=== PATIENT | male | born 1960 | race Caucasian/White ===

== ENCOUNTER → 2017-10-11 11:37 | Outpatient (REF) | payer SELFPAY ==
[2017-10-11 18:36] LABS: Basophils % 0.7 % (0.1-2.0); Eosinophils # 0.1 K/mm3 (0.0-0.4); Eosinophils % 1.8 % (0.1-12.0); Hematocrit 47.3 % (42.0-52.0); Lymphocytes # 1.5 K/mm3 (0.7-4.5); Lymphocytes % 30.9 K/mm3 (10-50); Mean Corpuscular HGB Conc 33.7 g/dL (31.8-35.4); Mean Corpuscular Hemoglobin 31.7 pg (27.0-31.2); Mean Corpuscular Volume 93.8 fl (80-94); Mean Platelet Volume 9.1 fl (7.4-10.4); Monocytes # 0.3 K/mm3 (0.1-1.0); Monocytes % 6.2 % (1.7-9.3); Neutrophils # 2.9 K/mm3 (1.8-7.8); Neutrophils % 60.5 % (37.0-80.0); Platelet Count 180 K/mm3 (142-424); Red Blood Count 5.04 M/mm3 (4.60-6.20); Red Cell Distribution Width 12.1 % (11.5-17.5); White Blood Count 4.8 K/mm3 (4.8-10.8)
[2017-10-11 18:55] LABS: Alanine Aminotransferase 25 U/L (12-78); Albumin Level 4.3 gm/dL (3.4-5.0); Albumin/Globulin Ratio 1.5 (1.1-1.8); Alkaline Phosphatase 84 U/L (46-116); Anion Gap 14.3 mEq/L (5-15); Aspartate Amino Transferase 19 U/L (15-37); Bilirubin,Total 0.6 mg/dL (0.2-1.0); Blood Urea Nitrogen 15 mg/dL (7-18); Calcium 9.2 mg/dL (8.5-10.1); Carbon Dioxide 26 mmol/L (21.0-32.0); Chloride 106 mmol/L (98-107); Chol/HDL Ratio 4.7 (1-3.5); Cholesterol 178 mg/dL (140-200); Creatinine,Serum 0.84 mg/dL (0.70-1.30); Estimated Glomerular Filt Rate 95 ml/min (>60); GFR (African American) 114 ML/MIN (>60); Globulin 2.8 gm/dl (1.3-3.2); Glucose 193 mg/dL (74-106); HDL Cholesterol 38 mg/dL (27-67); LDL Cholesterol 108 mg/dL (0-130); Potassium 4.3 mmoL/L (3.5-5.1); Sodium 142 mmol/L (136-145); T4 (Thyroxine) 7.3 ug/dl (4.7-13.3); Total Protein,Serum 7.1 gm/dL (6.4-8.2); Triglycerides 161 mg/dL (30-200); VLDL Cholesterol 32 mg/dL (0-40)
[2017-10-13 18:40] LABS: Folate 19.6 ng/mL (>3.0); Vitamin B12 489 pg/mL (232-1245)
[2017-10-15 06:09] LABS: PSA, Free 0.22 ng/mL; Prostate Specific Ag 0.9 ng/mL (0.0-4.0)
[2017-10-16 14:29] LABS: Testosterone,Free 4.2 pg/mL (7.2-24.0)
[2017-10-18 21:09] LABS: Testosterone, Total, LC/MS 434.6 ng/dL (264.0-916.0)
== END ==
LOC: LAB 11:37
PROVIDERS: Visit Provider Physician Assistant
DX: F32.9 Major depressive disorder, single episode, unspecified (principal)
CPT/HCPCS: 80053; 80061; 82607; 82652; 82746; 84153; 84154; 84402; 84436; 84443; 85025

== ENCOUNTER → 2017-10-25 09:27 | Outpatient (REF) | payer SELFPAY ==
[2017-10-27 18:33] LABS: Testosterone,Free 5.8 pg/mL (7.2-24.0)
[2017-10-29 13:26] LABS: Testosterone, Total, LC/MS 675.1 ng/dL (264.0-916.0)
== END ==
LOC: LAB 09:27
PROVIDERS: Visit Provider Physician Assistant
DX: E29.1 Testicular hypofunction (principal)
CPT/HCPCS: 84402

== ENCOUNTER → 2018-02-12 09:52 | Outpatient (REF) | payer SELFPAY ==
[2018-02-12 13:25] LABS: Basophils % 0.3 % (0.1-2.0); Eosinophils # 0.1 K/mm3 (0.0-0.4); Eosinophils % 1.5 % (0.1-12.0); Hematocrit 49.2 % (42.0-52.0); Hemoglobin 16.5 g/dL (14.1-18.0); Lymphocytes # 1.9 K/mm3 (0.7-4.5); Lymphocytes % 29.3 K/mm3 (10-50); Mean Corpuscular HGB Conc 33.6 g/dL (31.8-35.4); Mean Corpuscular Hemoglobin 29.8 pg (27.0-31.2); Mean Corpuscular Volume 88.8 fl (80-94); Monocytes # 0.4 K/mm3 (0.1-1.0); Monocytes % 6.2 % (1.7-9.3); Neutrophils # 4.1 K/mm3 (1.8-7.8); Neutrophils % 62.6 % (37.0-80.0); Platelet Count 180 K/mm3 (142-424); Red Blood Count 5.54 M/mm3 (4.60-6.20); Red Cell Distribution Width 12.4 % (11.5-17.5); White Blood Count 6.5 K/mm3 (4.8-10.8)
[2018-02-12 14:35] LABS: Alanine Aminotransferase 32 U/L (12-78); Albumin Level 4.4 gm/dL (3.4-5.0); Albumin/Globulin Ratio 1.5 (1.1-1.8); Alkaline Phosphatase 88 U/L (46-116); Anion Gap 12.5 mEq/L (5-15); Aspartate Amino Transferase 16 U/L (15-37); Bilirubin,Total 0.6 mg/dL (0.2-1.0); Blood Urea Nitrogen 17 mg/dL (7-18); Calcium 8.6 mg/dL (8.5-10.1); Carbon Dioxide 27 mmol/L (21.0-32.0); Chloride 105 mmol/L (98-107); Chol/HDL Ratio 3.6 (1-3.5); Cholesterol 144 mg/dL (140-200); Estimated Glomerular Filt Rate 100 ml/min (>60); GFR (African American) 121 ML/MIN (>60); Globulin 2.9 gm/dl (1.3-3.2); Glucose 205 mg/dL (74-106); HDL Cholesterol 40 mg/dL (27-67); LDL Cholesterol 69 mg/dL (0-130); Potassium 4.5 mmoL/L (3.5-5.1); Sodium 140 mmol/L (136-145); T4 (Thyroxine) 7.1 ug/dl (4.7-13.3); Thyroid Stimulating Hormone 1.55 uIU/ml (0.358-3.740); Total Protein,Serum 7.3 gm/dL (6.4-8.2); Triglycerides 174 mg/dL (30-200); VLDL Cholesterol 35 mg/dL (0-40)
[2018-02-15 18:27] LABS: Folate >20.0 ng/mL (>3.0); PSA, Free 0.09 ng/mL; Prostate Specific Ag 0.4 ng/mL (0.0-4.0); Vitamin B12 688 pg/mL (232-1245); Vitamin D 25 Hydroxy 41.4 ng/mL (30.0-100.0)
[2018-02-16 18:40] LABS: Testosterone, Total, LC/MS 576.1 ng/dL (264.0-916.0)
== END ==
LOC: LAB 09:52
PROVIDERS: Visit Provider Physician Assistant
DX: E34.9 Endocrine disorder, unspecified (principal); E11.9 Type 2 diabetes mellitus without complications; E55.9 Vitamin D deficiency, unspecified; G62.9 Polyneuropathy, unspecified
CPT/HCPCS: 80053; 80061; 82607; 82652; 82746; 84153; 84154; 84403; 84436; 84443; 85025

== ENCOUNTER → 2018-10-25 13:24 | Outpatient (CLI) | payer SELFPAY ==
[2018-10-25 13:34] LABS: Basophils % 0.5 % (0.1-2.0); Eosinophils # 0.1 K/mm3 (0.0-0.4); Eosinophils % 1.8 % (0.1-12.0); Hematocrit 47.3 % (42.0-52.0); Hemoglobin 14.4 g/dL (14.1-18.0); Lymphocytes # 1.7 K/mm3 (0.7-4.5); Lymphocytes % 35.1 % (10-50); Mean Corpuscular HGB Conc 30.4 g/dL (31.8-35.4); Mean Corpuscular Hemoglobin 28.1 pg (27.0-31.2); Mean Corpuscular Volume 92.6 fl (80-94); Mean Platelet Volume 8.8 fl (7.4-10.4); Monocytes # 0.4 K/mm3 (0.1-1.0); Monocytes % 7.7 % (1.7-9.3); Neutrophils # 2.6 K/mm3 (1.8-7.8); Neutrophils % 54.8 % (37.0-80.0); Platelet Count 187 K/mm3 (142-424); Red Blood Count 5.11 M/mm3 (4.60-6.20); Red Cell Distribution Width 13.2 % (11.5-17.5); White Blood Count 4.8 K/mm3 (4.8-10.8)
[2018-10-25 13:52] LABS: Hemoglobin A1C 8.7 % (0.0-7.0)
[2018-10-25 14:13] LABS: Alanine Aminotransferase 36 U/L (12-78); Albumin Level 4.2 gm/dL (3.4-5.0); Albumin/Globulin Ratio 1.4 (1.1-1.8); Alkaline Phosphatase 98 U/L (46-116); Anion Gap 14.6 mEq/L (5-15); Aspartate Amino Transferase 20 U/L (15-37); Bilirubin,Total 0.6 mg/dL (0.2-1.0); Blood Urea Nitrogen 22 mg/dL (7-18); Calcium 8.9 mg/dL (8.5-10.1); Carbon Dioxide 29 mmol/L (21.0-32.0); Chloride 104 mmol/L (98-107); Chol/HDL Ratio 3.5 (1-3.5); Cholesterol 133 mg/dL (140-200); Creatinine,Serum 0.82 mg/dL (0.70-1.30); Estimated Glomerular Filt Rate 97 ml/min (>60); Free T4 (Free Thyroxine) 0.98 ng/dl (0.76-1.46); GFR (African American) 117 ML/MIN (>60); Globulin 2.9 gm/dl (1.3-3.2); Glucose 242 mg/dL (74-106); HDL Cholesterol 38 mg/dL (27-67); LDL Cholesterol 76 mg/dL (0-130); Potassium 4.6 mmoL/L (3.5-5.1); Sodium 143 mmol/L (136-145); Thyroid Stimulating Hormone 1.36 uIU/ml (0.358-3.740); Total Protein,Serum 7.1 gm/dL (6.4-8.2); Triglycerides 95 mg/dL (30-200); VLDL Cholesterol 19 mg/dL (0-40)
== END ==
PROVIDERS: Visit Provider Nurse Practitioner Family
DX: E34.9 Endocrine disorder, unspecified (principal); E55.9 Vitamin D deficiency, unspecified; E11.9 Type 2 diabetes mellitus without complications; R53.83 Other fatigue; R68.89 Other general symptoms and signs; D72.829 Elevated white blood cell count, unspecified
CPT/HCPCS: 80053; 80061; 83036; 84439; 84443; 85025

== ENCOUNTER → 2019-02-25 09:52 | Outpatient (CLI) | payer SELFPAY ==
[2019-02-25 10:23] LABS: Basophils % 0.7 % (0.1-2.0); Eosinophils # 0.1 K/mm3 (0.0-0.4); Eosinophils % 2.2 % (0.1-12.0); Hematocrit 46.9 % (42.0-52.0); Hemoglobin 15.1 g/dL (14.1-18.0); Lymphocytes # 2.3 K/mm3 (0.7-4.5); Lymphocytes % 38.9 % (10-50); Mean Corpuscular HGB Conc 32.1 g/dL (31.8-35.4); Mean Corpuscular Hemoglobin 29.4 pg (27.0-31.2); Mean Corpuscular Volume 91.5 fl (80-94); Mean Platelet Volume 8.9 fl (7.4-10.4); Monocytes # 0.4 K/mm3 (0.1-1.0); Monocytes % 6.1 % (1.7-9.3); Neutrophils # 3.1 K/mm3 (1.8-7.8); Neutrophils % 52.1 % (37.0-80.0); Platelet Count 156 K/mm3 (142-424); Red Blood Count 5.13 M/mm3 (4.60-6.20); Red Cell Distribution Width 13.5 % (11.5-17.5)
[2019-02-25 10:59] LABS: Alanine Aminotransferase 34 U/L (12-78); Albumin/Globulin Ratio 1.4 (1.1-1.8); Alkaline Phosphatase 85 U/L (46-116); Aspartate Amino Transferase 22 U/L (15-37); Bilirubin,Total 0.5 mg/dL (0.2-1.0); Blood Urea Nitrogen 18 mg/dL (7-18); Calcium 8.9 mg/dL (8.5-10.1); Carbon Dioxide 31 mmol/L (21.0-32.0); Chloride 102 mmol/L (98-107); Chol/HDL Ratio 3.3 (1-3.5); Cholesterol 145 mg/dL (140-200); Creatinine,Serum 0.79 mg/dL (0.70-1.30); Estimated Glomerular Filt Rate 101 ml/min (>60); GFR (African American) 122 ML/MIN (>60); Globulin 2.8 gm/dl (1.3-3.2); Glucose 234 mg/dL (74-106); HDL Cholesterol 44 mg/dL (27-67); LDL Cholesterol 74 mg/dL (0-130); Sodium 140 mmol/L (136-145); T4 (Thyroxine) 6.8 ug/dl (4.7-13.3); Thyroid Stimulating Hormone 1.66 uIU/ml (0.358-3.740); Total Protein,Serum 6.8 gm/dL (6.4-8.2); Triglycerides 134 mg/dL (30-200); VLDL Cholesterol 27 mg/dL (0-40)
[2019-02-25 11:29] LABS: Hemoglobin A1C 9.5 % (0.0-7.0)
[2019-02-26 16:46] LABS: Vitamin D 25 Hydroxy 24.2 ng/mL (30.0-100.0)
[2019-02-26 16:47] LABS: Microalbumin, Urine <3.0 ug/mL (Not Estab.)
== END ==
PROVIDERS: Visit Provider Nurse Practitioner Family
DX: E11.9 Type 2 diabetes mellitus without complications (principal); E55.9 Vitamin D deficiency, unspecified; R53.83 Other fatigue; Z79.84 Long term (current) use of oral hypoglycemic drugs
CPT/HCPCS: 36415; 80053; 80061; 82043; 82652; 83036; 84436; 84443; 85025

== ENCOUNTER 2022-12-30 13:15 | Inpatient (IN) | payer MEDICARE, SELFPAY ==
[2022-12-30 13:20] VITALS: BP 115/58; PULSE 85; RESP 18; TEMP 36.7; O2SAT 97; BMI 24.4
--- NOTE | 2022-12-30 13:26 | XR_ITS ---
PROCEDURE INFORMATION: Exam: XR Left Hand Exam date and time: 12/30/2022 1:28 PM Age: 62 years old Clinical indication: Swelling and other: Infection; Hand; Left; Additional info: Infection; Eval for sq gas TECHNIQUE: Imaging protocol: Radiologic exam of the left hand. Views: 3 or more views. COMPARISON: No relevant prior studies available. FINDINGS: Bones/joints: No acute fracture or dislocation. No lytic lesions or periosteal reaction to suggest osteomyelitis. Mild degenerative arthritic changes in the hand and wrist, with joint narrowing and some periarticular spurs in the joints of the thumb, at the base of 2nd metacarpal. Soft tissues: Prominent soft tissue swelling in the hand. No soft tissue emphysema.No radiopaque foreign bodies seen. IMPRESSION: 1. Soft tissue swelling in the hand consistent with the clinical history of infection/cellulitis. No soft tissue emphysema. No radiopaque foreign body seen in the soft tissues. 2. 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 No findings of osteomyelitis.
--- NOTE | 2022-12-30 13:31 | PC.NURSE ---
portable xray at bedside.
--- NOTE | 2022-12-30 13:38 | HMH.EDGENADL ---
Discharge Plan Disposition Patient Disposition: Admitted Prescriptions Prescriptions: No Action cetirizine [All Day Allergy (cetirizine)] 10 mg tablet 10 mg PO DAILY meloxicam 15 mg tablet 15 mg PO DAILY lisinopril 20 mg tablet 20 mg PO DAILY sertraline 100 mg tablet 100 mg PO DAILY simvastatin 10 mg tablet 10 mg PO HS sulfamethoxazole-trimethoprim [Bactrim DS] 800-160 mg tablet 1 tab PO BID cephalexin 500 mg capsule 500 mg PO QID fluticasone propionate [Flonase Allergy Relief] 50 mcg/actuation spray,suspension 1 spray intranasal DAILY Rx Instructions: administer into each nostril (DME) pen needle, diabetic [Comfort EZ Pen [place]] 32 gauge x 5/16 needle See Rx Instructions .ROUTE Rx Instructions: As directed Referrals Follow up/Referrals: Nathalia Melgar PA [Primary Care Provider] - See instructions Clinical Impressions Clinical Impression: Cellulitis and abscess of hand, Failure of outpatient treatment Instructions Patient Instructions: DI for Skin Abscess Discharge ED Provider: Philip Schmidt General Adult HPI General Chief complaint: Skin/Abscess/Foreign Body Stated complaint: left hand swelling, skin breakage, no accident Time Seen by Provider: 12/30/22 13:17 Mode of Arrival: Ambulatory Source of Information: Patient Limitations: No Limitations Description of Symptoms (Recalled from ER Triage Doc. by RN): pt states he thinks he got bit by some type of insect possibly a spider on Sunday, stated he went to see his PCP and was put on 2 prescriptions keflex and bactrium, L hand is red, swollen, and warm to touch and extends up his L wrist and lower part of his arm, open wound noted above ring finger and pinky, denies any fever History of Present Illness HPI narrative: Patient is a 62-year-old male here with hand pain and swelling on the dorsal aspect of the left hand has been ongoing since Sunday. States that he began to have a small wound on the dorsal aspect of his left hand that subsequently has been draining purulence with increasing redness swelling and tenderness on the dorsal aspect of the hand extending up to upper arm. No fevers or chills he is a diabetic. He has been on Bactrim and Keflex for several days without any significant improvement. Related Data Home Medications Medication Instructions Recorded Confirmed cephalexin 500 mg capsule 500 mg PO QID Infection 12/30/22 12/30/22 cetirizine 10 mg tablet (All Day 10 mg PO DAILY Allergy Symptoms 12/30/22 12/30/22 Allergy (cetirizine)) fluticasone propionate 50 1 spray intranasal DAILY Allergy 12/30/22 12/30/22 mcg/actuation nasal Symptoms spray,suspension (Flonase Allergy Relief) lisinopril 20 mg tablet 20 mg PO DAILY High Blood Pressure 12/30/22 12/30/22 meloxicam 15 mg tablet 15 mg PO DAILY Pain 12/30/22 12/30/22 pen needle, diabetic 32 gauge x 12/30/22 12/30/2210/10 (Comfort EZ Pen [place]) sertraline 100 mg tablet 100 mg PO DAILY Mood 12/30/22 12/30/22 simvastatin 10 mg tablet 10 mg PO HS Cholesterol 12/30/22 12/30/22 sulfamethoxazole 800 1 tab PO BID Infection 12/30/22 12/30/22 mg-trimethoprim 160 mg tablet (Bactrim DS) Allergies Allergy/AdvReac Type Severity Reaction Status Date / Time amoxicillin [AMOXICILLIN] Allergy Unknown Verified 12/30/22 13:58 clavulanic acid Allergy Verified 12/30/22 13:58 [From Augmentin] [facility] Disclaimer: The information contained in this section may have been updated after the patient was seen, as this information can be updated by other users. Medical History Alcohol abuse Depression Diabetes Neuropathy Vitamin D deficiency (~10/15/17) Social History Smoking Status: Never smoker alcohol intake: never counseling provided: none substance use type: denies use current oc
--- NOTE | 2022-12-30 13:56 | HMH.PHAINT1 ---
Pharmacy Intervention Comments: MEDICATION RECONCILIATION COMPLETED ON PATIENT USING EXTERNAL FILL HISTORY FROM PHARMACY. -[facility], [facility]
[2022-12-30 13:58] LABS: Chloride 101 mmol/L (98-107); Potassium 4.4 mmoL/L (3.5-5.1); Sodium 135 mmol/L (136-145)
[2022-12-30 14:00] LABS: Alanine Aminotransferase 21 U/L (12-78); Aspartate Amino Transferase 22 U/L (17-59); Blood Urea Nitrogen 23 mg/dl (9-20); Creatinine Clearance Estimated 87 mL/min (50-200); Estimated Glomerular Filt Rate 86 ml/min (>60); GFR (African American) 104 ML/MIN (>60)
[2022-12-30 14:01] LABS: Albumin Level 4.1 g/dl (3.5-5.0); Albumin/Globulin Ratio 1.4 (1.1-1.8); Alkaline Phosphatase 121 U/L (38-126); Anion Gap 11.4 mEq/L (5-15); Calcium 9.3 mg/dl (8.4-10.2); Carbon Dioxide 27 mmol/L (22.0-30.0); Globulin 2.9 g/dL (1.3-3.2); Glucose 379 mg/dl (74-100); Lactic Acid 1.3 mmol/L (0.7-2.1)
[2022-12-30 14:05] LABS: Basophils % 0.2 % (0.1-2.0); Eosinophils # 0.2 K/mm3 (0.0-0.4); Eosinophils % 2.1 % (0.1-12.0); Hematocrit 41.7 % (42.0-52.0); Hemoglobin 13.5 g/dL (14.1-18.0); Lymphocytes # 0.9 K/mm3 (0.7-4.5); Lymphocytes % 7.9 % (10-50); Mean Corpuscular HGB Conc 32.3 g/dL (31.8-35.4); Mean Corpuscular Hemoglobin 29.2 pg (27.0-31.2); Mean Corpuscular Volume 90.4 fl (80-94); Mean Platelet Volume 9.2 fl (7.4-10.4); Monocytes # 0.6 K/mm3 (0.1-1.0); Monocytes % 5.4 % (1.7-9.3); Neutrophils # 9.2 K/mm3 (1.8-7.8); Neutrophils % 84.2 % (37.0-80.0); Platelet Count 175 K/mm3 (142-424); Red Blood Count 4.61 M/mm3 (4.60-6.20); Red Cell Distribution Width 13.1 % (11.5-17.5); White Blood Count 10.9 K/mm3 (4.8-10.8)
--- NOTE | 2022-12-30 14:06 | EXP.PHA.CONS ---
Pharmacy Consult Date: 12/30/22 Time: 14:06 Referring provider: DR MASON Reason for Consult:: VANCOMYCIN DOSING CONSULT Allergies Allergy/AdvReac Type Severity Reaction Status Date / Time amoxicillin [AMOXICILLIN] Allergy Unknown Verified 12/30/22 13:58 clavulanic acid Allergy Verified 12/30/22 13:58 [From Augmentin] Home Medications Medication Instructions Recorded Confirmed Type cephalexin 500 mg capsule 500 mg PO QID Infection 12/30/22 12/30/22 History cetirizine 10 mg tablet (All Day 10 mg PO DAILY Allergy Symptoms 12/30/22 12/30/22 History Allergy (cetirizine)) fluticasone propionate 50 1 spray intranasal DAILY Allergy 12/30/22 12/30/22 History mcg/actuation nasal Symptoms spray,suspension (Flonase Allergy Relief) lisinopril 20 mg tablet 20 mg PO DAILY High Blood Pressure 12/30/22 12/30/22 History meloxicam 15 mg tablet 15 mg PO DAILY Pain 12/30/22 12/30/22 History pen needle, diabetic 32 gauge x 12/30/22 12/30/22 History 5/16 (Comfort EZ Pen [place]) sertraline 100 mg tablet 100 mg PO DAILY Mood 12/30/22 12/30/22 History simvastatin 10 mg tablet 10 mg PO HS Cholesterol 12/30/22 12/30/22 History sulfamethoxazole 800 1 tab PO BID Infection 12/30/22 12/30/22 History mg-trimethoprim 160 mg tablet (Bactrim DS) New Prescriptions to Start Prescriptions: Height: 1.8 m Weight: 79.379 kg Laboratory Results:: Laboratory Results - last 24 hr 12/30/22 13:40: Sodium 135 L, Potassium 4.4, Chloride 101, Carbon Dioxide 27, Anion Gap 11.4, BUN 23 H, Creatinine 0.90, Estimated Creat Clear 87, Estimated GFR 86, Est GFR ( Amer) 104, Glucose 379 H, Lactate 1.3, Calcium 9.3, Total Bilirubin 1.0, AST 22, ALT 21, Alkaline Phosphatase 121, Total Protein 7.0, Albumin 4.1, Globulin 2.9, Albumin/Globulin Ratio 1.4 Medical History: Medical History (Updated 03/10/19 @ 11:13 by HIRAM Blair) Alcohol abuse Depression Diabetes Neuropathy Vitamin D deficiency (~10/15/17) Assessment and Plan Assessment and plan all Dx Assessment and Plan for all problems:: Pharmacokinetic dosing service Objective: Age: 62 yo Serum creatinine: 0.9 mg/dL Height: 71.0 Inches Weight (kg): 79.379 Diagnosis: INSECT BITE/CELLULITIS/ABSCESS Assessment: IBW (kg): 75.30 Dosing wt(kg): 79.379 Estimated Creatinine clearance (ml/min): 91.8 CRCL method: Cockcroft and Gault using ibw(default). Drug selected: Vancomycin Vd (liters): 55.6 (factor used: 0.7 L/kg) Kt (hr-1): 0.081 Half life (hrs): 8.56 CLvanco=?? 4.504 L/hr Recommended dose: 1250 mg Interval: 12 hrs Infusion time (hrs): 2.0 Predicted peak (mcg/mL): 33.4 Predicted trough (mcg/mL): 14.86 Total body weight is being used for vancomycin dosing. Recommendations: Give Vancomycin 1250 mg q 12 hrs with an expected Cpeak of 33.4 mcg/ml and an expected Ctrough of 14.86 mcg/ml AUC 0-24 /KELI Data: KELI 0.5 mcg/mL:?? AUC/KELI:? 1110.1 KELI 1.0 mcg/mL:?? AUC/KELI:? 555.1 --------- KELI 1.5 mcg/mL:?? AUC/KELI:? 370.0 KELI 2.0 mcg/mL:?? AUC/KELI:? 277.5 Thank you for the consult
[2022-12-30 14:07] LABS: C-Reactive Protein 197.7 mg/L (0-4)
--- NOTE | 2022-12-30 14:15 | PC.NURSE ---
DR MASON IS SPEAKING WITH HOSPITALIST.
--- NOTE | 2022-12-30 14:27 | PC.NURSE ---
HOUSE AWARE OF ADMISSION.
--- NOTE | 2022-12-30 14:34 | EXP.HP ---
History of Present Illness *Admission Date: 12/30/22 *Reason for visit:: pain and swelling of the left hand *History of present illness: Mr. Patel is a 62 year old male with a past medical history of type 2 dm and hld who presents with gradually worsening pain and swelling of the left hand x 5 days. He states that he first noticed a boil at the dorsum of his left hand and denies any trauma to the area. He doesn't recall being bitten by a bug. He states that 4 days ago his niece who is a nurse drained purulent material from the area by puncturing it with a sterile needle. He saw his PCP 2 days ago because of worsening pain, swelling and purulent drainage and was given a tetanus vaccine and started on keflex and bactrim. Despite taking 2 days of these antibiotics swelling and pain have only worsened. He has also had subjective fevers. Prior to this episode he has no history of cellulitis. Initial workup reveals cbc with 10.9k wbcs, crp 197 and an xr of the hand reveals soft tissue swelling with no emphysema, foreign body or findings of osteomyelitis. [facility] Disclaimer: The information contained in this section may have been updated after the patient was seen, as this information can be updated by other users. Medical History Alcohol abuse Depression Diabetes Neuropathy Vitamin D deficiency (~10/15/17) Social History Smoking Status: Never smoker alcohol intake: never counseling provided: none substance use type: denies use current occupational status: unemployed Travel in the last 8 weeks: None caffeine: Yes Review of Systems Review of Systems Review of systems:: pertinent systems reviewed and negative unless documented below Constitutional Constitutional: Reports fever(s) (subjective) *Musculoskeletal Comments: pain and swelling of the left hand Meds Home Medications and Allergies Home Medications Medication Instructions Recorded Confirmed Type cephalexin 500 mg capsule 500 mg PO QID Infection 12/30/22 12/30/22 History cetirizine 10 mg tablet (All Day 10 mg PO DAILY Allergy Symptoms 12/30/22 12/30/22 History Allergy (cetirizine)) fluticasone propionate 50 1 spray intranasal DAILY Allergy 12/30/22 12/30/22 History mcg/actuation nasal Symptoms spray,suspension (Flonase Allergy Relief) liraglutide 0.6 mg/0.1 mL (18 mg/3 1.8 mg SQ DAILY diabetes 12/30/22 12/30/22 History mL) subcutaneous pen injector (Victoza 2-Jose) lisinopril 20 mg tablet 20 mg PO DAILY High Blood Pressure 12/30/22 12/30/22 History meloxicam 15 mg tablet 15 mg PO DAILY Pain 12/30/22 12/30/22 History pen needle, diabetic 32 gauge x 12/30/22 12/30/22 History 5/16 (Comfort EZ Pen [place]ia) sertraline 100 mg tablet 100 mg PO DAILY Mood 12/30/22 12/30/22 History simvastatin 10 mg tablet 10 mg PO HS Cholesterol 12/30/22 12/30/22 History sulfamethoxazole 800 1 tab PO BID Infection 12/30/22 12/30/22 History mg-trimethoprim 160 mg tablet (Bactrim DS) New Prescriptions to Start Prescriptions: Allergies Allergy/AdvReac Type Severity Reaction Status Date / Time amoxicillin [AMOXICILLIN] Allergy Unknown Verified 12/30/22 13:58 clavulanic acid Allergy Verified 12/30/22 13:58 [From Augmentin] Exam Data for Last 24 hours Vital signs and Labs for Last 24 Hours: Temp Pulse Resp BP Pulse Ox O2 Del Method 98.0 F 85 18 115/58 L 97 Room Air 12/30/22 13:20 12/30/22 13:20 12/30/22 13:20 12/30/22 13:20 12/30/22 13:20 12/30/22 13:20 Laboratory Results - last 24 hr 12/30/22 13:40: WBC 10.9 H, RBC 4.61, Hgb 13.5 L, Hct 41.7 L, MCV 90.4, MCH 29.2, MCHC 32.3, RDW 13.1, Plt Count 175, MPV 9.2, Neut % (Auto) 84.2 H, Lymph % (Auto) 7.9 L, [place] % (Auto) 5.4, Eos % (Auto) 2.1, Baso % (Auto) 0.2, Neut # (Auto) 9.2 H, Lymph # (Auto) 0.9, [place] # (Auto) 0.6, Eos # (Auto) 0.2, Baso # (Auto) 0.0, Sod
--- NOTE | 2022-12-30 14:37 | PC.NURSE ---
CALLED REPORT TO JAKE SEPULVEDA
[2022-12-30 14:40] VITALS: BP 116/67; PULSE 74; RESP 18; TEMP 36.8; O2SAT 99
--- NOTE | 2022-12-30 14:58 | PC.NURSE ---
arrived by w/c from ED
[2022-12-30 15:06] VITALS: BP 116/67; PULSE 74; RESP 18; TEMP 36.7; O2SAT 98; BMI 23.7
[2022-12-30 16:35] LABS: POC Glucose,Bedside 349 (70-110)
--- NOTE | 2022-12-30 18:59 | PC.NURSE ---
Patient admitted from emergency department. Patient receiving antibiotics no complaints at this time
[2022-12-30 20:00] VITALS: BP 104/52; PULSE 68; RESP 17; TEMP 36.7; O2SAT 98
[2022-12-30 20:01] LABS: POC Glucose,Bedside 344 (70-110)
[2022-12-31] VITALS: BP 111/68; PULSE 63; RESP 16; TEMP 36.8; O2SAT 97
--- NOTE | 2022-12-31 03:41 | PC.NURSE ---
NO ACUTE CHANGES THIS SIFT. PT HAS NOT SLEPT TONIGHT. NO C/O PAIN OR DISCOMFORT. VSS.
[2022-12-31 04:00] VITALS: BP 112/61; PULSE 63; RESP 16; TEMP 36.8; O2SAT 97; BMI 24.0
[2022-12-31 05:44] LABS: POC Glucose,Bedside 239 (70-110)
[2022-12-31 07:59] LABS: Basophils % 0.1 % (0.1-2.0); Eosinophils # 0.3 K/mm3 (0.0-0.4); Eosinophils % 4.3 % (0.1-12.0); Hematocrit 37.4 % (42.0-52.0); Lymphocytes # 0.9 K/mm3 (0.7-4.5); Lymphocytes % 13.3 % (10-50); Mean Corpuscular HGB Conc 32.1 g/dL (31.8-35.4); Mean Corpuscular Hemoglobin 29.2 pg (27.0-31.2); Mean Corpuscular Volume 90.7 fl (80-94); Mean Platelet Volume 9.3 fl (7.4-10.4); Monocytes # 0.4 K/mm3 (0.1-1.0); Monocytes % 5.8 % (1.7-9.3); Neutrophils # 5.3 K/mm3 (1.8-7.8); Neutrophils % 76.4 % (37.0-80.0); Platelet Count 172 K/mm3 (142-424); Red Blood Count 4.12 M/mm3 (4.60-6.20); Red Cell Distribution Width 13.1 % (11.5-17.5)
[2022-12-31 08:00] VITALS: BP 111/49; PULSE 68; RESP 18; TEMP 36.8; O2SAT 99
[2022-12-31 08:09] LABS: Anion Gap 13.4 mEq/L (5-15); Blood Urea Nitrogen 19 mg/dl (9-20); Calcium 8.2 mg/dl (8.4-10.2); Carbon Dioxide 21 mmol/L (22.0-30.0); Chloride 107 mmol/L (98-107); Creatinine Clearance Estimated 86 mL/min (50-200); Estimated Glomerular Filt Rate 98 ml/min (>60); GFR (African American) 119 ML/MIN (>60); Glucose 226 mg/dl (74-100); Potassium 4.4 mmoL/L (3.5-5.1); Sodium 137 mmol/L (136-145)
[2022-12-31 08:49] LABS: Hemoglobin 12.1 g/dL (14.1-18.0)
[2022-12-31 11:59] LABS: POC Glucose,Bedside 354 (70-110)
--- NOTE | 2022-12-31 12:07 | EXP.PN ---
Subjective *Date: 12/31/22 *Time: 12:07 Interval history: No acute events overnight. Swelling and pain has decreased He continues to have purulent drainage No numbness/tingling Exam Data for Last 24 hours Vital signs and Labs for Last 24 Hours: Temp Pulse Resp BP Pulse Ox O2 Del Method 98.2 F 68 18 111/49 L 99 Room Air 12/31/22 08:00 12/31/22 08:00 12/31/22 08:00 12/31/22 08:00 12/31/22 08:00 12/31/22 08:00 Laboratory Results - last 24 hr 12/30/22 13:40: WBC 10.9 H, RBC 4.61, Hgb 13.5 L, Hct 41.7 L, MCV 90.4, MCH 29.2, MCHC 32.3, RDW 13.1, Plt Count 175, MPV 9.2, Neut % (Auto) 84.2 H, Lymph % (Auto) 7.9 L, [place] % (Auto) 5.4, Eos % (Auto) 2.1, Baso % (Auto) 0.2, Neut # (Auto) 9.2 H, Lymph # (Auto) 0.9, [place] # (Auto) 0.6, Eos # (Auto) 0.2, Baso # (Auto) 0.0, Sodium 135 L, Potassium 4.4, Chloride 101, Carbon Dioxide 27, Anion Gap 11.4, BUN 23 H, Creatinine 0.90, Estimated Creat Clear 87, Estimated GFR 86, Est GFR ( Amer) 104, Glucose 379 H, Lactate 1.3, Calcium 9.3, Total Bilirubin 1.0, AST 22, ALT 21, Alkaline Phosphatase 121, C-Reactive Protein 197.7 H, Total Protein 7.0, Albumin 4.1, Globulin 2.9, Albumin/Globulin Ratio 1.4 12/30/22 16:24: POC Glucose 349 H* 12/30/22 19:50: POC Glucose 344 H* 12/31/22 05:35: POC Glucose 239 H 12/31/22 06:31: WBC 7.0 D, RBC 4.12 L, Hgb 12.1 L D, Hct 37.4 L, MCV 90.7, MCH 29.2, MCHC 32.1, RDW 13.1, Plt Count 172, MPV 9.3, Neut % (Auto) 76.4, Lymph % (Auto) 13.3, [place] % (Auto) 5.8, Eos % (Auto) 4.3, Baso % (Auto) 0.1, Neut # (Auto) 5.3, Lymph # (Auto) 0.9, [place] # (Auto) 0.4, Eos # (Auto) 0.3, Baso # (Auto) 0.0, Sodium 137, Potassium 4.4, Chloride 107, Carbon Dioxide 21 L, Anion Gap 13.4, BUN 19, Creatinine 0.80, Estimated Creat Clear 86, Estimated GFR 98, Est GFR ( Amer) 119, Glucose 226 H D, Calcium 8.2 L 12/31/22 11:20: POC Glucose 354 H* I & O for Last 24 hours: Intake & Output 12/28/22 12/29/22 12/30/22 12/31/22 23:59 23:59 23:59 23:59 Intake Total 290 / 630 610 / 610 Output Total 200 / 600 500 / 500 Balance 90 / 30 110 / 110 Weight 77.281 kg 77.927 kg Microbiology Reports for the Last 24 Hours: Microbiology 12/30/22 14:00 Hand,Left Gram Stain - Final 12/30/22 14:00 Hand,Left Wound Culture - Preliminary Gram Positive Cocci Constitutional Constitutional: no acute distress *Routine HEENT Exam Head: Present normocephalic Eye: Present EOMI and PERRL ENT: Present mucous membranes moist *Routine Neck Exam Neck: Present supple; Absent lymphadenopathy *Routine Respiratory Exam Respiratory: Present CTA bilaterally *Routine Cardiovascular Exam Cardiovascular: Present RRR *Routine Abdominal Exam Abdominal: Present soft and normoactive bowel sounds; Absent tenderness *Routine Extremities Exam Extremities: Absent cyanosis, clubbing or edema *Routine Skin Exam Skin: Present warm; Absent rash Comments: Swelling and erythema of the dorsum of the left hand sparing the fingers. There is ~3cm superficial ulcer and incisions x 2 with a vessel loop drain. There thin purulent drainage. *Routine Neurological Exam Neurological: Present alert and oriented X3 Assessment and Plan *Assessment and plan (1) Cellulitis and abscess of hand: Status: Acute Category: Medical Code(s): L03.119 - Cellulitis of unspecified part of limb; L02.519 - Cutaneous abscess of unspecified hand (2) Failure of outpatient treatment: Status: Acute Category: Medical Code(s): Z78.9 - Other specified health status (3) Diabetes: Status: Chronic Qualifiers: Diabetes mellitus type: type 2 Diabetes mellitus extermination inspector insulin use: without fci use Diabetes mellitus complication status: with hyperglycemia Qualified Code(s): E11.65 - Type 2 diabetes mellitus with hyperglycemia Category: Medical Code(s): E11.9 - Type 2 diabetes mellitus without complications (4) HLD (hyperli
[2022-12-31 13:00] VITALS: BP 101/54; PULSE 59; RESP 18; TEMP 36.6; O2SAT 97
--- NOTE | 2022-12-31 14:12 | EXP.ORTH.PN ---
Subjective *Date: 12/31/22 *Time: 14:15 Ortho Exam (Inpt) Vital signs and Labs for Last 24 Hours: Temp Pulse Resp BP Pulse Ox O2 Del Method 97.8 F 59 L 18 101/54 L 97 Room Air 12/31/22 13:00 12/31/22 13:00 12/31/22 13:00 12/31/22 13:00 12/31/22 13:00 12/31/22 13:00 Laboratory Results - last 24 hr 12/30/22 13:40: C-Reactive Protein 197.7 H 12/30/22 16:24: POC Glucose 349 H* 12/30/22 19:50: POC Glucose 344 H* 12/31/22 05:35: POC Glucose 239 H 12/31/22 06:31: WBC 7.0 D, RBC 4.12 L, Hgb 12.1 L D, Hct 37.4 L, MCV 90.7, MCH 29.2, MCHC 32.1, RDW 13.1, Plt Count 172, MPV 9.3, Neut % (Auto) 76.4, Lymph % (Auto) 13.3, [place] % (Auto) 5.8, Eos % (Auto) 4.3, Baso % (Auto) 0.1, Neut # (Auto) 5.3, Lymph # (Auto) 0.9, [place] # (Auto) 0.4, Eos # (Auto) 0.3, Baso # (Auto) 0.0, Sodium 137, Potassium 4.4, Chloride 107, Carbon Dioxide 21 L, Anion Gap 13.4, BUN 19, Creatinine 0.80, Estimated Creat Clear 86, Estimated GFR 98, Est GFR ( Amer) 119, Glucose 226 H D, Calcium 8.2 L 12/31/22 11:20: POC Glucose 354 H* I & O for Labs for Last 24 Hours: Intake & Output 12/28/22 12/29/22 12/30/22 12/31/22 23:59 23:59 23:59 23:59 Intake Total 290 / 630 1090 / 1090 Output Total 200 / 600 500 / 500 Balance 90 / 30 590 / 590 Weight 170 lb 6 oz 171 lb 12.8 oz Microbiology Reports for the Last 24 Hours: Microbiology 12/30/22 14:00 Hand,Left Gram Stain - Final 12/30/22 14:00 Hand,Left Wound Culture - Preliminary Gram Positive Cocci Head: Present normocephalic and atraumatic ENT: Present mucous membranes moist Neck: Present trachea midline Respiratory: Present normal respiratory effort; Absent accessory muscle use or respiratory distress Cardiac: Present Reg Rate and Rhythm and radial pulses present GI: Present soft; Absent distention or tenderness Neuro: Present Cranial Nerve 2-12 Intact
--- NOTE | 2022-12-31 14:13 | EXP.ORTH.CON ---
History of Present Illness *Admission Date: 12/30/22 *History of present illness: Mr. Patel is a 62 year old male with a past medical history of type 2 dm and hld who presents with gradually worsening pain and swelling of the left hand x 5 days. He states that he first noticed a boil at the dorsum of his left hand and denies any trauma to the area. He doesn't recall being bitten by a bug. He states that 4 days ago his niece who is a nurse drained purulent material from the area by puncturing it with a sterile needle. He saw his PCP 2 days ago because of worsening pain, swelling and purulent drainage and was given a tetanus vaccine and started on keflex and bactrim. Despite taking 2 days of these antibiotics swelling and pain have only worsened. He has also had subjective fevers. Prior to this episode he has no history of cellulitis. Initial workup reveals cbc with 10.9k wbcs, crp 197 and an xr of the hand reveals soft tissue swelling with no emphysema, foreign body or findings of osteomyelitis. [facility] Disclaimer: The information contained in this section may have been updated after the patient was seen, as this information can be updated by other users. Medical History Alcohol abuse Depression Diabetes Neuropathy Vitamin D deficiency (~10/15/17) Social History Smoking Status: Never smoker alcohol intake: never counseling provided: none substance use type: denies use current occupational status: unemployed Travel in the last 8 weeks: None caffeine: Yes Meds Home Medications and Allergies Home Medications Medication Instructions Recorded Confirmed Type cephalexin 500 mg capsule 500 mg PO QID Infection 12/30/22 12/30/22 History cetirizine 10 mg tablet (All Day 10 mg PO DAILY Allergy Symptoms 12/30/22 12/30/22 History Allergy (cetirizine)) fluticasone propionate 50 1 spray intranasal DAILY Allergy 12/30/22 12/30/22 History mcg/actuation nasal Symptoms spray,suspension (Flonase Allergy Relief) liraglutide 0.6 mg/0.1 mL (18 mg/3 1.8 mg SQ DAILY diabetes 12/30/22 12/30/22 History mL) subcutaneous pen injector (Victoza 2-Jose) lisinopril 20 mg tablet 20 mg PO DAILY High Blood Pressure 12/30/22 12/30/22 History meloxicam 15 mg tablet 15 mg PO DAILY Pain 12/30/22 12/30/22 History pen needle, diabetic 32 gauge x 12/30/22 12/30/22 History 5/ (Comfort EZ Pen [place]) sertraline 100 mg tablet 100 mg PO DAILY Mood 12/30/22 12/30/22 History simvastatin 10 mg tablet 10 mg PO HS Cholesterol 12/30/22 12/30/22 History sulfamethoxazole 800 1 tab PO BID Infection 12/30/22 12/30/22 History mg-trimethoprim 160 mg tablet (Bactrim DS) New Prescriptions to Start Prescriptions: Allergies Allergy/AdvReac Type Severity Reaction Status Date / Time amoxicillin [AMOXICILLIN] Allergy Unknown Verified 12/30/22 13:58 clavulanic acid Allergy Verified 12/30/22 13:58 [From Augmentin] Ortho Exam (Inpt) Vital signs and Labs for Last 24 Hours: Temp Pulse Resp BP Pulse Ox O2 Del Method 97.8 F 59 L 18 101/54 L 97 Room Air 12/31/22 13:00 12/31/22 13:00 12/31/22 13:00 12/31/22 13:00 12/31/22 13:00 12/31/22 13:00 Laboratory Results - last 24 hr 12/30/22 13:40: C-Reactive Protein 197.7 H 12/30/22 16:24: POC Glucose 349 H* 12/30/22 19:50: POC Glucose 344 H* 12/31/22 05:35: POC Glucose 239 H 12/31/22 06:31: WBC 7.0 D, RBC 4.12 L, Hgb 12.1 L D, Hct 37.4 L, MCV 90.7, MCH 29.2, MCHC 32.1, RDW 13.1, Plt Count 172, MPV 9.3, Neut % (Auto) 76.4, Lymph % (Auto) 13.3, [place] % (Auto) 5.8, Eos % (Auto) 4.3, Baso % (Auto) 0.1, Neut # (Auto) 5.3, Lymph # (Auto) 0.9, [place] # (Auto) 0.4, Eos # (Auto) 0.3, Baso # (Auto) 0.0, Sodium 137, Potassium 4.4, Chloride 107, Carbon Dioxide 21 L, Anion Gap 13.4, BUN 19, Creatinine 0.80, Estimated Creat Clear 86, Estimated GFR 98, Est GFR ( Amer) 1
[2022-12-31 15:23] LABS: Hemoglobin A1C 9.4 % (4.0-6.0)
[2022-12-31 16:00] VITALS: BP 97/59; PULSE 54; RESP 18; TEMP 36.6; O2SAT 100
[2022-12-31 17:19] LABS: POC Glucose,Bedside 372 (70-110)
--- NOTE | 2022-12-31 18:16 | PC.NURSE ---
Patient receiving antibiotic therapy. No pain reported.
[2022-12-31 20:00] VITALS: BP 101/47; PULSE 58; RESP 18; TEMP 36.7; O2SAT 96
[2022-12-31 20:17] LABS: POC Glucose,Bedside 263 (70-110)
[2023-01-01 03:05] LABS: Vancomycin,Trough 11.3 ug/mL (5.0-10.0)
[2023-01-01 04:00] VITALS: BP 119/63; PULSE 59; RESP 16; TEMP 36.6; O2SAT 96; BMI 24.0
--- NOTE | 2023-01-01 05:20 | PC.NURSE ---
NO ACUTE CHANGES THIS SHIFT. NO C/O PAIN. WOUND CARE DONE PER ORDER. PT DID NOT C/O PAIN DURING WOUND CARE. PT DID SAY THAT HIS SKIN WAS TENDER IN SPOTS. NO OTHER NEEDS VOICED AT THIS TIME.
[2023-01-01 06:40] LABS: POC Glucose,Bedside 222 (70-110)
[2023-01-01 07:19] LABS: Basophils % 0.3 % (0.1-2.0); Eosinophils # 0.4 K/mm3 (0.0-0.4); Eosinophils % 7.2 % (0.1-12.0); Hematocrit 36.4 % (42.0-52.0); Hemoglobin 11.5 g/dL (14.1-18.0); Lymphocytes # 0.9 K/mm3 (0.7-4.5); Lymphocytes % 16.6 % (10-50); Mean Corpuscular HGB Conc 31.6 g/dL (31.8-35.4); Mean Corpuscular Hemoglobin 28.7 pg (27.0-31.2); Mean Corpuscular Volume 90.8 fl (80-94); Mean Platelet Volume 9.2 fl (7.4-10.4); Monocytes # 0.4 K/mm3 (0.1-1.0); Monocytes % 8.1 % (1.7-9.3); Neutrophils # 3.5 K/mm3 (1.8-7.8); Neutrophils % 67.8 % (37.0-80.0); Platelet Count 184 K/mm3 (142-424); White Blood Count 5.2 K/mm3 (4.8-10.8)
[2023-01-01 07:30] LABS: Anion Gap 12.5 mEq/L (5-15); Blood Urea Nitrogen 24 mg/dl (9-20); Calcium 7.9 mg/dl (8.4-10.2); Carbon Dioxide 22 mmol/L (22.0-30.0); Chloride 110 mmol/L (98-107); Creatinine Clearance Estimated 86 mL/min (50-200); Estimated Glomerular Filt Rate 115 ml/min (>60); GFR (African American) 139 ML/MIN (>60); Glucose 187 mg/dl (74-100); Potassium 4.5 mmoL/L (3.5-5.1); Sodium 140 mmol/L (136-145)
[2023-01-01 08:00] VITALS: BP 121/69; PULSE 64; RESP 22; TEMP 36.3; O2SAT 98
[2023-01-01 08:00] LABS: Vancomycin,Peak 18.9 ug/ml (11-39)
--- NOTE | 2023-01-01 09:25 | PC.NURSE ---
COURTESY TECH NOTE; ROUNDED ON PT 0745, PT DENIED NEED FOR DRINK, ASSISTANCE WITH RESTROOM, AND NEED TO REPOSITION IN BED. CALL LIGHT WITHIN REACH, NO FURTHER REQUESTS AT THIS TIME UTE DUNBAR
[2023-01-01 11:28] LABS: POC Glucose,Bedside 372 (70-110)
[2023-01-01 14:14] VITALS: BMI 24.0
[2023-01-01 16:00] VITALS: BP 132/72; PULSE 60; RESP 20; TEMP 36.6; O2SAT 97
[2023-01-01 16:27] LABS: POC Glucose,Bedside 158 (70-110)
--- NOTE | 2023-01-01 17:15 | PC.NURSE ---
pt alert and oriented. up as nancy around room. ls clear t/o. abdomen soft, nontender, bs active. pt has had hibiclens soaks to left hand this shift. patient awaiting Dr. Turk to round at this time. pt up to chair currently. call light w/i reach.
--- NOTE | 2023-01-01 17:46 | PC.NURSE ---
Dr. Oro to call Dr. Turk at this time. regarding rounding on patient and plan of care.
[2023-01-01 20:00] VITALS: BP 114/48; PULSE 56; RESP 18; TEMP 36.7; O2SAT 95
--- NOTE | 2023-01-01 20:53 | PC.NURSE ---
Warm soak complete with chlorhexidine, flossed the tube
[2023-01-01 21:05] LABS: POC Glucose,Bedside 366 (70-110)
--- NOTE | 2023-01-01 23:29 | EXP.PN ---
Subjective *Date: 01/01/23 *Time: 10:00 Interval history: No acute events overnight. His left hand has less swelling and pain. Exam Data for Last 24 hours Vital signs and Labs for Last 24 Hours: Temp Pulse Resp BP Pulse Ox O2 Del Method 98.1 F 56 L 18 114/48 L 95 Room Air 01/01/23 20:00 01/01/23 20:00 01/01/23 20:00 01/01/23 20:00 01/01/23 20:00 01/01/23 23:00 Laboratory Results - last 24 hr 01/01/23 01:30: Vancomycin Trough 11.3 H 01/01/23 05:32: POC Glucose 222 H 01/01/23 06:45: WBC 5.2 D, RBC 4.00 L, Hgb 11.5 L, Hct 36.4 L, MCV 90.8, MCH 28.7, MCHC 31.6 L, RDW 13.0, Plt Count 184, MPV 9.2, Neut % (Auto) 67.8, Lymph % (Auto) 16.6, [place] % (Auto) 8.1, Eos % (Auto) 7.2, Baso % (Auto) 0.3, Neut # (Auto) 3.5, Lymph # (Auto) 0.9, [place] # (Auto) 0.4, Eos # (Auto) 0.4, Baso # (Auto) 0.0, Sodium 140, Potassium 4.5, Chloride 110 H, Carbon Dioxide 22, Anion Gap 12.5, BUN 24 H D, Creatinine 0.70, Estimated Creat Clear 86, Estimated GFR 115, Est GFR ( Amer) 139, Glucose 187 H, Calcium 7.9 L, Vancomycin Peak 18.9 01/01/23 11:11: POC Glucose 372 H* 01/01/23 16:11: POC Glucose 158 H 01/01/23 20:38: POC Glucose 366 H* I & O for Last 24 hours: Intake & Output 12/29/22 12/30/22 12/31/22 01/01/23 23:59 23:59 23:59 23:59 Intake Total 290 / 630 1330 / 1330 2090 / 2090 Output Total 200 / 600 500 / 500 250 / 250 Balance 90 / 30 830 / 830 1840 / 1840 Weight 77.281 kg 77.927 kg 77.927 kg Microbiology Reports for the Last 24 Hours: Microbiology 12/30/22 13:45 Blood Blood Culture - Preliminary NO GROWTH AFTER 48 HOURS 12/30/22 13:41 Blood Blood Culture - Preliminary NO GROWTH AFTER 48 HOURS Constitutional Constitutional: no acute distress *Routine HEENT Exam Head: Present normocephalic Eye: Present EOMI and PERRL ENT: Present mucous membranes moist *Routine Neck Exam Neck: Present supple; Absent lymphadenopathy *Routine Respiratory Exam Respiratory: Present CTA bilaterally *Routine Cardiovascular Exam Cardiovascular: Present RRR *Routine Abdominal Exam Abdominal: Present soft and normoactive bowel sounds; Absent tenderness *Routine Extremities Exam Extremities: Absent cyanosis, clubbing or edema *Routine Skin Exam Skin: Present warm; Absent rash Comments: Swelling and erythema of the dorsum of the left hand sparing the fingers. There is a ~3cm superficial ulcer and incisions x 2 with a vessel loop drain. *Routine Neurological Exam Neurological: Present alert and oriented X3 Assessment and Plan *Assessment and plan (1) Cellulitis and abscess of hand: Status: Acute Category: Medical Code(s): L03.119 - Cellulitis of unspecified part of limb; L02.519 - Cutaneous abscess of unspecified hand (2) Failure of outpatient treatment: Status: Acute Category: Medical Code(s): Z78.9 - Other specified health status (3) Diabetes: Status: Chronic Qualifiers: Diabetes mellitus type: type 2 Diabetes mellitus fci insulin use: without fci use Diabetes mellitus complication status: with hyperglycemia Qualified Code(s): E11.65 - Type 2 diabetes mellitus with hyperglycemia Category: Medical Code(s): E11.9 - Type 2 diabetes mellitus without complications (4) HLD (hyperlipidemia): Status: Acute Category: Medical Code(s): E78.5 - Hyperlipidemia, unspecified Plan #abscess and cellulitis of the left hand #hyperglycemia #t2dm, uncontrolled #hld Abscess of the left hand was incised and 10mL of purulent fluid was expressed on 12/30. Swelling and erythema of the left hand is coming down. Abscess culture is growing GPC. Wound care per Orthopedic Surgery; soak hand in warm soapy water, floss loop. Continue IV Vancomycin (pharmacy to dose), Cefepime and IV Flagyl. Continue SSI. hgb a1c is 9.5. Anticipate discharge to home tomorrow once abscess culture
[2023-01-02 04:00] VITALS: BP 107/57; PULSE 71; RESP 19; TEMP 36.7; O2SAT 97; BMI 24.5
--- NOTE | 2023-01-02 05:12 | PC.NURSE ---
patient has rested through the night. no issues noted by patient
[2023-01-02 05:15] LABS: POC Glucose,Bedside 205 (70-110)
[2023-01-02 08:00] VITALS: BP 121/73; PULSE 52; RESP 17; TEMP 36.7; O2SAT 98
[2023-01-02 08:01] LABS: Basophils % 0.7 % (0.1-2.0); Eosinophils # 0.4 K/mm3 (0.0-0.4); Eosinophils % 7.1 % (0.1-12.0); Hematocrit 36.2 % (42.0-52.0); Hemoglobin 11.9 g/dL (14.1-18.0); Lymphocytes # 1.1 K/mm3 (0.7-4.5); Lymphocytes % 20.2 % (10-50); Mean Corpuscular HGB Conc 32.8 g/dL (31.8-35.4); Mean Corpuscular Hemoglobin 29.6 pg (27.0-31.2); Mean Corpuscular Volume 90.4 fl (80-94); Mean Platelet Volume 9.7 fl (7.4-10.4); Monocytes # 0.4 K/mm3 (0.1-1.0); Neutrophils # 3.4 K/mm3 (1.8-7.8); Platelet Count 197 K/mm3 (142-424); Red Blood Count 4.01 M/mm3 (4.60-6.20); Red Cell Distribution Width 13.2 % (11.5-17.5); White Blood Count 5.2 K/mm3 (4.8-10.8)
[2023-01-02 08:26] LABS: Alanine Aminotransferase 20 U/L (12-78); Albumin/Globulin Ratio 1.2 (1.1-1.8); Alkaline Phosphatase 76 U/L (38-126); Anion Gap 9.2 mEq/L (5-15); Aspartate Amino Transferase 26 U/L (17-59); Blood Urea Nitrogen 19 mg/dl (9-20); Calcium 8.2 mg/dl (8.4-10.2); Carbon Dioxide 23 mmol/L (22.0-30.0); Chloride 111 mmol/L (98-107); Creatinine Clearance Estimated 87 mL/min (50-200); Erythrocyte Sedimentation Rate 24 mm/hr (0-20); Estimated Glomerular Filt Rate 98 ml/min (>60); GFR (African American) 119 ML/MIN (>60); Globulin 2.6 g/dL (1.3-3.2); Glucose 270 mg/dl (74-100); Potassium 4.2 mmoL/L (3.5-5.1); Sodium 139 mmol/L (136-145); Total Protein,Serum 5.6 g/dl (6.3-8.2)
[2023-01-02 08:31] LABS: Bilirubin,Total < 0.1 mg/dl (0.2-1.3)
[2023-01-02 08:34] LABS: C-Reactive Protein 29.3 mg/L (0-4)
--- NOTE | 2023-01-02 09:12 | EXP.PHA.PN ---
Subjective *Date: 01/02/23 *Time: 09:13 Medical Exam Vital signs and Labs for Last 24 Hours: Vital Signs Temp Pulse Resp BP Pulse Ox O2 Del Method 01/02/23 08:00 98.1 F 52 L 17 121/73 98 Room Air 01/02/23 05:00 Room Air 01/02/23 04:00 98.0 F 71 19 107/57 L 97 Room Air 01/02/23 01:00 Room Air 01/02/23 06:56 Room Air 01/02/23 03:00 Room Air 01/01/23 23:00 Room Air 01/01/23 21:00 Room Air 01/01/23 20:00 Room Air 01/01/23 20:00 98.1 F 56 L 18 114/48 L 95 Room Air 01/01/23 18:38 Room Air 01/01/23 17:00 Room Air 01/01/23 16:00 97.8 F 60 20 132/72 97 Room Air 01/01/23 15:00 Room Air 01/01/23 13:00 Room Air 01/01/23 10:56 Room Air Intake and Output 01/01/23 01/02/23 01/02/23 23:59 07:59 15:59 Intake Total 1020 / 2690 600 / 1080 480 / 1080 Output Total 0 / 250 0 / 0 Balance 1020 / 2440 600 / 1080 480 / 1080 Intake: Intake, Oral Amount 120 / 740 100 / 580 480 / 580 Intake, Total IV Amount 900 / 1950 500 / 500 Cefepime HCl 2 gm In 0.9 % 400 / 700 100 / 100 Sodium Chloride 100 ml @ 200 mls/hr IV Q8H [facility]ICK Rx#:[id number] Metronidaz/Sod Chl 500 mg In 200 / 400 100 / 100 100 ml @ 100 mls/hr IV Q6H [facility]ICK Rx#:[id number] Vancomycin/Water For Inj (Peg) 300 / 550 1.25 gm In 250 ml @ 125 mls/hr IV Q12H [facility]ICK Rx#:[id number] Vancomycin/Water For Inj (Peg) 300 / 300 1.5 gm In 300 ml @ 150 mls/hr IV Q12H VICK Rx#:[id number] Output: Output, Urine Amount 0 / 250 0 / 0 Other: Number of Unmeasured Voids 1 1 Weight 79.469 kg Patient Weight 01/02/23 23:59 Weight 79.469 kg Laboratory Results - last 24 hr 01/01/23 11:11: POC Glucose 372 H* 01/01/23 16:11: POC Glucose 158 H 01/01/23 20:38: POC Glucose 366 H* 01/02/23 05:04: POC Glucose 205 H 01/02/23 07:50: WBC 5.2, RBC 4.01 L, Hgb 11.9 L, Hct 36.2 L, MCV 90.4, MCH 29.6, MCHC 32.8, RDW 13.2, Plt Count 197, MPV 9.7, Neut % (Auto) 65.0, Lymph % (Auto) 20.2, [place] % (Auto) 7.0, Eos % (Auto) 7.1, Baso % (Auto) 0.7, Neut # (Auto) 3.4, Lymph # (Auto) 1.1, [place] # (Auto) 0.4, Eos # (Auto) 0.4, Baso # (Auto) 0.0, ESR 24 H, Sodium 139, Potassium 4.2, Chloride 111 H, Carbon Dioxide 23, Anion Gap 9.2, BUN 19, Creatinine 0.80, Estimated Creat Clear 87, Estimated GFR 98, Est GFR ( Amer) 119, Glucose 270 H, Calcium 8.2 L, Total Bilirubin < 0.1 L, AST 26, ALT 20, Alkaline Phosphatase 76, C-Reactive Protein 29.3 H D, Total Protein 5.6 L, Albumin 3.0 L, Globulin 2.6, Albumin/Globulin Ratio 1.2 I & O for Labs for Last 24 Hours: Intake & Output 12/30/22 12/31/22 01/01/23 01/02/23 23:59 23:59 23:59 23:59 Intake Total 290 / 630 1330 / 1330 2090 / 2690 1080 / 1080 Output Total 200 / 600 500 / 500 250 / 250 0 / 0 Balance 90 / 30 830 / 830 1840 / 2440 1080 / 1080 Weight 77.281 kg 77.927 kg 77.927 kg 79.469 kg Microbiology Reports for the Last 24 Hours: Microbiology 12/30/22 14:00 Hand,Left Gram Stain - Final 12/30/22 14:00 Hand,Left Wound Culture - Final Staphylococcus aureus 12/30/22 13:45 Blood Blood Culture - Preliminary NO GROWTH AFTER 48 HOURS 12/30/22 13:41 Blood Blood Culture - Preliminary NO GROWTH AFTER 48 HOURS The patient's infection will respond to the chosen ABx?: Yes (HAND WOUND = MRSA, SUSCEPTIBLE TO VANCO) Is the patient receiving the right drug, dose, and route?: Yes Could a more targeted ABx be ordered?: Yes (CHECKING WITH MD TO SEE IF CEFEPIME/FLAGYL CAN STOP DUE TO CULTURE RESULTS)
[2023-01-02 12:27] LABS: POC Glucose,Bedside 310 (70-110)
--- NOTE | 2023-01-02 14:31 | EXP.DC.SUM ---
General Admission date:: 12/30/22 Discharge date: 01/02/23 HPI HPI HPI: Mr. Patel is a 62 year old male with a past medical history of type 2 dm and hld who presents with gradually worsening pain and swelling of the left hand x 5 days. He states that he first noticed a boil at the dorsum of his left hand and denies any trauma to the area. He doesn't recall being bitten by a bug. He states that 4 days ago his niece who is a nurse drained purulent material from the area by puncturing it with a sterile needle. He saw his PCP 2 days ago because of worsening pain, swelling and purulent drainage and was given a tetanus vaccine and started on keflex and bactrim. Despite taking 2 days of these antibiotics swelling and pain have only worsened. He has also had subjective fevers. Prior to this episode he has no history of cellulitis. Initial workup reveals cbc with 10.9k wbcs, crp 197 and an xr of the hand reveals soft tissue swelling with no emphysema, foreign body or findings of osteomyelitis. Hospital Course Hospital Course Hospital Course: Mr. Patel is a 62-year-old male who presented with worsening abscess and cellulitis of hand after failing outpatient therapy. I&D performed with drainage of 10 cc of purulent fluid on 12/30. Swelling and erythema of left hand has continued to improve after initiation of IV antibiotics. Given his improvement, transition to oral clindamycin to complete 10-day course of antibiotics. Wound culture showing staph. Will follow-up with orthopedics in the coming week. Stable for discharge home to complete therapy. Problems addressed as follows: #abscess and cellulitis of the left hand -Initially abscess of hand concerning for failure of outpatient therapy and risk for needing hand surgery consult. Orthopedics was consulted, recommended continuing antibiotics and daily warm soapy water soaks with flossing of loop placed in the ER. Treated initially with IV vancomycin and cefepime and Flagyl. Tolerated this well. Given positive culture for staph, de-escalated to clindamycin for discharge. Will complete 10 days total of antibiotics. Loop left in place until patient sees orthopedics for follow-up. Continue twice daily warm soapy soaks. Imaging did not show gas. Given improvement, did not need referral for hand surgeon consult at this time. #hyperglycemia #t2dm, uncontrolled -Hemoglobin A1c 9.5 on admission. This complicates his risk for further infection and difficulty to improve infection. Treated with sliding scale insulin during admission. Initiated on long-acting basal insulin. Continue 15 units nightly. Needs further adjustment in the outpatient setting. Resume Victoza at discharge. Recommend repeat A1c in 12 weeks.. #hld -Continue home simvastatin daily. Counseled on antibiotic regimen, concerning symptoms suggestive of failure of therapy. Counseled on changes to diabetic regimen. Stable for discharge home. Spent 30 minutes in discharge counseling and direct care with patient. Exam Data for Last 24 hours Vital signs and Labs for Last 24 Hours: Temp Pulse Resp BP Pulse Ox O2 Del Method 98.1 F 52 L 17 121/73 98 Room Air 01/02/23 08:00 01/02/23 08:00 01/02/23 08:00 01/02/23 08:00 01/02/23 08:00 01/02/23 13:00 Laboratory Results - last 24 hr 01/01/23 16:11: POC Glucose 158 H 01/01/23 20:38: POC Glucose 366 H* 01/02/23 05:04: POC Glucose 205 H 01/02/23 07:50: WBC 5.2, RBC 4.01 L, Hgb 11.9 L, Hct 36.2 L, MCV 90.4, MCH 29.6, MCHC 32.8, RDW 13.2, Plt Count 197, MPV 9.7, Neut % (Auto) 65.0, Lymph % (Auto) 20.2, [place] % (Auto) 7.0, Eos % (Auto) 7.1, Baso % (Auto) 0.7, Neut # (Auto) 3.4, Lymph # (Auto) 1.1, [place] # (Auto) 0.4, Eos # (Auto) 0.4, Baso # (Auto) 0.0, ESR 24 H, Sodium 139, Potassium 4.2, Chloride 111 H, Carbon Dioxide 23, Anion Gap 9.2, BUN 19, Creatinine 0.80, Estimated Creat Clear 87, Estimated GFR 98, Est GFR ( Amer) 119, Glucose 270 H, Calcium 8.2 L, Total Bilirubin <
--- NOTE | 2023-01-02 15:22 | HMH.PHAINT1 ---
Pharmacy Intervention Comments: DISCHARGE MEDICATION COUNSELING PROVIDED. DISCUSSED STOPPING KEFLEX AND BACTRIM AND STARTING CLINDAMYCIN (ANTIBIOTIC, FOUR TIMES DAILY, TAKE WITH FOOD, MAY CONSIDER YOGURT WITH PROBIOTICS OR YOGURT TO PREVENT DIARRHEA/UPSET STOMACH, N/V/D POSSIBLE) AND LANTUS (LONG ACTING INSULIN, SIGNS AND SYMPTOMS OF LOW BLOOD SUGAR, INJECT IN A SIMILAR FASHION TO VICTOZA SQ HS) PATIENT VERBALIZED NO QUESTIONS AT THIS TIME.
--- NOTE | 2023-01-03 12:53 | CARE MANAGER ---
Spoke with patient for post-discharge phone interview, no issues noted.
== END 2023-01-02 15:57 | disposition home or self-care (01) | DRG 603 ==
LOC: ER 14:25 → 2ND 14:42
PROVIDERS: Internal Medicine Adolescent Medicine; Admitting Provider Internal Medicine; Emergency Provider Student in an Organized Health Care Education/Training Program; PCP Physician Assistant; Visit Provider Internal Medicine
DX: L03.114 Cellulitis of left upper limb (principal); L02.512 Cutaneous abscess of left hand; Z78.9 Other specified health status; E11.65 Type 2 diabetes mellitus with hyperglycemia; E78.5 Hyperlipidemia, unspecified; E11.40 Type 2 diabetes mellitus with diabetic neuropathy, unspecified; F32.A Depression, unspecified; Z79.4 Long term (current) use of insulin
CPT/HCPCS: 10060; 36415; 73130; 80048; 80053; 80202; 82962; 83036; 83605; 85025; 85651; 86140; 87040; 87070; 87077; 87186; 87205; 99285

== ENCOUNTER → 2023-05-02 15:21 | Outpatient (CLI) | payer SELFPAY ==
[2023-05-02 16:07] LABS: Basophils % 0.4 % (0.1-2.0); Eosinophils # 0.1 K/mm3 (0.0-0.4); Eosinophils % 1.2 % (0.1-12.0); Hematocrit 40.9 % (42.0-52.0); Lymphocytes # 1.6 K/mm3 (0.7-4.5); Lymphocytes % 24.4 % (10-50); Mean Corpuscular HGB Conc 34.3 g/dL (31.8-35.4); Mean Corpuscular Hemoglobin 30.8 pg (27.0-31.2); Mean Corpuscular Volume 89.8 fl (80-94); Mean Platelet Volume 8.5 fl (7.4-10.4); Monocytes # 0.3 K/mm3 (0.1-1.0); Monocytes % 5.1 % (1.7-9.3); Neutrophils # 4.6 K/mm3 (1.8-7.8); Neutrophils % 68.8 % (37.0-80.0); Platelet Count 170 K/mm3 (142-424); Red Blood Count 4.55 M/mm3 (4.60-6.20); Red Cell Distribution Width 13.4 % (11.5-17.5); White Blood Count 6.7 K/mm3 (4.8-10.8)
[2023-05-02 16:48] LABS: Alanine Aminotransferase 20 U/L (12-78); Albumin Level 4.5 g/dl (3.5-5.0); Alkaline Phosphatase 78 U/L (38-126); Anion Gap 13.1 mEq/L (5-15); Aspartate Amino Transferase 27 U/L (17-59); Bilirubin,Total 0.7 mg/dl (0.2-1.3); Blood Urea Nitrogen 28 mg/dl (9-20); Calcium 8.5 mg/dl (8.4-10.2); Carbon Dioxide 24 mmol/L (22.0-30.0); Chloride 100 mmol/L (98-107); Chol/HDL Ratio 4.2 (1-3.5); Cholesterol 171 mg/dl (140-200); Estimated Glomerular Filt Rate 76 ml/min (>60); GFR (African American) 92 ML/MIN (>60); Globulin 2.3 g/dL (1.3-3.2); Glucose 277 mg/dl (74-100); HDL Cholesterol 41 mg/dl (40-60); Potassium 4.1 mmoL/L (3.5-5.1); Sodium 133 mmol/L (136-145); Total Protein,Serum 6.8 g/dl (6.3-8.2); Triglycerides 191 mg/dl (30-150); VLDL Cholesterol 38 mg/dL (0-40)
[2023-05-02 17:00] LABS: Direct LDL Cholesterol 93.45 mg/dL (100-129)
[2023-05-02 17:06] LABS: 25-OH Vitamin D, Total 36.7 ng/mL (30-100)
[2023-05-02 17:18] LABS: Hemoglobin A1C 8.8 % (4.0-6.0)
[2023-05-02 17:19] LABS: Prostate Specific Ag Screen 0.3 ng/ml (0.0-4.0); Thyroid Stimulating Hormone 0.86 uIU/mL (0.465-4.68)
== END ==
PROVIDERS: PCP Physician Assistant; Visit Provider Physician Assistant
DX: E11.65 Type 2 diabetes mellitus with hyperglycemia (principal); E34.9 Endocrine disorder, unspecified; Z79.899 Other long term (current) drug therapy; Z12.5 Encounter for screening for malignant neoplasm of prostate
CPT/HCPCS: 36415; 80053; 80061; 82306; 83036; 84443; 85025; G0103

== ENCOUNTER 2023-08-07 11:07 | Outpatient (CLI) | payer SELFPAY ==
--- NOTE | 2023-08-07 11:11 | XR_ITS ---
FINAL REPORT CLINICAL HISTORY: neck pain FINDINGS: CERVICAL SPINE Five views demonstrate no acute fracture. There are mild and moderate degenerative changes with osteophytes. Calcification is seen posterior to C6. There is mild right C5-6 neural foraminal narrowing. There is no malalignment. IMPRESSION: Multilevel degenerative changes as above. Reviewed, Interpreted and Dictated by Ja Falcon III, MD Transcribed by Mee Eaton Authenticated and [facility]
[2023-08-07 12:49] LABS: Anion Gap 13.9 mEq/L (5-15); Blood Urea Nitrogen 22 mg/dl (9-20); Calcium 9.6 mg/dl (8.4-10.2); Carbon Dioxide 28 mmol/L (22.0-30.0); Chloride 104 mmol/L (98-107); Estimated Glomerular Filt Rate 86 ml/min (>60); GFR (African American) 104 ML/MIN (>60); Glucose 129 mg/dl (74-100); Potassium 4.9 mmoL/L (3.5-5.1); Sodium 141 mmol/L (136-145)
[2023-08-07 13:49] LABS: Hemoglobin A1C 7.4 % (4.0-6.0)
[2023-08-08 12:16] LABS: Testosterone,Total 460 ng/dL (264-916)
== END 2023-08-07 23:59 ==
LOC: LAB 11:08
PROVIDERS: PCP Physician Assistant; Visit Provider Physician Assistant
DX: M54.2 Cervicalgia (principal); E11.65 Type 2 diabetes mellitus with hyperglycemia; E34.9 Endocrine disorder, unspecified; Z79.84 Long term (current) use of oral hypoglycemic drugs; Z79.85 Long-term (current) use of injectable non-insulin antidiabetic drugs
CPT/HCPCS: 36415; 72050; 80048; 83036; 84403

== ENCOUNTER 2023-10-04 12:31 | Outpatient (CLI) | payer SELFPAY ==
--- NOTE | 2023-10-04 12:39 | XR_ITS ---
FINAL REPORT CLINICAL HISTORY: barth/fatigue/dizziness FINDINGS: TWO-VIEW CHEST The heart size is normal. The mediastinum is normal. The lungs are hyperinflated consistent with COPD. There are moderate degenerative changes of the thoracic spine. There is no pneumothorax. IMPRESSION: COPD. Reviewed, Interpreted and Dictated by Ja Falcon III, MD Transcribed by Mee Eaton Authenticated and [facility]
[2023-10-04 13:08] LABS: Basophils % 0.8 % (0.1-2.0); Eosinophils # 0.1 K/mm3 (0.0-0.4); Eosinophils % 1.4 % (0.1-12.0); Hematocrit 42.5 % (42.0-52.0); Hemoglobin 13.9 g/dL (14.1-18.0); Lymphocytes # 1.5 K/mm3 (0.7-4.5); Lymphocytes % 31.1 % (10-50); Mean Corpuscular HGB Conc 32.7 g/dL (31.8-35.4); Mean Corpuscular Hemoglobin 30.2 pg (27.0-31.2); Mean Corpuscular Volume 92.4 fl (80-94); Mean Platelet Volume 8.2 fl (7.4-10.4); Monocytes # 0.3 K/mm3 (0.1-1.0); Monocytes % 6.4 % (1.7-9.3); Neutrophils % 60.3 % (37.0-80.0); Platelet Count 204 K/mm3 (142-424); Red Cell Distribution Width 13.9 % (11.5-17.5); White Blood Count 4.9 K/mm3 (4.8-10.8)
[2023-10-04 14:01] LABS: Alanine Aminotransferase 24 U/L (12-78); Albumin Level 4.2 g/dl (3.5-5.0); Albumin/Globulin Ratio 1.8 (1.1-1.8); Alkaline Phosphatase 60 U/L (38-126); Anion Gap 12.9 mEq/L (5-15); Aspartate Amino Transferase 29 U/L (17-59); Blood Urea Nitrogen 21 mg/dl (9-20); Calcium 9.2 mg/dl (8.4-10.2); Carbon Dioxide 27 mmol/L (22.0-30.0); Chloride 100 mmol/L (98-107); Chol/HDL Ratio 2.5 (1-3.5); Cholesterol 167 mg/dl (140-200); Estimated Glomerular Filt Rate 86 ml/min (>60); GFR (African American) 103 ML/MIN (>60); Globulin 2.4 g/dL (1.3-3.2); Glucose 156 mg/dl (74-100); HDL Cholesterol 68 mg/dl (40-60); Potassium 3.9 mmoL/L (3.5-5.1); Sodium 136 mmol/L (136-145); Total Protein,Serum 6.6 g/dl (6.3-8.2); Triglycerides 79 mg/dl (30-150); VLDL Cholesterol 16 mg/dL (0-40)
[2023-10-04 14:12] LABS: Direct LDL Cholesterol 82.19 mg/dL (100-129)
[2023-10-04 14:32] LABS: Thyroid Stimulating Hormone 0.76 uIU/mL (0.465-4.68)
[2023-10-04 14:52] LABS: Vitamin B12 > 1000 pg/mL (239-931)
[2023-10-04 15:58] LABS: Hemoglobin A1C 6.1 % (4.0-6.0)
== END 2023-10-04 23:59 | disposition home or self-care (01) ==
LOC: LAB 12:33
PROVIDERS: PCP Physician Assistant; Visit Provider Family Medicine
DX: R42 Dizziness and giddiness (principal); I95.1 Orthostatic hypotension; R06.02 Shortness of breath; R79.89 Other specified abnormal findings of blood chemistry; Z79.899 Other long term (current) drug therapy
CPT/HCPCS: 36415; 71046; 80053; 80061; 82306; 82607; 83036; 84443; 85025

== ENCOUNTER 2024-01-09 15:56 | Outpatient (RCR) | payer MEDICARE, SELFPAY ==
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
== END 2024-01-09 15:59 | disposition home or self-care (01) ==
LOC: PT 15:56
PROVIDERS: Visit Provider Family Medicine
DX: M54.2 Cervicalgia (principal)
CPT/HCPCS: 97163

== ENCOUNTER 2024-01-15 06:53 | Outpatient (CLI) | payer MEDICARE, SELFPAY ==
--- NOTE | 2024-01-15 | CA_ITS ---
APPROVED REPORT Exam: Exercise Treadmill Technologist: Tyra Parker Ht: 5 ft 11 in Wt: 128 lbs BSA: 1.74 m2 HR: 54 bpm BP: 97/74 mmHg Indications: Neck pain Medical History Medications: Flonase,,,,, Naproxen,,,,, INvOKANA,,,,, CetIRIZINE,,,,, Trelegy Ellipta,,,,, PaROXETINE HCI,,,,, Stress Test Details Test: Manual Treadmill HR Resting HR: 56 bpm Max Heart Rate (APMHR): 158 bpm Max HR Achieved: 154 bpm Target HR (85% APMHR): 134 bpm % of APMHR: 97 Recovery HR: 79 bpm HR response to stress: Normal HR response to stress BP Resting BP: 97.0/74.0 mmHg Max BP: 159.0/77.0 mmHg Recovery BP: 136.0/73.0 mmHg BP response to stress: Normal blood pressure response to stress. ECG Resting ECG: NSR Stress EC.[address] depression Arrhythmia: PACs Recovery ECG: Return to baseline within 3 minutes of recovery Recovery Arrhythmia: None Clinical Exercise duration: 10:07 min Highest Stage Achieved: Exercise capacity: 12.8 METs Overall Exercise Capacity for Age: Average Stress ECG Conclusion Symptoms: Fatigue, Dyspnea Arrhythmias/Ectopy: PAC ST-T Changes: 0.[address] depression Conclusion: Average exercise capacity. No evidence of ischemia at peak stress. Myoview images reported separately. Test Summary REST . . . . . . . Sitting REST 03:33 0.0 0.0 56 . 97/ 74 . . Stage 1 01:00 10.0 1.7 69 . . . . Stage 1 02:00 10.0 1.7 74 . . . . Stage 1 03:00 10.0 1.7 74 . 100/ 78 . . Stage 2 01:00 12.0 2.5 80 . . . . Stage 2 02:00 12.0 2.5 83 . . . . Stage 2 03:00 12.0 2.5 85 . 115/ 76 . . Stage 3 01:00 14.0 3.4 97 . . . . Stage 3 02:00 14.0 3.4 108 . . . . Stage 3 03:00 14.0 3.4 115 . 122/ 70 . . Stage 4 . . . . . . . Myoview Injected Stage 4 . . . . . . . Protocol changed to Manual Treadmill Stage 4 01:00 16.0 3.7 154 . . . . Stage 4 01:07 16.0 0.0 105 . . . Stop exercise at 10:07 RECOVERY 01:00 0.0 0.0 121 . . . . RECOVERY 02:00 0.0 0.0 102 . . . . RECOVERY 03:00 0.0 0.0 93 . 159/ 77 . . RECOVERY 04:00 0.0 0.0 83 . 159/ 77 . . RECOVERY 05:00 0.0 0.0 78 . 136/ 73 . . RECOVERY 05:21 0.0 0.0 77 . 136/ 73 . . Electronically signed by : Sera Chaudhry MD 01/16/2024 10:13:02
--- NOTE | 2024-01-15 06:53 | CA_ITS ---
APPROVED REPORT EXAM: Comprehensive 2D, Doppler, and color-flow Echocardiogram Trial Judge: DARIEN Gonzalez, RVS Ht: 5 ft 11 in Wt: 128lbs BSA: 1.74 BP: 110/82 mmHg Indications: AVELAR, HLD, Ex-smoker, Lightheaded, CP Echo Enhancing Agent Comments: TDS:Limited windows due to body habitus. 2D Dimensions LVDs 2.64 cm M: 2.5 - 4.0 LA Volume 32.90 mL Left Atrium 2.54 cm M: 3.0 - 4.0 LA Volume Index [id number] mL/m2 (M/F) 16-34 M-Mode Dimensions RVDd 1.98 cm (0.9-2.6) LA Diam 2.19 cm (1.9-4.0) LVDd 4.86 cm (3.5-5.7) LVDs 2.68 cm (3.5-5.7) IVSd 0.90 cm (0.6-1.1) PWd 0.87 cm (0.6-1.1) EF (Teich) 76.10% EPSs 0.40 cm FS 44.90% EDV (Teich) 110.70 mL TAPSE 2.08 (<1.7) ESV (Teich) 26.50 mL LV Diastology E Decel Time 197 (160-240 msec) E/A Ratio 1.26 MED A' 11.00 cm/s LAT A' 8.10 cm/s Aortic Valve SUZAN Index 1.11 cm2/m2 AoV Peak Danny. 112.0 (50-130 cm/s) AO Peak GR. 5.00 mmHg AO Mean GR. 2.40 (<5 mmHg) AO VTI 25.7 (18-25 cm) SUZAN (VTI) 1.98 (2.5-4.5 cm2) Mitral Valve MV A Velocity 72.0 (40-130 cm/s) E/A Ratio 1.26 Pulmonary Valve PV Peak Velocity 69.0 (50-150 cm/s) Tricuspid Valve TR P. Velocity 260.00 cm/s RAP Estimate 10.00 mmHg RVSP 37.00 mmHg Left Ventricle The left ventricle is normal size. The left ventricular systolic function is normal. The left ventricular ejection fraction is within the normal range. There is normal left ventricular wall thickness. There is normal LV segmental wall motion. The left ventricular diastolic function is normal. LVEF is 55%. Right Ventricle Right ventricle is mildly dilated. Right ventricle is mildly hypokinetic. Atria Left atrium is mildly dilated. Right atrium is mildly dilated. There is no Doppler evidence of interatrial shunt. Aortic Valve The aortic valve opens well. There is no aortic valvular stenosis. No aortic regurgitation is present. Mitral Valve The mitral valve is normal in structure. No evidence of mitral valve stenosis. There is no mitral valve regurgitation noted. Tricuspid Valve The tricuspid valve leaflets are thin and pliable. Mild tricuspid regurgitation. RVSP is 25-30 mmHg. Pulmonic Valve The pulmonary valve is normal in structure. Trace pulmonic regurgitation. Great Vessels The aortic root is normal in size. The ascending aorta is normal in size. IVC is normal in size and collapses >50% with inspiration. Pericardium There is no pericardial effusion. Other Information Study Quality: Fair Conclusion Normal LV systolic function. Mild RV dilation with mild reduction in RV function. Biatrial dilation. Mild TR. RVSP 25-30 mmHg. Electronically signed by : Sera Chaudhry MD 01/20/2024 17:36:56
--- NOTE | 2024-01-15 06:56 | NM_ITS ---
APPROVED REPORT Exam: Nuclear Stress Test Indication: Chest pain, SOB, DM, High cholesterol Patient Location: Outpatient Stress Tech: Tyra Parker [place] Tech:Stacie Feliciano, ARRT, RT (R)(N) Ht: 5 ft 11 in Wt: 130 lbs HR: 56 bpm BP: 97/74 mmHg BSA: 1.76 m2 TID: 1.16 BMI: 18.1 History: Chest pain, SOB, DM, High cholesterol Procedure: Patient exercised on Kendall protocol 10:07 minutes and sec, resting heart rate 56 bpm, resting blood pressure 97/74 mmHg, with exercise maximum heart rate achived was 154 bpm which is 97 % of the maximum predicted heart rate and blood pressure was 159/77 mmHg. Test was stopped due to SOB. Patient denied any complaint of chest pain. Patient has average exercise capacity, achieved 12.8 METs of workload on treadmill, the blood pressure response to exercise was normal. Cardiac Stress and Resting SPECT Images: Cardiac Stress and Resting SPECT images were obtained using technetium 99m Myoview 32.2 mCi stress and 10.50 mCi at rest. Technically difficult study due to significant GI radiotracer uptake in close proximity to the inferior border of the LV wall. This may affect the diagnostic interpretation of the study findings. Resting and stress imaging in supine and prone positions demonstrate a medium-sized, mild, fixed perfusion defect in the septal LV wall. Gated imaging demonstrates low-normal global and regional LV systolic function. LVEF is calculated 50%. Conclusion: Medium-sized, mild, fixed perfusion defect in the septal LV wall. Gated imaging demonstrates low-normal global and regional LV systolic function. LVEF is calculated 50%. Electronically signed by : Sera Chaudhry MD 01/16/2024 10:16:00
[2024-01-15] MEDS: ISOTOPE MYOVIEW (PER STUDY) 1 DOSE IV (08:59)
[2024-01-15] MEDS: SODIUM CHLORIDE 0.9% 10ML SYR (RAD ONLY) 10 ML IV ×2 (08:59)
== END 2024-01-15 23:59 | disposition home or self-care (01) ==
LOC: RAD 06:53
PROVIDERS: PCP Family Medicine; Visit Provider Family Medicine
DX: R42 Dizziness and giddiness (principal); E11.65 Type 2 diabetes mellitus with hyperglycemia; R06.09 Other forms of dyspnea; R07.9 Chest pain, unspecified; Z87.891 Personal history of nicotine dependence; I20.89 Other forms of angina pectoris
CPT/HCPCS: 78452; 93017; 93018; 93306; A9502

== ENCOUNTER 2024-01-16 12:56 | Outpatient (CLI) | payer MEDICARE, SELFPAY ==
--- NOTE | 2024-01-16 13:31 | MR_ITS ---
FINAL REPORT CLINICAL HISTORY: neck pain COMPARISON: None FINDINGS: Multi planar MR imaging was obtained of the cervical spine with and without contrast. There is abnormal decreased signal throughout the cervical discs. The vertebrae are of normal height. There is no malalignment. The cervical cord demonstrates normal signal and configuration. C2-C3: There is no evidence of significant disc bulge or protrusion. There is no significant facet hypertrophy. C3-C4: There is no evidence of significant disc bulge or protrusion. There is no significant facet hypertrophy. C4-C5: Small midline disc protrusion. Mild spinal canal compromise best seen image 27 of series 6. C5-C6: Moderate diffuse disc bulge. Endplate hypertrophy. Moderate to high-grade bilateral neural foraminal narrowing. C6-C7: Mild diffuse disc bulge. Mild bilateral neural foraminal narrowing. C7-T1: There is no evidence of significant disc bulge or protrusion. There is no significant facet hypertrophy. There is no abnormal contrast enhancement. IMPRESSION: Diffuse disc bulge at C5-6 with moderate to high-grade bilateral neural foraminal narrowing. Small midline disc protrusion at L4-5 with mild spinal canal compromise. Reviewed, Interpreted and Dictated by Luis Enrique Zendejas MD Transcribed by Mara Gunn Authenticated and [facility]
[2024-01-16 13:42] LABS: Blood Urea Nitrogen 25 mg/dl (9-20); Estimated Glomerular Filt Rate 86 ml/min (>60); GFR (African American) 103 ML/MIN (>60)
[2024-01-16] MEDS: GADOTERIDOL INJ 20ML SYRINGE 13 ML IV (14:47)
[2024-01-16] MEDS: SODIUM CHLORIDE 0.9% 10ML SYR (RAD ONLY) 10 ML IV (14:47)
== END 2024-01-16 23:59 | disposition home or self-care (01) ==
PROVIDERS: PCP Family Medicine; Visit Provider Family Medicine
DX: M54.2 Cervicalgia (principal)
CPT/HCPCS: 36415; 72156; 82565; 84520; A9576

== ENCOUNTER 2024-01-22 15:53 | Outpatient (CLI) | payer MEDICARE, SELFPAY ==
--- NOTE | 2024-01-22 15:54 | MR_ITS ---
FINAL REPORT CLINICAL HISTORY: MID back pain COMPARISON: None FINDINGS: Multiplanar MR imaging of the thoracic spine was performed without and with contrast. On the sagittal T2-weighted images, there is abnormal decreased signal throughout the thoracic disks. The vertebrae are of normal height. There is no malalignment. The thoracic cord demonstrates normal signal and configuration. There is no evidence of significant canal stenosis. On the axial images, at the T10-11 level there is prominent facet arthropathy, more prominent on the right than the left, with moderate compromise of both the right and left sides of the canal, best seen on image #18 of series 9. There is no marrow edema. On the postcontrast images, no abnormal contrast enhancement is identified. IMPRESSION: T10-11 prominent facet arthropathy producing moderate compromise of the right and left sides of the canal as described above. No abnormal contrast enhancement identified. Reviewed, Interpreted and Dictated by Luis Enrique Zendejas MD Transcribed by Arleen Muse Authenticated and . [facility]
[2024-01-22] MEDS: SODIUM CHLORIDE 0.9% 10ML SYR (RAD ONLY) 10 ML IV (17:09)
[2024-01-22] MEDS: GADOTERIDOL INJ 20ML SYRINGE 12 ML IV (17:09)
== END 2024-01-22 23:59 | disposition home or self-care (01) ==
LOC: RAD 15:54
PROVIDERS: PCP Family Medicine; Visit Provider Family Medicine
DX: M54.2 Cervicalgia (principal); M54.9 Dorsalgia, unspecified
CPT/HCPCS: 72157; A9576

== ENCOUNTER 2024-02-25 08:23 | Day surgery (SDC) | payer MEDICARE, SELFPAY ==
[2024-02-25] VITALS (22 sets, daily range): BP systolic 81–126; BP diastolic 49–94; PULSE 54–71; RESP 18–20; O2SAT 95–99; BMI 18.3
--- NOTE | 2024-02-25 07:07 | IR_ITS ---
APPROVED REPORT Patient Location: Outpatient Billing Collections Specialist: KARLEY Guaman RT (R), Omar Durand RT(R) PROCEDURES Left heart catheterization Left ventriculogram Selective coronary angiogram INDICATION Abnormal Myoview, Angina pectoris, Informed consent was obtained prior to the procedure. COMPLICATIONS NONE Estimated Blood Loss: LESS THAN 10 ML TECHNIQUE One percent lidocaine used to anesthetize the right anterior aspect of the wrist. The right radial artery was accessed via the Seldinger technique. A 6 Ghanaian sheath was placed in the right radial artery. 2.5 mg of Verapamil, 800 mcg of nitroglycerin, 1mg Lidocaine and 5000 U Heparin were given through the arterial sheath. The papa catheter was also used to perform left heart catheterization, left ventriculogram and selective coronary angiogram. At the end of the procedure the sheath was removed good hemostasis was achieved using Traclet band, patient was transferred to the postop holding area in stable condition. ANGIOGRAPHIC RESULTS The left main artery Normal The left anterior descending artery Has a proximal eccentric 30 to 40% stenosis with remaining vessel widely patent and normal The circumflex artery Large dominant normal The right coronary artery Nondominant normal The DUENAS ventriculogram reveals Normal 65% The left ventricular end-diastolic pressure 10 mm margin IMPRESSION Mild to moderate proximal LAD disease as described above Normal ejection fraction Normal LVEDP PLAN 1. Recommend medical management at this time. Currently patient is on no antianginal medications. The lesion in the proximal LAD is smooth and should respond favorably to high intensity statin with a goal LDL of less than 55 2. Should patient continue with angina pectoris despite medical management he could be brought back to the [facility] and undergo additional provocative testing of the proximal LAD. Currently not being on any antianginal medications I do recommend medical management 3. Avoidance of tobacco products Electronically signed by : Adam Flynn MD 02/25/2024 12:48:18
[2024-02-25 09:09] LABS: Basophils % 0.6 % (0.1-2.0); Eosinophils # 0.2 K/mm3 (0.0-0.4); Hematocrit 44.8 % (42.0-52.0); Hemoglobin 14.4 g/dL (14.1-18.0); Lymphocytes # 1.4 K/mm3 (0.7-4.5); Lymphocytes % 25.5 % (10-50); Mean Corpuscular HGB Conc 32.1 g/dL (31.8-35.4); Mean Corpuscular Hemoglobin 30.9 pg (27.0-31.2); Mean Corpuscular Volume 96.2 fl (80-94); Mean Platelet Volume 7.5 fl (7.4-10.4); Monocytes # 0.3 K/mm3 (0.1-1.0); Monocytes % 5.9 % (1.7-9.3); Neutrophils # 3.4 K/mm3 (1.8-7.8); Neutrophils % 64.9 % (37.0-80.0); Platelet Count 183 K/mm3 (142-424); Red Blood Count 4.66 M/mm3 (4.60-6.20); Red Cell Distribution Width 14.2 % (11.5-17.5); White Blood Count 5.3 K/mm3 (4.8-10.8)
[2024-02-25 09:13] LABS: Chloride 102 mmol/L (98-107); Potassium 4.5 mmoL/L (3.5-5.1); Sodium 136 mmol/L (136-145)
[2024-02-25 09:16] LABS: Anion Gap 7.5 mEq/L (5-15); Blood Urea Nitrogen 24 mg/dl (9-20); Carbon Dioxide 31 mmol/L (22.0-30.0); Creatinine Clearance Estimated 65 mL/min (50-200); Estimated Glomerular Filt Rate 86 ml/min (>60); GFR (African American) 103 ML/MIN (>60); Glucose 123 mg/dl (74-100)
[2024-02-25] MEDS: VERAPAMIL 2.5MG/ML 2ML VIAL 2.5 MG IV (12:17)
[2024-02-25] MEDS: diphenhydrAMINE 50MG/ML VIAL 50 MG IV (12:17)
[2024-02-25] MEDS: NITROGLYCERIN 800MCG/8ML SYR (CATH LAB) 800 MCG IA (12:18)
[2024-02-25] MEDS: 0.9 % SODIUM CHLORIDE 500 ML 25 ML IV (12:18)
[2024-02-25] MEDS: HEPARIN 1,000 UNITS/ML 10ML VIAL (CATH LAB) 10000 UNIT IV (12:18)
[2024-02-25] MEDS: LIDOCAINE 1% 10ML MDV 20 ML IJ (12:18)
[2024-02-25] MEDS: HEPARIN 1,000 UNITS/500ML NS (CATH LAB) 3000 UNIT IV (12:19)
[2024-02-25] MEDS: MIDAZOLAM HCL 1MG/1ML 5ML VIAL 1 MG IV (12:19)
[2024-02-25] MEDS: FENTANYL 100MCG/2ML VIAL 50 MCG IV (12:20)
[2024-02-25] MEDS: IOPAMIDOL-370 (76%);100ML BOTTLE 50 ML IV (13:06)
[2024-02-25 16:08] LABS: CATHL Activated Clotting Time 243 SEC (74-125)
== END 2024-02-25 16:33 | disposition home or self-care (01) ==
PROVIDERS: PCP Family Medicine; Visit Provider Internal Medicine
DX: I20.89 Other forms of angina pectoris (principal); R94.31 Abnormal electrocardiogram [ECG] [EKG]; R94.39 Abnormal result of other cardiovascular function study; R06.09 Other forms of dyspnea; E78.49 Other hyperlipidemia; E11.65 Type 2 diabetes mellitus with hyperglycemia; Z79.899 Other long term (current) drug therapy; E55.9 Vitamin D deficiency, unspecified; F17.210 Nicotine dependence, cigarettes, uncomplicated
CPT/HCPCS: 80048; 85025; 85347; 93458; 99152; 99153; C1725; C1769; J1200; J1644; J2250; J3010; Q9967

== ENCOUNTER 2024-09-29 07:12 | Outpatient (CLI) | payer MEDICARE, SELFPAY ==
[2024-09-29 08:03] LABS: Basophils % 0.2 % (0.1-2.0); Hematocrit 42.7 % (42.0-52.0); Hemoglobin 14.1 g/dL (14.1-18.0); Lymphocytes % 7.5 % (10-50); Mean Corpuscular Volume 93.8 fl (80-94); Mean Platelet Volume 10.8 fl (7.4-10.4); Monocytes # 0.8 K/mm3 (0.1-1.0); Monocytes % 6.5 % (1.7-9.3); Neutrophils # 10.9 K/mm3 (1.8-7.8); Neutrophils % 85.2 % (37.0-80.0); Nucleated Red Blood Cells # 0 10^3/uL; Nucleated Red Blood Cells % 0 %; Platelet Count 185 K/mm3 (142-424); Red Blood Count 4.55 M/mm3 (4.60-6.20); Red Cell Distribution Width 12.2 % (11.5-17.5); Red Cell Distribution Width-SD 42.4 fL; White Blood Count 12.8 K/mm3 (4.8-10.8)
[2024-09-29 08:23] LABS: Albumin Level 4.3 g/dl (3.5-5.0); Chloride 102 mmol/L (98-107); Potassium 4.9 mmoL/L (3.5-5.1); Sodium 137 mmol/L (136-145)
[2024-09-29 08:25] LABS: Bilirubin,Unconjugated 0.4 mg/dL (0.0-1.1); Blood Urea Nitrogen 24 mg/dl (9-20); Estimated Glomerular Filt Rate 75 ml/min (>60); GFR (African American) 91 ML/MIN (>60)
[2024-09-29 08:26] LABS: Alanine Aminotransferase 36 U/L (12-78); Alkaline Phosphatase 95 U/L (38-126); Anion Gap 12.9 mEq/L (5-15); Aspartate Amino Transferase 30 U/L (17-59); Bilirubin,Direct 0.4 mg/dl (0.0-0.4); Bilirubin,Indirect 0.3 mg/dL (0.0-0.9); Bilirubin,Total 0.7 mg/dl (0.2-1.3); Calcium 9.5 mg/dl (8.4-10.2); Carbon Dioxide 27 mmol/L (22.0-30.0); Chol/HDL Ratio 1.8 (1-3.5); Cholesterol 96 mg/dl (140-200); HDL Cholesterol 54 mg/dl (40-60); Magnesium 2.2 mg/dl (1.6-2.3); Total Protein,Serum 6.6 g/dl (6.3-8.2); Triglycerides 59 mg/dl (30-150); VLDL Cholesterol 12 mg/dL (0-40)
[2024-09-29 08:36] LABS: Glucose 476 mg/dl (74-100)
[2024-09-29 08:57] LABS: Thyroid Stimulating Hormone 1.88 uIU/mL (0.465-4.68)
[2024-09-29 09:01] LABS: Direct LDL Cholesterol < 30.00 mg/dL (100-129)
== END 2024-09-29 23:59 | disposition home or self-care (01) ==
LOC: LAB 07:13
PROVIDERS: PCP Family Medicine; Visit Provider Physician Assistant
DX: E78.49 Other hyperlipidemia (principal); I25.118 Atherosclerotic heart disease of native coronary artery with other forms of angina pectoris; R06.09 Other forms of dyspnea; R42 Dizziness and giddiness; E55.9 Vitamin D deficiency, unspecified; E11.65 Type 2 diabetes mellitus with hyperglycemia
CPT/HCPCS: 36415; 80048; 80061; 80076; 83735; 84439; 84443; 85025

== ENCOUNTER 2024-12-08 13:38 | Outpatient (CLI) | payer MEDICARE, SELFPAY ==
[2024-12-08 14:40] LABS: Alanine Aminotransferase 47 U/L (12-78); Albumin Level 4.0 g/dl (3.5-5.0); Alkaline Phosphatase 72 U/L (38-126); Aspartate Amino Transferase 43 U/L (17-59); Bilirubin,Direct 0.3 mg/dl (0.0-0.4); Bilirubin,Indirect 0.2 mg/dL (0.0-0.9); Bilirubin,Total 0.5 mg/dl (0.2-1.3); Bilirubin,Unconjugated 0.2 mg/dL (0.0-1.1); Magnesium 2.1 mg/dl (1.6-2.3); Total Protein,Serum 6.0 g/dl (6.3-8.2)
[2024-12-08 14:58] LABS: 25-OH Vitamin D, Total 32.0 ng/mL (30-100)
[2024-12-08 15:15] LABS: Hemoglobin A1C 9.0 % (4.0-6.0)
== END 2024-12-08 23:59 | disposition home or self-care (01) ==
LOC: LAB 13:38
PROVIDERS: PCP Family Medicine; Visit Provider Family Medicine
DX: I25.118 Atherosclerotic heart disease of native coronary artery with other forms of angina pectoris (principal); Z00.00 Encounter for general adult medical examination without abnormal findings; E55.9 Vitamin D deficiency, unspecified
CPT/HCPCS: 36415; 80076; 82306; 83036; 83735; G0103

== ENCOUNTER 2025-02-25 22:52 | Emergency (ER) | payer MEDICARE, SELFPAY ==
[2025-02-25 23:06] VITALS: BP 81/45; PULSE 84; RESP 16; TEMP 36.7; O2SAT 99; BMI 18.3
--- NOTE | 2025-02-25 23:19 | CT_ITS ---
PROCEDURE INFORMATION: Exam: CTA Abdomen and Pelvis With Contrast Exam date and time: 02/25/2025 11:43 PM Age: 64 years old Clinical indication: Other: Gi bleed; Additional info: Gi bleed, distant HX trauma w/ colectomy, mesh etc TECHNIQUE: Imaging protocol: Computed tomographic angiography of the abdomen and pelvis with contrast. Exam focused on the arteries. 3D rendering (Not supervised by radiologist): MIP and/or 3D reconstructed images were created by the technologist. Radiation optimization: All CT scans at this facility use at least one of these dose optimization techniques: automated exposure control; mA and/or kV adjustment per patient size (includes targeted exams where dose is matched to clinical indication); or iterative reconstruction. Contrast material: ISOVUE; Contrast volume: 80 ml; Contrast route: INTRAVENOUS (IV); COMPARISON: MR THORACIC SPINE WO/W CON 01/22/2024 4:20 PM FINDINGS: Aorta: No aortic aneurysm. No aortic dissection. Celiac and mesenteric arteries: No occlusion or significant stenosis. Renal arteries: No occlusion or significant stenosis. Right iliac arteries: No occlusion or significant stenosis. Left iliac arteries: No occlusion or significant stenosis. Liver: No mass. Gallbladder and biliary ducts: Unremarkable. No calcified stones. No ductal dilation. Pancreas: Unremarkable. No mass. No ductal dilation. Spleen: Unremarkable. No splenomegaly. Adrenal glands: Unremarkable. No mass. Kidneys and ureters: 0.4 cm nonobstructive left renal calculus. No hydroureter. Stomach and bowel: High density foci gastric lumen (series 10, image 36) and segment of left colon segment along level postsurgical changes (series 1001 images 59-64). Colonic ileus. Nonobstructive pattern. Chronic postoperative changes of colon. Appendix: Not visualized. Intraperitoneal space: Unremarkable. No free air. No significant fluid collection. Lymph nodes: Unremarkable. No enlarged lymph nodes. Urinary bladder: Unremarkable. No mass. Reproductive: Unremarkable as visualized. Bones/joints: No acute findings identified. Soft tissues: Unremarkable. IMPRESSION: High density material in stomach and left colonic segment. With clinical history can not exclude source of active hemorrhage. Also in consideration or is artifact from ingested material especially in stomach.
--- NOTE | 2025-02-25 23:22 | ED_ITS ---
Discharge Plan Disposition Patient Disposition: Xfer Other Prescriptions Prescriptions: No Action cetirizine [All Day Allergy (cetirizine)] 10 mg tablet 10 mg PO DAILY Qty: 90 3RF cyclobenzaprine 5 mg tablet 5 mg PO BID PRN (Reason: muscle spasm) Qty: 60 0RF (DME) lancets [OneTouch Delica Plus Lancet] 33 gauge misc See Rx Instructions .ROUTE .MEDSUPPLY Qty: 100 Rx Instructions: As directed rosuvastatin [Crestor] 40 mg tablet 40 mg PO DAILY Qty: 90 3RF Mounjaro 2.5 mg/0.5 mL pen injector 2.5 mg SQ WEEKLY Rx Instructions: for 4 weeks (DME) Dexcom G7 Sensor Device See Rx Instructions .ROUTE .MEDSUPPLY Qty: 3 3RF Rx Instructions: Use 1 sensor every 10 days (DME) Dexcom G7 Plunger Machine Operator Misc See Rx Instructions .ROUTE .MEDSUPPLY Qty: 1 0RF Rx Instructions: As directed insulin glargine 100 unit/mL (3 mL) insulin pen 10 unit SQ DAILY 120 Days Qty: 12 3RF tirzepatide 2.5 mg/0.5 mL pen injector 2.5 mg SQ WEEKLY Qty: 2 3RF aspirin [Adult Aspirin Regimen] 81 mg tablet,delayed release (DR/EC) 81 mg PO DAILY Qty: 30 2RF nitroglycerin 0.4 mg tablet, sublingual 0.4 mg sublingual Q5M PRN (Reason: chest pain) Qty: 20 0RF Rx Instructions: do not exceed 3 doses per episode Invokana 300 mg tablet 300 mg PO Patient Comments: TAKE 1 TABLET BY MOUTH ONCE A DAY prednisone 10 mg tablet 10 mg PO BID 3 Days Qty: 6 0RF fluticasone propionate [Flonase Allergy Relief] 50 mcg/actuation spray,suspension 1 spray intranasal Q12H 90 Days Qty: 16 12RF Rx Instructions: administer into each nostril 3 bottles (DME) blood-glucose meter [Advanced Glucose Meter] Misc See Rx Instructions .Route Qty: 1 0RF Rx Instructions: Check sugar 2 times daily or As directed (DME) Advanced Gluc Meter Test Strip Strip See Rx Instructions .Route Qty: 100 2RF Rx Instructions: Check sugar 2 times daily or As directed (DME) lancets [Advanced Travel Lancets] 28 gauge misc See Rx Instructions .Route Qty: 100 1RF Rx Instructions: Check sugar 2 times daily or As directed paroxetine HCl 20 mg tablet See Rx Instructions .ROUTE .COMPLEX Qty: 90 1RF Dose Instruction: TAKE ONE TABLET BY MOUTH EVERY MORNING Rx Instructions: TAKE ONE TABLET BY MOUTH EVERY MORNING (DME) pen needle, diabetic 31 gauge x 3/16 needle See Rx Instructions .Route Qty: 100 2RF Rx Instructions: As directed Referrals Follow up/Referrals: Marissa Kim APRN [Primary Care Provider, Family Practice] - See instructions Clinical Impressions Clinical Impression: Acute lower gastrointestinal bleeding, ABLA (acute blood loss anemia) Stand Alone Forms Stand Alone Forms: Transfer Record - ED Instructions Patient Instructions: DI for Acute Abdominal Pain Print Language Print Language: Malay Discharge ED Provider: Benito Kyle General Adult HPI General Chief complaint: Abdominal Pain Stated complaint: blood in stool Time Seen by Provider: 02/25/25 23:15 Mode of Arrival: Ambulatory Source of Information: Patient Description of Symptoms (Recalled from ER Triage Doc. by RN): Pt presents with c/o lower abd pain with bright red blood coming from his rectum that began this AM. Pt reports to taking an ASA daily. Pt reports HX of abd trauma with mesh placed. History of Present Illness HPI narrative: 64-year-old male with history of prior bowel, status post partial colectomy, abdominal mesh placement, hernia, prior fistula etc. He presents for GI bleeding. He reports he has noticed a little bit this morning but has been worsening throughout the day. He takes a daily aspirin only. Has no he history of GI bleeding in the past. He reports has been having some mild abdominal pain over the last week or so. Related Data Home Medications ?Medication ?Instructions ?Recorded ?Confirmed lancets 33 gauge (OneTouch Delica #100 ea 09/16/24 Plus Lancet) canagliflozin 300 mg tablet 300 mg PO 12/18/24 5 (Invokana) tirzepatide 2.5 mg/0.5 mL 2.5 mg SQ WEEKLY 12/24/24 subcutaneous pen injector (Todd) Previous Rx's ?Medication ?Instructions ?Recorded cetirizine 10 mg tablet (All Day 10 mg PO DAILY Allerg y Symptoms 04/24/23 Allergy (cetirizine)) #90 tabs aspirin 81 mg tablet,delayed 81 mg PO DAILY #30 tabs 0 02/05/24 release (Adult Aspirin Regimen) nitroglycerin 0.4 mg sublingual 0.4 mg sublingual Q5M PRN chest 02/05/24 tablet pain #20 tabs fluticasone propionate 50 1 spray intranasal Q12H Logan rgy 03/31/24 mcg/actuation nasal Symptoms 90 days #16 grams spray,suspension (Flonase Allergy Relief) blood sugar diagnostic (Advanced #100 ea 07/31/24 Glucose Meter Test Strips) blood-glucose meter (Advanced #1 ea 07/31/24 Glucose Meter) lancets 28 gauge (Advanced Travel #100 ea 07/31/24 Lancets) rosuvastatin 40 mg tablet (Crestor) 40 mg PO DAILY #90 tabs 09/16/24 paroxetine HCl 20 mg tablet See Rx Instructions .Route 10/29/24 .COMPLEX #90 tabs cyclobenzaprine 5 mg tablet 5 mg PO BID PRN muscle spa sm #60 11/03/24 tabs prednisone 10 mg tablet 10 mg PO BID 3 days #6 tabs 12/20/24 blood-glucose sensor (Dexcom G7 #3 ea 12/24/24 Sensor device) blood-glucose,floating operator,cont #1 ea 12/24/24 (Dexcom G7 Plunger Machine Operator) insulin glargine 100 unit/mL (3 10 unit (0.1 mL) SQ DA TRINO 4 months 12/24/24 mL) subcutaneous pen #12 mL tirzepatide 2.5 mg/0.5 mL 2.5 mg (0.5 mL) SQ WEEKLY #2 mL 12/24/24 subcutaneous pen injector pen needle, diabetic 31 gauge x #100 ea 12/25/24 3/16 Allergies Allergy/AdvReac Type Severity Reaction Status Date / Time amoxicillin (AMOXICILLIN) Allergy Unknown Hives Verified 12/24/24 14:51 clavulanic acid (From Allergy Hives Verified 12/24/24 14:51 Augmentin) [facility] Disclaimer: The information contained in this section may have been updated after the patient was seen, as this information can be updated by other users. Medical History Anginal equivalent Abnormal cardiovascular stress test Abnormal electrocardiogram [ECG] [EKG] Atypical angina Coronary artery disease Sinusitis Patient left without being seen Testosterone deficiency Neuropathy Vitamin D deficiency (~10/15/17) Diabetes Alcohol abuse Depression Surgical History S/P cardiac cath Social History Smoking Status: Former smoker alcohol intake: never counseling provided: none substance use type: denies use current occupational status: unemployed Travel in the last 8 weeks?: None caffeine: Yes Other Medical History Have you received the Flu Vaccine for this season: No Have you received the Pneumonia Vaccine: No ROS Obtained: Yes All systems reviewed & no additional complaints except as documented Physical Exam General General appearance: alert and in no apparent distress Head Head exam: atraumatic and normocephalic Eye Eye exam: Present normal appearance, PERRL and EOMI ENT ENT exam: Present normal oropharynx and normal external ear exam Neck Neck exam: Present normal inspection and full ROM Chest Chest inspection: Present normal inspection and symmetric chest wall rise; Absent tenderness Respiratory Respiratory exam: Present normal lung sounds bilaterally; Absent respiratory distress Cardiovascular Cardiovascular exam: Present regular rate and normal rhythm Abdominal Exam Abdominal exam: Present soft; Absent distention, tenderness or guarding Comment: Extensive scars, hernia noted that is easily reducible, abdomen is soft. There appears to be a possible old suture protruding from the skin of the midline abdomen. Extremities Exam Extremities exam: Present normal inspection; Absent edema or joint swelling Back Exam Back exam: Present normal inspection; Absent tenderness Neurological Exam Neurological exam: Present alert and oriented X3; Absent motor sensory deficit Psychiatric Psychiatric exam: Present normal affect and normal mood Skin Skin exam: Present warm, dry and normal color Lymphatic Lymphatic Findings: no adenopathy Medical Decision Making Medical Records Medical records reviewed: Yes I reviewed the patient's medical records. Screening: Per USPSTF and CDC recommendations, given the prevalence of disease in our region, it is our hospital?s policy to screen for HIV and viral Hepatitis for all patients aged 18 and over and those with ongoing risk factors. Laureano Inquiry Pt receiving controlled substance: No Laureano was queried for this patient: No Vital Signs: 02/25/25 23:06 02/26/25 00:26 02/26/25 00:28 Temperature 98.1 F 98.4 F Temperature Source Oral Oral Pulse Rate 57 L 55 L Pulse Rate [Radial] 84 Respiratory Rate 16 20 17 Blood Pressure 99/57 L 88/56 L Blood Pressure [Right Arm] 81/45 L Blood Pressure Mean 66 Blood Pressure Mean [Right Arm] 57 Blood Pressure Source Automatic Cuff Blood Pressure Position Sitting Blood Pressure Position [Right Arm] Sitting 02 Sat by Pulse Oximetry 99 100 99 Oxygen Delivery Method Room Air Room Air 02/26/25 00:30 02/26/25 01:00 02/26/25 01:30 Temperature Temperature Source Pulse Rate 55 L 54 L 53 L Pulse Rate [Radial] Respiratory Rate 16 15 15 Blood Pressure 92/53 L 96/58 L 89/62 L Blood Pressure [Right Arm] Blood Pressure Mean 62 69 70 Blood Pressure Mean [Right Arm] Blood Pressure Source Blood Pressure Position Blood Pressure Position [Right Arm] 02 Sat by Pulse Oximetry 99 100 100 Oxygen Delivery Method Lab Data Lab results reviewed: Yes I reviewed the patient's lab results. Lab Results 02/25/25 23:20: WBC 6.0, RBC 3.56 L, Hgb 11.1 L, Hct 32.5 L, MCV 91.3, MCH 31.2, MCHC 34.2, RDW 12.7, Plt Count 158, MPV 10.7 H, Neut % (Auto) 52.4, Lymph % (Auto) 36.5, Stafford % (Auto) 8.9, Eos % (Auto) 1.8, Baso % (Auto) 0.2, Neut # (Auto) 3.1, Lymph # (Auto) 2.2, Stafford # (Auto) 0.5, Eos # (Auto) 0.1, Baso # (Auto) 0.0, PT 11.4, INR 1.03, APTT 26.1, Sodium 137, Potassium 3.7, Chloride 102, Carbon Dioxide 29, Anion Gap 9.7, BUN 34 H, Creatinine 0.90, Estimated Creat Clear 64, Estimated GFR 85, Est GFR ( Amer) 103, Glucose 143 H, Calcium 8.9, Total Bilirubin 0.7, AST 42, ALT 46, Alkaline Phosphatase 71, Total Protein 6.1 L, Albumin 4.1, Globulin 2.0, Albumin/Globulin Ratio 2.1 H, Lipase 140 02/25/25 23:34: Blood Type A Positive, Antibody Screen Negative, Crossmatch ([facility]) See Detail 02/26/25 01:30: WBC 4.5 L, RBC 2.80 L, Hgb 8.7 L D, Hct 25.6 L, MCV 91.4, MCH 31.1, MCHC 34.0, RDW 12.7, Plt Count 113 L D, MPV 10.2, Neut % (Auto) 49.6, Lymph % (Auto) 38.3, Stafford % (Auto) 10.4 H, Eos % (Auto) 1.3, Baso % (Auto) 0.2, Neut # (Auto) 2.2, Lymph # (Auto) 1.7, Stafford # (Auto) 0.5, Eos # (Auto) 0.1, Baso # (Auto) 0.0 02/26/25 01:30 02/25/25 23:20 Orders (Tests/Meds): ED MEDICATIONS Generic Name Dose Route Start Last Admin Trade Name Freq PRN Reason Stop Dose Admin Sodium Chloride 250 mls @ 25 mls/hr 02/26/25 01:45 Sod Chlor 0.9% 250ml Bag IV 02/27/25 01:44 .Q10H VICK Discontinued Medications Generic Name Dose Route Start Last Admin Trade Name Freq PRN Reason Stop Dose Admin Pantoprazole Sodium 80 mg/ 100 mls @ 100 mls/hr 02/25/25 23:19 02/26/25 00:58 Sodium Chloride IV 02/26/25 00:18 Infused ONCE ONE Infusion Iopamidol 80 ml 02/25/25 23:41 02/25/25 23:42 Iopamidol-370 (76%);100ml Bottle IV 02/25/25 23:42 80 ml ONCE ONE Administration Sodium Chloride 50 ml 02/25/25 23:41 02/25/25 23:41 0.9 % Sodium Chloride 50 Ml Vial IV 02/25/25 23:42 50 ml ONCE ONE Administration Sodium Chloride 10 ml 02/25/25 23:41 02/25/25 23:42 Sodium Chloride 0.9% 10ml Syr (Rad Only) IV 02/25/25 23:42 10 ml ONCE ONE Administration ORDERS Category Date Time Status Blood transfusion [Red Blood Cells] Stat [facility] 02/26/25 01:45 Results Type and Screen Stat [facility] 02/25/25 23:[address] angio abd/pel - GI Bleed Stat Cat Scan 02/25/25 23:19 Completed CBC w/Auto Diff [Complete Blood Count Auto Diff] Stat [facility] 02/25/25 23:20 Completed CBC w/Auto Diff [Complete Blood Count Auto Diff] Stat [facility] 02/26/25 01:30 Completed CMP [Comprehensive Metabolic Panel] Stat [facility] 02/25/25 23:20 Completed INR [Prothrombin Time INR] Stat [facility] 02/25/25 23:20 Completed Lipase [facility] 02/25/25 23:20 Completed PTT [Activated Partial Thrombo Time] Stat Lab 02/25/25 23:20 Completed Medical Decision Narrative: 64-year-old male with history of insulin-dependent diabetes, prior abdominal trauma with extensive reconstruction presents for GI bleeding starting this morning, worsening.. History was obtained via interactive discussion with patient. On arrival, patient is [afebrile, hemodynamically stable, satting appropriately, alert, oriented x4, GCS 15], moving all extremities spontaneously. Full physical exam performed and significant for soft nontender abdomen with easily reducible hernia. Patient showed us a photo of a large amount of bright and dark red blood. Differential includes but is not limited to upper GI bleed, lower GI bleed, acute blood loss anemia. Patient was given pantoprazole IV for symptomatic management and correction of underlying abnormalities. Workup initiated including CBC CMP type and screen CTA GI bleed. On re-evaluation, patient remains well-appearing. His systolics have dropped into the 90s, but his maps remain above 65. Laboratory workup independently interpreted by me and significant for initial hemoglobin 11.1, down from baseline. Mild thrombocytopenia. Coags normal. Normal renal function, no significant electrolyte derangement.. Imaging independently interpreted by me and significant for findings concerning for active bleeding within the left colon on CT GI bleed. See radiology read for full review of final results. Repeat hemoglobin was obtained 2 hours after initial collection. His hemoglobin has dropped from 11.1-8.7, consistent with significant active bleeding. Given this, a 1 unit PRBC transfusion was ordered. We made multiple phone calls to get patient transferred. He was ultimately accepted by the [facility] and was transferred emergently for acute blood loss anemia and lower GI bleed. Accepted by [facility]. Procedures Risk/Benefits of Procedure(s) Were Explained: Yes Critical Care Critical Care Time Critical Care Time: Yes Attestation: On 02/25/25, the high probability of a clinically significant, sudden or life threatening deterioration of the following system(s) required my full and direct attention, intervention and personal management. The time I documented below is in addition to time spent performing reported procedures but includes the following listed in this critical care notation. Total Time Total Critical Care Time: 65
[2025-02-25] MEDS: 0.9 % SODIUM CHLORIDE 50 ML VIAL IV (23:41)
[2025-02-25] MEDS: SODIUM CHLORIDE 0.9% 10ML SYR (RAD ONLY) 10 ML IV (23:42)
[2025-02-25] MEDS: IOPAMIDOL-370 (76%);100ML BOTTLE 80 ML IV (23:42)
[2025-02-25 23:46] LABS: Hematocrit 32.5 % (42.0-52.0); Hemoglobin 11.1 g/dL (14.1-18.0); Immature Granulocytes % 0.2 %; Mean Corpuscular HGB Conc 34.2 g/dL (31.8-35.4); Mean Corpuscular Hemoglobin 31.2 pg (27.0-31.2); Mean Corpuscular Volume 91.3 fl (80-94); Nucleated Red Blood Cells % 0 %; Platelet Count 158 K/mm3 (142-424); Red Blood Count 3.56 M/mm3 (4.60-6.20); Red Cell Distribution Width-SD 42.1 fL; White Blood Count 6.0 K/mm3 (4.8-10.8)
[2025-02-25] MEDS: PANTOPRAZOLE SODIUM 80 MG in 0.9 % SODIUM CHLORIDE 100 ML 100 MG IV (23:54)
[2025-02-25 23:57] LABS: Alanine Aminotransferase 46 U/L (12-78); Albumin Level 4.1 g/dl (3.5-5.0); Albumin/Globulin Ratio 2.1 (1.1-1.8); Alkaline Phosphatase 71 U/L (38-126); Anion Gap 9.7 mEq/L (5-15); Aspartate Amino Transferase 42 U/L (17-59); Bilirubin,Total 0.7 mg/dl (0.2-1.3); Blood Urea Nitrogen 34 mg/dl (9-20); Calcium 8.9 mg/dl (8.4-10.2); Carbon Dioxide 29 mmol/L (22.0-30.0); Chloride 102 mmol/L (98-107); Creatinine Clearance Estimated 64 mL/min (50-200); Creatinine,Serum 0.90 mg/dl (0.66-1.25); Estimated Glomerular Filt Rate 85 ml/min (>60); GFR (African American) 103 ML/MIN (>60); Globulin 2.0 g/dL (1.3-3.2); Glucose 143 mg/dl (74-100); Lipase 140 U/L (23-300); Potassium 3.7 mmoL/L (3.5-5.1); Sodium 137 mmol/L (136-145); Total Protein,Serum 6.1 g/dl (6.3-8.2)
[2025-02-25 23:59] LABS: Activated Partial Thrombo Time 26.1 seconds (22.8-30.6); INR 1.03 (0.9-1.1); Prothrombin Time 11.4 seconds (10.1-12.5)
[2025-02-26] VITALS (13 sets, daily range): BP systolic 88–103; BP diastolic 53–78; PULSE 53–58; RESP 14–20; TEMP 36.4–36.9; O2SAT 99–100
[2025-02-26 01:34] LABS: Hematocrit 25.6 % (42.0-52.0); Immature Granulocytes % 0.2 %; Mean Corpuscular HGB Conc 34.0 g/dL (31.8-35.4); Mean Corpuscular Hemoglobin 31.1 pg (27.0-31.2); Mean Corpuscular Volume 91.4 fl (80-94); Nucleated Red Blood Cells % 0 %; Platelet Count 113 K/mm3 (142-424); Red Blood Count 2.80 M/mm3 (4.60-6.20); Red Cell Distribution Width-SD 42.6 fL; White Blood Count 4.5 K/mm3 (4.8-10.8)
[2025-02-26 01:39] LABS: Hemoglobin 8.7 g/dL (14.1-18.0)
--- NOTE | 2025-02-26 01:58 | PC.NURSE ---
Spoke with [facility] in Lab, Blood product will be ready in less than 30min
--- NOTE | 2025-02-26 02:09 | PC.NURSE ---
called , they stated they were busier than normal, CB stated they were a wait list, is now on the phone with [facility]. charge is also speaking with UC at this time.
--- NOTE | 2025-02-26 02:41 | PC.NURSE ---
Spoke with [facility] r/t transfer, They are reaching out to [place] for ETA.
--- NOTE | 2025-02-26 02:48 | PC.NURSE ---
Spoke to Ofe at [facility]. [place] with a 36min ETA
--- NOTE | 2025-02-26 03:59 | PC.NURSE ---
Pt has approx 100ml left of blood to transfuse at time of departure, flight crew to finish administering . Pt VSS, no signs of transfusion reaction.
== END 2025-02-26 04:05 | disposition other institution (70) ==
PROVIDERS: Emergency Provider Emergency Medicine; PCP Family Medicine
DX: K92.2 Gastrointestinal hemorrhage, unspecified (principal); D62 Acute posthemorrhagic anemia
CPT/HCPCS: 36415; 36430; 74174; 80053; 83690; 85025; 85610; 85730; 86850; 96361; 96365; 99285; 99291; J2470; P9016; Q9967

== ENCOUNTER 2025-03-05 09:41 | Outpatient (CLI) | payer MEDICARE, SELFPAY ==
[2025-03-05 10:22] LABS: Hematocrit 32.8 % (42.0-52.0); Hemoglobin 10.7 g/dL (14.1-18.0); Immature Granulocytes % 0.6 %; Mean Corpuscular HGB Conc 32.6 g/dL (31.8-35.4); Mean Corpuscular Hemoglobin 29.9 pg (27.0-31.2); Mean Corpuscular Volume 91.6 fl (80-94); Nucleated Red Blood Cells % 0 %; Platelet Count 174 K/mm3 (142-424); Red Blood Count 3.58 M/mm3 (4.60-6.20); Red Cell Distribution Width-SD 49.4 fL; White Blood Count 5.0 K/mm3 (4.8-10.8)
[2025-03-05 10:56] LABS: Alanine Aminotransferase 120 U/L (12-78); Albumin Level 3.7 g/dl (3.5-5.0); Albumin/Globulin Ratio 1.9 (1.1-1.8); Alkaline Phosphatase 76 U/L (38-126); Anion Gap 9.2 mEq/L (5-15); Aspartate Amino Transferase 135 U/L (17-59); Bilirubin,Total 0.5 mg/dl (0.2-1.3); Blood Urea Nitrogen 19 mg/dl (9-20); Calcium 8.7 mg/dl (8.4-10.2); Carbon Dioxide 32 mmol/L (22.0-30.0); Chloride 102 mmol/L (98-107); Creatinine,Serum 0.80 mg/dl (0.66-1.25); Estimated Glomerular Filt Rate 98 ml/min (>60); GFR (African American) 118 ML/MIN (>60); Globulin 2.0 g/dL (1.3-3.2); Glucose 124 mg/dl (74-100); Potassium 4.2 mmoL/L (3.5-5.1); Sodium 139 mmol/L (136-145); Total Protein,Serum 5.7 g/dl (6.3-8.2)
== END 2025-03-05 23:59 | disposition home or self-care (01) ==
LOC: LAB 09:42
PROVIDERS: PCP Family Medicine; Visit Provider Family Medicine
DX: K92.2 Gastrointestinal hemorrhage, unspecified (principal); D62 Acute posthemorrhagic anemia
CPT/HCPCS: 36415; 80053; 85025

== ENCOUNTER 2025-03-16 08:29 | Outpatient (CLI) | payer MEDICARE, SELFPAY ==
--- NOTE | 2025-03-16 09:30 | US_ITS ---
FINAL REPORT TECHNIQUE: Multiple transverse and longitudinal images CLINICAL HISTORY: elevated liver enzymes COMPARISON: None FINDINGS: The gallbladder shows no wall thickening, distention or stone disease. No biliary ductal dilatation is appreciated. No fluid collections are seen. Limited portions of the right liver are unremarkable. Limited portions of the right kidney are unremarkable. Pancreas is obscured. IMPRESSION: 1. No evidence of cholelithiasis 2. No evidence of biliary obstruction Reviewed, Interpreted and Dictated by Claudio Elias MD Transcribed by Arleen Muse Authenticated and [facility]
[2025-03-16 12:24] LABS: Hemoglobin A1C 5.8 % (4.0-6.0)
== END 2025-03-16 23:59 | disposition home or self-care (01) ==
LOC: RAD 08:30
PROVIDERS: Student in an Organized Health Care Education/Training Program; PCP Family Medicine; Visit Provider Family Medicine
DX: R74.8 Abnormal levels of other serum enzymes (principal); E11.9 Type 2 diabetes mellitus without complications
CPT/HCPCS: 36415; 76705; 82043; 83036

== ENCOUNTER 2025-03-16 10:26 | Outpatient (CLI) | payer MEDICARE, SELFPAY | END 2025-03-16 23:59 | disposition home or self-care (01) | LOC: LAB 10:28 | PROVIDERS: PCP Family Medicine; Visit Provider Student in an Organized Health Care Education/Training Program | DX: E11.9 Type 2 diabetes mellitus without complications (principal) ==

== ENCOUNTER 2025-04-08 13:40 | Outpatient (CLI) | payer MEDICARE, SELFPAY ==
--- OUTSIDE RECORDS SUMMARY | 2025-02-26 03:45 | XMS_ITS | Encounter Summary ---
Author Organization [facility] Address [address] [place] [address] Care Team Providers Care Nurse Discharge Name Role Phone Unknown, Attending Provider Primary Care Provide r Unavailable Source Comments This information has been disclosed to you from confidential records protectfrom disclosure by state law. You shall make no further disclosure of thisinformation without the specific, written, and informed release of theindividual to whom it pertains, or as otherwise permitted by law. A generalauthorization for the release of medical or other information is not sufficientfor the purposes of the release of HIV test results or diagnoses. [id number] Reason for Referral * Surgical (Routine) - New Request Specialty Diagnoses / Procedures Referred By Raissa mitchell Referred To Contact Gastroenterology Diagnoses Lower GI bleed Procedures Case request GI: EGD Rich Cummings MD [address] [place] [address] Phone: tel: fax: Referral ID Status Reason Start Date Expiration Date V isits Requested Visits Authorized [id number] New Request 02/28/2025 08/27/2025 1 1 * Surgical (Routine) - Pending Review Specialty Diagnoses / Procedures Referred By Raissa t Referred To Contact Gastroenterology Diagnoses Lower GI bleed Procedures Case request GI: COLONOSCOPY WITH BIOPSY Fadi Landry MD [address] [place] [address] Phone: tel: fax: Referral ID Status Reason Start Date Expiration Date V isits Requested Visits Authorized [id number] Pending Review 02/26/2025 08/25/2025 1 1 Reason for Visit * Auth/Cert (Routine) Specialty Diagnoses / Procedures Referred By Contac t Referred To Contact Intensive Care Diagnoses Acute blood loss anemia Lower GI bleed Acute Blood Loss Anemia/ Lower GI Bleed [facility] [address] [place] [address] Phone: tel: Referral ID Status Reason Start Date Expiration Date Visits Re quested Visits Authorized [id number] 1 1 Encounter Details Date Type Department Care Team (Latest Contact Info) Description 02/26/2025 4:45 AM EDT - 03/02/2025 2:49 PM EDT Hospital Encounter [facility] [address] [place] [address] Laura Delacruz MD [address] [facility] [address] [place] [address] Radha Gan MD [address] [facility] [place] [id number] Carmela Jernigan MD [address] [place] [address] Taylor Blake MD [address] [place] [address] Desean Bishop MD [address] [place] [address] Lower GI bleed (Primary Dx); Acute blood loss anemia Discharge Disposition: Home or Self Care WITHOUT Home Care Services Social History Tobacco Use Types Packs/Day Years Used Date Smoking Tobacco: Former Cigarettes 1 45.9 S tarted: 1979 Passive Smoke Exposure: Past Smokeless Tobacco: Never Tobacco Cessation:Counseling Given: Not Answered Alcohol Use Standard Drinks/Week Comments Not Currently 0 (1 standard drink = 0.6 oz pur e alcohol) [facility] Utilities Answer Date Recorded In the past 12 months has th e electric, gas, oil, or water company threatened to shut off services in your home? No 02/26/2025 AUDIT-C Answer Date Recorded Q1: How often do you have a drink containing alc ohol? Never 02/26/2025 Average Number of Drinks Not on file 025 Frequency of Binge Drinking Not on file 06/2024 Hunger Vital Sign Answer Date Recorded Within the past 12 months, y ou worried that your food would run out before you got the money to buy more. Never true 02/27/20 25 Within the past 12 months, t he food you bought just didn't last and you didn't have money to get more. Never true 02/26/2025 PRAPARE - Transportation Answer Date Re corded In the past 12 months, has l ack of transportation kept you from medical appointments or from getting medications? No 06/2024 In the past 12 months, has l ack of transportation kept you from meetings, work, or from getting things needed for daily living? No 02/26/2025 Housing Stability Vital Sign Answer Tom e Recorded In the last 12 months, was t here a time when you were not able to pay the mortgage or rent on time? No 02/26/2025 In the past 12 months, how m any times have you moved where you were living? 0 02/26/2025 At any time in the past 12 m [facility], were you homeless or living in a [facility] (including now)? No 02/26/2025 Sex and Gender Information Value Date Recorded Sex Assigned at Not on file Legal Sex Male 2:12 AM EDT Gender Identity Not on file Sexual Orientation Not on file documented as of this encounter Last Filed Vital Signs Vital Sign Reading Time Taken Comments Blood Pressure 84/53 03/02/2025 12:02 PM EDT RN Notified Pulse 54 03/02/2025 12:02 PM EDT Temperature 36.4 C (97.6 F) 03/02/2025 12:02 PM EDT Respiratory Rate 16 03/02/2025 12:02 PM EDT Oxygen Saturation 100% 03/02/2025 12:02 PM EDT Inhaled Oxygen Concentration 100% 03/02/2025 1 2:02 PM EDT Weight 58.5 kg (129 lb) 02/28/2025 10:55 AM EDT Height 180.3 cm (5' 11 ) 02/28/2025 10:55 AM EDT Body Mass Index 17.99 02/28/2025 10:55 AM EDT documented in this encounter Functional Status documented as of this encounter Discharge Summaries * Desean Bishop MD - 03/02/2025 2:08 PM EDT [facility] Internal Medicine - Discharge Summary Date of Admission: 02/26/2025 Date of Discharge: 03/02/2025 Attending Physician: Desean Bishop MD Hospital Problem List Active Hospital Problems Diagnosis Date Noted 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] 03/01/2025 Depression [F32.A] 02/27/2025 Hyperlipidemia [E78.5] 02/27/2025 Diabetes (CMS-HCC) [E11.9] 02/27/2025 Resolved Hospital Problems Diagnosis Date Noted Date Resolved Lower GI bleed [K92.2] 02/26/2025 03/02/2025 Operations/Procedures Performed (include dates) Surgeries: Surgical/Procedural Cases on this Admission Case IDs Date Procedure Surgeon Location Status [id number] 02/27/25 COLONOSCOPY WITH BIOPSY Lucinda Horton MD ENDOSCOPY Comp [id number] 02/28/25 EGD Vee Cao MD ENDOSCOPY Comp Lines/Drains/Airways: Patient Lines/Drains/Airways Status Active LDAs None Notable Imaging Studies: X-ray Portable Chest Result Date: 02/26/2025 IMPRESSION: No acute cardiopulmonary abnormality. Approved by Ashli Rubin MD on 02/26/2025 6:15AM EDT I have personally reviewed the images and I agree with this report. Report Verified by: Adam Hernandez DO at 02/26/2025 7:07 AM EDT Consulting Services (include reason) IR - GI bleed ACS - GI bleed GI - GI bleed Allergies Augmentin [Amoxicillin-Pot Clavulanate] Penicillins Discharge Medications Medication List TAKE these medications, which you were ALREADY TAKING Quantity/Refills canagliflozin 300 mg Tab tablet Commonly known as: INVOKANA Take 1 tablet (300 mg total) by mouth daily. Indications: type 2 diabetes mellitus For: type 2 diabetes mellitus Refills: 0 cyclobenzaprine 5 MG tablet Commonly known as: FLEXERIL Take 1 tablet (5 mg total) by mouth 2 times a day as needed for Muscle spasms. Refills: 0 Dexcom G7 Sensor Rosa Generic drug: blood-glucose sensor 3 each. Refills: 0 fluticasone propionate 50 mcg/actuation nasal spray Commonly known as: FLONASE INSTILL 1 SPRAY INTO EACH NOSTRIL EVERY 12 HOURS FOR ALLERGY SYMPTOMS Refills: 0 Lantus Solostar U-100 Insulin 100 unit/mL (3 mL) Inpn Generic drug: insulin glargine Inject 4 Units subcutaneously at bedtime. Refills: 0 Mounjaro 2.5 mg/0.5 mL Pnij Generic drug: tirzepatide (DIABETES) Refills: 0 PARoxetine 20 MG tablet Commonly known as: PAXIL Take 1 tablet (20 mg total) by mouth every morning. Refills: 0 rosuvastatin 40 MG tablet Commonly known as: CRESTOR Take 1 tablet (40 mg total) by mouth daily. Refills: 0 Reason for Admission Harsha Avina is a 64 y.o. male who has a past medical history of Diabetes ([facility]), HLD (hyperlipidemia), and HTN (hypertension).. The patient was admitted for hematochezia and acute blood loss anemia. Hospital Course By Problem #Lower GI bleed: patient presented with hematochezia with hemoglobin drop 14 --> 8. Blood pressure soft but was at patient's baseline. CT abdomen at outside hospital notable for area of left colonic perianastomotic active extravasation. IR, ACS, and GI were consulted on admission. Per IR, embolization would have posed high risk for anastomotic breakdown so procedure deferred. GI was consulted and the patient underwent EGD/colonoscopy with fair prep, notable for some erosions in roger-terminal ileum but no obvious source of bleeding. EGD also without source of bleeding. Etiology suspicious for Dieulafoy lesion in GI tract or small bowel which was not visualized. The patient did not have anyadditional evidence of active GI bleeding with hemoglobin stable at ~9 for multiple days prior to discharge. #Hypotension: patient reports chronic, asymptomatic. TSH normal. AM cortisol borderline low but ACTH stim test with acceptable results. #Mood disorder: continued home paroxetine. #DM2: well-controlled. Resumed home regimen of Lantus 4 units, Mounjaro, Invokana. Advised patient to follow up with PCP for possible holding of Mounjaro given weight loss. #Hx multiple abdominal surgeries: remote history of accident involving impalement by fence, s/p partial colectomy complicated by multiple hernias. Condition on Discharge Functional Status: Normal Mental Status: Normal Diet / Tube Feeding / TPN: Diet/Nutrition Orders None As listed above Respiratory / Lines & Tubes / Wounds: None required Discharge Physical Exam: BP (!) 84/53 (BP Location: Right upper arm, Patient Position: Sitting) Comment: RN Notified Pulse54 Temp 97.6 ??F (36.4 ??C) (Oral) Resp 16 Ht 5' 11 (1.803 m) Wt 129 lb (58.5 kg) SpO2 100% BMI 17.99 kg/m?? Physical Exam Gen - alert, no distress Eyes - normal conjunctiva, normal pupils ENT - moist mucosa, no OP erythema or exudates Neck - supple, trachea midline CV - RRR, no MRG, no edema Lung - CTA, normal WOB Abd - soft, abdominal wall laxity present with multiple reducible hernias. Non-tender MSK - no joint swelling, no muscle tenderness Skin - normal temp, no rashes Neuro - alert, oriented and answers questions appropriately. No facial asymmetry. Moves all four extremities Psych - normal mood, normal behavior Disposition Home independent Follow-Up Appointments No future appointments. No follow-up provider specified. Patient Instructions / Follow-Up Items for Receiving Physician DESEAN BISHOP MD 03/02/2025 7:07 PM * ALE Scanlon, PARTS LISTER - 03/02/2025 2:04 PM EDT [facility] Care Management Discharge Summary Patient name: Harsha Avina Patient : 1960 Age: 64 y.o. Gender: male Patient emergency contact: Extended Emergency Contact Information Primary Emergency Contact: Joslyn Mireles Mobile Relation: Friend Secondary Emergency Contact: Sylvester brown Mobile Relation: Son Attending provider: Desean Bishop MD Primary care physician: ATTENDING PROVIDER UNKNOWN The MD has indicated that the patient is ready for discharge. Harsha Avina was dischargedhome with no care management needs . The patient will be transported by private car. Transfer Mode/Level of Care: Family DC Summary and KAY have been faxed to facility. N/A The plan has been reviewed: Patient/Family Informed of Discharge Plan: Yes Plan Reviewed With Patient, Family, or Significant Other: Yes Patient and or family are aware and in agreement with the discharge plan: Yes Plan reviewed with MD and other members of the health care team: Yes Care Plan Completed: Yes No further CM/SW needs. This plan has been reviewed with the multi-disciplinary team. Treatment Preferences distance Post-Discharge Goals Return home safely Post Acute Care Provider Information: Community Services at Discharge Community Services at Home post discharge: Not Applicable Jolene AGUILERA PARTS LISTER [phone] documented in this encounter Discharge Instructions * Discharge Instructions* Donna Hernandez MD - 03/02/2025 11:46 AM EDT Harsha Avina, You were in the hospital because of rectal bleeding (bleeding from your bottom). We did both a colonoscopy and an endoscopy to look inside your digestive system, but we couldn???t find the exact cause of the bleeding. We think it may be a Dieulafoy lesion, which is a small blood vessel that can bleed suddenly and then disappear on its own. By the time you left the hospital, your hemoglobin (blood level) was stable. While you were in the hospital, your blood pressure was low. We gave you fluids, which helped a little. We also checked your cortisol levels (a hormone your body makes to handle stress) using a test called an ACTH stimulation test. The results were borderline, which means not clearly normal or abnormal. Since you're not having serious symptoms, we don???t think you need any treatment like steroids right now. Important Instructions: Watch your stool (poop) closely. You might not always notice blood yourself. Bloody stool may look sticky, smell different, or be darker than usual. If your stool looks strange, take a photo or ask someone to check it for you. Call your doctor if you're not sure. --> Other Instructions: Please consider talking to your doctor about stopping the Mounjaro as you are now underweight and your blood sugars are more controlled. Thank you, Medicine Team No future appointments. Recent Lab Values for you and your doctors: Recent Labs 02/28/258 03/01/25 0706 03/02/25 0603 NA 139 143 142 K 4.4 4.4 3.8 CL 108 108 108 CO2 27 31 28 BUN 25 25 18 CREATININE 0.66 0.81 0.56* GLUCOSE 80 112* 149* CALCIUM 8.0* 7.8* 7.7* MG 2.0 1.9 1.9 PHOS 3.2 3.7 3.1 Recent Labs 02/27/25 2243 02/28/25 0348 02/28/25 1609 02/28/25 1845 03/01/25 0706 03/02/25 0603 WBC 3.4* 3.8 7.2 6.8 3.7* 4.1 HGB 9.4* 9.0* 11.1* 9.3* 9.3* 9.0* HCT 27.1* 25.7* 32.3* 27.3* 27.2* 25.6* PLT 112* 130* 147 130* 120* 115* documented in this encounter Medications at Time of Discharge canagliflozin (INVOKANA) 300 mg Tab tabletIndicatio ns:type 2 diabetes mellitus Take 1 tablet (300 mg total) by mouth daily. Indications: type 2 diabetes mellitus cyclobenzaprine (FLEXERIL) 5 MG tablet Take 1 tablet (5 mg total) by mouth 2 times a day as needed for Muscle spasms. 11/03/2024 DEXCOM G7 SENSOR Rosa 3 each. 02/13/2025 fluticasone propionate (FLONASE) 50 mcg/actuation nasal spray INSTILL 1 SPRAY INTO EACH NOSTRIL EVERY 12 HOURS FOR ALLERGY SYMPTOMS 12/08/2024 LANTUS SOLOSTAR U-100 INSULIN 100 unit/mL (3 mL) InPn Inject 4 Units subcutaneously at bedtime. 12/24/2024 MOUNJARO 2.5 mg/0.5 mL PnIj 02/24/2025 PARoxetine (PAXIL) 20 MG tablet Take 1 tablet (20 mg total) by mouth every morning. 01/29/2025 rosuvastatin (CRESTOR) 40 MG tablet Take 1 tablet (40 mg total) by mouth daily. 12/08/2024 documented as of this encounter Progress Notes * Mel Xie - 03/02/2025 10:14 AM EDT 03/02/25 1014 24 HR Nutrition Analysis Totals 24 HR Total Calories (kcals) 1017 kcals 24 Hr Total Protein (g) 41 g 1 meal recorded for 03/01/25 calorie count. Mel Xie NDTR Nutrition and [employer] Contact via [email or web address] * Mel Xie - 03/02/2025 10:13 AM EDT 03/02/25 1000 24 HR Nutrition Analysis Totals 24 HR Total Calories (kcals) 0 kcals 24 Hr Total Protein (g) 0 g No meal tickets saved and no PO intake recorded for 02/28/25 calorie count. Mel Xie NDTR Nutrition and [employer] Contact via [email or web address] * Maritza Vences RN - 03/01/2025 7:41 PM EDT Nursing Day Shift Progress Note Significant Events During Shift None Patient/Family Concerns Visitors: none Concerns: none Assessment Nursing time demands: low IV access: has IV access, adequate and functioning Sitter requirements: no Mental Status Mental Status for the past 14 hrs: Level of Consciousness Orientation Level Cognition 03/01/25 0826 Alert Oriented X4 Ability to abstract;Appropriate judgement;Appropriate safety awareness;Appropriate attention/concentration Medications [id number] - Medications Not Given (last 12 hrs) SITE UNKNOWN Medication Name Action Time Action Reason Comments insulin lispro (humaLOG/ADMELOG) injection 0-5 Units 03/01/25 0812 Not Given Order parameters not met * Donna Hernandez MD - 03/01/2025 12:20 PM EDT [facility] Internal Medicine - Progress Note Chief Concern / Reason for Follow-Up Lower GI bleed Interval History NAEON Patient denies instance of melena last night, but has not had a bowel movement yet, Patient hypotensive to 80s/50s. Patient denies symptoms during this time. Notes baseline BP is 80s-100s systolic. Reports he believes he is a bit dehydrated. Physical Exam Temp: [97.5 ??F (36.4 ??C)-98.5 ??F (36.9 ??C)] 97.5 ??F (36.4 ??C) Heart Rate: [51-69] 55 Resp: [12-16] 16 BP: (80-111)/(41-64) 91/50 Physical Exam Constitutional: Appearance: Normal appearance. Eyes: Extraocular Movements: Extraocular movements intact. Conjunctiva/sclera: Conjunctivae normal. Cardiovascular: Rate and Rhythm: Normal rate and regular rhythm. Pulses: Normal pulses. Heart sounds: Normal heart sounds. Pulmonary: Effort: Pulmonary effort is normal. No respiratory distress. Breath sounds: Normal breath sounds. Abdominal: General: Abdomen is scaphoid. Tenderness: There is no abdominal tenderness. Comments: Two nontender midline protrusions where mesh placed. Musculoskeletal: Right lower leg: No edema. Left lower leg: No edema. Skin: General: Skin is warm and dry. Neurological: General: No focal deficit present. Mental Status: He is alert and oriented to person, place, and time. Diagnostic Studies I have personally reviewed labs. Hemoglobin gradually drifting down at 9.0 this AM, 9.4 yesterday. No new imaging to review Assessment & Plan Harsha Avina is a 64 y.o. male with past medical history significant for HTN, HLD, TIIDM,impalement with fence, partial colectomy w mesh and multiple prior hernia reapirs who presented to the hospital on 02/26/2025 for acute lower GI Bleed. He is admitted to medicine for workup of his lower GI bleed. Assessment & Plan Lower GI bleed Presented to OSH on 02/25 for several episodes of large bloody bowel movements. Hemoglobin drop from 14 to 11 to 8, s/p 1 unit of RBC, Stable at 9. CT AP demonstrated active extravasation reportedly proximal to prior colorectal anastomosis. IR wasconsulted, deferred embolization due to concern for injury to colorectal anastomosis. GI consulted. Colonoscopy 02/27 w/ no source of significant bleeding. EGD with no sources of bleeding. Suspected dieulafoy lesion. - CBC stable from yesterday. As long as stable with no instances of melena, likely discharge home tomorrow. - Continue to monitor stools for melena, appears to be resolved - STAT CBC and CTA for large drops, as above Idiopathic hypotension Patient hypotensive at baseline. Reports normal BP with systolics 80s-100s. - TSH normal. - AM cortisol 7.7 which is at the low end of normal - ACTH stim test today for further evaluation of adrenal insufficiency Depression Chronic condition, patient was started on previous home regimen - Paroxetine 20mg daily Hyperlipidemia Chronic condition, patient was started on previous home regimen - Rosuvastatin 40mg daily Diabetes ([facility]) Chronic condition, holding patients home monjuro and Lantus. - Insulin Lispro 0-5, 3 times daily before meals DVT Prophylaxis: Holding due to GI bleed Code Status: Full Code Medical Readiness for Discharge: 2-4 Days Donna Hernandez MD Med-Peds PGY-1 Resident [facility] 03/01/2025 Cosigned by Desean Bishop MD at 03/01/2025 4:34 PM EDT Associated attestation - Desean Bishop MD - 03/01/2025 4:34 PM EDT [facility] Medicine Attending Supervision Note Harsha Avina was seen today with the resident physician. I personally interviewed and examined the patient. I reviewed the documentation by the resident and agree as documented unless otherwise stated below. Reason for today's visit: Lower GI bleed Supplemental History / ROS Patient feels good today, no further bowel movements since yesterday. No dizziness/lightheadedness.Eating breakfast. Supplemental Exam: Gen - alert, no distress Eyes - normal conjunctiva, normal pupils ENT - moist mucosa, no OP erythema or exudates Neck - supple, trachea midline CV - RRR, no MRG, no edema Lung - CTA, normal WOB Abd - soft, abdominal wall laxity present MSK - no joint swelling, no muscle tenderness Skin - normal temp, no rashes Neuro - alert, oriented and answers questions appropriately. No facial asymmetry. Moves all four extremities Psych - normal mood, normal behavior Medical Decision Making: // LEVEL 3 HIGH Acute or chronic illness that may pose threat to life or function Discussed with physician/JOHANNA from another specialty or practice, other licensed professional (PT/OT/SECOND WORKER/RT), or a non-medical community professional: GI Labs reviewed (1 pt each): CBC, renal, cortisol Assessment & Plan Harsha Avina is a 64 y.o. male on hospital day 3. The medical issues being addressed in today's encounter are as follows: Principal Problem: Lower GI bleed Active Problems: Depression Hyperlipidemia Diabetes ([facility]) Idiopathic hypotension #Lower GI bleed: patient presented with hematochezia with hemoglobin drop 14 --> 8. Blood pressure soft but patient states this is baseline. CT abdomen at outside hospital notable for area of leftcolonic perianastomotic active extravasation. -IR, GI, ACS consulted -Per IR, embolization would pose high risk for anastomotic breakdown -GI consulted, s/p colonoscopy with fair prep, showed some erosions in roger- terminal ileum but no obvious source of bleeding. EGD also without source of bleeding -Per GI suspicious of Dieulafoy lesion in GI tract or small bowel lesion which was not visualized -No further workup as bleeding has resolved for now -Discontinued PPI. Monitor stools for one additional day #Hypotension: patient reports chronic, asymptomatic. -TSH normal, cortisol borderline low -ACTH stim test today #Mood disorder: -Home paroxetine #DM2: well-controlled. -SSI while inpatient -Home meds at discharge Remainder of plan per resident note. DESEAN BISHOP MD Attending Physician Division of Hospital Medicine Department of Internal Medicine 03/01/2025 4:31 PM * Donna Hernandez MD - 02/28/2025 7:27 AM EDT [facility] Internal Medicine - Progress Note Chief Concern / Reason for Follow-Up Lower GI bleed Interval History NAEON Patient denies instance of melena last night, notes broth colored stool. Patient partially color blind so hard to interpret. Patient hypotensive to 80s/50s. Patient denies symptoms during this time. Notes baseline BP is 80s-100s systolic. Occassionally lightheaded at home. Garcia > 4 METs. Physical Exam Temp: [97.6 ??F (36.4 ??C)-98.3 ??F (36.8 ??C)] 97.6 ??F (36.4 ??C) Heart Rate: [50-82] 58 Resp: [11-22] 12 BP: (78-114)/(44-70) 98/64 Physical Exam Constitutional: Appearance: Normal appearance. Eyes: Extraocular Movements: Extraocular movements intact. Conjunctiva/sclera: Conjunctivae normal. Cardiovascular: Rate and Rhythm: Normal rate and regular rhythm. Pulses: Normal pulses. Heart sounds: Normal heart sounds. Pulmonary: Effort: Pulmonary effort is normal. No respiratory distress. Breath sounds: Normal breath sounds. Abdominal: General: Abdomen is scaphoid. Tenderness: There is no abdominal tenderness. Comments: Two nontender midline protrusions where mesh placed. Musculoskeletal: Right lower leg: No edema. Left lower leg: No edema. Skin: General: Skin is warm and dry. Neurological: General: No focal deficit present. Mental Status: He is alert and oriented to person, place, and time. Diagnostic Studies I have personally reviewed labs. Hemoglobin gradually drifting down at 9.0 this AM, 9.4 yesterday. No new imaging to review Assessment & Plan Harsha Avina is a 64 y.o. male with past medical history significant for HTN, HLD, TIIDM,impalement with fence, partial colectomy w mesh and multiple prior hernia reapirs who presented to the hospital on 02/26/2025 for acute lower GI Bleed. He is admitted to medicine for workup of his lower GI bleed. Assessment & Plan Lower GI bleed Presented to OSH on 02/25 for several episodes of large bloody bowel movements. Hemoglobin drop from 14 to 11 to 8, s/p 1 unit of RBC, Stable at 9. CT AP demonstrated active extravasation reportedly proximal to prior colorectal anastomosis. IR wasconsulted, deferred embolization due to concern for injury to colorectal anastomosis. GI consulted. Colonoscopy 02/27 w/ no source of significant bleeding. EGD with no sources of bleeding. - Monitor H&H, goal Hb > 7 g/dL. Will keep supportive management with transfusions as needed. - CBC Every 12 hours - Continue to monitor stools for melena, appears to be resolving - STAT CBC and CTA for large drops, as above Depression Chronic condition, patient was started on previous home regimen - Paroxetine 20mg daily Hyperlipidemia Chronic condition, patient was started on previous home regimen - Rosuvastatin 40mg daily Diabetes ([facility]) Chronic condition, holding patients home monjuro and Lantus. - Insulin Lispro 0-5, 3 times daily before meals DVT Prophylaxis: Holding due to GI bleed Code Status: Full Code Medical Readiness for Discharge: 2-4 Days Donna Hernandez MD Med-Peds PGY-1 Resident [facility] 02/28/2025 Cosigned by Desean Bishop MD at 02/28/2025 5:19 PM EDT Associated attestation - Desean Bishop MD - 02/28/2025 5:19 PM EDT [facility] Medicine Attending Supervision Note Harsha Avina was seen today with the resident physician. I personally interviewed and examined the patient. I reviewed the documentation by the resident and agree as documented unless otherwise stated below. Reason for today's visit: Lower GI bleed Supplemental History / ROS Patient feels well last night, thinks his bowel movements are now broth-colored. Denies dizziness, lightheadedness. Supplemental Exam: Gen - alert, no distress Eyes - normal conjunctiva, normal pupils ENT - moist mucosa, no OP erythema or exudates Neck - supple, trachea midline CV - RRR, no MRG, no edema Lung - CTA, normal WOB Abd - soft, abdominal wall laxity present MSK - no joint swelling, no muscle tenderness Skin - normal temp, no rashes Neuro - alert, oriented and answers questions appropriately. No facial asymmetry. Moves all four extremities Psych - normal mood, normal behavior Medical Decision Making: // LEVEL 3 HIGH Acute or chronic illness that may pose threat to life or function Discussed with physician/JOHANNA from another specialty or practice, other licensed professional (PT/OT/SECOND WORKER/RT), or a non-medical community professional: GI Labs reviewed (1 pt each): CBC, renal, magnesium Assessment & Plan Harsha Avina is a 64 y.o. male on hospital day 2. The medical issues being addressed in today's encounter are as follows: Principal Problem: Lower GI bleed Active Problems: Depression Hyperlipidemia Diabetes ([facility]) #Lower GI bleed: patient presented with hematochezia with hemoglobin drop 14 --> 8. Blood pressure soft but patient states this is baseline. CT abdomen at outside hospital notable for area of leftcolonic perianastomotic active extravasation. -IR, GI, ACS consulted -Per IR, embolization would pose high risk for anastomotic breakdown -GI consulted, s/p colonoscopy with fair prep, showed some erosions in roger- terminal ileum but no obvious source of bleeding -EGD today -Check PM CBC #Mood disorder: -Home paroxetine #DM2: well-controlled. -SSI while inpatient -Home meds at discharge Remainder of plan per resident note. DESEAN BISHOP MD Attending Physician Division of [facility] Medicine Department of Internal Medicine 02/28/2025 5:09 PM * Yolette Garnica, OT - 02/27/2025 11:58 AM EDT Occupational Therapy Initial Assessment and Discharge Name: Harsha Avina : 1960 Attending Physician: Laura Delacruz MD Admission Diagnosis: Acute Blood Loss Anemia/ Lower GI Bleed Date: 02/27/2025 Room: [place] [address] Reviewed Pertinent hospital course: Yes Hospital Course PT/OT: 64yo M presented from OSH w/melena and bloody stools for 1-2 days, dizziness[address]. OSH CT AP w/active bleed in L colon, CTA w/ c/f active arterial extravasation,ACS c/s-no intervention, GI c/s- rec colonoscopy. 02/27 c-scope. (chart reviewed 02/27) Relevant PMH : HTN, HLD, T2DM, partial colectomy w/ mesh/ multiple hernia repair Precautions: none Activity Level: Activity as tolerated Assist: Co-evaluation performed Recommendation Recommendation: No skilled OT Equipment Recommendations: None Assessment/Goals/Plan Pt agreeable to participate in OT evaluation on this date. Pt completed ADLs and functional mobility independently. Pt with no skilled acute occupational therapy needs, therefore no occupational therapy goals were established. Discharge patient from inpatient occupational therapy. Pt stated goal to go home. Outcome Measures AM-PAC 6 Clicks Daily Activity Inpatient Short Form: OT 6 Clicks Score: 24 Functional Status Score ICU (FSS-ICU): Functional Status Score - ICU: 35 Home Living/Prior Function Patient able to provide accurate information at this time: Yes Lives With: Other (Comment) (Mom) Assistance available: 24 hour supervision (mother is in 80s but does not need physical help) Type of Home: House Home Entry: No steps to enter Home Layout: Two level, Able to live on main level with bedroom/bathroom Stairs within: does not use Bathroom Shower/Tub: Tub/shower unit Bathroom Equipment: Grab bars in shower Home Equipment: None Prior Function Functional Mobility: Independent ( no assistive device) Receives Help From: None needed prior to admission ADL Assistance: Independent IADL Assistance: Independent Vocation: Retired Leisure Activities: gardening, build small engines, do stuff with grandkids Pain Pain Score: 0 - No Pain Supplemental Oxygen Supplemental Oxygen Supplemental Oxygen: None (Room air) Vitals Vitals Therapy Vitals : VSS throughout Cognition Overall Cognitive Status: Within Functional Limits Cognitive Assessment: Arousal/ Alertness;Orientation Level;Behavior;Safety Judgment;Following Commands;Insight Arousal/Alertness: Alert Orientation Level: Oriented X4 Behavior: Cooperative;Appropriate Following Commands: Follows all commands and directions without difficulty Safety Judgment: Good awareness of safety precautions Insight: Demonstrated intact insight into limitation and abilities to complete ADL's safely Bahena Agitation Sedation Scale: Alert and calm Vision/Hearing/Perception Hearing: Hard of hearing;Wears bilateral hearing aids Baseline Vision: Wears glasses only for reading Right Upper Extremity Right UE ROM: Grossly WFL as observed during functional activities Right UE Strength: Grossly WFL (at least 3+/5) as observed during functional activities Right UE Muscle Tone: Normal Right Hand Function: Grossly WFL as observed during functional activity Left Upper Extremity Left UE ROM: Grossly WFL as observed during functional activities Left UE Strength: Grossly WFL (at least 3+/5) as observed during functional activities Left UE Muscle Tone: Normal Left UE Hand Function: Grossly WFL as observed during functional activites Neuromuscular Overall Sensation: Impaired Impairments: Baseline Neuropathy (bilat feet) Functional Mobility Bed Mobility Supine to Sit: Independent Transfers Sit to Stand: Independent Stand to Sit: Independent Functional Mobility: Independent (community distances) Balance Sitting - Static: Independent Sitting-Dynamic: Independent Standing-Static: Independent Standing-Dynamic: Independent Gait belt used: Yes ADL Lower Body Dressing: Independent Lower Body Dressing Deficit: Don/doff R sock;Don/doff L sock;Don/doff pants Location Assessed LE Dressing: Seated edge of bed;Standing edge of bed Position after Treatment/Safety Handoff Position after therapy session: Chair Details: RN notified;Call light/ needs within reach Alarms: Chair Alarms Status: Not needed-patient on [place] fall risk precautions with other interventions in place Plan Plan OT Frequency during hospitalization: Discharge from OT The plan of care and recommendations assesses the patient's and/or caregiver's readiness, willingness, and ability to provide or support functional mobility and ADL tasks as needed upon discharge. Patient/Family Education Educated patient on the role of occupational therapy, OT goals, OT plan of care, discharge recommendation, ADL training, functional mobility training, and the importance of safety and fall preventionstrategies including need for supervision/ assistance with OOB activity and use of call light. patient verbalized understanding. OT Time Start Time: 1042 Stop Time: 1056 Time Calculation (min): 14 min OT Charges $OT Evaluation Low Complex 30 Min: 1 Procedure Problem List Problem List[1] Past Medical History Past Medical History: Diagnosis Date Diabetes (CMS-HCC) HLD (hyperlipidemia) HTN (hypertension) Past Surgical History No past surgical history on file. [1] Patient Active Problem List Diagnosis Lower GI bleed * Lucy Machado MD - 02/27/2025 11:52 AM EDT MICU Attending Admit Note I independently saw and examined this patient on 02/27/2025. The x-rays and labs were reviewed. The case was discussed in detail with the MICU house staff and a plan for medical care arranged. Mr. Avina is a 64 yom with pmhx of HTN, HLD, partial colectomy w/mesh hernia repair after traumatic injury who presented with acute GI bleed with active extravasation on CT a/p. Daily Plan: Space out H/H Monitor hemodynamics closely IR cannot intervene as close to surgical anastomosis Colonoscopy today Transfer to floor post-procedure Allergies Allergies[1] BP 95/67 Pulse 72 Temp 98 ??F (36.7 ??C) (Oral) Resp 15 Ht 5' 11 (1.803 m) Wt 125 lb 10.6 oz (57 kg) SpO2 100% BMI 17.53 kg/m?? Alert and oriented Labs/Xrays reviewed. Assessment and Plan Lower GI Bleed - GI planning for scope today - Prepped for scope tonight, adequate IV access, monitor H/H and hemodynamics ICU Checklist DVT/Anticoagulation: {SCD GI Ulcer Prophylaxis: PPI Nutrition: Clear liquid diet LDA: Patient Lines/Drains/Airways Status Active LDAs None Invasive Lines: Continue current access Rey Cath: None Bowel Integrity: PEG/Laxatives ordered Rectal Tube: None Code Status: Full Code Next of kin / POA update: Patient/NOK/POA updated at bedside Medical Readiness for Discharge: 2-4 Days Lucy Machado MD 11:52 AM, 02/27/2025 [1] No Known Drug Allergies or Adverse Reactions * Alannah Kowalski, PT - 02/27/2025 11:04 AM EDT Physical Therapy Physical Therapy Initial Assessment and Discharge Name: Harsha Avina : 1960 Attending Physician: Laura Delacruz MD Admission Diagnosis: Acute Blood Loss Anemia/ Lower GI Bleed Date: 02/27/2025 Room: [place] [address] Reviewed Pertinent hospital course: Yes Hospital Course PT/OT: 64yo M presented from OSH w/melena and bloody stools for 1-2 days, dizzinessand lightheaded[address]. OSH CT AP w/active bleed in L colon, CTA w/ c/f active arterial extravasation,ACS c/s-no intervention, GI c/s- rec colonoscopy. 02/27 c-scope. (chart reviewed 02/27) Relevant PMH : HTN, HLD, T2DM, partial colectomy w/ mesh/ multiple hernia repair Precautions: none Activity Level: Activity as tolerated Assist: Co-evaluation performed Assessment Assessment: No acute impairments Prognosis: Excellent Pt presenting with active bleed in L colon but with stable Hgb and hemodynamics, appears to be at their baseline level of IND with all mobility and denied any concerns with d/c to home. Encouraged toincrease mobility while admitted, as permitted by RN. Pt does not warrant any further PT services at this time, will sign off. Please re-consult if status changes. Recommendation Recommendation: No skilled PT Equipment Recommended: None AM-PAC 6 Clicks Basic Mobility Inpatient Short Form: PT 6 Clicks Score: 24 Mobility Recommendations for Staff Patient ability: Patient ambulates in hallway Assist needed: independently Home Living/Prior Function Patient able to provide accurate information at this time: Yes Lives With: Other (Comment) (Mom) Assistance available: 24 hour supervision (mother is in 80s but does not need physical help) Type of Home: House Home Entry: No steps to enter Home Layout: Two level;Able to live on main level with bedroom/bathroom Stairs within: does not use Bathroom Shower/Tub: Tub/shower unit Bathroom Equipment: Grab bars in shower Home Equipment: None Prior Function Functional Mobility: Independent ( no assistive device) Receives Help From: None needed prior to admission ADL Assistance: Independent IADL Assistance: Independent Vocation: Retired Leisure Activities: gardening, build small engines, do stuff with grandkids Pain Pain Score: 0 - No Pain Vision Hearing/Vision/Perception Hearing: Hard of hearing;Wears bilateral hearing aids Baseline Vision: Wears glasses only for reading Cognition Overall Cognitive Status: WFL Cognitive Assessment: Arousal/ Alertness;Orientation Level;Behavior;Safety Judgment;Following Commands;Insight Arousal/Alertness: Alert Orientation Level: Oriented X4 Behavior: Cooperative;Appropriate Following Commands: Follows all commands and directions without difficulty Safety Judgment: Good awareness of safety precautions Insight: Demonstrated intact insight into limitation and abilities to complete ADL's safely Neuromuscular Overall Sensation: Impaired Impairments: Baseline Neuropathy (bilat feet) Upper Extremity UE Assessment: Defer to OT evaluation for formal assessment Lower Extremity Lower Extremity LE Assessment: Strength WFL (at least 3+/5) as observed during functional activity Functional Mobility Bed Mobility Supine to Sit: Modified independent;head of bed elevated Sit to Supine: Modified independent;head of bed elevated Transfers Sit to Stand: Independent Stand to Sit: Independent Gait Distance (in feet): 200' Level of assistance: Independent Assistive Device: None Gait Characteristics: Steady;swing-through pattern;No LOB Balance Sitting - Static: Independent Sitting-Dynamic: Independent Standing-Static: Independent Standing-Dynamic: Independent Gait belt used: Yes Vitals Vitals Therapy Vitals : VSS throughout Position after Therapy/Safety Handoff Position after treatment and safety handoff Position after therapy session: Recliner Details: RN notified;Call light/ needs within reach Goals No PT goals established secondary to patient with no acute skilled PT needs. Patient stated goal(s)is/are to go home--addressed at time of eval. Discharge patient from inpatient PT services at this time. Patients and/or caregivers as well as practitioners mutually agreed upon the above goal(s)/plan. Patient/Family Education Educated patient on the role of physical therapy, importance of increased activity, and discharge recommendations and fall prevention strategies, including use of call light; patient verbalized understanding. Handout(s) issued: none. Plan Plan PT Frequency during hospitalization: Discharge from PT The plan of care and recommendations assesses the patient's and/or caregiver's readiness, willingness, and ability to provide or support functional mobility and ADL tasks as needed upon discharge. Time Start Time: 1042 Stop Time: 1056 Time Calculation (min): 14 min Charges $PT Evaluation Mod Complex 30 Min: 1 Procedure Problem List Problem List[1] Past Medical History Past Medical History: Diagnosis Date Diabetes (CMS-HCC) HLD (hyperlipidemia) HTN (hypertension) Past Surgical History No past surgical history on file. [1] Patient Active Problem List Diagnosis Lower GI bleed * Kenny Zhu MD - 02/27/2025 6:51 AM EDT Department of Internal Medicine MICU Progress Note Harsha Avina [id number] 6:51 AM, 02/27/2025 [id number] Chief Complaint / Subjective Harsha Avina is a 64 y.o. male with history of HTN, HLD, T2DM, partial colectomy 2/2 traumatic injury () w/ residual mesh and multiple prior hernia repairs here on hospital day #1 who was transferred from OSH with acute lower GI bleed. Significant events over the past 24 hours include: - NAEO, hemoglobin stable - Afebrile, blood pressures soft but MAP appropriate, other VSS - Labs significant for Hgb stable, free elias 4.71 PT seen at bedside: - No n/v; stool mostly clear this AM - No chest pain, headache, dizziness, SOB - Unsure if blood is still present in stool DAILY PLAN - Plan for c-scope this AM; follow up with - Diet per GI when able - Will space H&H checks to BID - Bed request to the floor after returning from procedure Mentation CAM: Overall CAM-ICU : No Delirium RASS: Bahena Agitation Sedation Scale: 0 Continuous Fluids Intake / Output Intake/Output Summary (Last 24 hours) at 02/27/2025 0651 Last data filed at 02/27/2025 0400 Gross per 24 hour Intake 2380 ml Output 2225 ml Net 155 ml Wt Readings from Last 3 Encounters: 02/27/25 125 lb 10.6 oz (57 kg) Vent Settings Lactate: Recent Labs 02/26/25 0529 02/26/252021 LACTATE 0.5 0.7 ABG: No results for input(s): PHART , PCO2 , PO2ART , EWL7HLI , O2SAT in the last 72 hours. Vitals Temp: [96 ??F (35.6 ??C)-97.8 ??F (36.6 ??C)] 96 ??F (35.6 ??C) Heart Rate: [55-76] 65 Resp: [9-22] 14 BP: (85-116)/(56-89) 96/63 BP 96/63 Pulse 65 Temp 96 ??F (35.6 ??C) (Axillary) Resp 14 Ht 5' 11 (1.803 m) Wt 125 lb10.6 oz (57 kg) SpO2 100% BMI 17.53 kg/m?? Temp (24hrs), Av.8 ??F (36 ??C), Min:96 ??F (35.6 ??C), Max:97.8 ??F (36.6 ??C) Patient Vitals for the past 4 hrs: BP Temp Temp src Pulse Resp SpO2 Weight 02/27/25 0600 96/63 -- -- 65 14 100 % -- 02/27/25 0541 -- -- -- -- -- -- 125 lb 10.6 oz (57 kg) 02/27/25 0500 98/64 -- -- 64 13 100 % -- 02/27/25 0400 (!) 86/65 96 ??F (35.6 ??C) Axillary 61 16 100 % -- 02/27/25 0300 (!) 85/60 -- -- 66 14 100 % -- BP Min: 85/60 Max: 116/89 No data recorded Temp Av.8 ??F (36 ??C) Min: 96 ??F (35.6 ??C) Max: 97.8 ??F (36.6 ??C) Pulse Av.1 Min: 55 Max: 76 Resp Av.1 Min: 9 Max: 22 SpO2 Av.8 % Min: 99 % Max: 100 % BP Min: 85/60 Max: 116/89 MAP (mmHg) Av.3 Min: 69 Max: 97 MAP (mmHg) Av.3 Min: 69 Max: 97 Physical Exam BP Min: 85/60 Max: 116/89 No data recorded Temp Av.8 ??F (36 ??C) Min: 96 ??F (35.6 ??C) Max: 97.8 ??F (36.6 ??C) Pulse Av.1 Min: 55 Max: 76 Resp Av.1 Min: 9 Max: 22 SpO2 Av.8 % Min: 99 % Max: 100 % BP Min: 85/60 Max: 116/89 MAP (mmHg) Av.3 Min: 69 Max: 97 MAP (mmHg) Av.3 Min: 69 Max: 97 General Appearance: awake, alert, cooperative, no acute distress, appears stated age HEENT: Normocephalic, atraumatic, moist mucous membranes Neck: No JVD Lungs: Clear to auscultation bilaterally, no increased work of breathing, respirations unlabored, no crackles, no wheezes/rales/rhonchi Heart: Regular rate and rhythm, S1 and S2 normal, no murmur, no rubs or gallops Abdomen: Soft, non-distended, BS+ Extremities: Warm and well-perfused, atraumatic, no cyanosis, no edema Pulses: 2+ and symmetric radial and DP bilaterally Neuro: Alert and oriented to person/place/time, CN 2-12 grossly intact, no focal deficits, moving all four extremities spontaneously Psych: appropriate Medications Scheduled Meds: insulin regular 0-5 Units Subcutaneous Q6H Scheduled mupirocin 1 g Topical BID pantoprazole (PROTONIX) IV 40 mg Intravenous BID6 polyethylene glycol 17 g Oral Daily 0900 potassium chloride 40 mEq Oral Once PRN Meds: dextrose 10% in water OR dextrose 10% in water, glucose, ICU electrolyte replacement protocol AND Initiate electrolyte replacement protocol Diet Diet/Nutrition Orders Diet NPO past midnight Except for: except sips with meds Bowel Prep (Golytely) allowed until 0500. Frequency: Effective Number of Occurrences: Until Specified Order Comments: Bowel Prep (Golytely) allowed until 0500. Order Questions: Except for except sips with meds Labs Renal Recent Labs 02/26/25 0529 02/27/25 0402 NA 140 143 K 4.2 3.9 CL 106 108 CO2 29 28 BUN 37* 33* CREATININE 0.82 0.76 CALCIUM 8.0* 8.0* 8.0* MG 1.9 -- PHOS 3.9 3.1 CBC Recent Labs 02/26/25 0529 02/26/25 1123 02/26/25 1612 02/26/25202102/27/25 0032 02/27/252 HGB 11.3* 10.4* < > 10.5* 9.7* 9.6* HCT 32.3* 29.3* < > 30.6* 27.2* 26.9* PLT 112* 103* -- -- -- -- WBC 5.8 4.3 -- -- -- -- < > = values in this interval not displayed. Liver Recent Labs 02/26/25 0502/26/25112202/27/25401 AST 25 -- -- ALT 28 -- -- ALKPHOS 41 -- -- ALBUMIN 3.7 -- 3.5 BILITOT 0.8 -- -- BILIDIRECT 0.22 -- -- INR 1.2* 1.2* -- FSBS Range: No results for input(s): GLUFAST in the last 72 hours. Recent Labs 02/26/2552802/26/25 11202/26/25203102/27/25 0409 POCGMD 99 117* 106* 92 Images/Data Reviewed: X-ray Portable Chest Result Date: 02/26/2025 EXAM: XR PORTABLE CHEST INDICATION: Dyspnea, unspecified TECHNIQUE: 1 view of the chest. COMPARISON: None. FINDINGS: Medical Devices: None. Heart and Mediastinum: Cardiomediastinal silhouette is within normal limits. Lungs and Pleura: Lungs are clear. No pleural effusions or evidence for pneumothorax. Bones and soft tissues: No acute abnormalities. IMPRESSION: No acute cardiopulmonary abnormality. Approved by Ashli Rubin MD on 02/26/2025 6:15AM EDT I have personally reviewed the images and I agree with this report. Report Verified by: Adam Hernandez DO at 02/26/2025 7:07 AM EDT Assessment & Plan Harsha Avina is a 64 y.o. male with history of HTN, HLD, T2DM, partial colectomy 2/2 traumatic injury () w/ residual mesh and multiple prior hernia repairs here with acute lower GI bleed. Principal Problem: Lower GI bleed NEUROLOGY - No acute concerns PULMONOLOGY - No acute concerns CARDIOVASCULAR #HLD - resume home statin - unsure if pt takes ranolazine GASTROINTESTINAL #Lower GI bleed Hgb trend at OSH 14 -> 11 -> 8. Received 1u pRBC. CTA notable for extrav from left colon. Transferred to MICU. Hgb stable overnight. - IV PPI BID - 2 large bore IV - BID H&H - Transfuse for Hgb <7 - NPO this AM; plan for c-scope with GI - GI consult; recs pending; diet per GI s/p c-scope - IR consult - Imaging reviewed with concern for active extrav near anastomotic site of prior colectomy - Concern for anastomotic breakdown if embolization is required - Recs for ACS consult - ACS consult - No concern for acute surgical intervention at this time #Poor PO intake Has been eating without concerns at home, concern for [place] on exam. - nutrition consult - pre-ablumin lower end of normal - resume diet when able per GI #Hx of partial Colectomy 2/2 to traumatic injury after being impaled by a fence plank in the . RENAL - No acute concerns INFECTIOUS DISEASES - No acute concerns Bcx 02/26: NGTD ENDOCRINE - No acute concerns HEMATOLOGY/ONCOLOGY #Acute blood loss anemia - manage GIB as per above - may be taking meloxicam at home, can resume s/p c-scope pending GI recommendations - labs per above - will forgo iron studies given recent administration of blood products DERMATOLOGY - No acute concerns PSYCHIATRY #Mood - Will resume home paroxetine 20 FEN/GI - Fluids: n/a - Electrolytes: replete PRN - Nutrition: Diet/Nutrition Orders Diet NPO past midnight Except for: except sips with meds Bowel Prep (Golytely) allowed until 0500. Frequency: Effective Number of Occurrences: Until Specified Order Comments: Bowel Prep (Golytely) allowed until 0500. Order Questions: Except for except sips with meds DVT Prophylaxis: held in the setting of GIB GI Prophylaxis: IV PPI BID PT/OT: ordered Family Communication: pt will call to update Disposition: floor pending c-scope Code Status: Full Code Other HOB at 30 degrees KENNY ZHU MD Internal Medicine PGY-2 6:51 AM, 02/27/2025 Cosigned by Lucy Machado MD at 02/27/2025 4:05 PM EDT Associated attestation - Lucy Machado MD - 02/27/2025 4:05 PM EDT I saw and evaluated the patient, and discussed with the resident. I concur with the residents documentation of Harsha Avina. Please see my note for additions/addendums. Patient was seen and assessed on 02/27/25. Lucy Machado MD * Lucy Machado MD - 02/26/2025 2:36 PM EDT MICU Attending Admit Note I independently saw and examined this patient on 02/26/2025. The x-rays and labs were reviewed. The case was discussed in detail with the MICU house staff and a plan for medical care arranged. Mr. Avina is a 64 yom with pmhx of HTN, HLD, partial colectomy w/mesh hernia repair after traumatic injury who presented with acute GI bleed with active extravasation on CT a/p. Daily Plan: Serial H/H q4h Monitor hemodynamics closely IR cannot intervene as close to surgical anastomosis Plan for colonoscopy tomorrow with prep tonight Allergies Allergies[1] BP 104/65 Pulse 74 Temp 97 ??F (36.1 ??C) (Axillary) Resp 11 Ht 5' 11 (1.803 m) Wt 126 lb 1.7 oz (57.2 kg) SpO2 100% BMI 17.59 kg/m?? Alert and oriented Labs/Xrays reviewed. Assessment and Plan Lower GI Bleed - GI planning for scope tomorrow - Prep for scope tonight, adequate IV access, monitor H/H and hemodynamics ICU Checklist DVT/Anticoagulation: {SCD GI Ulcer Prophylaxis: PPI Nutrition: Clear liquid diet LDA: Patient Lines/Drains/Airways Status Active LDAs None Invasive Lines: Continue current access Rey Cath: None Bowel Integrity: PEG/Laxatives ordered Rectal Tube: None Code Status: Full Code Next of kin / POA update: Patient/NOK/POA updated at bedside Medical Readiness for Discharge: 2-4 Days I spent a total of 32 minutes of critical care time caring for this patient with resident, including direct patient contact, management of life support systems review of data (i.e.: imaging and lab),discussion with team members and this time excludes time spent on procedures Lucy Machado MD 2:36 PM, 02/26/2025 [1] No Known Drug Allergies or Adverse Reactions * Alannah Kowalski PT - 02/26/2025 10:23 AM EDT Physical & Occupational Therapy Reason Patient Not Seen Name: Harsha Avina : 1960 Attending Physician: Laura Delacruz MD Admission Diagnosis: Acute Blood Loss Anemia/ Lower GI Bleed Date: 02/26/2025 Precautions: Precautions: none Reviewed Pertinent hospital course: Yes Unable to see patient due to: pt admitted with active L colon bleed, cleared by IR but still pending GI and ACS consults for possible interventions. Will hold therapy evaluations until medically appropriate to participate. Time Attempted: 1024 * Kenny Zhu MD - 02/26/2025 7:52 AM EDT Brief Update: Overnight no acute events. BP soft with MAP >65; other VSS. Labs notable for Hgb of 11.3. At bedside, pt reports he had 1 bloody BM since he has been here. BM with BRB and clots. 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 Physical exam unchanged from prior note. Updated plan: #LGIB Hgb trend at OSH 14 -> 11 -> 8. Received 1u pRBC. CTA notable for extrav from left colon. Transferred to MICU. - IV PPI BID - 2 large bore IV - q4 H&H - Transfuse for Hgb <7 - NPO this AM - Advanced to clears (no red) + bowel prep this evening - NPO at midnight for c-scope tomorrow AM - GI consult - Prep tonight, will scope in the AM - Recs for IR consult in case of quickly progressing bleed - IR consult - Imaging reviewed with concern for active extrav near anastomotic site of prior colectomy - Concern for anastomotic breakdown if embolization is required - Recs for ACS consult - ACS consult - No concern for acute surgical intervention at this time * Laura Delacruz MD - 02/26/2025 4:22 AM EDT MICU Attending Admit Note HPI: 64 y/o M HTN, HLD, T2DM, partial colectomy w/ mesh/ multiple hernia repair p/w melena/bloody stoolsfor the last 1-2 days. W/ lightheadness/dizziness. Never happened before. Hgb 14 at baseline, p/w ~11, received pRBC at OSH CT A/P w/ active bleed in L colon. Feels ok. No abd pain. Brief Exam/Vitals: BP (!) 87/75 Pulse 67 Temp 96.2 ??F (35.7 ??C) (Axillary) Resp 14 Ht 5' 11 (1.803 m) Wt 126 lb 1.7 oz (57.2 kg) SpO2 100% BMI 17.59 kg/m?? Gen - NAD, calm HEENT - NCAT Neck - trachea midline CV - RRR, no edema Pulm - CTAB, non labored Abd - soft, nt/nd Skin - no rashes/lesions Neuro - A&Ox4, no focal deficit Labs/Imaging reviewed including: Assessment and Plan GI: #Acute LGIB: OSH CTA w/ c/f active arterial extravasation ->get imaging pushed over, consultGI for now; follow-up IR pending, type/screen, q4 abg+, TEG, transfuse Heme: #Acute blood loss anemia: transfuse for Hgb <7, plts <50 given active bleed Remainder per resident/JOHANNA note ICU Checklist DVT/Anticoagulation: {SCD and Contraindicated GI Ulcer Prophylaxis: PPI Nutrition: NPO LDA: Patient Lines/Drains/Airways Status Active LDAs None Invasive Lines: None; 4xPIV Rey Cath: None Bowel Integrity: PEG/Laxatives held Rectal Tube: None Code Status: Full Code Next of kin / POA update: To be updated by house staff Medical Readiness for Discharge: 5+ Days I independently saw and examined this patient. The x-rays and labs were reviewed. The case was discussed in detail with the MICU house staff and a plan for medical care arranged. See their note for further details. I spent a total of 55 minutes of critical care time caring for this patient with acute blood anemia, acute lower GI bleed, including direct patient contact, management of life support systems review of data (i.e.: imaging and labs), discussion with team members and this time excludes time spent on procedures Critical care was necessary to treat and prevent life-threatening deterioration from these conditions and requires high complexity decision making for assessment and support LAURA DELACRUZ MD 6:47 AM, 02/26/2025 documented in this encounter H&P Notes * Rich Cummings MD - 02/28/2025 9:16 AM EDT [facility] PRE-SEDATION ASSESSMENT, HISTORY & PHYSICAL Date: 02/28/2025 Harsha Avina is a 64 y.o. year old male Pre-Procedure Diagnosis/Procedure Indication: Hematochezia Planned Procedure: EGD NPO for solids 6-8 hours, NPO for liquids 6-8 hours Past Medical History Past Medical History: Diagnosis Date Diabetes (CMS-HCC) HLD (hyperlipidemia) HTN (hypertension) Difficult intubation Unanswered Problem List[1] Past Surgical History Past Surgical History: Procedure Laterality Date COLONOSCOPY N/A 02/27/2025 Procedure: COLONOSCOPY WITH BIOPSY; Surgeon: Lucinda Horton MD; Location: ENDOSCOPY; Service: Gastroenterology; Laterality: N/A; Medications Home Medications Medication Sig Taking? Last Dose canagliflozin (INVOKANA) 300 mg Tab tablet Take 1 tablet (300 mg total) by mouth daily. Indications: type 2 diabetes mellitus Yes Past Week fluticasone propionate (FLONASE) 50 mcg/actuation nasal spray INSTILL 1 SPRAY INTO EACH NOSTRIL EVERY 12 HOURS FOR ALLERGY SYMPTOMS Yes 02/26/2025 LANTUS SOLOSTAR U-100 INSULIN 100 unit/mL (3 mL) InPn INJECT 10 UNITS SUBCUTANEOUSLY ONCE A DAY Yes02/26/2025 MOUNJARO 2.5 mg/0.5 mL PnIj Yes 02/25/2025 Morning PARoxetine (PAXIL) 20 MG tablet Take 1 tablet (20 mg total) by mouth every morning. Yes 02/25/2025 Morning rosuvastatin (CRESTOR) 40 MG tablet Take 1 tablet (40 mg total) by mouth daily. Yes 02/25/2025 Morning benzonatate (TESSALON) 100 MG capsule Take 1 capsule (100 mg total) by mouth every 8 hours as needed for Cough. Unknown cyclobenzaprine (FLEXERIL) 5 MG tablet Take 1 tablet (5 mg total) by mouth 2 times a day as needed for Muscle spasms. More than a month levoFLOXacin (LEVAQUIN) 750 MG tablet Take 1 tablet (750 mg total) by mouth daily. More than a month meloxicam (MOBIC) 15 MG tablet More than a month Allergies: No Known Allergies Abbreviated Review of Systems (ROS) Functional Capacity: GARCIA ACTIVITY SCALE: 4 - Raking leaves; weeding or pushing a power mower. Chest Pain: no Shortness of Breath/Dyspnea or Exertion: no Recent URI: no Airway, ASA Score & Sedation Specific History Concerns Mallampati: II Mouth Opening: > 4 cm Facial Hair: No Short Neck: No ASA Score: II - Mild systemic disease with no functional limitations Sedation-Specific History Concerns: None Focused Physical Exam: Height ; Weight ; BMI Body mass index is 18.11 kg/m??. Vitals: 02/28/25 0842 BP: 94/53 Pulse: 55 Resp: 16 Temp: 97.7 ??F (36.5 ??C) SpO2: 100% Neuro: alert and oriented Cardiovascular: regular rate Respiratory: non- labored breathing Sedation Plan: MAC Antibiotic prophylaxis is not indicated. [1] Patient Active Problem List Diagnosis Lower GI bleed Depression Hyperlipidemia Diabetes ([facility]) Cosigned by Vee Cao MD at 02/28/2025 11:09 AM EDT Associated attestation - Vee Cao MD - 02/28/2025 11:09 AM EDT I saw and examined the patient. I discussed with the resident or fellow and agree with resident's/fellow's findings and plan as documented in the note. Moises Cao MD Transplant Corporate Strategist * Michael Winston DDS - 02/27/2025 6:12 PM EDT [facility] Internal Medicine - History and Physical Chief Concern Lower GI bleed History of Present Illness Harsha Avina is a 64 y.o. male with past medical history significant for HTN, HLD, TIIDM,impalement with fence, partial colectomy w mesh and multiple prior hernia reapirs who presented to the hospital on 02/26/2025 for acute lower GI Bleed. Patient initially admitted at OSH. He had a hemoglobin drop from 14 to 11, on recheck patient's Hgbwas 8 and he received 1pRBC. Received abdominal CTA which showed left colonic arterial bleed. Patient then accepted for transfer to [facility] MICU for potential embolization. On admission patient reported that he had several days of dark stools with abdominal pain. He also reported worsening dyspnea with exertion stating particularly when climbing stairs. Denied any recent travel, dietary changes. Reported sick contact with [facility] with [employer] recently. He has also not had any pain with defecation. Patient was taken for a colonoscopy with GI today, which revealed small superficial ileal erosions.No findings to explain hematochezia. Biopsy results pending. Bumped from MICU to floor given patients stability. Review of Systems Review of Systems Gastrointestinal: Positive for abdominal pain and melena. Genitourinary: Negative for dysuria. Past Medical and Social History Allergies: No Known Drug Allergies or Adverse Reactions Medical History: Past Medical History: Diagnosis Date Diabetes (CMS-HCC) HLD (hyperlipidemia) HTN (hypertension) Color Vision deficiency Medications: Current Facility-Administered Medications Medication Dose Frequency Provider Last Admin dextrose 10% in water 12.5 g Q15 Min PRN Jayme Judd MD 12.5 g at 02/27/25 1240 Or dextrose 10% in water 25 g Q15 Min PRN Jayme Judd MD glucose 12 g Q15 Min PRN Jayme Judd MD ICU electrolyte replacement protocol UD PRN Jayme Judd MD insulin lispro 0-5 Units TID AC Vidya Padilla MD mupirocin 1 g BID Jayme Judd MD 1 g at 02/27/25 0816 PARoxetine 20 mg Daily 0900 Lucy Troncoso MD 20 mg at 02/27/25 1232 polyethylene glycol 17 g Daily 0900 Jayme Judd MD rosuvastatin 40 mg Nightly (2100) Lucy Troncoso MD sodium chloride 0.9 % 50 mL/hr Continuous Fadi Landry MD Surgical History: History reviewed. No pertinent surgical history. Family History: History reviewed. No pertinent family history. Social History: Social History[1] Physical Exam Temp: [96 ??F (35.6 ??C)-98 ??F (36.7 ??C)] 98 ??F (36.7 ??C) Heart Rate: [55-95] 64 Resp: [9-22] 13 BP: (85-116)/(57-89) 94/59 Physical Exam Constitutional: Appearance: He is underweight. HENT: Head: Comments: Temporal wasting present Mouth/Throat: Mouth: Mucous membranes are moist. Pharynx: Oropharynx is clear. Eyes: Comments: Conjunctiva pale Cardiovascular: Rate and Rhythm: Normal rate and regular rhythm. Pulmonary: Effort: Pulmonary effort is normal. No respiratory distress. Breath sounds: Normal breath sounds. Abdominal: General: Bowel sounds are normal. Palpations: Abdomen is soft. Tenderness: There is abdominal tenderness. Musculoskeletal: Right lower leg: No edema. Left lower leg: No edema. Skin: Capillary Refill: Capillary refill takes less than 2 seconds. Neurological: General: No focal deficit present. Mental Status: He is oriented to person, place, and time. Baseline neuropathy in feet Psychiatric: Mood and Affect: Mood normal. Behavior: Behavior normal. Diagnostic Studies I have personally reviewed labs. I have reviewed the following imaging reports: CXR Assessment & Plan Harsha Avina is a 64 y.o. male with past medical history significant for HTN, HLD, TIIDM,impalement with fence, partial colectomy w mesh and multiple prior hernia reapirs who presented to the hospital on 02/26/2025 for acute lower GI Bleed. He is admitted to medicine for workup of his lower GI bleed. Assessment & Plan Lower GI bleed presented to OSH on 02/25 for several episodes of large bloody bowel movements. He had a hemoglobin drop from 14 to 11 to 8, he received 1 unit of RBC, CT AP demonstrated active extravasation reportedly proximal to prior colorectal anastomosis. He was transferred to [facility] for further work up and has remained hemodynamically stable without pressor requirement. IR was consulted for lower GI bleed butdeferred embolization due to concern for injury to colorectal anastomosis. 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 BUN increased. GI plans for EGD tomorrow. - EGD tomorrow, NPO at midnight - Monitor H&H, goal Hb > 7 g/dL. Will keep supportive management with transfusions as needed. - CBC Every 12 hours, starting at 2000 02/27 - Continue to monitor stools for melena, appears to be resolving - Transfuse to keep Hgb >7 and keep 2 large bore IVs - STAT CBC and CTA for large drops, as above Depression Chronic condition, patient was started on previous home regimen - Paroxetine 20mg daily Hyperlipidemia Chronic condition, patient was started on previous home regimen - Rosuvastatin 40mg daily Diabetes ([facility]) Chronic condition, holding patients home monjuro and Lantus. - Insulin Lispro 0-5, 3 times daily before meals Prior to Admission Med Status: Medications confirmed and reconciled DVT Prophylaxis: Consider restarting tomorrow if no significant blood in stool Code Status: Full Code Michael Winston DDS 02/27/2025 6:52 PM [1] Social History Tobacco Use Smoking status: Former Current packs/day: 1.00 Average packs/day: 1 pack/day for 45.8 years (45.8 ttl pk-yrs) Types: Cigarettes Start date: 1979 Smokeless tobacco: Never Substance Use Topics Alcohol use: Not Currently Drug use: Never Cosigned by Taylor Blake MD at 02/27/2025 10:13 PM EDT Associated attestation - Taylor Blake MD - 02/27/2025 10:13 PM EDT Hospital Medicine Attending Supervision Note [facility] // [facility] Harsha Avina was seen 02/27/25 on rounds with the resident physician. I personally interviewed and examined the patient. I reviewed the documentation by the resident and agree as documentedunless otherwise stated below. Reason for today's visit: Hematochezia Assessment & Plan Harsha Avina is a 64 y.o. male on hospital day 1. The medical issues being addressed in today's encounter are as follows: Principal Problem: Lower GI bleed Active Problems: Depression Hyperlipidemia Diabetes (CMS-HCC) Patient has been bumped out of the MICU (physically still present at the time of signing this note), with a history of HTN, DMII, partial colectomy with previous hernial repairs presenting with hematochezia with worsening anemia in the OSH transferred for intent for intervention with embolization. Appreciative of all consultants, with colonoscopy recently performed with no significant source of bleeding with ileal erosions. Acute management to obtain frequent CBC draws to ensure stability with plan for EGD tomorrow (noted that patient was on PPI BID and then discontinued). Currently hemodynamically stable. Rest of plan as mentioned. Medical Decision Making: Severe exacerbation of chronic illness Labs reviewed (1 pt each): CBC, BMP Test results reviewed (1 pt each): Colonoscopy Review of notes from a different specialty or different practice: GI High risk of complications or morbidity related to diagnostics or treatments The HPI, ROS, physical exam, test results, and assessment & plan were reviewed and copied forward (with edits) from a note written by myself or a same-practice partner on 02/26/25. I have updated the history, physical exam, data, assessment, and plan of the note so that it reflects my evaluationand management of the patient on 02/27/2025. TAYLOR BLAKE MD Attending Physician Division of [facility] Medicine Department of Internal Medicine Pager ID: [phone] 10:03 PM, 02/27/2025 * Rich Cummings MD - 02/27/2025 2:49 PM EDT [facility] PRE-SEDATION ASSESSMENT, HISTORY & PHYSICAL Date: 02/27/2025 Harsha Avina is a 64 y.o. year old male Pre-Procedure Diagnosis/Procedure Indication: hematochezia Planned Procedure: Colonoscopy NPO for solids 6-8 hours, NPO for liquids 6-8 hours Past Medical History Past Medical History: Diagnosis Date Diabetes ([facility]) HLD (hyperlipidemia) HTN (hypertension) Difficult intubation Unanswered Problem List[1] Past Surgical History No past surgical history on file. Medications Home Medications Medication Sig Taking? Last Dose canagliflozin (INVOKANA) 300 mg Tab tablet Take 1 tablet (300 mg total) by mouth daily. Indications: type 2 diabetes mellitus Yes 02/25/2025 Allergies: No Known Allergies Abbreviated Review of Systems (ROS) Functional Capacity: GARCIA ACTIVITY SCALE: 4 - Raking leaves; weeding or pushing a power mower. Chest Pain: no Shortness of Breath/Dyspnea or Exertion: no Recent URI: no Airway, ASA Score & Sedation Specific History Concerns Mallampati: II Mouth Opening: > 4 cm Facial Hair: No Short Neck: No ASA Score: II - Mild systemic disease with no functional limitations Sedation-Specific History Concerns: None Focused Physical Exam: Height ; Weight ; BMI Body mass index is 17.53 kg/m??. Vitals: 02/27/25 1200 BP: 91/59 Pulse: 70 Resp: 15 Temp: 98 ??F (36.7 ??C) SpO2: 100% Neuro: alert and oriented Cardiovascular: regular rate Respiratory: non-labored breathing Sedation Plan: MAC Antibiotic prophylaxis is not indicated. [1] Patient Active Problem List Diagnosis Lower GI bleed Cosigned by Lucinda Horton MD at 02/27/2025 3:12 PM EDT Associated attestation - Lucinda Horton MD - 02/27/2025 3:12 PM EDT Lucinda Horton MD Professor Director of Esophageal Diseases Division of Digestive Diseases * Jayme Judd MD - 02/26/2025 4:07 AM EDT Department of Internal Medicine - MICU History and Physical Patient: Harsha Avina Room: [place] [address] Chief Complaint: Lower GI Bleed HPI Harsha Avina is a 64 y.o. male with past medical history significant for HTN, HLD, TIIDM,impalement with fence, partial colectomy w mesh and multiple prior hernia reapirs who presented to the hospital on 02/26/2025 for acute lower GI Bleed. Patient initially admitted at OSH. Patient's BL Hgb is 14 and was 11 at presentation, on recheck patient's Hgb was 8 and he received 1pRBC. Received abdominal CTA which showed left colonic arterial bleed. Patient then accepted for transfer to [facility] MICU for potential embolization. On admission patient reported that he had several days of dark stools with abdominal pain. He also reported worsening dyspnea with exertion stating particularly when climbing stairs. Denied any recent travel, dietary changes. Reported sick contact with [facility] with [employer] recently. He has also not had any pain with defecation. Review of Systems Gastrointestinal: Positive for abdominal pain and melena. Genitourinary: Negative for dysuria. Obtained from patient Past Medical and Social History No past medical history on file. No past surgical history on file. No family history on file. Social History[1] Home Medications Allergies[2] Home Medications Medication Sig Taking? Last Dose canagliflozin (INVOKANA) 300 mg Tab tablet Take 1 tablet (300 mg total) by mouth daily. Indications: type 2 diabetes mellitus Yes 02/25/2025 Physical Exam Temp: [96.2 ??F (35.7 ??C)] 96.2 ??F (35.7 ??C) Heart Rate: [59-87] 67 Resp: [14-25] 14 BP: (87-97)/(58-75) 87/75 Physical Exam Constitutional: Appearance: He is underweight. HENT: Head: Comments: Temporal wasting present Mouth/Throat: Mouth: Mucous membranes are moist. Pharynx: Oropharynx is clear. Eyes: Comments: Conjunctiva pale Cardiovascular: Rate and Rhythm: Normal rate and regular rhythm. Pulmonary: Effort: Pulmonary effort is normal. No respiratory distress. Breath sounds: Normal breath sounds. Abdominal: General: Bowel sounds are normal. Palpations: Abdomen is soft. Tenderness: There is abdominal tenderness. Musculoskeletal: Right lower leg: No edema. Left lower leg: No edema. Skin: Capillary Refill: Capillary refill takes less than 2 seconds. Neurological: General: No focal deficit present. Mental Status: He is oriented to person, place, and time. Psychiatric: Mood and Affect: Mood normal. Behavior: Behavior normal. No intake or output data in the 24 hours ending 02/26/25 0740 Diagnostic Studies I have personally reviewed labs. Imaging studies delivered to PACS. Upload pending Assessment & Plan Harsha Avina is a 64 y.o. male with Lower GI bleed. Medical problems being addressed in this encounter include the following: Neurology, Pain, Sedation: -No acute issues Pulmonology - No acute issues. Will encourage incentive spirometry use. Cardiovascular - No acute issues. Will continue to monitor on telemetry. Gastrointestinal #GI Bleed Upper vs lower Patient transferred from OSH for concernt for acute GI bleed with arterial extravasation with CT Angiogram. On presentation patient is HDS but exhibits pale scleral icterus. History consistent with melena c/f UGIB as etiology. Outside imaging upload pending at time of writing. Protonix 40mg IV BID GI consult CBC and TEGS Q4. Transfuse for Hgb < 7 - Bowel regimen: Miralax #Poor Protein Intake Patient reports low appetite on interview and has temporal wasting present on exam. Obtain pre-albumin Nutrition consult. #Hx Colectomy s/p fence impalement On exam patient has stitches poking through skin. Not acute painful but noticeable by patient. CTM, but if worsening pain or c/f damage, may require ACS for investigation. Renal (Electrolytes, Acid/Base)/Genitourinary - No acute issues - Monitor I/Os, renal panels, replete electrolytes PRN. Infectious Diseases Antibiotics: None Results: None - No acute issues Endocrine #TIIDM Patient with history of TIIDM and takes Canagliflozin 300mg Q24 at home and insulin at home. A1c currently unknown. Begin patient on LDSSI Obtain A1c with morning labs. Hematology/Oncology - No acute issues Disposition: MICU Code Status: Full Code Discussed with patient. ICU Check List DVT/Anticoagulation: {Contraindicated GI Ulcer Prophylaxis: PPI Nutrition: NPO LDA: Patient Lines/Drains/Airways Status Active LDAs None Invasive Lines: Continue current access Rey Cath: None Bowel Integrity: PEG/Laxatives ordered Rectal Tube: None Code Status: Full Code Next of kin / POA update: To be updated by house staff [1] Social History Tobacco Use Smoking status: Former Current packs/day: 1.00 Average packs/day: 1 pack/day for 45.8 years (45.8 ttl pk-yrs) Types: Cigarettes Start date: 1979 Smokeless tobacco: Never Substance Use Topics Alcohol use: Not Currently Drug use: Never [2] No Known Drug Allergies or Adverse Reactions Cosigned by Laura Delacruz MD at 02/26/2025 11:01 PM EDT Associated attestation - Laura Delacruz MD - 02/26/2025 11:01 PM EDT I independently saw and evaluated the patient, and discussed with the resident/fellow/JOHANNA. I agree with the findings and plan as documented in their note. Please see my note for additions/addendums. LAURA DELACRUZ MD, DO 11:01 PM, 02/26/2025 documented in this encounter Procedure Notes * Vee Cao MD - 02/28/2025 11:14 AM EDT EGD Brief Op Note Harsha Avina 02/26/2025 - 02/28/2025 Pre-op Diagnosis: Lower GI bleed [K92.2] Post-op Diagnosis: Prior gastric surgery. No signs of active bleeding visualized Procedure(s): EGD Surgeon(s): Vee Cao MD Anesthesia: MAC (Monitor Anesthesia Care) Staff: Fellow: Rich Cummings MD [facility] Endo Nurse: Jennifer Berman RN Endoscopy Nurse: Mirela Palacios RN Estimated Blood Loss: Minimal Specimens: Drains: There were no complications unless listed below. VEE CAO MD Date: 02/28/2025 Time: 11:24 AM * Vee Cao MD - 02/28/2025 10:54 AM EDT [id number] Procedure Date: 02/28/2025 10:54 AM Patient Name: Harsha Avina Date of : 1960 Admit Type: Inpatient Age: 64 Gender: Male Note Status: Finalized Attending MD: VEE CAO MD, [id number] Procedure: Upper GI endoscopy Indications: Hematochezia Providers: VEE CAO MD, Rich Cummings (Fellow) Referring MD: Medicines: Monitored Anesthesia Care Complications: No immediate complications. Procedure: Pre-Anesthesia Assessment: - Prior to the procedure, a History and Physical was performed, and patient medications and allergies were reviewed. The patient is competent. The risks and benefits of the procedure and the sedation options and risks were discussed with the patient. All questions were answered and informed consent was obtained. Patient identification and proposed procedure were verified by the physician, the nurse, the rn gyn and the tower technician in the procedure room. Mental Status Examination: alert and oriented. Airway Examination: normal oropharyngeal airway and neck mobility. Respiratory Examination: clear to auscultation. CV Examination: normal. ASA Grade Assessment: II - A patient with mild systemic disease. After reviewing the risks and benefits, the patient was deemed in satisfactory condition to undergo the procedure. The anesthesia plan was to use monitored anesthesia care (MAC). Immediately prior to administration of medications, the patient was re-assessed for adequacy to receive sedatives. The heart rate, respiratory rate, oxygen saturations, blood pressure, adequacy of pulmonary ventilation, and response to care were monitored throughout the procedure. The physical status of the patient was re-assessed after the procedure. After obtaining informed consent, the endoscope was passed under direct vision. Throughout the procedure, the patient's blood pressure, pulse, and oxygen saturations were monitored continuously. The Endoscope was introduced through the mouth, and advanced to the second part of duodenum. The upper GI endoscopy was accomplished without difficulty. The patient tolerated the procedure well. Findings: The examined esophagus was normal. Evidence of a patent Billroth I gastroduodenostomy was found. A gastric pouch 5.5 cm wide with a normal size was found. This was traversed. No bleeding or stigmata of bleeding seen in duodenum, stomach or esophagus The examined duodenum was normal. Estimated Blood Loss: Estimated blood loss: none. Impression: - No bleeding or stigmata of bleeding seen in duodenum, stomach or esophagus - Normal esophagus. - Patent Billroth I gastroduodenostomy was found. - Normal examined duodenum. - No specimens collected. Recommendation: - [facility]. - Resume previous diet. - Return to referring provider as previously scheduled. Procedure Code(s): --- Professional --- 41293, GC, Esophagogastroduodenoscopy, flexible, transoral; diagnostic, including collection of specimen(s) by brushing or washing, when performed (separate procedure) Diagnosis Code(s): --- Professional --- Z98.0, Intestinal bypass and anastomosis status K92.1, Melena (includes Hematochezia) CPT copyright 2022 [employer]. All rights reserved. The codes documented in this report are preliminary and upon shingle catcher review may be revised to meet current compliance requirements. Attending Participation: I was present for the entire viewing portion, including introduction and removal of the scope. Vee Cao MD VEE CAO MD 02/28/2025 11:42:08 AM This report has been signed electronically.MD Zoila CONN Geethanjali Rich Cummings, 02/28/2025 11:37:47 AM Total Procedure Duration Time 0 hours 6 minutes 50 seconds Scope In: 11:16:43 AM Scope Out: 11:23:[address] [place] [address], [facility] * Fadi Landry MD - 02/27/2025 3:15 PM EDT COLONOSCOPY WITH BIOPSY Brief Op Note Harsha Avina 02/26/2025 - 02/27/2025 Pre-op Diagnosis: Lower GI bleed [K92.2] Post-op Diagnosis: small superficial ileal erosions. No findings to explain hematochezia. Procedure(s): COLONOSCOPY WITH BIOPSY Surgeon(s): Lucinda Horton MD Anesthesia: MAC (Monitor Anesthesia Care) Staff: Fellow: Fadi Landry MD [facility] Endo Nurse: Marcy Grayson RN Endoscopy Nurse: Renuka Velasquez RN Estimated Blood Loss: Minimal Specimens: Specimens ID Description Commments Type Source Tests Collected By Collected At A ileum bxs ileitis Tissue Ileum SURGICAL PATHOLOGY EXAM Lucinda Horton MD 02/27/25 1527 There were no complications unless listed below. FADI LANDRY MD Date: 02/27/2025 Time: 3:38 PM Cosigned by Lucinda Horton MD at 02/27/2025 3:46 PM EDT Associated attestation - Lucinda Horton MD - 02/27/2025 3:46 PM EDT Lucinda Horton MD Professor Director of Esophageal Diseases Division of Digestive Diseases * Lucinda Horton MD - 02/27/2025 2:50 PM EDT [id number] Procedure Date: 02/27/2025 2:50 PM Patient Name: Harsha Avina Date of : 1960 Admit Type: Inpatient Age: 64 Gender: Male Note Status: Finalized Attending MD: Lucinda Horton MD, [id number] Procedure: Colonoscopy Indications: Hematochezia Patient Profile: 64 year old admitted with hematochezia. Providers: Lucinda Horton MD, Fadi Landry MD (Fellow) Referring MD: Provider Not in System Medicines: Monitored Anesthesia Care Complications: No immediate complications. Procedure: Pre-Anesthesia Assessment: - Prior to the procedure, a History and Physical was performed, and patient medications and allergies were reviewed. The patient is competent. The risks and benefits of the procedure and the sedation options and risks were discussed with the patient. All questions were answered and informed consent was obtained. Patient identification and proposed procedure were verified by the physician, the nurse, the rn gyn and the tower technician in the endoscopy suite. Mental Status Examination: alert and oriented. Airway Examination: normal oropharyngeal airway and neck mobility. Respiratory Examination: clear to auscultation. CV Examination: normal. Prophylactic Antibiotics: The patient does not require prophylactic antibiotics. Prior Anticoagulants: The patient has taken no anticoagulant or antiplatelet agents. ASA Grade Assessment: III - A patient with severe systemic disease. After reviewing the risks and benefits, the patient was deemed in satisfactory condition to undergo the procedure. The anesthesia plan was to use monitored anesthesia care (MAC). Immediately prior to administration of medications, the patient was re-assessed for adequacy to receive sedatives. The heart rate, respiratory rate, oxygen saturations, blood pressure, adequacy of pulmonary ventilation, and response to care were monitored throughout the procedure. The physical status of the patient was re-assessed after the procedure. After I obtained informed consent, the scope was passed under direct vision. Throughout the procedure, the patient's blood pressure, pulse, and oxygen saturations were monitored continuously. The Colonoscope was introduced through the anus and advanced to the terminal ileum. The colonoscopy was performed without difficulty. The patient tolerated the procedure well. The quality of the bowel preparation was fair. The ileocolonic anastomosis, the roger-terminal ileum and the rectum were photographed. Findings: The perianal and digital rectal examinations were normal. There was evidence of a prior end-to-side ileo-colonic anastomosis in the ascending colon. This was patent and was characterized by erosion. The roger-terminal ileum contained two scattered erosions. Biopsies were taken with a cold forceps for histology. Estimated blood loss was minimal. Normal mucosa was found in the entire colon. The retroflexed view of the distal rectum and anal verge was normal and showed no anal or rectal abnormalities. Estimated Blood Loss: Estimated blood loss was minimal. Impression: - Preparation of the colon was fair. - Patent end-to-side ileo-colonic anastomosis, characterized by erosion. - Two erosions in the roger-terminal ileum. Biopsied. - Normal mucosa in the entire examined colon. - The distal rectum and anal verge are normal on retroflexion view. Recommendation: - Return patient to ICU for ongoing care. - Clear liquid diet. NPO at ID. - Plan for EGD tomorrow. - Continue present medications. - Await pathology results. - Repeat colonoscopy for screening purposes as an outpatient. Examination today was not adequate for polyp screening / surveillance. Procedure Code(s): --- Professional --- 54381, GC, Colonoscopy, flexible; with biopsy, single or multiple Diagnosis Code(s): --- Professional --- Z98.0, Intestinal bypass and anastomosis status K63.3, Ulcer of intestine K92.1, Melena (includes Hematochezia) CPT copyright 2022 [employer]. All rights reserved. The codes documented in this report are preliminary and upon shingle catcher review may be revised to meet current compliance requirements. Attending Participation: I was present and participated during the entire procedure, including non-glover portions. Lucinda Horton MD Lucinda Horton MD 02/27/2025 4:52:03 PM This report has been signed electronically.MD Jenelle Lott MD Fadi Landry MD 02/27/2025 3:51:01 PM Scope Withdrawal Time 0 hours 10 minutes 43 seconds Total Procedure Duration Time 0 hours 18 minutes 13 seconds Scope In: 3:17:54 PM Scope Out: 3:36:[address] [place] [address], [facility] documented in this encounter Consult Notes * ALE Scanlon, PARTS LISTER - 03/02/2025 1:08 PM EDT HEALTH Care Management/Social Work Assessment Patient Information Patient Name: Harsha Avina Hospital Day: 4 Inpatient/Observation: Inpatient Admit Date: 02/26/2025 Admission Diagnosis: Acute GI bleeding [K92.2] Attending provider: Desean Bishop MD PCP: ATTENDING PROVIDER UNKNOWN Home Pharmacy: [facility] [id number] [facility] [id number] Issues related to obtaining medications: none known Payor Information Medical Insurance Coverage: Payor: [employer] MEDICARE / Plan: BLUE MEDICARE ADVANTAGE / Product Type: [place] Care / Secondary Payor: none known Functional Assessment Functional Assessment Assessment Information Obtained From:: Patient Current Mental Status: Awake, Oriented to Person, Oriented to Place, Oriented to Time, Oriented to Situation Mental Status Prior to Admission: Unable to Assess Mental Health History: Yes (Depression) Behavioral Health Agency Involvement: No Do you need Mental Health treatment resources?: No Patient Requests Social Work Consult?: No Substance Abuse: No Suicide Attempts: No Activities of Daily Living: Independent Work History: Unable to assess Marital Status: Single Number of children and their names: 1- ySlvester Brown Relative Search Completed: No Demographics Correct:: Yes Current Living Arrangements Current Living Arrangements Current Living Arrangements: Home Type of Housing: House Who do you live with?: With Family What family member?: elderly mother One Story or Two (check all that apply): One Story Enter the number of steps and rails to enter the residence: 0 Enter the number of steps and rails inside the residence: 1 History of Falls?: No Community Services Community Services Community Services at Home: Not Applicable Was any abuse reported by patient?: No Status & Connection to [facility] Services [place] Status & Connection to [facility] Services Are you a ?: No Support Systems Emergency contact: Extended Emergency Contact Information Primary Emergency Contact: Joslyn Mireles Mobile Relation: Friend Secondary Emergency Contact: Sylvester brown Mobile Relation: Son Support Systems Primary Caregiver: Self Times of available support: Limited 18/12 hands on (add comment) Marital Status: Single Number of children and their names: 1- Sylvester Brown Relative Search Completed: No Demographics Correct:: Yes Next of Kin: Sylvester Brown Next of Kin Relationship: Son Next of Kin Assessment Information Obtained From:: Patient Other Pertinent Information Advance Directives (For Healthcare) Advance Directive: Patient does not have advance directive No Advanced Directive: Patient would NOT like information about advanced directives, forgoing or with-drawing life-sustaining treatment, and withholding resuscitative services Healthcare Agent Appointed: No Pre-existing DNR/DNI Order: No Patient Requests Assistance: No Discharge Plan Met with patient to initiate discussion regarding discharge planning. Introduced self and role of case management/social work and provided contact information. Patient resides in [place], [place]. There are 0 steps to get in and 1 step in side the home; patient's elderly mother resides with him. Patient is single and has 1 adult son, Sylvester Chan is patient's LNOK. Patient's PCP is a nurse practitioner with [facility]. Patient is independent at baseline. Patient denies: home DME, HHC, home oxygen, dialysis; has been to SNF/IPR years ago near home, unable to recall name of the facility. Patient has no concern for falls. In regards to mental health, patient states he is diagnosed with depression and sees his PCP who prescribes generic Paxil; patient denies past or current S/I. Patient declined additional resources for mental health. 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 Patient is not a . Anticipated Discharge Plan: Home Anticipated Discharge Date: 03/02/2025 Anticipated Transportation: Family Patient/Family aware and taking part in the discharge plan. Patient/family educated that once post-acute care needs have been identified, a provider list applicable to the identified post-acute care needs as well as the insurance provider will be provided, and patient/family have the freedom to choose their provider(s); financial interest(s) are disclosed as appropriate. JOLENE PENALOZA, ALE, ISAURA Phone Number: [phone] * Marisela Morin, RD - 02/27/2025 9:37 AM EDTAssociated Order(s): IP CONSULT TO NUTRITION SERVICES [facility] Medical Nutrition Therapy Reason(s) for Completion: Physician/Nursing Referral Diet Order: : Diet/Nutrition Orders Diet NPO past midnight Except for: except sips with meds Bowel Prep (Golytely) allowed until 0500. Frequency: Effective Number of Occurrences: Until Specified Order Comments: Bowel Prep (Golytely) allowed until 0500. Order Questions: Except for except sips with meds Pertinent Information: Harsha Avina is an 64 y.o. male with a PMHx of HTN, HLD, TIIDM, impalement with fence, partial colectomy w mesh and multiple prior hernia reapirs who presented to [facility] for acute lower GI Bleed. Presented from OSH, Received abdominal CTA which showed left colonic arterial bleed. Patient then accepted for transfer to [facility]U for potential embolization. Several days of dark red stool and Abdominal pain, reported no dietary changes, Patient does not meet criteria for malnutrition per ASPEN/AND guidelines. A nutrition-focused physical exam was completed, and weight changes and energy intake were evaluated. Pt reports lost 30 lb in December of 2022 after taking a drug with known SE of weight loss. Has discontinued this and has been around 125-129 lb since, has a scale at home, weighs himself 2-3x per week to monitor his weight. Usual dietary intake of snacking starting at 10 am and continues throughout the day, chooses healthier foods, then large dinner, denied any changes prior to acute event. Pt does have Muscle and fat mass changes but this change is not new and from 2022. Pt is on LOS # 1, visited with pt, talked with RN. Pt is NPO, completed bowel prep overnight, plan for Colonoscopy later today, pt not hungry this morning, resting this morning. Problem List[1] Past Medical History: Diagnosis Date Diabetes ([facility]) HLD (hyperlipidemia) HTN (hypertension) Scheduled Meds: insulin regular 0-5 Units Subcutaneous Q6H Scheduled mupirocin 1 g Topical BID pantoprazole (PROTONIX) IV 40 mg Intravenous BID6 polyethylene glycol 17 g Oral Daily 0900 potassium chloride 40 mEq Oral Once Continuous Infusions: PRN Meds:dextrose 10% in water OR dextrose 10% in water, glucose, ICU electrolyte replacement protocol AND Initiate electrolyte replacement protocol Pertinent Labs: Lab Results Component Value Date CREATININE 0.76 02/27/2025 BUN 33 (H) 02/27/2025 NA 143 02/27/2025 K 3.9 02/27/2025 CL 108 02/27/2025 CO2 28 02/27/2025 Lab Results Component Value Date CALCIUM 8.0 (L) 02/27/2025 PHOS 3.1 02/27/2025 Lab Results Component Value Date MG 1.9 02/26/2025 Lab Results Component Value Date GLUCOSE 77 02/27/2025 Component Value Date/Time POCGMD 92 02/27/2025 0409 POCGMD 106 (H) 02/26/2025 203 POCGMD 117 (H) 02/26/2025 1120 POCGMD 99 02/26/2025 0529 Lab Results Component Value Date WBC 4.3 02/26/2025 Lab Results Component Value Date ALBUMIN 3.5 02/27/2025 Temp (24hrs), Av ??F (36.1 ??C), Min:96 ??F (35.6 ??C), Max:98 ??F (36.7 ??C) Skin Integrity: no wounds recorded GI: +BM d/t bowel prep for C-scope Potential Nutrition Related Factor(s): NPO for procedure, BMI 17.5 Food Insecurity/Social needs that may impact access to food: Never True recorded Food Allergies/Intolerances: NKFA Cultural Requests: None noted 64 y.o. Male Ht Readings from Last 1 Encounters: 02/26/25 5' 11 (1.803 m) Admit wt 02/26: 126 lb 1.7 oz Bed scale Wt Readings from Last 1 Encounters: 02/27/25 125 lb 10.6 oz (57 kg) Body mass index is 17.53 kg/m??. BMI Class: Underweight: 18.5 or less [place] Body Weight 172 lb (+/- 10%) Weight History: Wt Readings from Last 5 Encounters: 02/27/25 125 lb 10.6 oz (57 kg) Estimated Nutrition Needs: Needs based on: 57 kg Admit wt Kcals/day:0422-6419 (25-30 kcals/kg) Protein g/day: 68(1.2 g/kg) Carbohydrate g/day: 45-60 g/meal, HgA1c 6.5 Fluid ml/day: per MD Nutrition Related Diagnosis: Nutrition Diagnosis: Predicted inadequate oral intake Related To: NPO/low appetite As Evidenced By: po intake not yet established Recommended Interventions: Advance diet when medically able, add ONS for trial Goals: diet advanced within 1-2 days Nutrition Discharge Planning: Discharge plan of care for nutrition ongoing pending clinical course. Follow up: per policy while inpatient. Recommendation(s) to provider: Please minimize time needed for NPO to help pt receive adequate nutrition When diet advanced, add Boost 1 kcals BID If concern for inadequate po intake once diet advanced, start Calorie count Will continue to follow Che Morin MS, RDN, LD, CNSC Clinical Dietitian MICU/MSD Contact via Secure Epic Chat [1] Patient Active Problem List Diagnosis Lower GI bleed * Zachary Parker MD - 02/26/2025 10:55 AM EDTAssociated Order(s): IP CONSULT TO ACUTE CARE SURGERY General Surgery History and Physical/Consultation Note Patient: Harsha Avina CSN: [id number] Requesting Service: MICU History CC: Lower GI bleed HPI: Harsha Avina is a 64 y.o. male with PMH HTN, DM2, and remote history of partial colectomy after fence impalement c/b multiple hernia repairs with mesh who presented to OSH on 02/25 for several episodes of large bloody bowel movements. He had a hemoglobin drop from 14 to 11 to 8, he received1 unit of RBC, CT AP demonstrated active extravasation reportedly proximal to prior colorectal anastomosis. He was transferred to [facility] for further work up and has remained hemodynamically stable without pressor requirement. IR was consulted for lower GI bleed but deferred embolization due to concern for injury to colorectal anastomosis. GI was consulted and patient is scheduled for colonoscopy on02/27. 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 ACS was consulted for additional evaluation and management of lower GI bleed. PMH: Past Medical History: Diagnosis Date Diabetes (CMS-HCC) HLD (hyperlipidemia) HTN (hypertension) PSH: No past surgical history on file. Medications: Home Medications Medication Sig Taking? Last Dose canagliflozin (INVOKANA) 300 mg Tab tablet Take 1 tablet (300 mg total) by mouth daily. Indications: type 2 diabetes mellitus Yes 02/25/2025 Allergies: Patient has no known drug allergies or adverse reactions. SH: Social History Socioeconomic History Marital status: Spouse name: Not on file Number of children: Not on file Years of education: Not on file Highest education level: Not on file Occupational History Not on file Tobacco Use Smoking status: Former Current packs/day: 1.00 Average packs/day: 1 pack/day for 45.8 years (45.8 ttl pk-yrs) Types: Cigarettes Start date: 1979 Smokeless tobacco: Never Substance and Sexual Activity Alcohol use: Not Currently Drug use: Never Sexual activity: Not on file Other Topics Concern Not on file Social History Narrative Not on file Social Drivers of Health Financial Resource Strain: Not on file Food Insecurity: No Food Insecurity (02/26/2025) Hunger Vital Sign Worried About Running Out of Food in the Last Year: Never true Ran Out of Food in the Last Year: Never true Transportation Needs: No Transportation Needs (02/26/2025) PRAPARE - Transportation Lack of Transportation (Medical): No Lack of Transportation (Non-Medical): No Physical Activity: Not on file Stress: Not on file Social Connections: Not on file Intimate Partner Violence: Not At Risk (02/26/2025) Humiliation, Afraid, Rape, and Kick questionnaire Fear of Current or Ex-Partner: No Emotionally Abused: No Physically Abused: No Sexually Abused: No Housing Stability: Low Risk (02/26/2025) Housing Stability Vital Sign Unable to Pay for Housing in the Last Year: No Number of Times Moved in the Last Year: 0 Homeless in the Last Year: No FH: No family history on file. ROS: Negative unless stated above Vital Signs Temp: [96.2 ??F (35.7 ??C)-97 ??F (36.1 ??C)] 97 ??F (36.1 ??C) Heart Rate: [59-87] 74 Resp: [11-25] 11 BP: (87-104)/(58-75) 104/65 Vitals: 02/26/25 0900 BP: 104/65 Pulse: 74 Resp: 11 Temp: SpO2: 100% Date 02/25/25699 - 02/26/25658(Not Admitted) 02/26/25699 - 02/27/2559 Shift 0120-7788 2794-0338 6760-7765 24 Hour Total 0923-2935 9729-8016 6913-9389 24 Hour Total INTAKE Shift Total(mL/kg) OUTPUT Stool Stool Occurrence 1 x 1 x Shift Total(mL/kg) Weight (kg) 57.2 57.2 57.2 57.2 57.2 57.2 Physical Exam Physical Exam: Gen: NAD Resp: no respiratory distress, equal rise bilaterally CV: RRR Abd: soft, non-distended, globally tender to palpation, significant laxity of abdominal wall muscles, likely secondary to prior hernia repairs Neuro: no focal deficits Ext: warm and well perfused Laboratory Data Invalid input(s): CO2ART , HBO2PE Lab 02/26/25528 WBC 5.8 HEMOGLOBIN 11.3* HEMATOCRIT 32.3* MEAN CORPUSCULAR VOLUME 85.6 PLATELETS 112* Lab 02/26/25528 SODIUM 140 POTASSIUM 4.2 CHLORIDE 106 CO2 29 BUN 37* CREATININE 0.82 GLUCOSE 84 CALCIUM 8.0* 8.0* MAGNESIUM 1.9 PHOSPHORUS 3.9 Lab 02/26/25528 INR 1.2* PROTHROMBIN TIME 15.7* Lab 02/26/25528 ALT 28 AST 25 ALK PHOS 41 BILIRUBIN TOTAL 0.8 BILIRUBIN DIRECT 0.22 ALBUMIN 3.7 Imaging Studies X-ray Portable Chest Result Date: 02/26/2025 EXAM: XR PORTABLE CHEST INDICATION: Dyspnea, unspecified TECHNIQUE: 1 view of the chest. COMPARISON: None. FINDINGS: Medical Devices: None. Heart and Mediastinum: Cardiomediastinal silhouette is within normal limits. Lungs and Pleura: Lungs are clear. No pleural effusions or evidence for pneumothorax. Bones and soft tissues: No acute abnormalities. IMPRESSION: No acute cardiopulmonary abnormality. Approved by Ashli Rubin MD on 02/26/2025 6:15AM EDT I have personally reviewed the images and I agree with this report. Report Verified by: Adam Hernandez DO at 02/26/2025 7:07 AM EDT Assessment and Plan Harsha Avina is a 64 y.o. male with PMH HTN, DM2, and remote history of partial colectomy and multiple hernia repairs with mesh who was transferred from OSH for lower GI bleed. Recommendations: - No acute surgical intervention indicated at this time - Agree with GI consult, pt yg for colonoscopy 02/27 - Rest of management for primary - ACS will continue to follow Please page the ACS gem pager for any additional questions or concerns TREVIN RAMIREZ MD [facility] General Surgery Attending Documentation/Addendum I, Zachary Parker MD, performed the service or was physically present during the glover portions ofthe service when performed by the resident/fellow. I participated in the management of the patientscare with the resident/fellow. The note written by the resident/fellow has been reviewed and I verify it's appropriateness and accuracy. Medical decision making included the following: GI bleed HD stable Agree with GI consult Will follow Acute or chronic illness or injury that poses a threat to life or bodily function: yes GI Bleed Prescription drug management: no Parenteral controlled substances: no Drug therapy requiring intensive monitoring for toxicity: no I saw and examined the patient on 02/26/2025. This note is for services performed on that date. Zachary Parker MD * Evelyn Larsen MD - 02/26/2025 9:02 AM EDT Interventional Radiology Consult Note Date: 02/26/2025 Patient: Harsha Avina : 1960 Primary Care Provider: ATTENDING PROVIDER UNKNOWN Requesting Provider: Kenny Zhu MD Chief Complaint: GI bleed Reason for Consult: possible angiogram/ embolization IR Procedure Request Received and Reviewed. HPI: Harsha Avina is a 64 y.o. male with PMHx significant for HTN, HLD, TIIDM, partial colectomy d/t traumatic injury (pt reports in the 90's) who presented as transfer from OSH d/t GI bleed with CT findings of active colonic arterial extravasation. Per chart review, patient received 1 unit of pRBCs prior to transfer. No additional transfusion required thus far. Hgb 11.3, PLT 112, INR 1.2, Cr 0.82, BUN 37. Patient vitals HDS, HR in 60-70s and BP 105/65 in the room during evaluation. Patient reports he has had bloody and dark bowel movements over the last couple days with associated dizziness, lightheadedness, weakness. No abdominal pain. History: Past Medical History: Diagnosis Date Diabetes (CMS-HCC) HLD (hyperlipidemia) HTN (hypertension) No past surgical history on file. No family history on file. Social Hx: Tobacco Use History[1] Social History Substance and Sexual Activity Drug Use Never Social History Substance and Sexual Activity Alcohol Use Not Currently Allergies: Allergies[2] Home Medications: Home Medications Medication Sig Taking? Last Dose canagliflozin (INVOKANA) 300 mg Tab tablet Take 1 tablet (300 mg total) by mouth daily. Indications: type 2 diabetes mellitus Yes 02/25/2025 Current Medications: Scheduled Medications: insulin regular, 0-5 Units, Q6H Scheduled mupirocin, 1 g, BID pantoprazole (PROTONIX) IV, 40 mg, BID6 polyethylene glycol, 17 g, Daily 0900 IV Meds: PRN Medications: dextrose 10% in water, 12.5 g, Q15 Min PRN Or dextrose 10% in water, 25 g, Q15 Min PRN glucose, 12 g, Q15 Min PRN ICU electrolyte replacement protocol, , UD PRN ROS: Negative General: (+) Weakness. Denies fever, chills Cardiovascular: Denies chest pain, chest pressure or palpitations Respiratory: Denies shortness of breath, wheezing or cough GI: (+) Bloody/ dark BM's. Denies abdominal pain or n/v/d : Denies pain with urination or blood in urine Skin: Denies rashes or bruising Neurological: (+) Dizziness. Denies headaches, gait problems, or seizures Extremities: Denies swelling or numbness/tingling Psychiatric: Denies hallucinations and memory loss Vitals: Vitals: 02/26/25 0520 02/26/25 0502/26/25 0602/26/25629 BP: 97/58 (!) 87/75 Pulse: 59 87 67 Resp: 18 22 14 Temp: 96.2 ??F (35.7 ??C) TempSrc: Axillary SpO2: 100% 98% 100% Weight: 126 lb 1.7 oz (57.2 kg) Height: PE: Gen: Awake, alert, no apparent distress, as stated age HEENT: Normocephalic, atraumatic, mucous membranes pink and moist Neck: Supple, symmetrical, trachea midline Chest: on room air, respirations unlabored CVS: RRR on monitor ABD: Soft, non-tender : deferred EXT: Warm and well perfused, pulses 2+ NEURO: No focal deficits PSYCH: Appropriate affect Labs: Recent Labs 02/26/25528 WBC 5.8 HGB 11.3* HCT 32.3* MCV 85.6 PLT 112* Recent Labs 02/26/25528 NA 140 K 4.2 CL 106 CO2 29 PHOS 3.9 BUN 37* CREATININE 0.82 CALCIUM 8.0* 8.0* Recent Labs 02/26/25528 BILITOT 0.8 AST 25 ALT 28 ALKPHOS 41 Recent Labs 02/26/25528 ALBUMIN 3.7 BILIDIRECT 0.22 Recent Labs 02/26/25528 INR 1.2* PROTIME 15.7* Imaging: No results found for this or any previous visit from the past 72 hours. No results found for this or any previous visit from the past 72 hours. I personally reviewed the relevant findings from the above imaging results. Medical Decision Making Assessment: Harsha Avina is a 64 y.o. male with remote PMHx of partial colectomy 2/2 trauma who presents to [facility] as transfer from OSH after CT findings of a left colonic perianastomotic area of active arterial extravasation. Case reviewed with Dr. Wilkes (VIR Attending). Plan: No IR intervention planned at this time. Due to left colonic perianastomotic area of active extravasation, patient would be a higher risk for anastomotic breakdown if he were to undergo embolization.Recommend GI evaluation for possible endoscopic intervention. Also recommend ACS consult to evaluate for possible surgical intervention or to at least be aware of patient in case he were to undergo embolization due to concern for anastomotic breakdown. Plan discussed with MICU Resident Kenny Zhu MD. Consent: Consent obtained and in IR in case angiogram with possible embolization is required. Please call with any questions. EVELYN LARSEN MD Vascular & Interventional Radiology 02/26/2025,9:02 AM [facility]: [phone]) [1] Social History Tobacco Use Smoking Status Former Current packs/day: 1.00 Average packs/day: 1 pack/day for 45.8 years (45.8 ttl pk-yrs) Types: Cigarettes Start date: 1979 Smokeless Tobacco Never [2] No Known Drug Allergies or Adverse Reactions * August MD Jovana - 02/26/2025 8:39 AM EDTAssociated Order(s): IP CONSULT TO GASTROENTEROLOGY Images from the original note were not included. Department of Digestive Diseases Gastroenterology Consult Note Consulted by: Laura Delacruz MD Chief Complaint: Hematochezia Reason for Consult: Hematochezia, active extravasation on CTA Assessment: Harsha Avina is a 64 y.o. with hx of HTN, HLD, type 2 diabetes, multiple abdominal surgeries, partial colectomy with mesh presenting with hematochezia. #Hematochezia Presenting after multiple episodes of painless hematochezia w/hgb drop, active extravasation on CTAc/w arterial colonic bleed. No further evidence of bleeding since arrival to , remains hemodynamically stable. Requires colonoscopy this admission, given stability OK for bowel prep overnight with plan for colonoscopy tomorrow. IR consulted, recommend endoscopic evaluation given left colonic peranastomotic area of active extravasation, higher risk for anastomotic breakdown if embolized. PLAN / RECOMMENDATIONS: Appreciate IR consultation. Plan for colonoscopy tomorrow, 02/27. Clear liquid diet today, split dose bowel prep w/details listed below. Transfuse for Hgb < 7. Serial CBCs to ensure stability. Hold DVT ppx. Ensure 2 large bore IV. If develops hemodynamically significant bleeding recommend reaching out to IR for potential intervention given active extravasation on recent CTA. Colonoscopy Bowel Preparation Instructions - Start clear liquid diet the day prior to colonoscopy, and avoid red colored food or drink - Order GoLYTELY and dissolve in 4L of water and chill in refrigerator - Make NPO at midnight (except for bowel prep and medications) - At 5PM, the day prior to colonoscopy, ask the patient to drink one 8 oz cup every 15 min until the first 2L is complete - At 2AM, the day of the colonoscopy, ask the patient to drink one 8 oz cup every 15 min until the remaining 2L is complete - If the patient's stool is not running clear by 7AM, please page the on-call GI fellow (clear stool is translucent similar to urine and without solid stool, consider sending GI fellow images by Secure Chat of unsure of bowel prep quality) A: Clear bowel prep B: Not clear; call on-call GI fellow and may be able to prep more to get clear C: Not prepped for colonoscopy Reference: Paola AYALA et al. A modified bowel preparation protocol improves the quality of bowel cleansing for colonoscopy. Advances in Digestive Medicine. 2016. https://doi.org/10.1016/j.aidm.2015.12.001. Recommendations are not finalized until note has been staffed and co-signed by attending History of Present Illness: Harsha Avina is a 64 y.o. with past medical history of HTN, HLD, type 2 diabetes, multiple abdominal surgeries w/mesh repair & partial colectomy 1993 after impalement on fence presenting with hematochezia. Had 5-6 episodes of painless hematochezia at home yesterday evening and subsequently presented to OSH ED. Has never had episodes like this before. In his normal state of health recently however does report postprandial abdominal cramping in his epigastrium over past 7-10 days. No NSAID use. Had a prior colonoscopy ~ 10 years ago, per patient was reportedly normal but was technically difficult. Initially admitted at OSH, per review of records baseline hgb is 14, was 11 on presentation, on repeat was 8 and received 1 uPRBc. Abdominal CTA at outside hospital with left colonic arterial bleed, subsequently transferred to . Has had no further episodes of hematochezia while at . Patient reports BP are chronically below 100 SBP. Softer BP at 90/60, hgb this AM 11.3. BUN 37, Cr 0.82. Otherwise workup unremarkable. Review of Systems: 10 point ROS negative except where otherwise noted Past Medical History: Diagnosis Date Diabetes (CMS-HCC) HLD (hyperlipidemia) HTN (hypertension) No past surgical history on file. No family history on file. Social History Tobacco Use Smoking status: Former Current packs/day: 1.00 Average packs/day: 1 pack/day for 45.8 years (45.8 ttl pk-yrs) Types: Cigarettes Start date: 1979 Smokeless tobacco: Never Substance Use Topics Alcohol use: Not Currently Allergies[1] Medications: Scheduled Meds: insulin regular 0-5 Units Subcutaneous Q6H Scheduled mupirocin 1 g Topical BID pantoprazole (PROTONIX) IV 40 mg Intravenous BID6 polyethylene glycol 17 g Oral Daily 0900 Continuous Infusions: PRN Meds:dextrose 10% in water OR dextrose 10% in water, glucose, ICU electrolyte replacement protocol AND Initiate electrolyte replacement protocol Prior to Admission Meds: Home Medications Medication Sig Taking? Last Dose canagliflozin (INVOKANA) 300 mg Tab tablet Take 1 tablet (300 mg total) by mouth daily. Indications: type 2 diabetes mellitus Yes 02/25/2025 Vitals & Physical Exam: Temp: [96.2 ??F (35.7 ??C)] 96.2 ??F (35.7 ??C) Heart Rate: [59-87] 67 Resp: [14-25] 14 BP: (87-97)/(58-75) 87/75 GENERAL: Alert,cooperative. EYES: PERRL. LUNGS: Normal work of breathing. ABDOMEN: Soft, non-distended, non-tender with no palpable masses. No rebound or guarding. MSK: No joint swelling. No muscle tenderness. SKIN: No rashes, lesion or ecchymoses visible. Warm, well perfused with no peripheral edema. NEURO: Move all four extremities equally and spontaneously. Speech normal. No facial asymmetry. PSYCH: Normal mood, affect and behavior. Cooperative No intake or output data in the 24 hours ending 02/26/25 0840 Labs: Lab Results Component Value Date WBC 5.8 02/26/2025 HGB 11.3 (L) 02/26/2025 HCT 32.3 (L) 02/26/2025 MCV 85.6 02/26/2025 PLT 112 (L) 02/26/2025 Lab Results Component Value Date AST 25 02/26/2025 ALT 28 02/26/2025 BILITOT 0.8 02/26/2025 BILIDIRECT 0.22 02/26/2025 PROT 5.4 (L) 02/26/2025 ALBUMIN 3.7 02/26/2025 ALKPHOS 41 02/26/2025 Lab Results Component Value Date INR 1.2 (H) 02/26/2025 No results found for: AMYLASE No results found for: LIPASE No results found for: HAV , HEPAIGM , HEPBIGM , HEPBCAB , HBEAG , HEPCAB No results found for: IRON , TIBC , FERRITIN No results found for: [id number] No results found for: FOLATE Images: X-ray Portable Chest Result Date: 02/26/2025 EXAM: XR PORTABLE CHEST INDICATION: Dyspnea, unspecified TECHNIQUE: 1 view of the chest. COMPARISON: None. FINDINGS: Medical Devices: None. Heart and Mediastinum: Cardiomediastinal silhouette is within normal limits. Lungs and Pleura: Lungs are clear. No pleural effusions or evidence for pneumothorax. Bones and soft tissues: No acute abnormalities. IMPRESSION: No acute cardiopulmonary abnormality. Approved by Ashli Rubin MD on 02/26/2025 6:15AM EDT I have personally reviewed the images and I agree with this report. Report Verified by: Adam Hernandez DO at 02/26/2025 7:07 AM EDT Previous GI Procedures: No records Thank you for allowing us to assist with the care of Harsha Avina. We will continue to follow along. If you have any questions, please call the GI fellow on-call. Whit MD [facility] Internal Medicine PGY-2 02/26/2025 8:40 AM [1] No Known Drug Allergies or Adverse Reactions Cosigned by Lucinda Horton MD at 02/26/2025 12:49 PM EDT Associated attestation - Lucinda Horton MD - 02/26/2025 12:49 PM EDT I saw and examined the patient. I discussed with the resident or fellow and agree with Dr. Whaley's findings and plan as documented in the note. Mr. Avina is a 64 yo M admitted with LGIB. CTA done at OSH showed active extrav in the colon. He had 5-6 bloody Bms yesterday, one BM today. Hemodynamically stable at this time. Prep for colonoscopy. Lucinda Horton MD Professor Director of Esophageal Diseases Division of Digestive Diseases documented in this encounter Nursing Notes * Janie Canas RN - 03/02/2025 2:35 PM EDT Patient discharged to home. PIV x4 removed. Discharge papers discussed with patient. CMU EKG removed. No meds to be delivered to bedside. Patient belongings with patient. Patient stable upon leaving unit. * Laila Diamond RN - 03/02/2025 5:14 AM EDT Nursing Overnight Progress Note Significant Events During Shift no Patient/Family Concerns Evening/Overnight Visitors: none Concerns: none Assessment Nursing time demands: low IV access: has IV access, adequate and functioning Sitter requirements: no Mental Status Mental Status for the past 14 hrs: Level of Consciousness Orientation Level Cognition 03/01/252109 Alert Oriented X4 Follows 2-step commands;Follows simple commands;Ability to abstract Calls to Physician Team No data found. Medications [id number]-[id number] - Medications Not Given (last 12 hrs) No medications to display Diet/Meals Consumed (past 24 hours) Nutrition Assessment for the past 24 hrs: Diet Type Feeding Percent Meals Eaten (%) Appetite 03/01/25 1513 Oral diet as ordered Able to feed self 100 % -- 03/01/25 2110 Oral diet as ordered Able to feed self -- Good * Laila Diamond RN - 03/01/2025 5:33 AM EDT Nursing Overnight Progress Note Significant Events During Shift NO Patient/Family Concerns Evening/Overnight Visitors: none Concerns: none Assessment Nursing time demands: low IV access: has IV access, adequate and functioning Sitter requirements: no Mental Status Mental Status for the past 14 hrs: Level of Consciousness Orientation Level Cognition 02/28/252029 Alert Oriented X4 Follows 2-step commands;Follows simple commands;Ability to abstract Calls to Physician Team No data found. Medications [id number] - Medications Not Given (last 12 hrs) No medications to display Diet/Meals Consumed (past 24 hours) Nutrition Assessment for the past 24 hrs: Diet Type Feeding 02/28/25 0947 NPO Not applicable 02/28/252029 Oral diet as ordered Able to feed self * Karla Garcia RN - 02/28/2025 10:50 AM EDT Pt transported off unit to [facility]. * Ekaterina Walton RN - 02/28/2025 4:32 AM EDT Report given to Josie SEPULVEDA prior to transporting pt to [facility]. Pt does not require CMU. VSS. Pt tookall belongings with him including clothes, phone, machine welder and wallet. Valuables in safe. Transport unremarkable. * Josie Strong RN - 02/28/2025 4:25 AM EDT Pt admitted to room 7367, appears to be alert and oriented x4. Oriented to room and bed controls. Vitals obtained BP 84/53, heart rate 50, blood sugar 64. D10 administered and effective. Skin warm and intact. Pt denies pain or discomfort. made aware. * Jeanne Meneses RN - 02/27/2025 6:54 PM EDT Pt to be transferred to floor room 7367. Report called to nurse on 7NW. Awaiting room to be cleaned. * Rekha Blevins RN - 02/26/2025 4:48 AM EDT Patient admitted to MICU Bed 4 from OSH. Patient connected to MICU Bedside monitors. Admitting teambedside. Rekha Blevins RN documented in this encounter Miscellaneous Notes * Plan of Care - Janie Canas RN - 03/02/2025 7:27 AM EDT Problem: High Fall Risk Precautions Goal: High Fall Risk Precautions Outcome: Progressing Problem: High Fall Risk Precautions Goal: High Fall Risk Precautions Outcome: Progressing * Plan of Care - Laila Diamond RN - 03/02/2025 3:49 AM EDT Problem: High Fall Risk Precautions Goal: High Fall Risk Precautions Outcome: Progressing Problem: High Fall Risk Precautions Goal: High Fall Risk Precautions Outcome: Progressing Problem: Potential for Compromised Skin Integrity Goal: Skin integrity is maintained or improved Description: Assess and monitor skin integrity. Identify patients at risk for skin breakdown on admission and per policy. Collaborate with interdisciplinary team and initiate plans and interventions as needed. Outcome: Progressing Problem: Discharge Planning Goal: Identify discharge needs Outcome: Progressing Problem: Glucose Imbalance related to diabetes disease process Goal: Clinical indication of glucose balance is achieved Outcome: Progressing Goal: Patient's discharge needs are met Outcome: Progressing Problem: Risk for ineffective therapeutic regimen management related to insulin pump Goal: Blood glucose is within target range Outcome: Progressing Problem: Potential for imbalanced nutrition related to metabolic effect of diabetes Goal: Patient's nutritional needs will be met Outcome: Progressing Problem: Knowledge deficit related to self-management of chronic disease Goal: Patient/family/caregiver demonstrates understanding of disease process, treatment plan, medications, and discharge instructions Outcome: Progressing * Plan of Care - Maritza Vences RN - 03/01/2025 3:51 PM EDT Problem: Potential for imbalanced nutrition related to metabolic effect of diabetes Goal: Patient's nutritional needs will be met Outcome: Progressing * Plan of Care - Laila Diamond RN - 03/01/2025 12:57 AM EDT Problem: High Fall Risk Precautions Goal: High Fall Risk Precautions Outcome: Progressing Problem: High Fall Risk Precautions Goal: High Fall Risk Precautions Outcome: Progressing Problem: Potential for Compromised Skin Integrity Goal: Skin integrity is maintained or improved Description: Assess and monitor skin integrity. Identify patients at risk for skin breakdown on admission and per policy. Collaborate with interdisciplinary team and initiate plans and interventions as needed. Outcome: Progressing Problem: Discharge Planning Goal: Identify discharge needs Outcome: Progressing Problem: Glucose Imbalance related to diabetes disease process Goal: Clinical indication of glucose balance is achieved Outcome: Progressing Goal: Patient's discharge needs are met Outcome: Progressing Problem: Knowledge deficit related to self-management of chronic disease Goal: Patient/family/caregiver demonstrates understanding of disease process, treatment plan, medications, and discharge instructions Outcome: Progressing Problem: Potential for imbalanced nutrition related to metabolic effect of diabetes Goal: Patient's nutritional needs will be met Outcome: Progressing Problem: Risk for ineffective therapeutic regimen management related to insulin pump Goal: Blood glucose is within target range Outcome: Progressing * Plan of Care - Karla Garcia RN - 02/28/2025 8:46 PM EDT Problem: High Fall Risk Precautions Goal: High Fall Risk Precautions Outcome: Progressing Problem: High Fall Risk Precautions Goal: High Fall Risk Precautions Outcome: Progressing Problem: Potential for Compromised Skin Integrity Goal: Skin integrity is maintained or improved Description: Assess and monitor skin integrity. Identify patients at risk for skin breakdown on admission and per policy. Collaborate with interdisciplinary team and initiate plans and interventions as needed. Outcome: Progressing Problem: Discharge Planning Goal: Identify discharge needs Outcome: Progressing Problem: Glucose Imbalance related to diabetes disease process Goal: Clinical indication of glucose balance is achieved Outcome: Progressing Goal: Patient's discharge needs are met Outcome: Progressing Problem: Knowledge deficit related to self-management of chronic disease Goal: Patient/family/caregiver demonstrates understanding of disease process, treatment plan, medications, and discharge instructions Outcome: Progressing Problem: Potential for imbalanced nutrition related to metabolic effect of diabetes Goal: Patient's nutritional needs will be met Outcome: Progressing Problem: Risk for ineffective therapeutic regimen management related to insulin pump Goal: Blood glucose is within target range Outcome: Progressing * Plan of Care - Rich Cummings MD - 02/28/2025 7:55 PM EDT Brief GI Note EGD showed no evidence of active bleeding or stigmata of old bleeding. Of note patient has a prior Bill Matos I noted (gastroduodenal anastomosis). Anastomosis was patent and transversed. No bleeding or ulceration at anastomosis site Unclear reason for bleeding. CTA from outside hospital read colonic arterial extravasation and high density material in stomach however colonoscopy and EGD without evidence of bleeding. Potentially patient could have had a dieulafoy lesion in GI tract or small bowel lesion not visualized. Patient reports no hematochezia since 10/3 AM. Plan - Can stop PPI. Okay for regular diet Discussed plan with attending and primary team. We will sign off at this time. Thank you for this consult. Please page on-call fellow with any further questions. Rich Cummings MD Gastroenterology Fellow PGY-4 * Plan of Care - Ekaterina Walton RN - 02/27/2025 7:52 PM EDT Problem: High Fall Risk Precautions Goal: High Fall Risk Precautions Outcome: Progressing Problem: High Fall Risk Precautions Goal: High Fall Risk Precautions Outcome: Progressing Problem: Potential for Compromised Skin Integrity Goal: Skin integrity is maintained or improved Description: Assess and monitor skin integrity. Identify patients at risk for skin breakdown on admission and per policy. Collaborate with interdisciplinary team and initiate plans and interventions as needed. Outcome: Progressing * Plan of Care - Fadi Landry MD - 02/27/2025 4:15 PM EDT No source of significant bleeding on colonoscopy. BUN increased. Make NPO at ID. Plan for EGD tomorrow. * Plan of Care - Jeanne Meneses RN - 02/27/2025 7:39 AM EDT Problem: Potential for Compromised Skin Integrity Goal: Skin integrity is maintained or improved Description: Assess and monitor skin integrity. Identify patients at risk for skin breakdown on admission and per policy. Collaborate with interdisciplinary team and initiate plans and interventions as needed. Note: Pt turns self frequently. Educated on turning every 2 hours to prevent areas of pressure. Assisting pt as needed with repositioning. Pillows used to maintain pt placement. Incontinence assessed. Skin kept clean and dry. Will continue to monitor and assess. Problem: High Fall Risk Precautions Goal: High Fall Risk Precautions Note: Patient at risk for falls. Bed in low position, 3/4 siderails up. Bed alarm on. Fall risk bracelet on patient. Call light within reach. Room kept clear of clutter. Will continue to monitor. * Plan of Care - Chacho Elmore RN - 02/26/2025 8:46 PM EDT Problem: High Fall Risk Precautions Goal: High Fall Risk Precautions Outcome: Progressing Note: The patient has a Moderate (25-44) Jesus Fall Score. Nursing interventions include: [place] patient to call light and room environment. Keep call light within patient's reach. Eliminate obstacles and clutter. Hourly rounding. Answer call lights promptly. Bedside table and belongings within reach. Door open, room well lit. Non-skin footwear in place. Bed locked and in lowest position. Evaluate response to new medications. Safe handling of patient during transfers. Place yellow wristband on patient. Yellow fall risk sign placed outside patient room. Educate family on tips to prevent falls. Encourage family members to stay with patient. Remain with patient when he/she is in the bathroom or using the bedside commode. Activate bed alarm. Family and patient education on falls prevention provided and taught. Patient receiving Gol[employer], Is independent and able to manage /unhooks monitor and ambulate self tobathroom and back. Hits call light to notify is doing so. * Plan of Care - Rekha Blevins RN - 02/26/2025 4:57 AM EDT Problem: High Fall Risk Precautions Goal: High Fall Risk Precautions Outcome: Progressing Pt is a moderate fall risk. Fall sign is in place, bed is in lowest position, and bed alarm is set.Pt educated on the use of the call light when assistance is needed. Call light and bedside table are within reach. Rounding hourly will continue to monitor. Rekha Blevins RN documented in this encounter Plan of Treatment Scheduled Orders Name Type Priority Associated Diagnoses Order Schedule Surgical Pathology Exam Pathology and Cytology Routine Lower GI bleed Release Upon Ordering for 1 Occurrences starting 02/27/2025 documented as of this encounter Procedures Procedure Name Priority Date/Time Associated Diagnosis Comments EKG - SCAN 03/03/2025 3:46 PM EDT RHYTHM STRIPS - SCAN 03/03/2025 3:34 PM EDT POC GLU MONITORING DEVICE Routine 03/02/2025 12:25 PM EDT POC GLU MONITORING DEVICE Routine 03/02/2025 8:33 AM EDT RENAL FUNCTION PANEL W/EGFR Routine 03/02/2025 6:03 AM EDT DIFFERENTIAL Routine 03/02/2025 6:03 AM EDT CBC Routine 03/02/2025 6:03 AM EDT MAGNESIUM Routine 03/02/2025 6:03 AM EDT POC GLU MONITORING DEVICE Routine 03/01/2025 5:56 PM EDT CORTISOL 60 MIN Timed 03/01/2025 3:36 PM EDT CORTISOL 30 MIN Timed 03/01/2025 3:08 PM EDT CORTISOL 0 MIN Timed 03/01/2025 2:00 PM EDT POC GLU MONITORING DEVICE Routine 03/01/2025 1:16 PM EDT POC GLU MONITORING DEVICE Routine 03/01/2025 7:58 AM EDT RENAL FUNCTION PANEL W/EGFR Routine 03/01/2025 7:06 AM EDT DIFFERENTIAL Routine 03/01/2025 7:06 AM EDT CBC Routine 03/01/2025 7:06 AM EDT TSH STAT 03/01/2025 7:06 AM EDT MAGNESIUM Routine 03/01/2025 7:06 AM EDT CORTISOL Routine 03/01/2025 7:06 AM EDT POC GLU MONITORING DEVICE Routine 02/28/2025 10:31 PM EDT POC GLU MONITORING DEVICE Routine 02/28/2025 7:15 PM EDT CBC Routine 02/28/2025 6:45 PM EDT POC GLU MONITORING DEVICE Routine 02/28/2025 4:57 PM EDT CBC Routine 02/28/2025 4:09 PM EDT POC GLU MONITORING DEVICE Routine 02/28/2025 2:11 PM EDT POC GLU MONITORING DEVICE Routine 02/28/2025 11:45 AM EDT EGD EGD/Sm Bowel 02/28/2025 11:06 AM EDT Lower GI bleed UPPER GI ENDOSCOPY Routine 02/28/2025 10 :54 AM EDT POC GLU MONITORING DEVICE Routine 02/28/2025 9:44 AM EDT POC GLU MONITORING DEVICE Routine 02/28/2025 5:13 AM EDT POC GLU MONITORING DEVICE Routine 02/28/2025 4:53 AM EDT RENAL FUNCTION PANEL W/EGFR Routine 02/28/2025 3:48 AM EDT CBC STAT 02/28/2025 3:48 AM EDT MAGNESIUM Routine 02/28/2025 3:48 AM EDT CBC STAT 02/27/2025 10:43 PM EDT POC GLU MONITORING DEVICE Routine 02/27/2025 5:08 PM EDT COLONOSCOPY WITH BIOPSY Colonoscopy 02/27/2025 3:10 PM EDT Lower GI bleed ENDOSCOPY, COLON Routine 02/27/2025 2:50 PM EDT POC GLU MONITORING DEVICE Routine 02/27/2025 12:56 PM EDT POC GLU MONITORING DEVICE Routine 02/27/2025 12:31 PM EDT FREE CALCIUM, WHOLE BLOOD STAT 02/27/2025 8:18 AM EDT HEMOGLOBIN AND HEMATOCRIT, BLOOD STAT 02/27/2025 8:18 AM EDT CONSTANTINE RHYTHM STRIP - SCAN 02/27/2025 7:41 AM EDT POC GLU MONITORING DEVICE Routine 02/27/2025 4:09 AM EDT RENAL FUNCTION PANEL W/EGFR STAT 02/27/2025 4:02 AM EDT HEMOGLOBIN AND HEMATOCRIT, BLOOD Add-On 02/27/2025 4:02 AM EDT HEMOGLOBIN A1C Routine 02/27/2025 4:02 AM EDT HEMOGLOBIN AND HEMATOCRIT, BLOOD STAT 02/27/2025 12:32 AM EDT SURGICAL PATHOLOGY EXAM Routine 02/27/2025 12:00 AM EDT POC GLU MONITORING DEVICE Routine 02/26/2025 8:32 PM EDT LACTIC ACID STAT 02/26/2025 8:22 PM EDT HEMOGLOBIN AND HEMATOCRIT, BLOOD STAT 02/26/2025 8:22 PM EDT PREALBUMIN Routine 02/26/2025 8:22 PM EDT CONSTANTINE RHYTHM STRIP - SCAN 02/26/2025 4:46 PM EDT HEMOGLOBIN AND HEMATOCRIT, BLOOD STAT 02/26/2025 4:12 PM EDT TEG-STANDARD GLOBAL HEMOSTASIS (RAPID TEG WITH HEPARIN EFFECT, CONTAINS A BASELINE) STAT 02/26/2025 11:23 AM EDT PROTIME-INR STAT 02/26/2025 11:23 AM EDT CBC STAT 02/26/2025 11:23 AM EDT POC GLU MONITORING DEVICE Routine 02/26/2025 11:20 AM EDT BLOOD CULTURE-PERIPHERAL Routine 02/26/2025 6:11 AM EDT BLOOD CULTURE-PERIPHERAL Routine 02/26/2025 6:11 AM EDT XR PORTABLE CHEST STAT 02/26/2025 5:4 4 AM EDT TEG-STANDARD GLOBAL HEMOSTASIS (RAPID TEG WITH HEPARIN EFFECT, CONTAINS A BASELINE) STAT 02/26/2025 5:30 AM EDT CALCIUM FREE, SERUM Routine 02/26/2025 5 :30 AM EDT ABO/RH STAT 02/26/2025 5:30 AM EDT ANTIBODY SCREEN STAT 02/26/2025 5:30 AM EDT HIGH SENSITIVITY TROPONIN STAT 02/26/2025 5:29 AM EDT HEPATIC FUNCTION PANEL STAT 02/26/2025 5:29 AM EDT LACTIC ACID STAT 02/26/2025 5:29 AM EDT POC GLU MONITORING DEVICE Routine 02/26/2025 5:29 AM EDT PROTIME-INR STAT 02/26/2025 5:29 AM EDT FIBRINOGEN STAT 02/26/2025 5:29 AM EDT CBC STAT 02/26/2025 5:29 AM EDT PHOSPHORUS STAT 02/26/2025 5:29 AM EDT MAGNESIUM STAT 02/26/2025 5:29 AM EDT CK STAT 02/26/2025 5:29 AM EDT CALCIUM STAT 02/26/2025 5:29 AM EDT BASIC METABOLIC PANEL STAT 02/26/2025 5:29 AM EDT ECG 12-LEAD (MUSE) STAT 02/26/2025 5: 15 AM EDT documented in this encounter Results * EKG - scan (03/03/2025 3:46 PM EDT) us Scanning [employer]ch[employer] SCAN DOCS - NO RESULTS Final Res ult * Rhythm Strips - scan (03/03/2025 3:34 PM EDT) us Scanning [employer] SCAN DOCS - NO RESULTS Final Res ult * (ABNORMAL) POC Glucose Monitoring Device (03/02/2025 12:25 PM EDT) POC Glucose Monitoring Device 126(H) 70 - 100 mg/dL 03/02/2025 12:25 PM EDT [facility] Blood 03/02/2025 12:2 5 PM EDT 03/02/2025 12:25 PM EDT us Carmela Jernigan MD POINT OF CARE TEST ALEXY MOLINA Final Result [facility] [address] [place] [address], [facility] * (ABNORMAL) POC Glucose Monitoring Device (03/02/2025 8:33 AM EDT) POC Glucose Monitoring Device 265(H) 70 - 100 mg/dL 03/02/2025 8:34 AM EDT [facility] Blood 03/02/2025 8:33 AM EDT 03/02/2025 8:34 AM EDT us Carmela Jernigan MD POINT OF CARE TEST ALEXY MOLINA Final Result [facility] [address] [place] [address], [facility] * (ABNORMAL) CBC (03/02/2025 6:03 AM EDT) WBC 4.1 3.8 - 10.8 10E3/uL 03/02/2025 7:05 AM EDT [facility] RBC 2.95(L) 4.20 - 5.80 10E6/uL 03/02/2025 7:05 AM EDT [facility] Hemoglobin 9.0(L) 13.2 - 17.1 g/dL 03/02/2025 7:05 AM EDT [facility] Hematocrit 25.6(L) 38.5 - 50.0 % 03/02/2025 7:05 AM EDT [facility] MCV 86.8 80.0 - 100.0 fL 03/02/2025 7:05 AM EDT [facility] MCH 30.4 27.0 - 33.0 pg 03/02/2025 7:05 AM EDT [facility] MCHC 35.0 32.0 - 36.0 g/dL 03/02/2025 7:05 AM EDT [facility] RDW 15.4(H) 11.0 - 15.0 % 03/02/2025 7:05 AM EDT [facility] Platelets 115(L) 140 - 400 10E3/uL 03/02/2025 7:05 AM EDT [facility] MPV 8.5 7.5 - 11.5 fL 03/02/2025 7:05 AM EDT [facility] Whole Blood 03/02/2025 6:03 AM EDT 03/02/2025 6:40 AM EDT us Donna Hernandez MD LAB BLOOD ORDERABLES Fin al Result [facility] [address] * Differential (03/02/2025 6:03 AM EDT) Neutrophils Relative 62.1 40.0 - 80.0 % 03/02/2025 7:05 AM EDT [facility] Lymphocytes Relative 26.9 15.0 - 45.0 % 03/02/2025 7:05 AM EDT [facility] Monocytes Relative 9.4 0.0 - 12.0 % 03/02/2025 7:05 AM EDT [facility] Eosinophils Relative 1.3 0.0 - 8.0 % 03/02/2025 7:05 AM EDT [facility] Basophils Relative 0.3 0.0 - 1.0 % 03/02/2025 7:05 AM EDT [facility] nRBC 0 0 - 0 /100 WBC 03/02/2025 7:05 AM EDT [facility] Neutrophils Absolute 2,546 1,520 - 8,640 /uL 03/02/2025 7:05 AM EDT [facility] Lymphocytes Absolute 1,103 570 - 4,860 /uL 03/02/2025 7:05 AM EDT [facility] Monocytes Absolute 385 0 - 1,296 /uL 03/02/2025 7:05 AM EDT [facility] Eosinophils Absolute 53 0 - 864 /uL 03/02/2025 7:05 AM EDT [facility] Basophils Absolute 12 0 - 108 /uL 03/02/2025 7:05 AM EDT [facility] Whole Blood 03/02/2025 6:03 AM EDT 03/02/2025 6:40 AM EDT us Donna Hernandez MD LAB BLOOD ORDERABLES Fin al Result [facility] [address] * (ABNORMAL) Renal Function Panel w/EGFR (03/02/2025 6:03 AM EDT) Sodium 142 133 - 146 mmol/L 03/02/2025 7:28 AM EDT [facility] Potassium 3.8 3.5 - 5.3 mmol/L 03/02/2025 7:28 AM EDT [facility] Chloride 108 98 - 110 mmol/L 03/02/2025 7:28 AM EDT [facility] CO2 28 21 - 33 mmol/L 03/02/2025 7:28 AM EDT [facility] Anion Gap 6 3 - 16 mmol/L 03/02/2025 7:28 AM EDT [facility] BUN 18 7 - 25 mg/dL 03/02/2025 7:28 AM EDT [facility] Creatinine 0.56(L) 0.60 - 1.30 mg/dL 03/02/2025 7:28 AM EDT [facility] Glucose 149(H) 70 - 100 mg/dL 03/02/2025 7:28 AM EDT [facility] Calcium 7.7(L) 8.6 - 10.3 mg/dL 03/02/2025 7:28 AM EDT [facility] Phosphorus 3.1 2.1 - 4.7 mg/dL 03/02/2025 7:28 AM EDT [facility] Albumin 3.2(L) 3.5 - 5.7 g/dL 03/02/2025 7:28 AM EDT [facility] Osmolality, Calculated 299 278 - 305 mOsm/kg 03/02/2025 7:28 AM EDT [facility] EGFR >90 03/02/2025 7:28 AM EDT [facility] Comment: As of 2021, the estimated GFR is calculated using the 2020 Chronic Kidney Disease Epidemiology Collaboration (CKD-EPI) equation. In line with the NKF-ASN Task Force Recommendations, this equation does not include a coefficient for race. A single eGFR value is calculated for each patient. The reference interval is >60 mL/min/1.73m2. eGFR values greater than 90 will be reported as >90mL/min/1.73m2. Reference: Arturo C, Pili M, Mercedes DC, Di ND, Todd CA, Vince LA, et al. A Unifying Approach for GFR Estimation: Recommendations of the NKF-ASN Task Force on Reassessing the inclusion of Race in Diagnosing Kidney Disease. Am J Kidney Dis. 2020. GFR is estimated using creatinine, age, and sex. Patient's values should be interpreted as a trend. Below 90 mL/min/1.73m2, the patient may have renal disease. For additional information: www.kidney.org Plasma 03/02/2025 6:03 AM EDT 03/02/2025 6:42 AM EDT Donna Hernandez MD LAB BLOOD ORDERABLES Fin al Result Performing Organization Address City/[facility] Co de Phone Number [facility] [address] [facility] * Magnesium (03/02/2025 6:03 AM EDT) Pathologist [facility] Magnesium 1.9 1.5 - 2.5 mg/dL 03/02/2025 7:28 AM EDT [facility] Plasma 03/02/2025 6:03 AM EDT 03/02/2025 6:42 AM EDT Donna Hernandez MD LAB BLOOD ORDERABLES Fin al Result Performing Organization Address [facility] de Phone Number [facility] [address] [facility] * (ABNORMAL) POC Glucose Monitoring Device (03/01/2025 5:56 PM EDT) [facility] POC Glucose Monitoring Device 206(H) 70 - 100 mg/dL 03/01/2025 5:57 PM EDT [facility] Blood 03/01/2025 5:56 PM EDT 03/01/2025 5:57 PM EDT Carmela Jernigan MD POINT OF CARE TEST ALEXY MOLINA Final Result Performing Organization Address [facility] Co de Phone Number [facility] [address] [facility] * Cortisol 60 Min (03/01/2025 3:36 PM EDT) Pathologist [facility] Cortisol, 60 Min (Immunoassay) 16.7 ug/dL 03/01/2025 4:36 PM EDT [facility] Comment: Dirurnal Variation: a.m: 6.7-22.6 ug/dL p.m: 0-10 ug/dL ACTH Stimulation: Over twice (usually 3 to 5 times) basal values Dexamethasone Suppression: Below basal value for the screening, low-dose and high-dose tests Please note: Effective 06/02/14, reference range for this assay has changed. Serum 03/01/2025 3:36 PM EDT 03/01/2025 3:45 PM EDT [facility] - 03/01/2025 4:36 PM EDT Draw baseline prior to med administration, then 30 and 60 minutes post med administration us Donna Hernandez MD LAB BLOOD ORDERABLES Fin al Result Performing Organization Address [facility] de Phone Number [facility] [address] * Cortisol 30 Min (03/01/2025 3:08 PM EDT) Pathologist [facility] Cortisol, 30 Min (IMMUNOASSAY) 13.1 ug/dL 03/01/2025 3:59 PM EDT [facility] Comment: Dirurnal Variation: a.m: 6.7-22.6 ug/dL p.m: 0-10 ug/dL ACTH Stimulation: Over twice (usually 3 to 5 times) basal values Dexamethasone Suppression: Below basal value for the screening, low-dose and high-dose tests Please note: Effective 06/02/14, reference range for this assay has changed. Serum 03/01/2025 3:08 PM EDT 03/01/2025 3:21 PM EDT Critical [facility] LAB - 03/01/2025 3:59 PM EDT Draw baseline prior to med administration, then 30 and 60 minutes post med administration us Donna Hernandez MD LAB BLOOD ORDERABLES Fin al Result Performing Organization Address [facility] de Phone Number [facility] [address] * Cortisol 0 Min (03/01/2025 2:00 PM EDT) Cortisol, Base (Immunoassay) 6.5 ug/dL 03/01/2025 2:49 PM EDT [facility] Comment: Dirurnal Variation: a.m: 6.7-22.6 ug/dL p.m: 0-10 ug/dL ACTH Stimulation: Over twice (usually 3 to 5 times) basal values Dexamethasone Suppression: Below basal value for the screening, low-dose and high-dose tests Please note: Effective 06/02/14, reference range for this assay has changed. Serum 03/01/2025 2:00 PM EDT 03/01/2025 2:05 PM EDT Narrative [facility] - 03/01/2025 2:49 PM EDT Draw baseline prior to med administration, then 30 and 60 minutes post med administration us Donna Hernandez MD LAB BLOOD ORDERABLES Fin al Result Performing Organization Address City/[facility]/ZIP Co de Phone Number [facility] [address] * (ABNORMAL) POC Glucose Monitoring Device (03/01/2025 1:16 PM EDT) POC Glucose Monitoring Device 212(H) 70 - 100 mg/dL 03/01/2025 1:17 PM EDT [facility] Blood 03/01/2025 1:16 PM EDT 03/01/2025 1:17 PM EDT us Carmela Jernigan MD POINT OF CARE TEST ORDE JESSE Final Result [facility] [address] * (ABNORMAL) POC Glucose Monitoring Device (03/01/2025 7:58 AM EDT) POC Glucose Monitoring Device 107(H) 70 - 100 mg/dL 03/01/2025 7:59 AM EDT [facility] Blood 03/01/2025 7:58 AM EDT 03/01/2025 7:59 AM EDT us Carmela Jernigan MD POINT OF CARE TEST ALEXY MOLINA Final Result Performing Organization Address [facility] Co de Phone Number [facility] [address] * Cortisol (03/01/2025 7:06 AM EDT) Pathologist [facility] Cortisol (Immunoassay) 7.7 ug/dL 03/01/2025 8:32 AM EDT [facility] Comment: Dirurnal Variation: a.m: 6.7-22.6 ug/dL p.m: 0-10 ug/dL ACTH Stimulation: Over twice (usually 3 to 5 times) basal values Dexamethasone Suppression: Below basal value for the screening, low-dose and high-dose tests Please note: Effective 06/02/14, reference range for this assay has changed. Serum 03/01/2025 7:06 AM EDT 03/01/2025 7:38 AM EDT us Desean Bishop MD LAB BLOOD ORDERABLES Final Resul t Performing Organization Address [facility] Co de Phone Number [facility] [address] [facility] * TSH (03/01/2025 7:06 AM EDT) Pathologist [facility] TSH 1.74 0.45 - 4.12 uIU/mL 03/01/2025 8:36 AM EDT [facility] Serum 03/01/2025 7:06 AM EDT 03/01/2025 7:38 AM EDT us Desean Bishop MD LAB BLOOD ORDERABLES Final Resul t Performing Organization Address [facility] Co de Phone Number [facility] [address] * (ABNORMAL) CBC (03/01/2025 7:06 AM EDT) Pathologist [facility] WBC 3.7(L) 3.8 - 10.8 10E3/uL 03/01/2025 8:10 AM EDT [facility] RBC 3.13(L) 4.20 - 5.80 10E6/uL 03/01/2025 8:10 AM EDT [facility] Hemoglobin 9.3(L) 13.2 - 17.1 g/dL 03/01/2025 8:10 AM EDT [facility] Hematocrit 27.2(L) 38.5 - 50.0 % 03/01/2025 8:10 AM EDT [facility] MCV 86.8 80.0 - 100.0 fL 03/01/2025 8:10 AM EDT [facility] MCH 29.7 27.0 - 33.0 pg 03/01/2025 8:10 AM EDT [facility] MCHC 34.2 32.0 - 36.0 g/dL 03/01/2025 8:10 AM EDT [facility] RDW 15.6(H) 11.0 - 15.0 % 03/01/2025 8:10 AM EDT [facility] Platelets 120(L) 140 - 400 10E3/uL 03/01/2025 8:10 AM EDT [facility] MPV 8.4 7.5 - 11.5 fL 03/01/2025 8:10 AM EDT [facility] Whole Blood 03/01/2025 7:06 AM EDT 03/01/2025 7:38 AM EDT Donna Hernandez MD LAB BLOOD ORDERABLES Fin al Result [facility] [address] * Differential (03/01/2025 7:06 AM EDT) Neutrophils Relative 57.2 40.0 - 80.0 % 03/01/2025 8:10 AM EDT [facility] Lymphocytes Relative 29.9 15.0 - 45.0 % 03/01/2025 8:10 AM EDT [facility] Monocytes Relative 11.0 0.0 - 12.0 % 03/01/2025 8:10 AM EDT [facility] Eosinophils Relative 1.8 0.0 - 8.0 % 03/01/2025 8:10 AM EDT [facility] Basophils Relative 0.1 0.0 - 1.0 % 03/01/2025 8:10 AM EDT [facility] nRBC 0 0 - 0 /100 WBC 03/01/2025 8:10 AM EDT [facility] Neutrophils Absolute 2,116 1,520 - 8,640 /uL 03/01/2025 8:10 AM EDT [facility] Lymphocytes Absolute 1,106 570 - 4,860 /uL 03/01/2025 8:10 AM EDT [facility] Monocytes Absolute 407 0 - 1,296 /uL 03/01/2025 8:10 AM EDT [facility] Eosinophils Absolute 67 0 - 864 /uL 03/01/2025 8:10 AM EDT [facility] Basophils Absolute 4 0 - 108 /uL 03/01/2025 8:10 AM EDT [facility] Whole Blood 03/01/2025 7:06 AM EDT 03/01/2025 7:38 AM EDT us Donna Hernandez MD LAB BLOOD ORDERABLES Fin al Result [facility] [address] * (ABNORMAL) Renal Function Panel w/EGFR (03/01/2025 7:06 AM EDT) Sodium 143 133 - 146 mmol/L 03/01/2025 8:30 AM EDT [facility] Potassium 4.4 3.5 - 5.3 mmol/L 03/01/2025 8:30 AM EDT [facility] Chloride 108 98 - 110 mmol/L 03/01/2025 8:30 AM EDT [facility] CO2 31 21 - 33 mmol/L 03/01/2025 8:30 AM EDT [facility] Anion Gap 4 3 - 16 mmol/L 03/01/2025 8:30 AM EDT [facility] BUN 25 7 - 25 mg/dL 03/01/2025 8:30 AM EDT [facility] Creatinine 0.81 0.60 - 1.30 mg/dL 03/01/2025 8:30 AM EDT [facility] Glucose 112(H) 70 - 100 mg/dL 03/01/2025 8:30 AM EDT [facility] Calcium 7.8(L) 8.6 - 10.3 mg/dL 03/01/2025 8:30 AM EDT [facility] Phosphorus 3.7 2.1 - 4.7 mg/dL 03/01/2025 8:30 AM EDT [facility] Albumin 3.3(L) 3.5 - 5.7 g/dL 03/01/2025 8:30 AM EDT [facility] Osmolality, Calculated 301 278 - 305 mOsm/kg 03/01/2025 8:30 AM EDT [facility] EGFR >90 03/01/2025 8:30 AM EDT [facility] Comment: As of 2021, the estimated GFR is calculated using the 2020 Chronic Kidney Disease Epidemiology Collaboration (CKD-EPI) equation. In line with the NKF-ASN Task Force Recommendations, this equation does not include a coefficient for race. A single eGFR value is calculated for each patient. The reference interval is >60 mL/min/1.73m2. eGFR values greater than 90 will be reported as >90mL/min/1.73m2. Reference: Arturo C, Pili M, Mercedes DC, Di ND, Todd CA, Vince LA, et al. A Unifying Approach for GFR Estimation: Recommendations of the NKF-ASN Task Force on Reassessing the inclusion of Race in Diagnosing Kidney Disease. Am J Kidney Dis. 2020. GFR is estimated using creatinine, age, and sex. Patient's values should be interpreted as a trend. Below 90 mL/min/1.73m2, the patient may have renal disease. For additional information: www.kidney.org Plasma 03/01/2025 7:06 AM EDT 03/01/2025 7:38 AM EDT us Donna Hernandez MD LAB BLOOD ORDERABLES Fin al Result [facility] [address] * Magnesium (03/01/2025 7:06 AM EDT) Magnesium 1.9 1.5 - 2.5 mg/dL 03/01/2025 8:30 AM EDT [facility] Plasma 03/01/2025 7:06 AM EDT 03/01/2025 7:38 AM EDT us Donna Hernandez MD LAB BLOOD ORDERABLES Fin al Result [facility] [address] [facility] * (ABNORMAL) POC Glucose Monitoring Device (02/28/2025 10:31 PM EDT) POC Glucose Monitoring Device 235(H) 70 - 100 mg/dL 02/28/2025 10:32 PM EDT [facility] Blood 02/28/2025 10:3 1 PM EDT 02/28/2025 10:32 PM EDT us Carmela Jernigan MD POINT OF CARE TEST ORDE JESSE Final Result Performing Organization Address City/[facility]/ZIP Co de Phone Number [facility] [address] [facility]. [address] * (ABNORMAL) POC Glucose Monitoring Device (02/28/2025 7:15 PM EDT) POC Glucose Monitoring Device 178(H) 70 - 100 mg/dL 02/28/2025 7:16 PM EDT [facility] Blood 02/28/2025 7:15 PM EDT 02/28/2025 7:16 PM EDT us Carmela Jernigan MD POINT OF CARE TEST ORDE JESSE Final Result [facility] [facility] [address] * (ABNORMAL) CBC (02/28/2025 6:45 PM EDT) WBC 6.8 3.8 - 10.8 10E3/uL 02/28/2025 7:30 PM EDT [facility] RBC 3.11(L) 4.20 - 5.80 10E6/uL 02/28/2025 7:30 PM EDT [facility] Hemoglobin 9.3(L) 13.2 - 17.1 g/dL 02/28/2025 7:30 PM EDT [facility] Hematocrit 27.3(L) 38.5 - 50.0 % 02/28/2025 7:30 PM EDT [facility] MCV 87.9 80.0 - 100.0 fL 02/28/2025 7:30 PM EDT [facility] MCH 30.1 27.0 - 33.0 pg 02/28/2025 7:30 PM EDT [facility] MCHC 34.2 32.0 - 36.0 g/dL 02/28/2025 7:30 PM EDT [facility] RDW 15.5(H) 11.0 - 15.0 % 02/28/2025 7:30 PM EDT [facility] Platelets 130(L) 140 - 400 10E3/uL 02/28/2025 7:30 PM EDT [facility] MPV 8.2 7.5 - 11.5 fL 02/28/2025 7:30 PM EDT [facility] Whole Blood 02/28/2025 6:45 PM EDT 02/28/2025 7:17 PM EDT us Desean Bishop MD LAB BLOOD ORDERABLES Final Resul t [facility] [address] [place] [address], [facility] * (ABNORMAL) POC Glucose Monitoring Device (02/28/2025 4:57 PM EDT) POC Glucose Monitoring Device 184(H) 70 - 100 mg/dL 02/28/2025 4:57 PM EDT [facility] Blood 02/28/2025 4:57 PM EDT 02/28/2025 4:57 PM EDT us Carmela Jernigan MD POINT OF CARE TEST ALEXY MOLINA Final Result [facility] [address] [facility] * (ABNORMAL) CBC (02/28/2025 4:09 PM EDT) [facility] WBC 7.2 3.8 - 10.8 10E3/uL 02/28/2025 4:50 PM EDT [facility] RBC 3.70(L) 4.20 - 5.80 10E6/uL 02/28/2025 4:50 PM EDT [facility] Hemoglobin 11.1(L) 13.2 - 17.1 g/dL 02/28/2025 4:50 PM EDT [facility] Hematocrit 32.3(L) 38.5 - 50.0 % 02/28/2025 4:50 PM EDT [facility] MCV 87.4 80.0 - 100.0 fL 02/28/2025 4:50 PM EDT [facility] MCH 30.2 27.0 - 33.0 pg 02/28/2025 4:50 PM EDT [facility] MCHC 34.5 32.0 - 36.0 g/dL 02/28/2025 4:50 PM EDT [facility] RDW 15.7(H) 11.0 - 15.0 % 02/28/2025 4:50 PM EDT [facility] Platelets 147 140 - 400 10E3/uL 02/28/2025 4:50 PM EDT [facility] MPV 8.6 7.5 - 11.5 fL 02/28/2025 4:50 PM EDT [facility] Whole Blood 02/28/2025 4:09 PM EDT 02/28/2025 4:22 PM EDT us Desean Bishop MD LAB BLOOD ORDERABLES Final Resul t [facility] [address] [facility]. [address] * POC Glucose Monitoring Device (02/28/2025 2:11 PM EDT) POC Glucose Monitoring Device 90 70 - 100 mg/dL 02/28/2025 2:11 PM EDT [facility] Blood 02/28/2025 2:11 PM EDT 02/28/2025 2:11 PM EDT us Carmela Jernigan MD POINT OF CARE TEST ORDE JESSE Final Result [facility] [address] [facility]. [address] * POC Glucose Monitoring Device (02/28/2025 11:45 AM EDT) POC Glucose Monitoring Device 87 70 - 100 mg/dL 02/28/2025 11:46 AM EDT [facility] Blood 02/28/2025 11:4 5 AM EDT 02/28/2025 11:46 AM EDT us Carmela Jernigan MD POINT OF CARE TEST ORDE JESSE Final Result Performing Organization Address City/[facility]/ZIP Co de Phone Number [facility] [address] [facility] * UPPER GI ENDOSCOPY (02/28/2025 10:54 AM EDT) 02/28/2025 10:5 4 AM EDT Narrative [facility] - 02/28/2025 11:42 AM EDT [id number] Procedure Date: 02/28/2025 10:54 AM Patient Name: Harsha Avina Date of : 1960 Admit Type: Inpatient Age: 64 Gender: Male Note Status: Finalized Attending MD: VEE CAO MD, [id number] Procedure: Upper GI endoscopy Indications: Hematochezia Providers: VEE CAO MD, Rich Cummings (Fellow) Referring MD: Medicines: Monitored Anesthesia Care Complications: No immediate complications. Procedure: Pre-Anesthesia Assessment: - Prior to the procedure, a History and Physical was performed, and patient medications and allergies were reviewed. The patient is competent. The risks and benefits of the procedure and the sedation options and risks were discussed with the patient. All questions were answered and informed consent was obtained. Patient identification and proposed procedure were verified by the physician, the nurse, the rn gyn and the tower technician in the procedure room. Mental Status Examination: alert and oriented. Airway Examination: normal oropharyngeal airway and neck mobility. Respiratory Examination: clear to auscultation. CV Examination: normal. ASA Grade Assessment: II - A patient with mild systemic disease. After reviewing the risks and benefits, the patient was deemed in satisfactory condition to undergo the procedure. The anesthesia plan was to use monitored anesthesia care (MAC). Immediately prior to administration of medications, the patient was re-assessed for adequacy to receive sedatives. The heart rate, respiratory rate, oxygen saturations, blood pressure, adequacy of pulmonary ventilation, and response to care were monitored throughout the procedure. The physical status of the patient was re-assessed after the procedure. After obtaining informed consent, the endoscope was passed under direct vision. Throughout the procedure, the patient's blood pressure, pulse, and oxygen saturations were monitored continuously. The Endoscope was introduced through the mouth, and advanced to the second part of duodenum. The upper GI endoscopy was accomplished without difficulty. The patient tolerated the procedure well. Findings: The examined esophagus was normal. Evidence of a patent Billroth I gastroduodenostomy was found. A gastric pouch 5.5 cm wide with a normal size was found. This was traversed. No bleeding or stigmata of bleeding seen in duodenum, stomach or esophagus The examined duodenum was normal. Estimated Blood Loss: Estimated blood loss: none. Impression: - No bleeding or stigmata of bleeding seen in duodenum, stomach or esophagus - Normal esophagus. - Patent Billroth I gastroduodenostomy was found. - Normal examined duodenum. - No specimens collected. Recommendation: - [facility]. - Resume previous diet. - Return to referring provider as previously scheduled. Procedure Code(s): --- Professional --- 61254, GC, Esophagogastroduodenoscopy, flexible, transoral; diagnostic, including collection of specimen(s) by brushing or washing, when performed (separate procedure) Diagnosis Code(s): --- Professional --- Z98.0, Intestinal bypass and anastomosis status K92.1, Melena (includes Hematochezia) CPT copyright 2022 [employer]. All rights reserved. The codes documented in this report are preliminary and upon shingle catcher review may be revised to meet current compliance requirements. Attending Participation: I was present for the entire viewing portion, including introduction and removal of the scope. Vee Cao MD VEE CAO MD 02/28/2025 11:42:08 AM This report has been signed electronically.MD Zoila CONN Geethanjali Rich Cummings, 02/28/2025 11:37:47 AM Total Procedure Duration Time 0 hours 6 minutes 50 seconds Scope In: 11:16:43 AM Scope Out: 11:23:[address] [place], [place] [address] [address] us Attending Provider Unknown PROCEDURE/MINOR SURGI ELIAS ORDERABLES Final Result [facility] * (ABNORMAL) POC Glucose Monitoring Device (02/28/2025 9:44 AM EDT) POC Glucose Monitoring Device 118(H) 70 - 100 mg/dL 02/28/2025 9:45 AM EDT [facility] Blood 02/28/2025 9:44 AM EDT 02/28/2025 9:45 AM EDT us Carmela Jernigan MD POINT OF CARE TEST ORDE JESSE Final Result Performing Organization Address [facility] Co de Phone Number [facility] [address] [facility] * (ABNORMAL) POC Glucose Monitoring Device (02/28/2025 5:13 AM EDT) POC Glucose Monitoring Device 135(H) 70 - 100 mg/dL 02/28/2025 5:14 AM EDT [facility] Blood 02/28/2025 5:13 AM EDT 02/28/2025 5:13 AM EDT us Carmela Jernigan MD POINT OF CARE TEST ORDE JESSE Final Result Performing Organization Address City/[facility]/ZIP Co de Phone Number [facility] [address] [facility] * POC Glucose Monitoring Device (02/28/2025 4:53 AM EDT) POC Glucose Monitoring Device 84 70 - 100 mg/dL 02/28/2025 4:54 AM EDT [facility] Blood 02/28/2025 4:53 AM EDT 02/28/2025 4:53 AM EDT us Carmela Jernigan MD POINT OF CARE TEST ORDE JESSE Final Result [facility] [address] * (ABNORMAL) CBC, STAT (02/28/2025 3:48 AM EDT) WBC 3.8 3.8 - 10.8 10E3/uL 02/28/2025 4:03 AM EDT [facility] RBC 2.99(L) 4.20 - 5.80 10E6/uL 02/28/2025 4:03 AM EDT [facility] Hemoglobin 9.0(L) 13.2 - 17.1 g/dL 02/28/2025 4:03 AM EDT [facility] Hematocrit 25.7(L) 38.5 - 50.0 % 02/28/2025 4:03 AM EDT [facility] MCV 86.0 80.0 - 100.0 fL 02/28/2025 4:03 AM EDT [facility] MCH 30.0 27.0 - 33.0 pg 02/28/2025 4:03 AM EDT [facility] MCHC 34.9 32.0 - 36.0 g/dL 02/28/2025 4:03 AM EDT [facility] RDW 15.9(H) 11.0 - 15.0 % 02/28/2025 4:03 AM EDT [facility] Platelets 130(L) 140 - 400 10E3/uL 02/28/2025 4:03 AM EDT [facility] MPV 8.4 7.5 - 11.5 fL 02/28/2025 4:03 AM EDT [facility] Whole Blood 02/28/2025 3:48 AM EDT 02/28/2025 3:51 AM EDT us Michael Winston DDS LAB BLOOD ORDERABLES Final Res ult [facility] [address] [facility]. [address] * (ABNORMAL) Renal Function Panel w/EGFR (02/28/2025 3:48 AM EDT) Sodium 139 133 - 146 mmol/L 02/28/2025 5:04 AM EDT [facility] Potassium 4.4 3.5 - 5.3 mmol/L 02/28/2025 5:04 AM EDT [facility] Chloride 108 98 - 110 mmol/L 02/28/2025 5:04 AM EDT [facility] CO2 27 21 - 33 mmol/L 02/28/2025 5:04 AM EDT [facility] Anion Gap 4 3 - 16 mmol/L 02/28/2025 5:04 AM EDT [facility] BUN 25 7 - 25 mg/dL 02/28/2025 5:04 AM EDT [facility] Creatinine 0.66 0.60 - 1.30 mg/dL 02/28/2025 5:04 AM EDT [facility] Glucose 80 70 - 100 mg/dL 02/28/2025 5:04 AM EDT [facility] Calcium 8.0(L) 8.6 - 10.3 mg/dL 02/28/2025 5:04 AM EDT [facility] Phosphorus 3.2 2.1 - 4.7 mg/dL 02/28/2025 5:04 AM EDT [facility] Albumin 3.2(L) 3.5 - 5.7 g/dL 02/28/2025 5:04 AM EDT [facility] Osmolality, Calculated 291 278 - 305 mOsm/kg 02/28/2025 5:04 AM EDT [facility] EGFR >90 02/28/2025 5:04 AM EDT [facility] Comment: As of 2021, the estimated GFR is calculated using the 2020 Chronic Kidney Disease Epidemiology Collaboration (CKD-EPI) equation. In line with the NKF-ASN Task Force Recommendations, this equation does not include a coefficient for race. A single eGFR value is calculated for each patient. The reference interval is >60 mL/min/1.73m2. eGFR values greater than 90 will be reported as >90mL/min/1.73m2. Reference: Arturo C, Pili M, Mercedes DC, Di ND, Todd [place], iVnce [place], et al. A Unifying Approach for GFR Estimation: Recommendations of the NKF-ASN Task Force on Reassessing the inclusion of Race in Diagnosing Kidney Disease. Am J Kidney Dis. 2020. GFR is estimated using creatinine, age, and sex. Patient's values should be interpreted as a trend. Below 90 mL/min/1.73m2, the patient may have renal disease. For additional information: www.kidney.org Plasma 02/28/2025 3:48 AM EDT 02/28/2025 3:51 AM EDT Lucy Troncoso MD LAB BLOOD ORDERABLES Final Re sult Performing Organization Address City/[facility]/ZIP Co de Phone Number [facility] [address] [facility] * Magnesium (02/28/2025 3:48 AM EDT) Magnesium 2.0 1.5 - 2.5 mg/dL 02/28/2025 5:04 AM EDT [facility] Plasma 02/28/2025 3:48 AM EDT 02/28/2025 3:51 AM EDT Lucy Troncoso MD LAB BLOOD ORDERABLES Final Re sult Performing Organization Address [facility] Co de Phone Number [facility] [address] [facility] * (ABNORMAL) CBC, STAT (02/27/2025 10:43 PM EDT) WBC 3.4(L) 3.8 - 10.8 10E3/uL 02/27/2025 10:53 PM EDT [facility] RBC 3.15(L) 4.20 - 5.80 10E6/uL 02/27/2025 10:53 PM EDT [facility] Hemoglobin 9.4(L) 13.2 - 17.1 g/dL 02/27/2025 10:53 PM EDT [facility] Hematocrit 27.1(L) 38.5 - 50.0 % 02/27/2025 10:53 PM EDT [facility] MCV 86.1 80.0 - 100.0 fL 02/27/2025 10:53 PM EDT [facility] MCH 29.8 27.0 - 33.0 pg 02/27/2025 10:53 PM EDT [facility] MCHC 34.7 32.0 - 36.0 g/dL 02/27/2025 10:53 PM EDT [facility] RDW 15.6(H) 11.0 - 15.0 % 02/27/2025 10:53 PM EDT [facility] Platelets 112(L) 140 - 400 10E3/uL 02/27/2025 10:53 PM EDT [facility] MPV 8.0 7.5 - 11.5 fL 02/27/2025 10:53 PM EDT [facility] Whole Blood 02/27/2025 10:4 3 PM EDT 02/27/2025 10:48 PM EDT Michael Winston DDS LAB BLOOD ORDERABLES Final Res ult [facility] [address] [facility] * POC Glucose Monitoring Device (02/27/2025 5:08 PM EDT) [facility] Signature POC Glucose Monitoring Device 72 70 - 100 mg/dL 02/27/2025 5:10 PM EDT [facility] Blood 02/27/2025 5:08 PM EDT 02/27/2025 5:09 PM EDT Laura Delacruz MD POINT OF CARE TEST ORDERABLES Fi nal Result Performing Organization Address City/[facility]/ZIP Co de Phone Number [facility] [address] [facility] * Endoscopy, colon, diagnostic (02/27/2025 2:50 PM EDT) 02/27/2025 2:50 PM EDT Narrative [facility] - 02/27/2025 4:52 PM EDT [id number] Procedure Date: 02/27/2025 2:50 PM Patient Name: Harsha Avina Date of : 1960 Admit Type: Inpatient Age: 64 Gender: Male Note Status: Finalized Attending MD: Lucinda Hotron MD, [id number] Procedure: Colonoscopy Indications: Hematochezia Patient Profile: 64 year old admitted with hematochezia. Providers: Lucinda Horton MD, Fadi Landry MD (Fellow) Referring MD: Provider Not in System Medicines: Monitored Anesthesia Care Complications: No immediate complications. Procedure: Pre-Anesthesia Assessment: - Prior to the procedure, a History and Physical was performed, and patient medications and allergies were reviewed. The patient is competent. The risks and benefits of the procedure and the sedation options and risks were discussed with the patient. All questions were answered and informed consent was obtained. Patient identification and proposed procedure were verified by the physician, the nurse, the rn gyn and the tower technician in the endoscopy suite. Mental Status Examination: alert and oriented. Airway Examination: normal oropharyngeal airway and neck mobility. Respiratory Examination: clear to auscultation. CV Examination: normal. Prophylactic Antibiotics: The patient does not require prophylactic antibiotics. Prior Anticoagulants: The patient has taken no anticoagulant or antiplatelet agents. ASA Grade Assessment: III - A patient with severe systemic disease. After reviewing the risks and benefits, the patient was deemed in satisfactory condition to undergo the procedure. The anesthesia plan was to use monitored anesthesia care (MAC). Immediately prior to administration of medications, the patient was re-assessed for adequacy to receive sedatives. The heart rate, respiratory rate, oxygen saturations, blood pressure, adequacy of pulmonary ventilation, and response to care were monitored throughout the procedure. The physical status of the patient was re-assessed after the procedure. After I obtained informed consent, the scope was passed under direct vision. Throughout the procedure, the patient's blood pressure, pulse, and oxygen saturations were monitored continuously. The Colonoscope was introduced through the anus and advanced to the terminal ileum. The colonoscopy was performed without difficulty. The patient tolerated the procedure well. The quality of the bowel preparation was fair. The ileocolonic anastomosis, the roger-terminal ileum and the rectum were photographed. Findings: The perianal and digital rectal examinations were normal. There was evidence of a prior end-to-side ileo-colonic anastomosis in the ascending colon. This was patent and was characterized by erosion. The roger-terminal ileum contained two scattered erosions. Biopsies were taken with a cold forceps for histology. Estimated blood loss was minimal. Normal mucosa was found in the entire colon. The retroflexed view of the distal rectum and anal verge was normal and showed no anal or rectal abnormalities. Estimated Blood Loss: Estimated blood loss was minimal. Impression: - Preparation of the colon was fair. - Patent end-to-side ileo-colonic anastomosis, characterized by erosion. - Two erosions in the roger-terminal ileum. Biopsied. - Normal mucosa in the entire examined colon. - The distal rectum and anal verge are normal on retroflexion view. Recommendation: - Return patient to ICU for ongoing care. - Clear liquid diet. NPO at ID. - Plan for EGD tomorrow. - Continue present medications. - Await pathology results. - Repeat colonoscopy for screening purposes as an outpatient. Examination today was not adequate for polyp screening / surveillance. Procedure Code(s): --- Professional --- 06309, GC, Colonoscopy, flexible; with biopsy, single or multiple Diagnosis Code(s): --- Professional --- Z98.0, Intestinal bypass and anastomosis status K63.3, Ulcer of intestine K92.1, Melena (includes Hematochezia) CPT copyright 2022 [employer]. All rights reserved. The codes documented in this report are preliminary and upon shingle catcher review may be revised to meet current compliance requirements. Attending Participation: I was present and participated during the entire procedure, including non-glover portions. Lucinda Horton MD Lucinda Horton MD 02/27/2025 4:52:03 PM This report has been signed electronically.MD Jenelle Lott MD Fadi Landry MD 02/27/2025 3:51:01 PM Scope Withdrawal Time 0 hours 10 minutes 43 seconds Total Procedure Duration Time 0 hours 18 minutes 13 seconds Scope In: 3:17:54 PM Scope Out: 3:36:[address] [place] [address], [facility] Provider Not In System GI PROCEDURE ORDERABLES F inal Result Performing Organization Address [facility] de Phone Number [facility] * (ABNORMAL) POC Glucose Monitoring Device (02/27/2025 12:56 PM EDT) POC Glucose Monitoring Device 137(H) 70 - 100 mg/dL 02/27/2025 12:57 PM EDT [facility] Blood 02/27/2025 12:5 6 PM EDT 02/27/2025 12:57 PM EDT us Laura Delacruz MD POINT OF CARE TEST ORDERABLES Fi nal Result Performing Organization Address [facility] Co de Phone Number [facility] [address] [place] [address] * (ABNORMAL) POC Glucose Monitoring Device (02/27/2025 12:31 PM EDT) POC Glucose Monitoring Device 68(L) 70 - 100 mg/dL 02/27/2025 12:31 PM EDT [facility] Blood 02/27/2025 12:3 1 PM EDT 02/27/2025 12:31 PM EDT Laura Delacruz MD POINT OF CARE TEST ORDERABLES Fi nal Result [facility] [address] [facility] * Free Calcium, Whole Blood (02/27/2025 8:18 AM EDT) Free Calcium, WB 4.71 4.50 - 5.30 mg/dL 02/27/2025 8:26 AM EDT [facility] Blood, Arterial 02/27/2025 8 :18 AM EDT 02/27/2025 8:22 AM EDT Kenny Zhu MD LAB BLOOD ORDERABLES Final Result Performing Organization Address [facility] Co de Phone Number [facility] [address] [facility] * (ABNORMAL) Hemoglobin and Hematocrit, Blood (02/27/2025 8:18 AM EDT) Hemoglobin 9.6(L) 13.2 - 17.1 g/dL 02/27/2025 8:34 AM EDT [facility] Hematocrit 26.9(L) 38.5 - 50.0 % 02/27/2025 8:34 AM EDT [facility] MCV 85.3 80.0 - 100.0 fL 02/27/2025 8:34 AM EDT [facility] MCH 30.5 27.0 - 33.0 pg 02/27/2025 8:34 AM EDT [facility] MCHC 35.7 32.0 - 36.0 g/dL 02/27/2025 8:34 AM EDT [facility] RDW 15.9(H) 11.0 - 15.0 % 02/27/2025 8:34 AM EDT [facility] Whole Blood 02/27/2025 8:18 AM EDT 02/27/2025 8:28 AM EDT Kenny Zhu MD LAB BLOOD ORDERABLES Final Result [facility] [address] [facility]. [address] * CONSTANTINE Rhythm Strip - Scan (02/27/2025 7:41 AM EDT) us Scanning Uchhim SCAN DOCS - NO RESULTS Final Res ult * POC Glucose Monitoring Device (02/27/2025 4:09 AM EDT) POC Glucose Monitoring Device 92 70 - 100 mg/dL 02/27/2025 4:09 AM EDT [facility] Blood 02/27/2025 4:09 AM EDT 02/27/2025 4:09 AM EDT us Laura Delacruz MD POINT OF CARE TEST ORDERABLES Fi nal Result Performing Organization Address [facility]/ZIP Co de Phone Number [facility] [address] [facility] * (ABNORMAL) Hemoglobin and hematocrit, blood (02/27/2025 4:02 AM EDT) Hemoglobin 9.6(L) 13.2 - 17.1 g/dL 02/27/2025 4:40 AM EDT [facility] Hematocrit 26.9(L) 38.5 - 50.0 % 02/27/2025 4:40 AM EDT [facility] MCV 85.7 80.0 - 100.0 fL 02/27/2025 4:40 AM EDT [facility] MCH 30.4 27.0 - 33.0 pg 02/27/2025 4:40 AM EDT [facility] MCHC 35.5 32.0 - 36.0 g/dL 02/27/2025 4:40 AM EDT [facility] RDW 16.0(H) 11.0 - 15.0 % 02/27/2025 4:40 AM EDT [facility] Whole Blood 02/27/2025 4:02 AM EDT 02/27/2025 4:25 AM EDT us Jayme Judd MD LAB BLOOD ORDERABLES Final Re sult [facility] [address] [place] [address], [facility] * (ABNORMAL) Renal Function Panel w/EGFR, STAT (02/27/2025 4:02 AM EDT) Sodium 143 133 - 146 mmol/L 02/27/2025 4:47 AM EDT [facility] Potassium 3.9 3.5 - 5.3 mmol/L 02/27/2025 4:47 AM EDT [facility] Chloride 108 98 - 110 mmol/L 02/27/2025 4:47 AM EDT [facility] CO2 28 21 - 33 mmol/L 02/27/2025 4:47 AM EDT [facility] Anion Gap 7 3 - 16 mmol/L 02/27/2025 4:47 AM EDT [facility] BUN 33(H) 7 - 25 mg/dL 02/27/2025 4:47 AM EDT [facility] Creatinine 0.76 0.60 - 1.30 mg/dL 02/27/2025 4:47 AM EDT [facility] Glucose 77 70 - 100 mg/dL 02/27/2025 4:47 AM EDT [facility] Calcium 8.0(L) 8.6 - 10.3 mg/dL 02/27/2025 4:47 AM EDT [facility] Phosphorus 3.1 2.1 - 4.7 mg/dL 02/27/2025 4:47 AM EDT [facility] Albumin 3.5 3.5 - 5.7 g/dL 02/27/2025 4:47 AM EDT [facility] Osmolality, Calculated 302 278 - 305 mOsm/kg 02/27/2025 4:47 AM EDT [facility] EGFR >90 02/27/2025 4:47 AM EDT [facility] Comment: As of 2021, the estimated GFR is calculated using the 2020 Chronic Kidney Disease Epidemiology Collaboration (CKD-EPI) equation. In line with the NKF-ASN Task Force Recommendations, this equation does not include a coefficient for race. A single eGFR value is calculated for each patient. The reference interval is >60 mL/min/1.73m2. eGFR values greater than 90 will be reported as >90mL/min/1.73m2. Reference: Arturo C, Pili M, Mercedes DC, Di ND, Todd CA, Vince LA, et al. A Unifying Approach for GFR Estimation: Recommendations of the NKF-ASN Task Force on Reassessing the inclusion of Race in Diagnosing Kidney Disease. Am J Kidney Dis. 2020. GFR is estimated using creatinine, age, and sex. Patient's values should be interpreted as a trend. Below 90 mL/min/1.73m2, the patient may have renal disease. For additional information: www.kidney.org Plasma 02/27/2025 4:02 AM EDT 02/27/2025 4:24 AM EDT us Sandie Cardenas MD LAB BLOOD ORDERABLES Final Resu lt Performing Organization Address [facility] Co de Phone Number [facility] [address] * (ABNORMAL) Hemoglobin A1c (02/27/2025 4:02 AM EDT) Hemoglobin A1C 6.5(H) 4.0 - 5.6 % 02/27/2025 7:06 AM EDT [facility] Comment: Hemoglobin A1c Interpretation Guidelines: Normal: <5.7% Prediabetes: 5.7-6.4% Diabetes: >6.4% Diagnosis requires two independent tests unless clinical diagnosis is clear. Some clinical conditions, particularly anemias and hemoglobinopathies, may interfere with the diagnostic accuracy of hemoglobin A1c. The recommended goal for diabetic glycemic control (Hemoglobin A1c <7.0%) should be individualized based on duration of diabetes, age/life expectancy, comorbid conditions, known CVD or advanced microvascular complications, hypoglycemia unawareness, and other individual patient considerations. Whole Blood 02/27/2025 4:02 AM EDT 02/27/2025 4:24 AM EDT Jayme Judd MD LAB BLOOD ORDERABLES Final Re sult Performing Organization Address [facility] Co de Phone Number [facility] [address] [facility]. [address] * (ABNORMAL) Hemoglobin and Hematocrit, Blood (02/27/2025 12:32 AM EDT) Hemoglobin 9.7(L) 13.2 - 17.1 g/dL 02/27/2025 1:39 AM EDT [facility] Hematocrit 27.2(L) 38.5 - 50.0 % 02/27/2025 1:39 AM EDT [facility] MCV 84.9 80.0 - 100.0 fL 02/27/2025 1:39 AM EDT [facility] MCH 30.3 27.0 - 33.0 pg 02/27/2025 1:39 AM EDT [facility] MCHC 35.7 32.0 - 36.0 g/dL 02/27/2025 1:39 AM EDT [facility] RDW 16.1(H) 11.0 - 15.0 % 02/27/2025 1:39 AM EDT [facility] Whole Blood 02/27/2025 12:3 2 AM EDT 02/27/2025 12:57 AM EDT Kenny Zhu MD LAB BLOOD ORDERABLES Final Result Performing Organization Address [facility] Co de Phone Number [facility] [address] * Surgical Pathology Exam (02/27/2025 12:00 AM EDT) 02/27/2025 02/27/2025 Narrative [facility] - 02/27/2025 12:00 AM EDT CASE: [id number] PATIENT: HARSHA AVINA Clinical History: Colonoscopy w/ bx Pre-Operative Diagnosis: Lower GI bleed Post-Operative Diagnosis: Ileitis Specimen(s) Submitted: A. Ileum bxs, ileitis CPT Code(s): 92043 X 1 Additional Information: FINAL DIAGNOSIS: Ileum, biopsy: - Patchy active ileitis. - Mucosal architecture is relatively preserved. - Negative for granuloma, dysplasia, or malignancy. DS/rr Gross Description: Received in formalin, labeled with the patient's name Harsha Avina and ileum biopsies is a 0.5 x 0.2 x 0.2 cm montes-pink irregular soft tissue fragment. The specimen is filtered into a biopsy bag and entirely submitted in cassette [id number]. (HIRAM Crabtree (ASCP)/ab) Microscopic Description: Two HE stained slides are examined. KENJI/yuliet Mensah, the attending pathologist, have personally reviewed all prosector/resident work and pathology slides to determine final diagnosis. Final Diagnosis performed by MYRANDA CORCORAN MD Pathologist Electronically signed 03/03/2025 12:46:16 PM The Pathologist signing this report is located at [facility], [address] [place] [address], Formerly [facility] [phone], CLIA ID: [id number] us Lucinda Horton MD PATHOLOGY/CYTOLOGY ORDERABLES Fi nal Result Performing Organization Address [facility] Co de Phone Number [facility] * (ABNORMAL) POC Glucose Monitoring Device (02/26/2025 8:32 PM EDT) POC Glucose Monitoring Device 106(H) 70 - 100 mg/dL 02/26/2025 8:33 PM EDT [facility] Blood 02/26/2025 8:32 PM EDT 02/26/2025 8:33 PM EDT us Laura Delacruz MD POINT OF CARE TEST ORDERABLES Fi nal Result Performing Organization Address [facility]/ZIP Co de Phone Number [facility] [address] [place] [address] * Lactic Acid, STAT (02/26/2025 8:22 PM EDT) Lactate 0.7 0.5 - 2.2 mmol/L 02/26/2025 9:20 PM EDT [facility] Plasma 02/26/2025 8:22 PM EDT 02/26/2025 8:57 PM EDT Kenny Zhu MD LAB BLOOD ORDERABLES Final Result [facility] [address] * (ABNORMAL) Hemoglobin and Hematocrit, Blood (02/26/2025 8:22 PM EDT) Hemoglobin 10.5(L) 13.2 - 17.1 g/dL 02/26/2025 9:06 PM EDT [facility] Hematocrit 30.6(L) 38.5 - 50.0 % 02/26/2025 9:06 PM EDT [facility] MCV 85.9 80.0 - 100.0 fL 02/26/2025 9:06 PM EDT [facility] MCH 29.6 27.0 - 33.0 pg 02/26/2025 9:06 PM EDT [facility] MCHC 34.4 32.0 - 36.0 g/dL 02/26/2025 9:06 PM EDT [facility] RDW 16.2(H) 11.0 - 15.0 % 02/26/2025 9:06 PM EDT [facility] Whole Blood 02/26/2025 8:22 PM EDT 02/26/2025 8:57 PM EDT Kenny Zhu MD LAB BLOOD ORDERABLES Final Result [facility] [address] [place] [address] * Prealbumin (02/26/2025 8:22 PM EDT) Prealbumin 19.4 17.0 - 34.0 mg/dL 02/26/2025 9:19 PM EDT [facility] Serum 02/26/2025 8:22 PM EDT 02/26/2025 8:57 PM EDT us Jayme Judd MD LAB BLOOD ORDERABLES Final Re sult Performing Organization Address City/[facility] Co de Phone Number [facility] [address] [facility]. [address] * CONSTANTINE Rhythm Strip - Scan (02/26/2025 4:46 PM EDT) us Scanning Uchhim SCAN DOCS - NO RESULTS Final Res ult * (ABNORMAL) Hemoglobin and Hematocrit, Blood (02/26/2025 4:12 PM EDT) Hemoglobin 8.9(L) 13.2 - 17.1 g/dL 02/26/2025 4:30 PM EDT [facility] Hematocrit 25.6(L) 38.5 - 50.0 % 02/26/2025 4:30 PM EDT [facility] MCV 85.8 80.0 - 100.0 fL 02/26/2025 4:30 PM EDT [facility] MCH 29.6 27.0 - 33.0 pg 02/26/2025 4:30 PM EDT [facility] MCHC 34.6 32.0 - 36.0 g/dL 02/26/2025 4:30 PM EDT [facility] RDW 15.6(H) 11.0 - 15.0 % 02/26/2025 4:30 PM EDT [facility] Whole Blood 02/26/2025 4:12 PM EDT 02/26/2025 4:19 PM EDT us Kenny Zhu MD LAB BLOOD ORDERABLES Final Result Performing Organization Address City/[facility]/ZIP Co de Phone Number [facility] [address] * (ABNORMAL) TEG-Standard Global Hemostasis (Rapid TEG with Heparin Effect, Contains a Baseline TEG) (02/26/2025 11:23 AM EDT) Citrated Kaolin Reaction Time (TEGHEPARINASE) 4.6 4.6 - 9.1 minutes 02/26/2025 12:05 PM EDT [facility] Citrated Rapid Teg Maximum Amplitude (TEGHEPARINASE) 54.9 52.0 - 70.0 mm 02/26/2025 12:05 PM EDT [facility] Citrated Functional Fibrinogen Maximum Amplitude (TEGHEPARINASE) 17.6 15.0 - 32.0 mm 02/26/2025 12:05 PM EDT [facility] Citrated Kaolin W/Heparinase Reaction Time (TEGHEPARINASE) 3.9(L) 4.3 - 8.3 minutes 02/26/2025 12:05 PM EDT [facility] Citrated Kaolin K-Time (TEGHEPARINASE) 1.3(A) 0.8 - 2.1 minutes 02/26/2025 12:05 PM EDT [facility] Citrated Kaolin Angle (TEGHEPARINASE) 72.9(A) 63.0 - 78.0 degrees 02/26/2025 12:05 PM EDT [facility] Citrated Kaolin Maximum Amplitude (TEGHEPARINASE) 57.3 52.0 - 69.0 mm 02/26/2025 12:05 PM EDT [facility] Citrated Functional Fibrinogen- Fibrinogen Level (TEGHEPARINASE) 321.2 278.0 - 581.0 mg/dL 02/26/2025 12:05 PM EDT [facility] Whole Blood (Citrate) 02/26/2025 11:23 AM EDT 02/26/2025 11:29 AM EDT us Piedad Gu MD LAB BLOOD ORDERABLES Final Resu lt [facility] [address] [place], [place] [address] * (ABNORMAL) Protime-INR (02/26/2025 11:23 AM EDT) Protime 15.4(H) 12.1 - 15.1 seconds 02/26/2025 11:46 AM EDT [facility] INR 1.2(H) 0.9 - 1.1 02/26/2025 11:46 AM EDT [facility] Comment: RECOMMENDED THERAPEUTIC RANGES USING INR : Stable oral anticoagulant therapy: 2.0 - 3.0 Mechanical prosthetic heart valve: 2.5 - 3.5 Recurrent acute myocardial infarction: 2.5 - 3.5 Plasma 02/26/2025 11:2 3 AM EDT 02/26/2025 11:29 AM EDT us Piedad Gu MD LAB BLOOD ORDERABLES Final Resu lt [facility] [address] [place] [address], [facility] * (ABNORMAL) CBC (02/26/2025 11:23 AM EDT) WBC 4.3 3.8 - 10.8 10E3/uL 02/26/2025 11:41 AM EDT [facility] RBC 3.43(L) 4.20 - 5.80 10E6/uL 02/26/2025 11:41 AM EDT [facility] Hemoglobin 10.4(L) 13.2 - 17.1 g/dL 02/26/2025 11:41 AM EDT [facility] Hematocrit 29.3(L) 38.5 - 50.0 % 02/26/2025 11:41 AM EDT [facility] MCV 85.4 80.0 - 100.0 fL 02/26/2025 11:41 AM EDT [facility] MCH 30.3 27.0 - 33.0 pg 02/26/2025 11:41 AM EDT [facility] MCHC 35.4 32.0 - 36.0 g/dL 02/26/2025 11:41 AM EDT [facility] RDW 16.0(H) 11.0 - 15.0 % 02/26/2025 11:41 AM EDT [facility] Platelets 103(L) 140 - 400 10E3/uL 02/26/2025 11:41 AM EDT [facility] MPV 8.3 7.5 - 11.5 fL 02/26/2025 11:41 AM EDT [facility] Whole Blood 02/26/2025 11:2 3 AM EDT 02/26/2025 11:28 AM EDT Piedad Gu MD LAB BLOOD ORDERABLES Final Resu lt Performing Organization Address City/[facility]/ZIP Co de Phone Number [facility] [address] [facility]. [address] * (ABNORMAL) POC Glucose Monitoring Device (02/26/2025 11:20 AM EDT) POC Glucose Monitoring Device 117(H) 70 - 100 mg/dL 02/26/2025 11:21 AM EDT [facility] Blood 02/26/2025 11:2 0 AM EDT 02/26/2025 11:20 AM EDT Laura Delacruz MD POINT OF CARE TEST ORDERABLES Fi nal Result Performing Organization Address City/[facility]/ZIP Co de Phone Number [facility] [address] [facility] [address] * Blood culture-Peripheral (Blood) (02/26/2025 6:11 AM EDT) Culture Result No Growth After 5 Days [facility] Blood BLOOD SPECIMEN / Unknown 02/26/2025 6:11 AM EDT 02/26/2025 10:09 AM EDT Jayme Judd MD MICROBIOLOGY - GENERAL ORDERA BLES Final Result Performing Organization Address City/[facility]/ZIP Co de Phone Number [facility] [address] [facility]. [address] * Blood culture-Peripheral (Blood) (02/26/2025 6:11 AM EDT) Culture Result No Growth After 5 Days [facility] Blood BLOOD SPECIMEN / Unknown 02/26/2025 6:11 AM EDT 02/26/2025 7:25 AM EDT Jayme Jdud MD MICROBIOLOGY - GENERAL ORDERA BLES Final Result [facility] YANELI [address] [place] [address], [facility] * X-ray Portable Chest (02/26/2025 5:44 AM EDT) Anatomical Region Laterality Modality Chest Radiographic Mary Beth ging 02/26/2025 5:20 AM EDT Impressions 02/26/2025 7:07 AM EDT IMPRESSION: No acute cardiopulmonary abnormality. Approved by Ashli Rubin MD on 02/26/2025 6:15 AM EDT I have personally reviewed the images and I agree with this report. Report Verified by: Adam Hernandez DO at 02/26/2025 7:07 AM EDT Narrative 02/26/2025 7:07 AM EDT EXAM: XR PORTABLE CHEST INDICATION: Dyspnea, unspecified TECHNIQUE: 1 view of the chest. COMPARISON: None. FINDINGS: Medical Devices: None. Heart and Mediastinum: Cardiomediastinal silhouette is within normal limits. Lungs and Pleura: Lungs are clear. No pleural effusions or evidence for pneumothorax. Bones and soft tissues: No acute abnormalities. Procedure Note Jason Hernandez DO - 02/26/2025 EXAM: XR PORTABLE CHEST INDICATION: Dyspnea, unspecified TECHNIQUE: 1 view of the chest. COMPARISON: None. FINDINGS: Medical Devices: None. Heart and Mediastinum: Cardiomediastinal silhouette is within normallimits. Lungs and Pleura: Lungs are clear. No pleural effusions or evidence forpneumothorax. Bones and soft tissues: No acute abnormalities. IMPRESSION: No acute cardiopulmonary abnormality. Approved by Ashli Rubin MD on 02/26/2025 6:15 AM EDT I have personally reviewed the images and I agree with this report. Report Verified by: Adam Hernandez DO at 02/26/2025 7:07 AM EDT Jayme Judd MD IMG DIAGNOSTIC IMAGING ORDERA BLES Final Result * Calcium Free, Serum (02/26/2025 5:30 AM EDT) Free Calcium, Ser 4.56 4.40 - 5.40 mg/dL 02/26/2025 6:28 AM EDT [facility] Comment:Free calcium levels vary inversely with pH by approximately 5% for each 0.1 unit of pH change. Assay results have been normalized to pH = 7.40. Serum 02/26/2025 5:30 AM EDT 02/26/2025 5:45 AM EDT Narrative [facility] - 02/26/2025 6:28 AM EDT This test has been developed and its performance characteristics determined by [facility] which is certified under the Clinical Laboratory Improvement Amendment of 1988 (CLIA-88) to perform high complexity testing. The test has not been cleared or approved by the US Food and Drug Administration (FDA). The FDA has determined that such clearance is not necessary. The test should be used for clinical purposes and is not regarded as investigational. Piedad Gu MD LAB BLOOD ORDERABLES Final Resu lt [facility] [address] [place] [address], [facility] * (ABNORMAL) TEG-Standard Global Hemostasis (Rapid TEG with Heparin Effect, Contains a Baseline TEG) (02/26/2025 5:30 AM EDT) Citrated Kaolin Reaction Time (TEGHEPARINASE) 6.6 4.6 - 9.1 minutes 02/26/2025 6:23 AM EDT [facility] Citrated Rapid Teg Maximum Amplitude (TEGHEPARINASE) 55.4 52.0 - 70.0 mm 02/26/2025 6:23 AM EDT [facility] Citrated Functional Fibrinogen Maximum Amplitude (TEGHEPARINASE) 17.7 15.0 - 32.0 mm 02/26/2025 6:23 AM EDT [facility] Citrated Kaolin W/Heparinase Reaction Time (TEGHEPARINASE) 5.7 4.3 - 8.3 minutes 02/26/2025 6:23 AM EDT [facility] Citrated Kaolin K-Time (TEGHEPARINASE) 1.3(A) 0.8 - 2.1 minutes 02/26/2025 6:23 AM EDT [facility] Citrated Kaolin Angle (TEGHEPARINASE) 71.9(A) 63.0 - 78.0 degrees 02/26/2025 6:23 AM EDT [facility] Citrated Kaolin Maximum Amplitude (TEGHEPARINASE) 56.7 52.0 - 69.0 mm 02/26/2025 6:23 AM EDT [facility] Citrated Functional Fibrinogen- Fibrinogen Level (TEGHEPARINASE) 323.0 278.0 - 581.0 mg/dL 02/26/2025 6:23 AM EDT [facility] Whole Blood (Citrate) 02/26/2025 5:30 AM EDT 02/26/2025 5:36 AM EDT Jayme Judd MD LAB BLOOD ORDERABLES Final Re sult [facility] [address] * Antibody Screen (02/26/2025 5:30 AM EDT) Antibody Screen Negative 02/26/2025 6:25 AM EDT [facility] Blood 02/26/2025 5:30 AM EDT 02/26/2025 5:41 AM EDT Narrative [facility] - 02/26/2025 6:31 AM EDT Testing performed by [facility] Jayme Judd MD BLOOD BANK TEST ORDERABLES Fi nal Result [facility] [address] * ABO/Rh (02/26/2025 5:30 AM EDT) ABO Grouping A 02/26/2025 6:31 AM EDT [facility] Rh Type Positive 02/26/2025 6:31 AM EDT [facility] Blood 02/26/2025 5:30 AM EDT 02/26/2025 5:41 AM EDT us Jayme Judd MD BLOOD BANK TEST ORDERABLES Fi nal Result Performing Organization Address [facility] Co de Phone Number [facility] [address] [facility]. [address] * POC Glucose Monitoring Device (02/26/2025 5:29 AM EDT) POC Glucose Monitoring Device 99 70 - 100 mg/dL 02/26/2025 5:29 AM EDT [facility] Blood 02/26/2025 5:29 AM EDT 02/26/2025 5:29 AM EDT Laura Delacruz MD POINT OF CARE TEST ORDERABLES Fi nal Result Performing Organization Address [facility] de Phone Number [facility] [address] [facility]. [address] * (ABNORMAL) Protime-INR (02/26/2025 5:29 AM EDT) Protime 15.7(H) 12.1 - 15.1 seconds 02/26/2025 5:55 AM EDT [facility] INR 1.2(H) 0.9 - 1.1 02/26/2025 5:55 AM EDT [facility] Comment: RECOMMENDED THERAPEUTIC RANGES USING INR : Stable oral anticoagulant therapy: 2.0 - 3.0 Mechanical prosthetic heart valve: 2.5 - 3.5 Recurrent acute myocardial infarction: 2.5 - 3.5 Plasma 02/26/2025 5:29 AM EDT 02/26/2025 5:36 AM EDT us Jayme Judd MD LAB BLOOD ORDERABLES Final Re sult Performing Organization Address [facility] Co de Phone Number [facility] [address] [facility]. [address] * (ABNORMAL) CBC (02/26/2025 5:29 AM EDT) WBC 5.8 3.8 - 10.8 10E3/uL 02/26/2025 6:13 AM EDT [facility] RBC 3.77(L) 4.20 - 5.80 10E6/uL 02/26/2025 6:13 AM EDT [facility] Hemoglobin 11.3(L) 13.2 - 17.1 g/dL 02/26/2025 6:13 AM EDT [facility] Hematocrit 32.3(L) 38.5 - 50.0 % 02/26/2025 6:13 AM EDT [facility] MCV 85.6 80.0 - 100.0 fL 02/26/2025 6:13 AM EDT [facility] MCH 29.9 27.0 - 33.0 pg 02/26/2025 6:13 AM EDT [facility] MCHC 34.9 32.0 - 36.0 g/dL 02/26/2025 6:13 AM EDT [facility] RDW 15.7(H) 11.0 - 15.0 % 02/26/2025 6:13 AM EDT [facility] Platelets 112(L) 140 - 400 10E3/uL 02/26/2025 6:13 AM EDT [facility] MPV 8.2 7.5 - 11.5 fL 02/26/2025 6:13 AM EDT [facility] Whole Blood 02/26/2025 5:29 AM EDT 02/26/2025 5:45 AM EDT Jayme Judd MD LAB BLOOD ORDERABLES Final Re sult [facility] [address] * (ABNORMAL) Calcium (02/26/2025 5:29 AM EDT) Calcium 8.0(L) 8.6 - 10.3 mg/dL 02/26/2025 7:13 AM EDT [facility] Plasma 02/26/2025 5:29 AM EDT 02/26/2025 5:45 AM EDT Jayme Judd MD LAB BLOOD ORDERABLES Final Re sult Performing Organization Address City/[facility] Co de Phone Number [facility] [address] [facility] * Magnesium (02/26/2025 5:29 AM EDT) Magnesium 1.9 1.5 - 2.5 mg/dL 02/26/2025 7:13 AM EDT [facility] Plasma 02/26/2025 5:29 AM EDT 02/26/2025 5:45 AM EDT Jayme Judd MD LAB BLOOD ORDERABLES Final Re sult Performing Organization Address [facility] Co de Phone Number [facility] [address] [facility]. [address] * Phosphorus (02/26/2025 5:29 AM EDT) Phosphorus 3.9 2.1 - 4.7 mg/dL 02/26/2025 7:13 AM EDT [facility] Plasma 02/26/2025 5:29 AM EDT 02/26/2025 5:45 AM EDT Jayme Judd MD LAB BLOOD ORDERABLES Final Re sult Performing Organization Address City/[facility] Co de Phone Number [facility] [address] [facility] * (ABNORMAL) Basic metabolic panel (02/26/2025 5:29 AM EDT) Sodium 140 133 - 146 mmol/L 02/26/2025 7:13 AM EDT [facility] Potassium 4.2 3.5 - 5.3 mmol/L 02/26/2025 7:13 AM EDT [facility] Chloride 106 98 - 110 mmol/L 02/26/2025 7:13 AM EDT [facility] CO2 29 21 - 33 mmol/L 02/26/2025 7:13 AM EDT [facility] Anion Gap 5 3 - 16 mmol/L 02/26/2025 7:13 AM EDT [facility] BUN 37(H) 7 - 25 mg/dL 02/26/2025 7:13 AM EDT [facility] Creatinine 0.82 0.60 - 1.30 mg/dL 02/26/2025 7:13 AM EDT [facility] Glucose 84 70 - 100 mg/dL 02/26/2025 7:13 AM EDT [facility] Calcium 8.0(L) 8.6 - 10.3 mg/dL 02/26/2025 7:13 AM EDT [facility] Osmolality, Calculated 298 278 - 305 mOsm/kg 02/26/2025 7:13 AM EDT [facility] EGFR >90 02/26/2025 7:13 AM EDT [facility] Comment: As of 2021, the estimated GFR is calculated using the 2020 Chronic Kidney Disease Epidemiology Collaboration (CKD-EPI) equation. In line with the NKF-ASN Task Force Recommendations, this equation does not include a coefficient for race. A single eGFR value is calculated for each patient. The reference interval is >60 mL/min/1.73m2. eGFR values greater than 90 will be reported as >90mL/min/1.73m2. Reference: Arturo C, Pili M, Mercedes DC, Di ND, Todd CA, Vince LA, et al. A Unifying Approach for GFR Estimation: Recommendations of the NKF-ASN Task Force on Reassessing the inclusion of Race in Diagnosing Kidney Disease. Am J Kidney Dis. 2020. GFR is estimated using creatinine, age, and sex. Patient's values should be interpreted as a trend. Below 90 mL/min/1.73m2, the patient may have renal disease. For additional information: www.kidney.org Plasma 02/26/2025 5:29 AM EDT 02/26/2025 5:45 AM EDT Jayme Judd MD LAB BLOOD ORDERABLES Final Re sult [facility] [address] * CK (02/26/2025 5:29 AM EDT) Total CK 104 30 - 223 U/L 02/26/2025 7:13 AM EDT [facility] Plasma 02/26/2025 5:29 AM EDT 02/26/2025 5:45 AM EDT Jayme Judd MD LAB BLOOD ORDERABLES Final Re sult Performing Organization Address City/[facility] Co de Phone Number [facility] [address] [facility]. [address] * (ABNORMAL) Hepatic Function Panel (02/26/2025 5:29 AM EDT) Total Bilirubin 0.8 0.0 - 1.5 mg/dL 02/26/2025 7:13 AM EDT [facility] Bilirubin, Direct 0.22 0.00 - 0.40 mg/dL 02/26/2025 7:13 AM EDT [facility] AST 25 13 - 39 U/L 02/26/2025 7:13 AM EDT [facility] ALT 28 7 - 52 U/L 02/26/2025 7:13 AM EDT [facility] Alkaline Phosphatase 41 36 - 125 U/L 02/26/2025 7:13 AM EDT [facility] Total Protein 5.4(L) 6.4 - 8.9 g/dL 02/26/2025 7:13 AM EDT [facility] Albumin 3.7 3.5 - 5.7 g/dL 02/26/2025 7:13 AM EDT [facility] Bilirubin, Indirect 0.58 0.00 - 1.10 mg/dL 02/26/2025 7:13 AM EDT [facility] Plasma 02/26/2025 5:29 AM EDT 02/26/2025 5:45 AM EDT Jayme Judd MD LAB BLOOD ORDERABLES Final Re sult [facility] [address] * High Sensitivity Troponin (02/26/2025 5:29 AM EDT) High Sensitivity Troponin 4 0 - 20 ng/L 02/26/2025 7:22 AM EDT [facility] Serum 02/26/2025 5:29 AM EDT 02/26/2025 5:45 AM EDT Jayme Judd MD LAB BLOOD ORDERABLES Final Re sult Performing Organization Address [facility] Co de Phone Number [facility] [address] [facility] * Fibrinogen (02/26/2025 5:29 AM EDT) Fibrinogen 241 218 - 406 mg/dL 02/26/2025 6:03 AM EDT [facility] Plasma 02/26/2025 5:29 AM EDT 02/26/2025 5:36 AM EDT Jayme Judd MD LAB BLOOD ORDERABLES Final Re sult Performing Organization Address [facility] Co de Phone Number [facility] [address] [facility]. [address] * Lactic Acid (02/26/2025 5:29 AM EDT) Lactate 0.5 0.5 - 2.2 mmol/L 02/26/2025 6:25 AM EDT [facility] Plasma 02/26/2025 5:29 AM EDT 02/26/2025 5:45 AM EDT Jayme Judd MD LAB BLOOD ORDERABLES Final Re sult Performing Organization Address [facility]/ZIP Co de Phone Number [facility] [address] [facility]. [address] * ECG 12 lead (MUSE) (02/26/2025 5:15 AM EDT) 02/26/2025 5:15 AM EDT Narrative MUSE - 02/26/2025 5:32 PM EDT Ventricular Rate: 55 BPM Atrial Rate: 55 BPM P-R Interval: 164 ms QRS Duration: 92 ms QT: 464 ms QTc: 443 ms P [place]: 78 degrees R [place]: 61 degrees T [place]: 65 degrees Diagnosis Line: SINUS BRADYCARDIA ^ OTHERWISE NORMAL ECG ^ No previous ECGs available ^ Confirmed by MD MC JAMES ([id number]) on 02/26/2025 5:32:12 PM Jayme Judd MD ECG ORDERABLES Final Result MUSE documented in this encounter Visit Diagnoses Diagnosis Lower GI bleed- Primary Unspecified, hemorrhage of gastrointestinal tract Lower GI bleed Unspecified, hemorrhage of gastrointestinal tract Acute blood loss anemia Acute posthemorrhagic anemia Depression Depressive disorder, not elsewhere classified Hyperlipidemia Other and unspecified hyperlipidemia Diabetes (CMS-HCC) Type II or unspecified type diabetes mellitus without mention of complication, not stated as uncontrolled Idiopathic hypotension Unspecified hypotension * Assessment & Plan Note - Donna Hernandez MD - 03/01/2025 12:25 PM EDT Associated Problem(s): Lower GI bleed (Resolved 03/02/2025) Presented to OSH on 02/25 for several episodes of large bloody bowel movements. Hemoglobin drop from 14 to 11 to 8, s/p 1 unit of RBC, Stable at 9. CT AP demonstrated active extravasation reportedly proximal to prior colorectal anastomosis. IR wasconsulted, deferred embolization due to concern for injury to colorectal anastomosis. GI consulted. Colonoscopy 02/27 w/ no source of significant bleeding. EGD with no sources of bleeding. Suspected dieulafoy lesion. - CBC stable from yesterday. As long as stable with no instances of melena, likely discharge home tomorrow. - Continue to monitor stools for melena, appears to be resolved - STAT CBC and CTA for large drops, as above * Assessment & Plan Note - Donna Hernandez MD - 03/01/2025 12:25 PM EDT Associated Problem(s): Depression Chronic condition, patient was started on previous home regimen - Paroxetine 20mg daily * Assessment & Plan Note - Donna Hernandez MD - 03/01/2025 12:25 PM EDT Associated Problem(s): Hyperlipidemia Chronic condition, patient was started on previous home regimen - Rosuvastatin 40mg daily * Assessment & Plan Note - Donna Hernandez MD - 03/01/2025 12:25 PM EDT Associated Problem(s): Diabetes ([facility]) Chronic condition, holding patients home monjuro and Lantus. - Insulin Lispro 0-5, 3 times daily before meals * Assessment & Plan Note - Donna Hernandez MD - 03/01/2025 12:25 PM EDT Associated Problem(s): Idiopathic hypotension Patient hypotensive at baseline. Reports normal BP with systolics 80s-100s. - TSH normal. - AM cortisol 7.7 which is at the low end of normal - ACTH stim test today for further evaluation of adrenal insufficiency * Assessment & Plan Note - Donna Hernandez MD - 02/28/2025 12:18 PM EDT Associated Problem(s): Lower GI bleed (Resolved 03/02/2025) Presented to OSH on 02/25 for several episodes of large bloody bowel movements. Hemoglobin drop from 14 to 11 to 8, s/p 1 unit of RBC, Stable at 9. CT AP demonstrated active extravasation reportedly proximal to prior colorectal anastomosis. IR wasconsulted, deferred embolization due to concern for injury to colorectal anastomosis. GI consulted. Colonoscopy 02/27 w/ no source of significant bleeding. EGD with no sources of bleeding. - Monitor H&H, goal Hb > 7 g/dL. Will keep supportive management with transfusions as needed. - CBC Every 12 hours - Continue to monitor stools for melena, appears to be resolving - STAT CBC and CTA for large drops, as above * Assessment & Plan Note - Donna Hernandez MD - 02/28/2025 12:18 PM EDT Associated Problem(s): Depression Chronic condition, patient was started on previous home regimen - Paroxetine 20mg daily * Assessment & Plan Note - Donna Hernandez MD - 02/28/2025 12:18 PM EDT Associated Problem(s): Hyperlipidemia Chronic condition, patient was started on previous home regimen - Rosuvastatin 40mg daily * Assessment & Plan Note - Donna Hernandez MD - 02/28/2025 12:18 PM EDT Associated Problem(s): Diabetes ([facility]) Chronic condition, holding patients home monjuro and Lantus. - Insulin Lispro 0-5, 3 times daily before meals * Assessment & Plan Note - Michael Winston DDS - 02/27/2025 7:33 PM EDTAssociated Problem(s): Lower GI bleed (Resolved 03/02/2025) presented to OSH on 02/25 for several episodes of large bloody bowel movements. He had a hemoglobin drop from 14 to 11 to 8, he received 1 unit of RBC, CT AP demonstrated active extravasation reportedly proximal to prior colorectal anastomosis. He was transferred to [facility] for further work up and has remained hemodynamically stable without pressor requirement. IR was consulted for lower GI bleed butdeferred embolization due to concern for injury to colorectal anastomosis. 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 BUN increased. GI plans for EGD tomorrow. - EGD tomorrow, NPO at midnight - Monitor H&H, goal Hb > 7 g/dL. Will keep supportive management with transfusions as needed. - CBC Every 12 hours, starting at 02/27 - Continue to monitor stools for melena, appears to be resolving - Transfuse to keep Hgb >7 and keep 2 large bore IVs - STAT CBC and CTA for large drops, as above * Assessment & Plan Note - Michael Winston DDS - 02/27/2025 7:33 PM EDTAssociated Problem(s): Depression Chronic condition, patient was started on previous home regimen - Paroxetine 20mg daily * Assessment & Plan Note - Michael Winston DDS - 02/27/2025 7:33 PM EDTAssociated Problem(s): Hyperlipidemia Chronic condition, patient was started on previous home regimen - Rosuvastatin 40mg daily * Assessment & Plan Note - Michael Winston DDS - 02/27/2025 7:33 PM EDTAssociated Problem(s): Diabetes ([facility]) Chronic condition, holding patients home monjuro and Lantus. - Insulin Lispro 0-5, 3 times daily before meals documented in this encounter Administered Medications Inactive Administered Medications - up to 3 most recent administrations Medication Order MAR Action Action Date Dose Rate Site cosyntropin (CORTROSYN) injection 0.25 mg 0.25 mg, Intravenous, Once, On Sun03/01/25 at 1100, For 1 dose, Reconstitute vial with 2 to 5 mL of Normal Saline 0.9% for injection Obtain baseline cortisol, then administer medication. Then draw additional cortisol levels 30 and 60 minutes post administration. Given 03/01/2025 2:31 PM EDT 0.25 mg dextrose 10%-water (D10W) IV soln 12.5 g, Intravenous, Every 15 min PRN, Low blood sugar, for glucose < 70 and alert but can not be corrected, orally or via feeding tube, Starting on [facility] 02/26/25 at 0801, Recheck blood sugar in 15 minutes and repeat treatment if glucose still < 70. For Smart Pump: Set volume to be infused; 125 ml for 12.5 grams or 250 mL for 25 grams. New Bag 02/28/2025 4:55 AM EDT 12.5 g 9 99 mL/hr New Bag 02/27/2025 12:40 PM EDT 12.5 g 999 mL/hr dextrose 10%-water (D10W) IV soln 25 g, Intravenous, Every 15 min PRN, Low blood sugar, for glucose < 70 and not alert, Starting on [facility] 02/26/25 at 0801, Recheck glucose in 15 minutes and repeat treatment if glucose still < 70. For Smart Pump: Set volume to be infused; 125 ml for 12.5 grams or 250 mL for 25 grams. electrolyte-R (pH 7.4) (NORMOSOL-R pH 7.4) IV solution 200 mL/hr, Intravenous, Continuous, Starting on [facility] 03/01/25 at 1330, For 5 hours New Bag 03/01/2025 2:29 PM EDT 200 mL/hr 200 mL/hr glucose chewable tablet 12 g 12 g, Oral, Every 15 min PRN, Low blood sugar, see admin instructions, Starting on [facility] 02/26/25 at 0801, TAKING PO: Patient has blood glucose between 50-70 mg/dL. o Give 15 grams of fast-acting carbohydrate (4 oz. fruit juice or 4 oz. non-diet soda or 3 glucose tablets). o Recheck blood sugar in 15 minutes and repeat if blood sugar is still between 50-70 mg/dL. Repeat as needed. Patient has blood glucose less than 50 mg/dL o Give 30 grams fast-acting carbohydrate (8 oz. fruit juice or 8 oz. of non-diet soda or 6 glucose tablets) on first attempt. o Recheck blood sugar in 15 minutes and repeat if blood sugar is still less than 50mg/dL. o If further attempts necessary, revert to 15 grams of carbohydrate. Repeat as needed. FEEDING TUBE: Patient has blood glucose between 50-70 mg/dL. o Give 15 grams of fast-acting carbohydrate (4 oz. fruit juice or 4 oz.non-diet soda). o Recheck blood sugar in 15 minutes and repeat if blood sugar is still between 50-70 mg/dL. Repeat as needed. Patient has blood glucose less than 50 mg/dL o Give 30 grams fast-acting carbohydrate (8 oz. fruit juice or 8 oz. of non-diet soda). o Recheck blood sugar in 15 minutes and repeat if blood sugar is still less than 50mg/dL. o If further attempts necessary, revert to 15 grams of carbohydrate. Repeat as needed. 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 Each tablet = 4 grams of glucose. Do not give chewable tablets via feeding tube insulin lispro (humaLOG/ADMELOG) injection 0-5 Units 0-5 Units, Subcutaneous, 3 times daily before meals, First dose on Sun02/27/25 at 1800, HIGH ALERT MEDICATION Given 03/02/2025 8:39 AM EDT 3 Units Left Arm Given 03/01/2025 7:05 PM EDT 2 Units Ri ght Arm Given 03/01/2025 2:25 PM EDT 2 Units Ri ght Arm mupirocin (BACTROBAN) 2 % ointment 1 g Topical, 2 times daily, First dose on Sun02/26/25 at 0900, For 5 days, Apply 0.5 grams to each nare for a total of 1 gram. Then press nostrils together and massage gently for 60 seconds. 0.5 grams is about the size of a blueberry and should be placed onto a sterile cotton swab. Inserting the swab directly into the nostril will help ensure all sides of the nostril are coated in mupirocin. , Other Site: Apply 0.5 grams to each nare for a total of 1 gramIndications:Methicillin-Resistant S. Aureus Nasal Colonization Given 03/02/2025 8:40 AM EDT 1 g Given 03/01/2025 9:07 PM EDT 1 g Given 03/01/2025 8:22 AM EDT 1 g pantoprazole (PROTONIX) injection 40 mg 40 mg, Intravenous, Two times a day, First dose on Sun02/26/25 at 0500, Dilute each 40 mg vial with 10 mL of Normal Saline Given 02/27/2025 5:58 AM EDT 40 mg Given 02/26/2025 5:57 PM EDT 40 mg Given 02/26/2025 6:19 AM EDT 40 mg pantoprazole (PROTONIX) injection 80 mg 80 mg, Intravenous, Two times a day, First dose on Sun02/28/25 at 1000, Dilute each 40 mg vial with 10 mL of Normal Saline Given 02/28/2025 9:47 AM EDT 80 mg PARoxetine (PAXIL) tablet 20 mg 20 mg, Oral, Daily, First dose on Sun02/27/25 at 1230 Given 03/02/2025 8:39 AM EDT 20 mg Given 03/01/2025 8:21 AM EDT 20 mg Given 02/28/2025 9:47 AM EDT 20 mg polyethylene glycol (GoLYTELY) solution 2,000 mL 2,000 mL, Oral, Once, On [facility] 02/26/25 at 1700, For 1 dose, Nursing: Patient to drink 1/2 bottle (2000 mL) starting at 1800 (on day prior to procedure). Instruct patient to drink approximately 8 ounces every 10 to 15 minutes) Given 02/26/2025 5:30 PM EDT 2,000 mLs polyethylene glycol (GoLYTELY) solution 2,000 mL 2,000 mL, Oral, Once, On Sun02/27/25 at 0000, For 1 dose, Nursing: Starting at 0100 (on day of procedure); Patient to drink 1/2 bottle (2000 mL) . Instruct patient to drink approximately 8 ounces every 10 to 15 minutes) Given 02/26/2025 11:00 PM EDT 2,000 mLs potassium chloride (KLOR-CON M20) CR tablet 40 mEq 40 mEq, Oral, Once, On Sun02/27/25 at 1600, For 1 dose, For Potassium Level 3.7 - 3.9 FOR PATIENTS UNABLE TO SWALLOW LARGE TABLETS, but can take liquids orally: Place tablet(s) in room temperature or warm water (@ 2-4 ounces) and allow to disintegrate for ~ 30 seconds. Then stir well and administer immediately before particles settle. NOTE: not all particles will go into solution. DO NOT CRUSH or CHEW; TABLET(S) MAY BE SPLIT Given 02/27/2025 5:30 PM EDT 40 mEq rosuvastatin (CRESTOR) tablet 40 mg 40 mg, Oral, At Bedtime (2099), First dose on Sun02/27/25 at 2100 Given 03/01/2025 9:07 PM EDT 40 mg Given 02/28/2025 8:27 PM EDT 40 mg Given 02/27/2025 8:36 PM EDT 40 mg senna-docusate (SENNA-S) 8.6-50 mg per tablet 1 tablet 1 tablet, Oral, 2 times daily, First dose on Sun03/02/25 at 0900 Given 03/02/2025 8:39 AM EDT 1 tablet documented in this encounter Active and Recently Administered Medications Times are shown in EDT. Scheduled Medication Order 02/28/2025 03/01/2025 03/02/2025 cosyntropin (CORTROSYN) injection 0.25 mg (COMPLETED)(Linked Group 1) 0.25 mg, Intravenous, Once, On Sun03/01/25 at 1100, For 1 dose, Reconstitute vial with 2 to 5 mL of Normal Saline 0.9% for injection Obtain baseline cortisol, then administer medication. Then draw additional cortisol levels 30 and 60 minutes post administration. 1431 (Given - Provider: Maritza Vences RN) insulin lispro (humaLOG/ADMELOG) injection 0-5 Units 0-5 Units, Subcutaneous, 3 times daily before meals, First dose on Sun02/27/25 at 1800, HIGH ALERT MEDICATION 0939 (Not Given - Provider: Karla Garcia RN - Reason: Order parameters not met)1245 (Not Given - Provider: Roro Dove RN - Reason: Order parameters not met)2026 (Given - Provider: Laila Diamond RN) 0812 (Not Given - Provider: Maritza Vences RN - Reason: Order parameters not met)1425 (Given - Provider: Maritza Vences RN)1905 (Given - Provider: Maritza Vences RN) 0839 (Given - Provider: Janie Canas RN)1227 (Not Given - Provider: Janie Canas RN - Reason: Order parameters not met) mupirocin (BACTROBAN) 2 % ointment 1 g Topical, 2 times daily, First dose on Sun02/26/25 at 0900, For 5 days, Apply 0.5 grams to each nare for a total of 1 gram. Then press nostrils together and massage gently for 60 seconds. 0.5 grams is about the size of a blueberry and should be placed onto a sterile cotton swab. Inserting the swab directly into the nostril will help ensure all sides of the nostril are coated in mupirocin. , Other Site: Apply 0.5 grams to each nare for a total of 1 gram 0900 (Due)2056 (Given - Provider: Laila Diamond RN) 08 (Given - Provider: Maritza Vences RN)2106 (Given - Provider: Laila Diamond RN) 0840 (Given - Provider: Janie Canas RN) pantoprazole (PROTONIX) injection 80 mg (CANCELED) 80 mg, Intravenous, Two times a day, First dose on Sun02/28/25 at 1000, Dilute each 40 mg vial with 10 mL of Normal Saline 0947 (Given - Provider: Karla Garcia RN) PARoxetine (PAXIL) tablet 20 mg 20 mg, Oral, Daily, First dose on Sun02/27/25 at 1230 0947 (Given - Provider: Karla Garcia RN) 0821 (Given - Provider: Maritza Vences RN) 0839 (Given - Provider: Janie Canas, DERICK) rosuvastatin (CRESTOR) tablet 40 mg 40 mg, Oral, At Bedtime (2100), First dose on Sun02/27/25 at 2100 2026 (Given - Provider: Laila Diamond RN) 2106 (Given - Provider: Laila Diamond RN) senna-docusate (SENNA-S) 8.6-50 mg per tablet 1 tablet 1 tablet, Oral, 2 times daily, First dose on 03/02/25 at 0900 0839 (Given - Provider: Janie Canas RN) Continuous Medication Order 02/28/2025 03/01/2025 03/02/2025 electrolyte-R (pH 7.4) (NORMOSOL-R pH 7.4) IV solution () 200 mL/hr, Intravenous, Continuous, Starting on 03/01/25 at 1330, For 5 hours 1429 (New Bag - Provider: Maritza Vences RN) PRN Medication Order 02/28/2025 03/01/2025 03/02/2025 dextrose 10%-water (D10W) IV soln(Linked Group 2) 12.5 g, Intravenous, Every 15 min PRN, Low blood sugar, for glucose < 70 and alert but can not be corrected, orally or via feeding tube, Starting on [facility] 02/26/25 at 0801, Recheck blood sugar in 15 minutes and repeat treatment if glucose still < 70. For Smart Pump: Set volume to be infused; 125 ml for 12.5 grams or 250 mL for 25 grams. 0455 (New Bag - Provider: Josie Strong RN) dextrose 10%-water (D10W) IV soln(Linked Group 2) 25 g, Intravenous, Every 15 min PRN, Low blood sugar, for glucose < 70 and not alert, Starting on [facility] 02/26/25 at 0801, Recheck glucose in 15 minutes and repeat treatment if glucose still < 70. For Smart Pump: Set volume to be infused; 125 ml for 12.5 grams or 250 mL for 25 grams. 0455 (See Alternative - Provider: Josie Strong RN) glucose chewable tablet 12 g 12 g, Oral, Every 15 min PRN, Low blood sugar, see admin instructions, Starting on [facility] 02/26/25 at 0801, TAKING PO: Patient has blood glucose between 50-70 mg/dL. o Give 15 grams of fast-acting carbohydrate (4 oz. fruit juice or 4 oz. non-diet soda or 3 glucose tablets). o Recheck blood sugar in 15 minutes and repeat if blood sugar is still between 50-70 mg/dL. Repeat as needed. Patient has blood glucose less than 50 mg/dL o Give 30 grams fast-acting carbohydrate (8 oz. fruit juice or 8 oz. of non-diet soda or 6 glucose tablets) on first attempt. o Recheck blood sugar in 15 minutes and repeat if blood sugar is still less than 50mg/dL. o If further attempts necessary, revert to 15 grams of carbohydrate. Repeat as needed. FEEDING TUBE: Patient has blood glucose between 50-70 mg/dL. o Give 15 grams of fast-acting carbohydrate (4 oz. fruit juice or 4 oz.non-diet soda). o Recheck blood sugar in 15 minutes and repeat if blood sugar is still between 50-70 mg/dL. Repeat as needed. Patient has blood glucose less than 50 mg/dL o Give 30 grams fast-acting carbohydrate (8 oz. fruit juice or 8 oz. of non-diet soda). o Recheck blood sugar in 15 minutes and repeat if blood sugar is still less than 50mg/dL. o If further attempts necessary, revert to 15 grams of carbohydrate. Repeat as needed. 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 Each tablet = 4 grams of glucose. Do not give chewable tablets via feeding tube Linked Groups Order Group 1: FOR LAB DRAW PATIENTS: Cortisol Stimulation (0,30,60 Min) (CANCELED) Timed, Lab Timed, On [facility] 03/01/25 at 1014, For 1 occurrence, Draw baseline prior to med administration, then 30 and 60 minutes post med administration And cosyntropin (CORTROSYN) injection 0.25 mg (COMPLETED)Jump to med 0.25 mg, Intravenous, Once, On [facility] 03/01/25 at 1100, For 1 dose, Reconstitute vial with 2 to 5 mL of Normal Saline 0.9% for injection Obtain baseline cortisol, then administer medication. Then draw additional cortisol levels 30 and 60 minutes post administration. Group 2: dextrose 10%-water (D10W) IV solnJump to med 12.5 g, Intravenous, Every 15 min PRN, Low blood sugar, for glucose < 70 and alert but can not be corrected, orally or via feeding tube, Starting on [facility] 02/26/25 at 0801, Recheck blood sugar in 15 minutes and repeat treatment if glucose still < 70. For Smart Pump: Set volume to be infused; 125 ml for 12.5 grams or 250 mL for 25 grams. Or dextrose 10%-water (D10W) IV solnJump to med 25 g, Intravenous, Every 15 min PRN, Low blood sugar, for glucose < 70 and not alert, Starting on [facility] 02/26/25 at 0801, Recheck glucose in 15 minutes and repeat treatment if glucose still < 70. For Smart Pump: Set volume to be infused; 125 ml for 12.5 grams or 250 mL for 25 grams. documented in this encounter Care Teams Nurse Discharge Relationship Specialty Start Date End Date Unknown, Attending Provider PCP - General 02/25/25 documented as of this encounter
--- OUTSIDE RECORDS SUMMARY | 2025-02-27 13:30 | XMS_ITS | Encounter Summary ---
Author Organization [facility] Address [address] [place] [address] Care Team Providers Care Steel Die Printer Name Role Phone Unknown, Attending Provider Primary [...] release of HIV test results or diagnoses. [id number] Health Reason for Visit * Auth/Cert (Routine) Specialty Diagnoses / Procedures Referred By Raissa t Referred To Contact Intensive Care Diagnoses Acute blood loss anemia Lower GI bleed Acute Blood Loss Anemia/ Lower GI Bleed [facility] [address] [place] [address] Phone: tel: Referral ID Status Reason Start Date Expiration Date Visits Re quested Visits Authorized [id number] 1 1 Encounter Details Date Type Department Care Team (Late st Contact Info) Description 02/27/2025 2:30 PM EDT - 02/27/2025 3:30 PM EDT [facility] [address] [place] [address] Lucinda Horton MD [address] [place] [address] COLONOSCOPY WITH BIOPSY Surgery Details Date/Time Status Location OR Service Patient Class Case Class Case Type Trauma Case? 02/27/2025 2:30 PM Posted ENDOSCOPY E2 Gastroenterology Inpatient Colonoscopy Panel 1 Procedure LRB Anes Op Region Wound Class Comments COLONOSCOPY WITH BIOPSY N/A MAC (Monitor Anesthesia Care) Clean Contaminated Surgeon Surgeon Role Service Panel Lucinda Horton MD Primary Gastroenterology 1 documented in this encounter Social History Tobacco Use Types Packs/Day Years Used Date Smoking Tobacco: Former Cigarettes 1 45.9 S tarted: 1979 Passive Smoke Exposure: Past Smokeless Tobacco: Never Tobacco Cessation:Counseling Given: Not Answered Alcohol Use Standard Drinks/Week Comments Not Currently 0 (1 standard drink = 0.6 oz pur e alcohol) [facility] Utilities Answer Date Recorded In [...] any time in the past 12 m [facility], were you homeless or living in a correction (including now)? No 02/26/2025 Sex and Gender Information Value Date Recorded Sex Assigned at Not on file Legal Sex Male 2:12 AM EDT Gender Identity Not on file Sexual Orientation Not on file documented as of this encounter Last Filed Vital Signs Vital Sign Reading Time Taken Comments Blood Pressure 94/59 02/27/2025 2:00 PM EDT Pulse 64 02/27/2025 2:00 PM EDT Temperature 36.7 C (98 F) 02/27/2025 12:00 PM EDT Respiratory Rate 13 02/27/2025 2:00 PM EDT Oxygen Saturation 100% 02/27/2025 2:00 PM EDT Inhaled Oxygen Concentration 100% 02/27/2025 2 :00 PM EDT Weight 57 kg (125 lb 10.6 oz) 02/27/2025 5:41 AM EDT Height 180.3 cm (5' 11 ) 02/26/2025 4:50 AM EDT Body Mass Index 17.99 02/28/2025 10:55 AM EDT documented in this encounter Functional Status documented as of this encounter Discharge Summaries * Desean Bishop MD - 03/02/2025 2:08 PM EDT [facility] - Discharge Summary Date of [...] Case IDs Date Procedure Surgeon Location Status [id number] 02/27/25 COLONOSCOPY WITH BIOPSY Lucinda Horton MD ENDOSCOPY Comp [id number] 02/28/25 EGD Vee Cao MD ENDOSCOPY Comp Lines/Drains/Airways: Patient Lines/Drains/Airways Status Active LDAs None Notable Imaging Studies: X-ray Portable Chest Result Date: 02/26/2025 IMPRESSION: No acute cardiopulmonary abnormality. Approved by Ashli Rubin MD on 02/26/2025 6:15AM EDT I have personally reviewed the images and I agree with this report. Report Verified by: Adam Hernadnez DO at 02/26/2025 7:07 AM EDT Consulting [...] has a past medical history of Diabetes ([facility]), HLD (hyperlipidemia), and HTN (hypertension).. The [...] MD 03/02/2025 7:07 PM * ALE Scanlon, ISAURA - 03/02/2025 2:04 PM EDT Health Care Management Discharge Summary Patient name: Harsha [...] Home post discharge: Not Applicable Jolene AGUILERA INDUSTRIAL ECONOMICS TEACHER [phone] documented in this encounter Discharge Instructions * [...] for you and your doctors: Recent Labs 02/28/25 0348 03/01/25 0706 03/02/25 0603 NA 139 143 [...] calorie count. Mel Xie NDTR Nutrition and Boiler Plant Worker Contact via Superbac * Mel Xie - 03/02/2025 10:13 AM EDT 03/02/25 1000 24 HR Nutrition Analysis Totals 24 HR Total Calories (kcals) 0 kcals 24 Hr Total Protein (g) 0 g No meal tickets saved and no PO intake recorded for 02/28/25 calorie count. Mel Xie NDTR Nutrition and Boiler Plant Worker Contact via Superbac * Maritza Vences RN - 03/01/2025 7:41 [...] Hernandez MD - 03/01/2025 12:20 PM EDT [facility] - Progress Note Chief Concern [...] home regimen - Rosuvastatin 40mg daily Diabetes ([facility]) Chronic condition, holding patients home monjuro and Lantus. - Insulin Lispro 0-5, 3 times daily before meals DVT Prophylaxis: Holding due to GI bleed Code Status: Full Code Medical Readiness for Discharge: 2-4 Days Donna Hernandez MD Med-Peds PGY-1 Resident [facility] 03/01/2025 Cosigned by Desean Bishop MD at 03/01/2025 4:34 PM EDT Associated attestation - Desean Bishop MD - 03/01/2025 4:34 PM EDT Hospital Medicine Attending Supervision Note Harsha Avina was [...] another specialty or practice, other licensed professional (PT/OT/WELL PULLER/RT), or a non-medical community professional: GI Labs reviewed (1 pt each): CBC, renal, cortisol Assessment & Plan Harsha Avina is a 64 y.o. male on hospital day 3. The medical issues being addressed in today's encounter are as follows: Principal Problem: Lower GI bleed Active Problems: Depression Hyperlipidemia Diabetes ([facility]) Idiopathic hypotension #Lower GI bleed: patient [...] Hernandez MD - 02/28/2025 7:27 AM EDT [facility] - Progress Note Chief Concern [...] home regimen - Rosuvastatin 40mg daily Diabetes ([facility]) Chronic condition, holding patients home monjuro and Lantus. - Insulin Lispro 0-5, 3 times daily before meals DVT Prophylaxis: Holding due to GI bleed Code Status: Full Code Medical Readiness for Discharge: 2-4 Days Donna Hernandez MD Med-Peds PGY-1 Resident [facility] 02/28/2025 Cosigned by Desean Bishop MD at 02/28/2025 5:19 PM EDT Associated attestation - Desean Bishop MD - 02/28/2025 5:19 PM EDT [facility] Medicine Attending Supervision Note Harsha Avina was [...] another specialty or practice, other licensed professional (PT/OT/WELL PULLER/RT), or a non-medical community professional: GI Labs reviewed (1 pt each): CBC, renal, magnesium Assessment & Plan Harsha Avina is a 64 y.o. male on hospital day 2. The medical issues being addressed in today's encounter are as follows: Principal Problem: Lower GI bleed Active Problems: Depression Hyperlipidemia Diabetes ([facility]) #Lower GI bleed: patient presented with hematochezia [...] of Hospital Medicine Department of Internal Medicine 02/28/2025 5:09 PM * Yolette Garnica, OT - 02/27/2025 11:58 AM EDT Occupational Therapy Initial Assessment and Discharge Name: Harsha Avina : 1960 Attending Physician: Laura Delacruz MD Admission Diagnosis: Acute Blood Loss Anemia/ Lower GI Bleed Date: 02/27/2025 Room: [place] [address] Reviewed Pertinent hospital course: Yes Hospital Course [...] Alarms: Chair Alarms Status: Not needed-patient on [place] fall risk precautions with other interventions in [...] Drug Allergies or Adverse Reactions * Alannah Gomezstephen, PT - 02/27/2025 11:04 AM EDT Physical Therapy Physical Therapy Initial Assessment and Discharge Name: Harsha Avina : 1960 Attending Physician: Laura Delacruz MD Admission Diagnosis: Acute Blood Loss Anemia/ Lower GI Bleed Date: 02/27/2025 Room: [place] [address] Reviewed Pertinent hospital course: Yes Hospital Course [...] Internal Medicine MICU Progress Note Harsha Avina [id number] 6:51 AM, 02/27/2025 MI04/UMICU-04 Chief Complaint / Subjective Harsha Avina is a 64 y.o. 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 Vitals Temp: [96 ??F (35.6 ??C)-97.8 ??F (36.6 ??C)] 96 ??F (35.6 ??C) Heart Rate: [55-76] 65 Resp: [9-] 14 BP: (85-116)/(56-89) 96/63 BP 96/63 Pulse [...] sips with meds Labs Renal Recent Labs 02/26/2552802/27/25401 NA 140 143 K 4.2 3.9 CL 106 108 CO2 29 28 BUN 37* 33* CREATININE 0.82 0.76 CALCIUM 8.0* 8.0* 8.0* MG 1.9 -- PHOS 3.9 3.1 CBC Recent Labs 02/26/2552802/26/25 11202/26/25 1612 02/26/25202102/27/252 02/27/25401 HGB 11.3* 10.4* < > 10.5* 9.7* 9.6* HCT 32.3* 29.3* < > 30.6* 27.2* 26.9* PLT 112* 103* -- -- -- -- WBC 5.8 4.3 -- -- -- -- < > = values in this interval not displayed. Liver Recent Labs 02/26/2552802/26/25112202/27/25401 AST 25 -- -- ALT 28 -- -- ALKPHOS 41 -- -- ALBUMIN 3.7 -- 3.5 BILITOT 0.8 -- -- BILIDIRECT 0.22 -- -- INR 1.2* 1.2* -- FSBS Range: No results for input(s): GLUFAST in the last 72 hours. Recent Labs 02/26/2552802/26/25 11202/26/25203102/27/25408 POCGMD 99 117* 106* 92 Images/Data Reviewed: [...] able per GI #Hx of partial Colectomy 2 to traumatic injury after being impaled by [...] Cummings MD - 02/28/2025 9:16 AM EDT [facility] PRE-SEDATION ASSESSMENT, HISTORY & PHYSICAL Date: 02/28/2025 [...] Diagnosis Lower GI bleed Depression Hyperlipidemia Diabetes ([facility]) Cosigned by Vee Cao MD at 02/28/2025 11:09 AM EDT Associated attestation - Vee Cao MD - 02/28/2025 11:09 AM EDT I saw and examined the patient. I discussed with the resident or fellow and agree with resident's/fellow's findings and plan as documented in the note. Moises Cao MD Transplant Cream Ripener * Michael Winston DDS - 02/27/2025 6:12 PM EDT [facility] - History and Physical Chief [...] bleed. Patient then accepted for transfer to [facility] for potential embolization. On admission patient reported that he had several days of dark stools with abdominal pain. He also reported worsening dyspnea with exertion stating particularly when climbing stairs. Denied any recent travel, dietary changes. Reported sick contact with [facility] with covid recently. He has also not had any [...] History: Past Medical History: Diagnosis Date Diabetes ([facility]) HLD (hyperlipidemia) HTN (hypertension) Color Vision deficiency [...] prior colorectal anastomosis. He was transferred to [facility] for further work up and has remained [...] home regimen - Rosuvastatin 40mg daily Diabetes ([facility]) Chronic condition, holding patients home monjuro and [...] PM EDT Hospital Medicine Attending Supervision Note [facility] // [facility] Harsha Avina was seen 02/27/25 on [...] GI bleed Active Problems: Depression Hyperlipidemia Diabetes ([facility]) Patient has been bumped out of the [...] TAYLOR BLAKE MD Attending Physician Division of [facility] Medicine Department of Internal Medicine Pager ID: [phone] 10:03 PM, 02/27/2025 * Rich Cummings MD - 02/27/2025 2:49 PM EDT [facility] PRE-SEDATION ASSESSMENT, HISTORY & PHYSICAL Date: 02/27/2025 Harsha Avina is a 64 y.o. year old male Pre-Procedure Diagnosis/Procedure Indication: hematochezia Planned Procedure: Colonoscopy NPO for solids 6-8 hours, NPO for liquids 6-8 hours Past Medical History Past Medical History: Diagnosis Date Diabetes ([facility]) HLD (hyperlipidemia) HTN (hypertension) Difficult intubation Unanswered [...] History and Physical Patient: Harsha Avina Room: [place] [address] Chief Complaint: Lower GI Bleed HPI Harsha [...] bleed. Patient then accepted for transfer to [facility] for potential embolization. On admission patient reported that he had several days of dark stools with abdominal pain. He also reported worsening dyspnea with exertion stating particularly when climbing stairs. Denied any recent travel, dietary changes. Reported sick contact with [facility] with [facility] recently. He has also not had any [...] Anesthesia Care) Staff: Fellow: Rich Cummings MD [facility] Endo Nurse: Jennifer Berman RN Endoscopy Nurse: Mirela Palacios RN Estimated Blood Loss: Minimal Specimens: Drains: There were no complications unless listed below. VEE CAO MD Date: 02/28/2025 Time: 11:24 AM * Vee Cao MD - 02/28/2025 10:54 AM EDT [id number] Procedure Date: 02/28/2025 10:54 AM Patient Name: Harsha Avina Date of : 1960 Admit Type: Inpatient Age: 64 Gender: Male Note Status: Finalized Attending MD: VEE CAO MD, [id number] Procedure: Upper GI endoscopy Indications: Hematochezia Providers: [...] verified by the physician, the nurse, the student life dean and the experimental technician in the procedure room. Mental Status [...] previously scheduled. Procedure Code(s): --- Professional --- 15101, GC, Esophagogastroduodenoscopy, flexible, transoral; diagnostic, including collection of specimen(s) by brushing or washing, when performed (separate procedure) Diagnosis Code(s): --- Professional --- Z98.0, Intestinal bypass and anastomosis status K92.1, Melena (includes Hematochezia) CPT copyright 2022 [employer]. All rights reserved. The codes documented in this report are preliminary and upon infectious disease technician review may be revised to meet current [...] In: 11:16:43 AM Scope Out: 11:23:[address] [place] [address], [facility] * Fadi Landry MD - 02/27/2025 3:15 PM EDT COLONOSCOPY WITH BIOPSY Brief Op Note Harsha Avina 02/26/2025 - 02/27/2025 Pre-op Diagnosis: Lower GI bleed [K92.2] Post-op Diagnosis: small superficial ileal erosions. No findings to explain hematochezia. Procedure(s): COLONOSCOPY WITH BIOPSY Surgeon(s): Lucinda Horton MD Anesthesia: MAC (Monitor Anesthesia Care) Staff: Fellow: Fadi Landry MD 2nd Endo Nurse: Marcy Grayson RN Endoscopy Nurse: [...] Horton MD - 02/27/2025 2:50 PM EDT [id number] Procedure Date: 02/27/2025 2:50 PM Patient Name: Harsha Avina Date of : 1960 Admit Type: Inpatient Age: 64 Gender: Male Note Status: Finalized Attending MD: Lucinda Horton MD, [id number] Procedure: Colonoscopy Indications: Hematochezia Patient Profile: 64 [...] verified by the physician, the nurse, the student life dean and the experimental technician in the endoscopy suite. Mental Status [...] care. - Clear liquid diet. NPO at [place]. - Plan for EGD tomorrow. - Continue present medications. - Await pathology results. - Repeat colonoscopy for screening purposes as an outpatient. Examination today was not adequate for polyp screening / surveillance. Procedure Code(s): --- Professional --- 50504, GC, Colonoscopy, flexible; with biopsy, single or multiple Diagnosis Code(s): --- Professional --- Z98.0, Intestinal bypass and anastomosis status K63.3, Ulcer of intestine K92.1, Melena (includes Hematochezia) CPT copyright 2022 [employer]. All rights reserved. The codes documented in this report are preliminary and upon infectious disease technician review may be revised to meet current [...] In: 3:17:54 PM Scope Out: 3:36:07 PM [address] [place], [address] documented in this encounter Consult Notes * ALE Scanlon, INDUSTRIAL ECONOMICS TEACHER - 03/02/2025 1:08 PM EDT HEALTH Care Management/Social Work Assessment Patient Information Patient Name: Harsha Avina Hospital Day: 4 Inpatient/Observation: Inpatient Admit Date: 02/26/2025 Admission Diagnosis: Acute GI bleeding [K92.2] Attending provider: Desean Bishop MD PCP: ATTENDING PROVIDER UNKNOWN Home Pharmacy: [facility] [address] [place] [id number] Issues related to obtaining medications: none known Payor Information Medical Insurance Coverage: Payor: [employer] MANAGED MEDICARE / Plan: BLUE MEDICARE ADVANTAGE / Product Type: Medicare [facility] Care / Secondary Payor: none known Functional [...] Single Number of children and their names: [address] [place] [address] Relative Search Completed: No Demographics Correct:: Yes [...] Was any abuse reported by patient?: No Burns Status & Connection to PA Services Burns Status & Connection to PA Services Are you a ?: No Support [...] and provided contact information. Patient resides in [place], [place]. There are 0 steps to get in and 1 step in side the home; patient's elderly mother resides with him. Patient is single and has 1 adult son, Sylvester Chan is patient's LNOK. Patient's PCP is a nurse practitioner with [facility]. Patient is independent at baseline. [...] financial interest(s) are disclosed as appropriate. JOLENE PENALOZA MSW, LSW Phone Number: [phone] * Marisela Morin, RD - 02/27/2025 9:37 AM EDTAssociated Order(s): IP CONSULT TO NUTRITION SERVICES [facility] Nutrition Therapy Reason(s) for Completion: Physician/Nursing [...] bleed. Patient then accepted for transfer to [facility] for potential embolization. Several days of [...] List[1] Past Medical History: Diagnosis Date Diabetes ([facility]) HLD (hyperlipidemia) HTN (hypertension) Scheduled Meds: insulin [...] kg/m??. BMI Class: Underweight: 18.5 or less [place] Body Weight 172 lb (+/- 10%) Weight History: Wt Readings from Last 5 Encounters: 02/27/25 125 lb 10.6 oz (57 kg) Estimated Nutrition Needs: Needs based on: 57 kg Admit wt Kcals/day:9279-3057 (25-30 kcals/kg) Protein g/day: 68(1.2 g/kg) Carbohydrate [...] to follow Che Morin MS, RDN, LD, [facility] Clinical Dietitian MICU/MSD Contact via Secure Epic Chat [1] Patient Active Problem List Diagnosis Lower GI bleed * Zachary Parker MD - 02/26/2025 10:55 AM EDTAssociated Order(s): IP CONSULT TO ACUTE CARE SURGERY General Surgery History and Physical/Consultation Note Patient: Harsha Avina CSN: [id number] Requesting Service: MICU History CC: Lower GI [...] prior colorectal anastomosis. He was transferred to [facility] for further work up and has remained [...] PMH: Past Medical History: Diagnosis Date Diabetes ([facility]) HLD (hyperlipidemia) HTN (hypertension) PSH: No past [...] - 02/26/25658(Not Admitted) 02/26/25699 - 02/27/2559 Shift 4241-1783 5025-5750 5523-9183 24 Hour Total 0400-5481 5541-9755 0677-5677 24 Hour Total INTAKE Shift Total(mL/kg) OUTPUT [...] repairs with mesh who was transferred from H for lower GI bleed. Recommendations: - No acute surgical intervention indicated at this time - Agree with GI consult, pt yg for colonoscopy 02/27 - Rest of management for primary - ACS will continue to follow Please page the ACS gem pager for any additional questions or concerns TREVIN RAMIREZ MD [facility] General Surgery Attending Documentation/Addendum I, Zachary Parker [...] the 90's) who presented as transfer from H d/t GI bleed with CT findings of [...] hallucinations and memory loss Vitals: Vitals: 02/26/25 0502/26/2552902/26/2559902/26/25629 BP: 97/58 (!) 87/75 Pulse: 59 87 [...] partial colectomy 2/2 trauma who presents to [facility] as transfer from [facility] after CT findings [...] MD Vascular & Interventional Radiology 02/26/2025,9:02 AM [facility]: [phone]) [1] Social History Tobacco Use Smoking Status [...] TIBC , FERRITIN No results found for: MQHYAION01 No results found for: FOLATE Images: X-ray [...] please call the GI fellow on-call. Whit Whaley MD Internal Medicine PGY-2 02/26/2025 8:40 AM [1] [...] hrs: Level of Consciousness Orientation Level Cognition 10/05/25 2110 Alert Oriented X4 Follows 2-step commands;Follows simple commands;Ability to abstract Calls to Physician Team No data found. Medications [id number] - Medications Not Given (last 12 hrs) [...] to Physician Team No data found. Medications 73-U73 - Medications Not Given (last 12 hrs) No medications to display Diet/Meals Consumed (past 24 hours) Nutrition Assessment for the past 24 hrs: Diet Type Feeding 02/28/25 0947 NPO Not applicable 02/28/252029 Oral diet as ordered Able to feed self * Karla Garcia RN - 02/28/2025 10:50 AM EDT Pt transported off unit to [facility]. * Ekaterina Walton RN - 02/28/2025 4:32 AM EDT Report given to Josie SEPULVEDA prior to transporting pt to [facility]. Pt does not require CMU. VSS. Pt tookall belongings with him including clothes, phone, color repairer and wallet. Valuables in safe. Transport unremarkable. [...] on colonoscopy. BUN increased. Make NPO at [place]. Plan for EGD tomorrow. * Plan of [...] (25-44) Jesus Fall Score. Nursing interventions include: Stanley patient to call light and room environment. [...] MONITORING DEVICE Routine 02/28/2025 11:45 AM EDT [facility]PP[facility] ENDOSCOPY Routine 02/28/2025 10 :54 [...] - 100 mg/dL 03/02/2025 12:25 PM EDT HEALTH LAB Blood 03/02/2025 12:2 5 PM EDT 03/02/2025 12:25 PM EDT us Carmela Jernigan MD POINT OF CARE TEST LAEXY MOLINA Final Result [facility] [address] [place] [address], [facility] * (ABNORMAL) POC Glucose Monitoring Device (03/02/2025 8:33 AM EDT) POC Glucose Monitoring Device 265(H) 70 - 100 mg/dL 03/02/2025 8:34 AM EDT [facility] Blood 03/02/2025 8:33 AM EDT 03/02/2025 8:34 AM EDT Carmela Jernigan MD POINT OF CARE TEST ALEXY MOLINA Final Result [facility] [address] [place] [id number] * (ABNORMAL) CBC (03/02/2025 6:03 AM EDT) WBC 4.1 3.8 - 10.8 10E3/uL 03/02/2025 7:05 AM EDT [facility] RBC 2.95(L) 4.20 - 5.80 10E6/uL 03/02/2025 7:05 AM EDT [facility] Hemoglobin 9.0(L) 13.2 - 17.1 g/dL 03/02/2025 7:05 AM EDT [facility] Hematocrit 25.6(L) 38.5 - 50.0 % 03/02/2025 7:05 AM EDT [facility] MCV 86.8 80.0 - 100.0 fL 03/02/2025 7:05 AM EDT [facility] MCH 30.4 27.0 - 33.0 pg 03/02/2025 7:05 AM EDT [facility] MCHC 35.0 32.0 - 36.0 g/dL 03/02/2025 7:05 AM EDT [facility] RDW 15.4(H) 11.0 - 15.0 % 03/02/2025 7:05 AM EDT [facility] Platelets 115(L) 140 - 400 10E3/uL 03/02/2025 7:05 AM EDT [facility] MPV 8.5 7.5 - 11.5 fL 03/02/2025 7:05 AM EDT [facility] Whole Blood 03/02/2025 6:03 AM EDT 03/02/2025 6:40 AM EDT us Donna Hernandez MD LAB BLOOD ORDERABLES Fin al Result [facility] [address] [place] [address] * Differential (03/02/2025 6:03 AM EDT) Neutrophils Relative 62.1 40.0 - 80.0 % 03/02/2025 7:05 AM EDT [facility] Lymphocytes Relative 26.9 15.0 - 45.0 % 03/02/2025 7:05 AM EDT [facility] Monocytes Relative 9.4 0.0 - 12.0 % 03/02/2025 7:05 AM EDT [facility] Eosinophils Relative 1.3 0.0 - 8.0 % 03/02/2025 7:05 AM EDT [facility] Basophils Relative 0.3 0.0 - 1.0 % 03/02/2025 7:05 AM EDT [facility] nRBC 0 0 - 0 /100 WBC 03/02/2025 7:05 AM EDT [facility] Neutrophils Absolute 2,546 1,520 - 8,640 /uL 03/02/2025 7:05 AM EDT [facility] Lymphocytes Absolute 1,103 570 - 4,860 /uL 03/02/2025 7:05 AM EDT [facility] Monocytes Absolute 385 0 - 1,296 /uL 03/02/2025 7:05 AM EDT [facility] Eosinophils Absolute 53 0 - 864 /uL 03/02/2025 7:05 AM EDT [facility] Basophils Absolute 12 0 - 108 /uL 03/02/2025 7:05 AM EDT [facility] Whole Blood 03/02/2025 6:03 AM EDT 03/02/2025 6:40 AM EDT us Donna Hernandez MD LAB BLOOD ORDERABLES Fin al Result [facility] [address] * (ABNORMAL) Renal Function Panel w/EGFR (03/02/2025 6:03 AM EDT) Pathologist [facility] Sodium 142 133 - 146 mmol/L 03/02/2025 7:28 AM EDT [facility] Potassium 3.8 3.5 - 5.3 mmol/L 03/02/2025 7:28 AM EDT [facility] Chloride 108 98 - 110 mmol/L 03/02/2025 7:28 AM EDT [facility] CO2 28 21 - 33 mmol/L 03/02/2025 7:28 AM EDT [facility] Anion Gap 6 3 - 16 mmol/L 03/02/2025 7:28 AM EDT [facility] BUN 18 7 - 25 mg/dL 03/02/2025 7:28 AM EDT [facility] Creatinine 0.56(L) 0.60 - 1.30 mg/dL 03/02/2025 7:28 AM EDT [facility] Glucose 149(H) 70 - 100 mg/dL 03/02/2025 7:28 AM EDT [facility] Calcium 7.7(L) 8.6 - 10.3 mg/dL 03/02/2025 7:28 AM EDT [facility] Phosphorus 3.1 2.1 - 4.7 mg/dL 03/02/2025 7:28 AM EDT [facility] Albumin 3.2(L) 3.5 - 5.7 g/dL 03/02/2025 7:28 AM EDT [facility] Osmolality, Calculated 299 278 - 305 mOsm/kg 03/02/2025 7:28 AM EDT [facility] EGFR >90 03/02/2025 7:28 AM EDT [facility] Comment: As of 2021, the estimated [...] will be reported as >90mL/min/1.73m2. Reference: Arturo Granados, Pili M, Mercedes DC, Di ND, Todd [...] ORDERABLES Fin al Result Performing Organization Address [facility] Co de Phone Number [facility] [address] [facility]. [address] * Magnesium (03/02/2025 6:03 AM EDT) Magnesium 1.9 1.5 - 2.5 mg/dL 03/02/2025 7:28 AM EDT [facility] Plasma 03/02/2025 6:03 AM EDT 03/02/2025 6:42 AM EDT Donna Hernandez MD LAB BLOOD ORDERABLES Fin al Result Performing Organization Address [facility] Co de Phone Number [facility] [address] [facility]. [address] * (ABNORMAL) POC Glucose Monitoring Device (03/01/2025 5:56 PM EDT) POC Glucose Monitoring Device 206(H) 70 - 100 mg/dL 03/01/2025 5:57 PM EDT [facility] Blood 03/01/2025 5:56 PM EDT 03/01/2025 5:57 PM EDT Carmela Jernigan MD POINT OF CARE TEST ORDE JESSE Final Result Performing Organization Address [facility] Co de Phone Number [facility] [address] [facility]. [address] * Cortisol 60 Min (03/01/2025 3:36 PM EDT) Cortisol, 60 Min (Immunoassay) 16.7 ug/dL 03/01/2025 4:36 PM EDT [facility] Comment: Dirurnal Variation: a.m: 6.7-22.6 ug/dL p.m: 0-10 ug/dL ACTH Stimulation: Over twice (usually 3 to 5 times) basal values Dexamethasone Suppression: Below basal value for the screening, low-dose and high-dose tests Please note: Effective 06/02/14, reference range for this assay has changed. Serum 03/01/2025 3:36 PM EDT 03/01/2025 3:45 PM EDT [facility] - 03/01/2025 4:36 PM EDT Draw baseline prior to med administration, then 30 and 60 minutes post med administration us Donna Hernandez MD LAB BLOOD ORDERABLES Fin al Result Performing Organization Address [facility] Co de Phone Number [facility] [address] * Cortisol 30 Min (03/01/2025 3:08 PM EDT) Cortisol, 30 Min (IMMUNOASSAY) 13.1 ug/dL 03/01/2025 3:59 PM EDT [facility] Comment: Dirurnal Variation: a.m: 6.7-22.6 ug/dL p.m: 0-10 ug/dL ACTH Stimulation: Over twice (usually 3 to 5 times) basal values Dexamethasone Suppression: Below basal value for the screening, low-dose and high-dose tests Please note: Effective 06/02/14, reference range for this assay has changed. Serum 03/01/2025 3:08 PM EDT 03/01/2025 3:21 PM EDT [facility] - 03/01/2025 3:59 PM EDT Draw baseline prior to med administration, then 30 and 60 minutes post med administration us Donna Hernandez MD LAB BLOOD ORDERABLES Fin al Result Performing Organization Address [facility] Co de Phone Number [facility] [address] * Cortisol 0 Min (03/01/2025 2:00 PM EDT) Cortisol, Base (Immunoassay) 6.5 ug/dL 03/01/2025 2:49 PM EDT [facility] Comment: Dirurnal Variation: a.m: 6.7-22.6 ug/dL p.m: 0-10 ug/dL ACTH Stimulation: Over twice (usually 3 to 5 times) basal values Dexamethasone Suppression: Below basal value for the screening, low-dose and high-dose tests Please note: Effective 06/02/14, reference range for this assay has changed. Serum 03/01/2025 2:00 PM EDT 03/01/2025 2:05 PM EDT Narrative [facility] - 03/01/2025 2:49 PM EDT Draw baseline prior to med administration, then 30 and 60 minutes post med administration us Donna Hernandez MD LAB BLOOD ORDERABLES Fin al Result [facility] [address] [facility] * (ABNORMAL) POC Glucose Monitoring Device (03/01/2025 1:16 PM EDT) POC Glucose Monitoring Device 212(H) 70 - 100 mg/dL 03/01/2025 1:17 PM EDT [facility] Blood 03/01/2025 1:16 PM EDT 03/01/2025 1:17 PM EDT Carmela Jernigan MD POINT OF CARE TEST ALEXY MOLINA Final Result [facility] [address] [facility] * (ABNORMAL) POC Glucose Monitoring Device (03/01/2025 7:58 AM EDT) POC Glucose Monitoring Device 107(H) 70 - 100 mg/dL 03/01/2025 7:59 AM EDT [facility] Blood 03/01/2025 7:58 AM EDT 03/01/2025 7:59 AM EDT Carmela Jernigan MD POINT OF CARE TEST ALEXY MOLINA Final Result Performing Organization Address [facility] Co de Phone Number [facility] [address] [facility] * Cortisol (03/01/2025 7:06 AM EDT) Cortisol (Immunoassay) 7.7 ug/dL 03/01/2025 8:32 AM EDT [facility] Comment: Dirurnal Variation: a.m: 6.7-22.6 ug/dL [...] ORDERABLES Final Resul t Performing Organization Address [facility] Co de Phone Number [facility] [address] [facility] * TSH (03/01/2025 7:06 AM EDT) TSH 1.74 0.45 - 4.12 uIU/mL 03/01/2025 8:36 AM EDT [facility] Serum 03/01/2025 7:06 AM EDT 03/01/2025 7:38 AM EDT Desean Bishop MD LAB BLOOD ORDERABLES Final Resul t Performing Organization Address [facility] Co de Phone Number [facility] [address] [facility] * (ABNORMAL) CBC (03/01/2025 7:06 AM EDT) WBC 3.7(L) 3.8 - 10.8 10E3/uL 03/01/2025 8:10 AM EDT [facility] RBC 3.13(L) 4.20 - 5.80 10E6/uL 03/01/2025 8:10 AM EDT [facility] Hemoglobin 9.3(L) 13.2 - 17.1 g/dL 03/01/2025 8:10 AM EDT [facility] Hematocrit 27.2(L) 38.5 - 50.0 % 03/01/2025 8:10 AM EDT [facility] MCV 86.8 80.0 - 100.0 fL 03/01/2025 8:10 AM EDT [facility] MCH 29.7 27.0 - 33.0 pg 03/01/2025 8:10 AM EDT [facility] MCHC 34.2 32.0 - 36.0 g/dL 03/01/2025 8:10 AM EDT [facility] RDW 15.6(H) 11.0 - 15.0 % 03/01/2025 8:10 AM EDT [facility] Platelets 120(L) 140 - 400 10E3/uL 03/01/2025 8:10 AM EDT [facility] MPV 8.4 7.5 - 11.5 fL 03/01/2025 8:10 AM EDT [facility] Whole Blood 03/01/2025 7:06 AM EDT 03/01/2025 7:38 AM EDT us Donna Hernandez MD LAB BLOOD ORDERABLES Fin al Result [facility] [address] [place] [address], [facility] * Differential (03/01/2025 7:06 AM EDT) Neutrophils Relative 57.2 40.0 - 80.0 % 03/01/2025 8:10 AM EDT [facility] Lymphocytes Relative 29.9 15.0 - 45.0 % 03/01/2025 8:10 AM EDT [facility] Monocytes Relative 11.0 0.0 - 12.0 % 03/01/2025 8:10 AM EDT [facility] Eosinophils Relative 1.8 0.0 - 8.0 % 03/01/2025 8:10 AM EDT [facility] Basophils Relative 0.1 0.0 - 1.0 % 03/01/2025 8:10 AM EDT [facility] nRBC 0 0 - 0 /100 WBC 03/01/2025 8:10 AM EDT [facility] Neutrophils Absolute 2,116 1,520 - 8,640 /uL 03/01/2025 8:10 AM EDT [facility] Lymphocytes Absolute 1,106 570 - 4,860 /uL 03/01/2025 8:10 AM EDT [facility] Monocytes Absolute 407 0 - 1,296 /uL 03/01/2025 8:10 AM EDT [facility] Eosinophils Absolute 67 0 - 864 /uL 03/01/2025 8:10 AM EDT [facility] Basophils Absolute 4 0 - 108 /uL 03/01/2025 8:10 AM EDT [facility] Whole Blood 03/01/2025 7:06 AM EDT 03/01/2025 7:38 AM EDT us Donna Hernandez MD LAB BLOOD ORDERABLES Fin al Result [facility] [address] * (ABNORMAL) Renal Function Panel w/EGFR (03/01/2025 7:06 AM EDT) Sodium 143 133 - 146 mmol/L 03/01/2025 8:30 AM EDT [facility] Potassium 4.4 3.5 - 5.3 mmol/L 03/01/2025 8:30 AM EDT [facility] Chloride 108 98 - 110 mmol/L 03/01/2025 8:30 AM EDT [facility] CO2 31 21 - 33 mmol/L 03/01/2025 8:30 AM EDT [facility] Anion Gap 4 3 - 16 mmol/L 03/01/2025 8:30 AM EDT [facility] BUN 25 7 - 25 mg/dL 03/01/2025 8:30 AM EDT [facility] Creatinine 0.81 0.60 - 1.30 mg/dL 03/01/2025 8:30 AM EDT [facility] Glucose 112(H) 70 - 100 mg/dL 03/01/2025 8:30 AM EDT [facility] Calcium 7.8(L) 8.6 - 10.3 mg/dL 03/01/2025 8:30 AM EDT [facility] Phosphorus 3.7 2.1 - 4.7 mg/dL 03/01/2025 8:30 AM EDT [facility] Albumin 3.3(L) 3.5 - 5.7 g/dL 03/01/2025 8:30 AM EDT [facility] Osmolality, Calculated 301 278 - 305 mOsm/kg 03/01/2025 8:30 AM EDT [facility] EGFR >90 03/01/2025 8:30 AM EDT [facility] Comment: As of 2021, the estimated [...] ORDERABLES Fin al Result Performing Organization Address City/[facility]/ZIP Co de Phone Number [facility] [address] [facility]. [address] * Magnesium (03/01/2025 7:06 AM EDT) Magnesium 1.9 1.5 - 2.5 mg/dL 03/01/2025 8:30 AM EDT [facility] Plasma 03/01/2025 7:06 AM EDT 03/01/2025 7:38 AM EDT Donna Hernandez MD LAB BLOOD ORDERABLES Fin al Result Performing Organization Address [facility] Co de Phone Number [facility] [address] [facility]. [address] * (ABNORMAL) POC Glucose Monitoring Device (02/28/2025 10:31 PM EDT) POC Glucose Monitoring Device 235(H) 70 - 100 mg/dL 02/28/2025 10:32 PM EDT [facility] Blood 02/28/2025 10:3 1 PM EDT 02/28/2025 10:32 PM EDT us Carmela Jernigan MD POINT OF CARE TEST ORDE JESSE Final Result Performing Organization Address [facility] Co de Phone Number [facility] [address] [facility]. [address] * (ABNORMAL) POC Glucose Monitoring Device (02/28/2025 7:15 PM EDT) POC Glucose Monitoring Device 178(H) 70 - 100 mg/dL 02/28/2025 7:16 PM EDT [facility] Blood 02/28/2025 7:15 PM EDT 02/28/2025 7:16 PM EDT us Carmela Jernigan MD POINT OF CARE TEST ORDE RABSUNDAY Final Result [facility] [address] [facility]. [address] * (ABNORMAL) CBC (02/28/2025 6:45 PM EDT) Pathologist [facility] WBC 6.8 3.8 - 10.8 10E3/uL 02/28/2025 7:30 PM EDT [facility] RBC 3.11(L) 4.20 - 5.80 10E6/uL 02/28/2025 7:30 PM EDT [facility] Hemoglobin 9.3(L) 13.2 - 17.1 g/dL 02/28/2025 7:30 PM EDT [facility] Hematocrit 27.3(L) 38.5 - 50.0 % 02/28/2025 7:30 PM EDT [facility] MCV 87.9 80.0 - 100.0 fL 02/28/2025 7:30 PM EDT [facility] MCH 30.1 27.0 - 33.0 pg 02/28/2025 7:30 PM EDT [facility] MCHC 34.2 32.0 - 36.0 g/dL 02/28/2025 7:30 PM EDT [facility] RDW 15.5(H) 11.0 - 15.0 % 02/28/2025 7:30 PM EDT [facility] Platelets 130(L) 140 - 400 10E3/uL 02/28/2025 7:30 PM EDT [facility] MPV 8.2 7.5 - 11.5 fL 02/28/2025 7:30 PM EDT [facility] Whole Blood 02/28/2025 6:45 PM EDT 02/28/2025 7:17 PM EDT us Desean Bishop MD LAB BLOOD ORDERABLES Final Resul t [facility] [address] * (ABNORMAL) POC Glucose Monitoring Device (02/28/2025 4:57 PM EDT) [facility] POC Glucose Monitoring Device 184(H) 70 - 100 mg/dL 02/28/2025 4:57 PM EDT [facility] Blood 02/28/2025 4:57 PM EDT 02/28/2025 4:57 PM EDT us Carmela Jernigan MD POINT OF CARE TEST ALEXY MOLINA Final Result [facility] [address] [place] [address], [facility] * (ABNORMAL) CBC (02/28/2025 4:09 PM EDT) WBC 7.2 3.8 - 10.8 10E3/uL 02/28/2025 4:50 PM EDT [facility] RBC 3.70(L) 4.20 - 5.80 10E6/uL 02/28/2025 4:50 PM EDT [facility] Hemoglobin 11.1(L) 13.2 - 17.1 g/dL 02/28/2025 4:50 PM EDT [facility] Hematocrit 32.3(L) 38.5 - 50.0 % 02/28/2025 4:50 PM EDT [facility] MCV 87.4 80.0 - 100.0 fL 02/28/2025 4:50 PM EDT [facility] MCH 30.2 27.0 - 33.0 pg 02/28/2025 4:50 PM EDT [facility] MCHC 34.5 32.0 - 36.0 g/dL 02/28/2025 4:50 PM EDT [facility] RDW 15.7(H) 11.0 - 15.0 % 02/28/2025 4:50 PM EDT [facility] Platelets 147 140 - 400 10E3/uL 02/28/2025 4:50 PM EDT [facility] MPV 8.6 7.5 - 11.5 fL 02/28/2025 4:50 PM EDT [facility] Whole Blood 02/28/2025 4:09 PM EDT 02/28/2025 4:22 PM EDT us Desean Bishop MD LAB BLOOD ORDERABLES Final Resul t Performing Organization Address City/[facility]/ZIP Co de Phone Number [facility] [address] * POC Glucose Monitoring Device (02/28/2025 2:11 PM EDT) POC Glucose Monitoring Device 90 70 - 100 mg/dL 02/28/2025 2:11 PM EDT [facility] Blood 02/28/2025 2:11 PM EDT 02/28/2025 2:11 PM EDT us Carmela Jernigan MD POINT OF CARE TEST ORDE RABSUNDAY Final Result Performing Organization Address [facility] Co de Phone Number [facility] [address] [facility]. [address] * POC Glucose Monitoring Device (02/28/2025 11:45 AM EDT) POC Glucose Monitoring Device 87 70 - 100 mg/dL 02/28/2025 11:46 AM EDT [facility] Blood 02/28/2025 11:4 5 AM EDT 02/28/2025 11:46 AM EDT us Carmela Jernigan MD POINT OF CARE TEST ORDE JESSE Final Result Performing Organization Address [facility] Co de Phone Number [facility] [address] * UPPER GI ENDOSCOPY (02/28/2025 10:54 AM EDT) 02/28/2025 10:5 4 AM EDT Narrative [facility] - 02/28/2025 11:42 AM EDT [id number] Procedure Date: 02/28/2025 10:54 AM Patient Name: Harsha Avina Date of : 1960 Admit Type: Inpatient Age: 64 Gender: Male Note Status: Finalized Attending MD: VEE CAO MD, [id number] Procedure: Upper GI endoscopy Indications: Hematochezia Providers: [...] verified by the physician, the nurse, the student life dean and the experimental technician in the procedure room. Mental Status [...] previously scheduled. Procedure Code(s): --- Professional --- 59542, GC, Esophagogastroduodenoscopy, flexible, transoral; diagnostic, including collection of specimen(s) by brushing or washing, when performed (separate procedure) Diagnosis Code(s): --- Professional --- Z98.0, Intestinal bypass and anastomosis status K92.1, Melena (includes Hematochezia) CPT copyright 2022 [employer]. All rights reserved. The codes documented in this report are preliminary and upon infectious disease technician review may be revised to meet current [...] In: 11:16:43 AM Scope Out: 11:23:[address] [place] [address], [facility] Attending Provider Unknown PROCEDURE/MINOR SURGI ELIAS ORDERABLES Final Result Performing Organization Address [facility] Co de Phone Number [facility] * (ABNORMAL) POC Glucose Monitoring Device (02/28/2025 9:44 AM EDT) POC Glucose Monitoring Device 118(H) 70 - 100 mg/dL 02/28/2025 9:45 AM EDT [facility] Blood 02/28/2025 9:44 AM EDT 02/28/2025 9:45 AM EDT Carmela Jernigan MD POINT OF CARE TEST ORDE JESSE Final Result Performing Organization Address [facility] de Phone Number [facility] [address] [place] [address]. [address] * (ABNORMAL) POC Glucose Monitoring Device (02/28/2025 5:13 AM EDT) POC Glucose Monitoring Device 135(H) 70 - 100 mg/dL 02/28/2025 5:14 AM EDT [facility] Blood 02/28/2025 5:13 AM EDT 02/28/2025 5:13 AM EDT Carmela Jernigan MD POINT OF CARE TEST ORDE RABSUNDAY Final Result Performing Organization Address [facility] Co de Phone Number [facility] [address] [facility]. [address] * POC Glucose Monitoring Device (02/28/2025 4:53 AM EDT) POC Glucose Monitoring Device 84 70 - 100 mg/dL 02/28/2025 4:54 AM EDT [facility] Blood 02/28/2025 4:53 AM EDT 02/28/2025 4:53 AM EDT us Carmela Jernigan MD POINT OF CARE TEST ALEXY MOLINA Final Result [facility] [address] * (ABNORMAL) CBC, STAT (02/28/2025 3:48 AM EDT) WBC 3.8 3.8 - 10.8 10E3/uL 02/28/2025 4:03 AM EDT [facility] RBC 2.99(L) 4.20 - 5.80 10E6/uL 02/28/2025 4:03 AM EDT [facility] Hemoglobin 9.0(L) 13.2 - 17.1 g/dL 02/28/2025 4:03 AM EDT [facility] Hematocrit 25.7(L) 38.5 - 50.0 % 02/28/2025 4:03 AM EDT [facility] MCV 86.0 80.0 - 100.0 fL 02/28/2025 4:03 AM EDT [facility] MCH 30.0 27.0 - 33.0 pg 02/28/2025 4:03 AM EDT [facility] MCHC 34.9 32.0 - 36.0 g/dL 02/28/2025 4:03 AM EDT [facility] RDW 15.9(H) 11.0 - 15.0 % 02/28/2025 4:03 AM EDT [facility] Platelets 130(L) 140 - 400 10E3/uL 02/28/2025 4:03 AM EDT [facility] MPV 8.4 7.5 - 11.5 fL 02/28/2025 4:03 AM EDT [facility] Whole Blood 02/28/2025 3:48 AM EDT 02/28/2025 3:51 AM EDT Michael Winston DDS LAB BLOOD ORDERABLES Final Res ult [facility] [address] * (ABNORMAL) Renal Function Panel w/EGFR (02/28/2025 3:48 AM EDT) Sodium 139 133 - 146 mmol/L 02/28/2025 5:04 AM EDT [facility] Potassium 4.4 3.5 - 5.3 mmol/L 02/28/2025 5:04 AM EDT [facility] Chloride 108 98 - 110 mmol/L 02/28/2025 5:04 AM EDT [facility] CO2 27 21 - 33 mmol/L 02/28/2025 5:04 AM EDT [facility] Anion Gap 4 3 - 16 mmol/L 02/28/2025 5:04 AM EDT [facility] BUN 25 7 - 25 mg/dL 02/28/2025 5:04 AM EDT [facility] Creatinine 0.66 0.60 - 1.30 mg/dL 02/28/2025 5:04 AM EDT [facility] Glucose 80 70 - 100 mg/dL 02/28/2025 5:04 AM EDT [facility] Calcium 8.0(L) 8.6 - 10.3 mg/dL 02/28/2025 5:04 AM EDT [facility] Phosphorus 3.2 2.1 - 4.7 mg/dL 02/28/2025 5:04 AM EDT [facility] Albumin 3.2(L) 3.5 - 5.7 g/dL 02/28/2025 5:04 AM EDT [facility] Osmolality, Calculated 291 278 - 305 mOsm/kg 02/28/2025 5:04 AM EDT [facility] EGFR >90 02/28/2025 5:04 AM EDT [facility] Comment: As of 2021, the estimated [...] AM EDT 02/28/2025 3:51 AM EDT us Lucy Troncoso MD LAB BLOOD ORDERABLES Final Re sult Performing Organization Address [facility]/ZIP Co de Phone Number [facility] [address] [facility] * Magnesium (02/28/2025 3:48 AM EDT) Magnesium 2.0 1.5 - 2.5 mg/dL 02/28/2025 5:04 AM EDT [facility] Plasma 02/28/2025 3:48 AM EDT 02/28/2025 3:51 AM EDT us Lucy Troncoso MD LAB BLOOD ORDERABLES Final Re sult Performing Organization Address [facility] Co de Phone Number [facility] [address] [facility] * (ABNORMAL) CBC, STAT (02/27/2025 10:43 PM EDT) WBC 3.4(L) 3.8 - 10.8 10E3/uL 02/27/2025 10:53 PM EDT [facility] RBC 3.15(L) 4.20 - 5.80 10E6/uL 02/27/2025 10:53 PM EDT [facility] Hemoglobin 9.4(L) 13.2 - 17.1 g/dL 02/27/2025 10:53 PM EDT [facility] Hematocrit 27.1(L) 38.5 - 50.0 % 02/27/2025 10:53 PM EDT [facility] MCV 86.1 80.0 - 100.0 fL 02/27/2025 10:53 PM EDT [facility] MCH 29.8 27.0 - 33.0 pg 02/27/2025 10:53 PM EDT [facility] MCHC 34.7 32.0 - 36.0 g/dL 02/27/2025 10:53 PM EDT [facility] RDW 15.6(H) 11.0 - 15.0 % 02/27/2025 10:53 PM EDT [facility] Platelets 112(L) 140 - 400 10E3/uL 02/27/2025 10:53 PM EDT [facility] MPV 8.0 7.5 - 11.5 fL 02/27/2025 10:53 PM EDT [facility] [facility] Whole Blood 02/27/2025 10:4 3 PM EDT 02/27/2025 10:48 PM EDT Michael Winston DDS LAB BLOOD ORDERABLES Final Res ult [facility] [address] * POC Glucose Monitoring Device (02/27/2025 5:08 PM EDT) [facility] POC Glucose Monitoring Device 72 70 - 100 mg/dL 02/27/2025 5:10 PM EDT [facility] Blood 02/27/2025 5:08 PM EDT 02/27/2025 5:09 PM EDT Laura Delacruz MD POINT OF CARE TEST ORDERABLES Fi nal Result Performing Organization Address City/[facility]/ZIP Co de Phone Number [facility] [address] * Endoscopy, colon, diagnostic (02/27/2025 2:50 PM EDT) 02/27/2025 2:50 PM EDT Narrative [facility] - 02/27/2025 4:52 PM EDT [id number] Procedure Date: 02/27/2025 2:50 PM Patient Name: Harsha Avina Date of : 1960 Admit Type: Inpatient Age: 64 Gender: Male Note Status: Finalized Attending MD: Lucinda Horton MD, [id number] Procedure: Colonoscopy Indications: Hematochezia Patient Profile: 64 [...] verified by the physician, the nurse, the student life dean and the experimental technician in the endoscopy suite. Mental Status [...] care. - Clear liquid diet. NPO at [place]. - Plan for EGD tomorrow. - Continue present medications. - Await pathology results. - Repeat colonoscopy for screening purposes as an outpatient. Examination today was not adequate for polyp screening / surveillance. Procedure Code(s): --- Professional --- 41413, GC, Colonoscopy, flexible; with biopsy, single or multiple Diagnosis Code(s): --- Professional --- Z98.0, Intestinal bypass and anastomosis status K63.3, Ulcer of intestine K92.1, Melena (includes Hematochezia) CPT copyright 2022 [employer]. All rights reserved. The codes documented in this report are preliminary and upon infectious disease technician review may be revised to meet current [...] In: 3:17:54 PM Scope Out: 3:36:[address] [place] [address], [facility] Provider Not In System GI PROCEDURE ORDERABLES F inal Result Performing Organization Address City/[facility]/ZIP Co de Phone Number [facility] * (ABNORMAL) POC Glucose Monitoring Device (02/27/2025 12:56 PM EDT) POC Glucose Monitoring Device 137(H) 70 - 100 mg/dL 02/27/2025 12:57 PM EDT [facility] Blood 02/27/2025 12:5 6 PM EDT 02/27/2025 12:57 PM EDT Laura Delacruz MD POINT OF CARE TEST ORDERABLES Fi nal Result [address] * (ABNORMAL) POC Glucose Monitoring Device (02/27/2025 12:31 PM EDT) POC Glucose Monitoring Device 68(L) 70 - 100 mg/dL 02/27/2025 12:31 PM EDT [facility] Blood 02/27/2025 12:3 1 PM EDT 02/27/2025 12:31 PM EDT Laura Delacruz MD POINT OF CARE TEST ORDERABLES Fi nal Result [facility] [address] * Free Calcium, Whole Blood (02/27/2025 8:18 AM EDT) Free Calcium, WB 4.71 4.50 - 5.30 mg/dL 02/27/2025 8:26 AM EDT [facility] Blood, Arterial 02/27/2025 8 :18 AM EDT 02/27/2025 8:22 AM EDT Kenny Zhu MD LAB BLOOD ORDERABLES Final Result Performing Organization Address City/[facility] Co de Phone Number [facility] [address] * (ABNORMAL) Hemoglobin and Hematocrit, Blood (02/27/2025 8:18 AM EDT) Hemoglobin 9.6(L) 13.2 - 17.1 g/dL 02/27/2025 8:34 AM EDT [facility] Hematocrit 26.9(L) 38.5 - 50.0 % 02/27/2025 8:34 AM EDT [facility] MCV 85.3 80.0 - 100.0 fL 02/27/2025 8:34 AM EDT [facility] MCH 30.5 27.0 - 33.0 pg 02/27/2025 8:34 AM EDT [facility] MCHC 35.7 32.0 - 36.0 g/dL 02/27/2025 8:34 AM EDT [facility] RDW 15.9(H) 11.0 - 15.0 % 02/27/2025 8:34 AM EDT [facility] Whole Blood 02/27/2025 8:18 AM EDT 02/27/2025 8:28 AM EDT Kenny Zhu MD LAB BLOOD ORDERABLES Final Result Performing Organization Address City/[facility]/ZIP Co de Phone Number [facility] [address] [facility]. [address] * CONSTANTINE Rhythm Strip - Scan (02/27/2025 7:41 AM EDT) us Scanning Uchhim SCAN DOCS - NO RESULTS Final Res ult * POC Glucose Monitoring Device (02/27/2025 4:09 AM EDT) Pathologist [facility] POC Glucose Monitoring Device 92 70 - 100 mg/dL 02/27/2025 4:09 AM EDT [facility] Blood 02/27/2025 4:09 AM EDT 02/27/2025 4:09 AM EDT Laura Delacruz MD POINT OF CARE TEST ORDERABLES Fi nal Result Performing Organization Address [facility]/ZIP Co de Phone Number [facility] [address] [facility]. [address] * (ABNORMAL) Hemoglobin and hematocrit, blood (02/27/2025 4:02 AM EDT) Hemoglobin 9.6(L) 13.2 - 17.1 g/dL 02/27/2025 4:40 AM EDT [facility] Hematocrit 26.9(L) 38.5 - 50.0 % 02/27/2025 4:40 AM EDT [facility] MCV 85.7 80.0 - 100.0 fL 02/27/2025 4:40 AM EDT [facility] MCH 30.4 27.0 - 33.0 pg 02/27/2025 4:40 AM EDT [facility] MCHC 35.5 32.0 - 36.0 g/dL 02/27/2025 4:40 AM EDT [facility] RDW 16.0(H) 11.0 - 15.0 % 02/27/2025 4:40 AM EDT [facility] Whole Blood 02/27/2025 4:02 AM EDT 02/27/2025 4:25 AM EDT Jayme Judd MD LAB BLOOD ORDERABLES Final Re sult [facility] [address] [place] [id number], [facility] * (ABNORMAL) Renal Function Panel w/EGFR, STAT (02/27/2025 4:02 AM EDT) Sodium 143 133 - 146 mmol/L 02/27/2025 4:47 AM EDT [facility] Potassium 3.9 3.5 - 5.3 mmol/L 02/27/2025 4:47 AM EDT [facility] Chloride 108 98 - 110 mmol/L 02/27/2025 4:47 AM EDT [facility] CO2 28 21 - 33 mmol/L 02/27/2025 4:47 AM EDT [facility] Anion Gap 7 3 - 16 mmol/L 02/27/2025 4:47 AM EDT [facility] BUN 33(H) 7 - 25 mg/dL 02/27/2025 4:47 AM EDT [facility] Creatinine 0.76 0.60 - 1.30 mg/dL 02/27/2025 4:47 AM EDT [facility] Glucose 77 70 - 100 mg/dL 02/27/2025 4:47 AM EDT [facility] Calcium 8.0(L) 8.6 - 10.3 mg/dL 02/27/2025 4:47 AM EDT [facility] Phosphorus 3.1 2.1 - 4.7 mg/dL 02/27/2025 4:47 AM EDT [facility] Albumin 3.5 3.5 - 5.7 g/dL 02/27/2025 4:47 AM EDT [facility] Osmolality, Calculated 302 278 - 305 mOsm/kg 02/27/2025 4:47 AM EDT [facility] EGFR >90 02/27/2025 4:47 AM EDT [facility] Comment: As of 2021, the estimated [...] 4:02 AM EDT 02/27/2025 4:24 AM EDT Sandie Cardenas MD LAB BLOOD ORDERABLES Final Resu lt [facility] [address] * (ABNORMAL) Hemoglobin A1c (02/27/2025 4:02 [...] MD LAB BLOOD ORDERABLES Final Re sult [facility] [address] * (ABNORMAL) Hemoglobin and Hematocrit, Blood (02/27/2025 12:32 AM EDT) Hemoglobin 9.7(L) 13.2 - 17.1 g/dL 02/27/2025 1:39 AM EDT [facility] Hematocrit 27.2(L) 38.5 - 50.0 % 02/27/2025 1:39 AM EDT [facility] MCV 84.9 80.0 - 100.0 fL 02/27/2025 1:39 AM EDT [facility] MCH 30.3 27.0 - 33.0 pg 02/27/2025 1:39 AM EDT [facility] MCHC 35.7 32.0 - 36.0 g/dL 02/27/2025 1:39 AM EDT [facility] RDW 16.1(H) 11.0 - 15.0 % 02/27/2025 1:39 AM EDT [facility] Whole Blood 02/27/2025 12:3 2 AM EDT 02/27/2025 12:57 AM EDT Kenny Zhu MD LAB BLOOD ORDERABLES Final Result [facility] [address] * Surgical Pathology Exam (02/27/2025 12:00 AM EDT) 02/27/2025 02/27/2025 Narrative [facility] - 02/27/2025 12:00 AM EDT CASE: [id number] PATIENT: HARSHA AVINA Clinical History: Colonoscopy w/ bx Pre-Operative Diagnosis: Lower GI bleed Post-Operative Diagnosis: Ileitis Specimen(s) Submitted: A. Ileum bxs, ileitis CPT Code(s): 45406 X 1 Additional Information: FINAL DIAGNOSIS: Ileum, biopsy: - Patchy active ileitis. - Mucosal architecture is relatively preserved. - Negative for granuloma, dysplasia, or malignancy. KENJI/yuliet Gross Description: Received in formalin, labeled with the patient's name Harsha Avina and ileum biopsies is a 0.5 x 0.2 x 0.2 cm montes-pink irregular soft tissue fragment. The specimen is filtered into a biopsy bag and entirely submitted in cassette [id number]. (HIRAM Crabtree (ASCP)/ab) Microscopic Description: Two HE stained slides are examined. KENJI/yuliet I, the attending pathologist, have personally reviewed all prosector/resident work and pathology slides to determine final diagnosis. Final Diagnosis performed by MYRANDA CORCORAN MD Pathologist Electronically signed 03/03/2025 12:46:16 PM [place] Pathologist signing this report [place] [facility] [place] [address] [place] [address], [facility] [phone], CLIA ID: [id number] us Lucinda Horton MD PATHOLOGY/CYTOLOGY ORDERABLES Fi nal Result Performing Organization Address [facility] Co de Phone Number [facility] * (ABNORMAL) POC Glucose Monitoring Device (02/26/2025 8:32 PM EDT) POC Glucose Monitoring Device 106(H) 70 - 100 mg/dL 02/26/2025 8:33 PM EDT [facility] Blood 02/26/2025 8:32 PM EDT 02/26/2025 8:33 PM EDT us Laura Delacruz MD POINT OF CARE TEST ORDERABLES Fi nal Result Performing Organization Address [facility]/ZIP Co de Phone Number [facility] [address] [place] [address]. [address] * Lactic Acid, STAT (02/26/2025 8:22 PM EDT) Lactate 0.7 0.5 - 2.2 mmol/L 02/26/2025 9:20 PM EDT [facility] Plasma 02/26/2025 8:22 PM EDT 02/26/2025 8:57 PM EDT Kenny Zhu MD LAB BLOOD ORDERABLES Final Result [facility] [address] [facility]. [address] * (ABNORMAL) Hemoglobin and Hematocrit, Blood (02/26/2025 8:22 PM EDT) Hemoglobin 10.5(L) 13.2 - 17.1 g/dL 02/26/2025 9:06 PM EDT [facility] Hematocrit 30.6(L) 38.5 - 50.0 % 02/26/2025 9:06 PM EDT [facility] MCV 85.9 80.0 - 100.0 fL 02/26/2025 9:06 PM EDT [facility] MCH 29.6 27.0 - 33.0 pg 02/26/2025 9:06 PM EDT [facility] MCHC 34.4 32.0 - 36.0 g/dL 02/26/2025 9:06 PM EDT [facility] RDW 16.2(H) 11.0 - 15.0 % 02/26/2025 9:06 PM EDT [facility] Whole Blood 02/26/2025 8:22 PM EDT 02/26/2025 8:57 PM EDT Kenny Zhu MD LAB BLOOD ORDERABLES Final Result [facility] [address] [facility]. [address] * Prealbumin (02/26/2025 8:22 PM EDT) Prealbumin 19.4 17.0 - 34.0 mg/dL 02/26/2025 9:19 PM EDT [facility] Serum 02/26/2025 8:22 PM EDT 02/26/2025 8:57 PM EDT us Jayme Judd MD LAB BLOOD ORDERABLES Final Re sult [facility] [address] [facility] * CONSTANTINE Rhythm Strip - Scan (02/26/2025 4:46 PM EDT) us Scanning Uchhim SCAN DOCS - NO RESULTS Final Res ult * (ABNORMAL) Hemoglobin and Hematocrit, Blood (02/26/2025 4:12 PM EDT) Hemoglobin 8.9(L) 13.2 - 17.1 g/dL 02/26/2025 4:30 PM EDT [facility] Hematocrit 25.6(L) 38.5 - 50.0 % 02/26/2025 4:30 PM EDT [facility] MCV 85.8 80.0 - 100.0 fL 02/26/2025 4:30 PM EDT [facility] MCH 29.6 27.0 - 33.0 pg 02/26/2025 4:30 PM EDT [facility] MCHC 34.6 32.0 - 36.0 g/dL 02/26/2025 4:30 PM EDT [facility] RDW 15.6(H) 11.0 - 15.0 % 02/26/2025 4:30 PM EDT [facility] Whole Blood 02/26/2025 4:12 PM EDT 02/26/2025 4:19 PM EDT us Kenny Zhu MD LAB BLOOD ORDERABLES Final Result [facility] [address] [facility] * (ABNORMAL) TEG-Standard Global Hemostasis (Rapid TEG with Heparin Effect, Contains a Baseline TEG) (02/26/2025 11:23 AM EDT) [facility] Citrated Kaolin Reaction Time (TEGHEPARINASE) 4.6 4.6 - 9.1 minutes 02/26/2025 12:05 PM EDT [facility] Citrated Rapid Teg Maximum Amplitude (TEGHEPARINASE) 54.9 52.0 - 70.0 mm 02/26/2025 12:05 PM EDT [facility] Citrated Functional Fibrinogen Maximum Amplitude (TEGHEPARINASE) 17.6 15.0 - 32.0 mm 02/26/2025 12:05 PM EDT [facility] Citrated Kaolin W/Heparinase Reaction Time (TEGHEPARINASE) 3.9(L) 4.3 - 8.3 minutes 02/26/2025 12:05 PM EDT [facility] Citrated Kaolin K-Time (TEGHEPARINASE) 1.3(A) 0.8 - 2.1 minutes 02/26/2025 12:05 PM EDT [facility] Citrated Kaolin Angle (TEGHEPARINASE) 72.9(A) 63.0 - 78.0 degrees 02/26/2025 12:05 PM EDT [facility] Citrated Kaolin Maximum Amplitude (TEGHEPARINASE) 57.3 52.0 - 69.0 mm 02/26/2025 12:05 PM EDT [facility] Citrated Functional Fibrinogen- Fibrinogen Level (TEGHEPARINASE) 321.2 278.0 - 581.0 mg/dL 02/26/2025 12:05 PM EDT [facility] Whole Blood (Citrate) 02/26/2025 11:23 AM EDT 02/26/2025 11:29 AM EDT us Piedad Gu MD LAB BLOOD ORDERABLES Final Resu lt [facility] [address] [place]. [address] * (ABNORMAL) Protime-INR (02/26/2025 11:23 AM EDT) Protime 15.4(H) 12.1 - 15.1 seconds 02/26/2025 11:46 AM EDT [facility]ALTH [facility] INR 1.2(H) 0.9 - 1.1 02/26/2025 11:46 AM EDT [facility] Comment: RECOMMENDED THERAPEUTIC RANGES USING INR : Stable oral anticoagulant therapy: 2.0 - 3.0 Mechanical prosthetic heart valve: 2.5 - 3.5 Recurrent acute myocardial infarction: 2.5 - 3.5 Plasma 02/26/2025 11:2 3 AM EDT 02/26/2025 11:29 AM EDT Piedad Gu MD LAB BLOOD ORDERABLES Final Resu lt [facility] [address] * (ABNORMAL) CBC (02/26/2025 11:23 AM EDT) Pathologist [facility] WBC 4.3 3.8 - 10.8 10E3/uL 02/26/2025 11:41 AM EDT [facility] RBC 3.43(L) 4.20 - 5.80 10E6/uL 02/26/2025 11:41 AM EDT [facility] Hemoglobin 10.4(L) 13.2 - 17.1 g/dL 02/26/2025 11:41 AM EDT [facility] Hematocrit 29.3(L) 38.5 - 50.0 % 02/26/2025 11:41 AM EDT [facility] MCV 85.4 80.0 - 100.0 fL 02/26/2025 11:41 AM EDT [facility] MCH 30.3 27.0 - 33.0 pg 02/26/2025 11:41 AM EDT [facility] MCHC 35.4 32.0 - 36.0 g/dL 02/26/2025 11:41 AM EDT [facility] RDW 16.0(H) 11.0 - 15.0 % 02/26/2025 11:41 AM EDT [facility] Platelets 103(L) 140 - 400 10E3/uL 02/26/2025 11:41 AM EDT [facility] MPV 8.3 7.5 - 11.5 fL 02/26/2025 11:41 AM EDT [facility] Whole Blood 02/26/2025 11:2 3 AM EDT 02/26/2025 11:28 AM EDT us Piedad Gu MD LAB BLOOD ORDERABLES Final Resu lt [facility] [address] [place] [address]. [address] * (ABNORMAL) POC Glucose Monitoring Device (02/26/2025 11:20 AM EDT) POC Glucose Monitoring Device 117(H) 70 - 100 mg/dL 02/26/2025 11:21 AM EDT [facility] Blood 02/26/2025 11:2 0 AM EDT 02/26/2025 11:20 AM EDT us Laura Delacruz MD POINT OF CARE TEST ORDERABLES Fi nal Result Performing Organization Address [facility]/ZIP Co de Phone Number [facility] [address] [place] [address]. [address] * Blood culture-Peripheral (Blood) (02/26/2025 6:11 AM EDT) Culture Result No Growth After 5 Days [facility] Blood BLOOD SPECIMEN / Unknown 02/26/2025 6:11 AM EDT 02/26/2025 10:09 AM EDT Jayme Judd MD MICROBIOLOGY - GENERAL ORDERA BLES Final Result Performing Organization Address City/[facility]/ZIP Co de Phone Number [facility] [address] [place] [address]. [address] * Blood culture-Peripheral (Blood) (02/26/2025 6:11 AM EDT) Culture Result No Growth After 5 Days [facility] Blood BLOOD SPECIMEN / Unknown 02/26/2025 6:11 AM EDT 02/26/2025 7:25 AM EDT Jayme Judd MD MICROBIOLOGY - GENERAL ORDERA BLES Final Result [facility] [address] [place] [address], [facility] * X-ray Portable Chest (02/26/2025 5:44 AM [...] - 5.40 mg/dL 02/26/2025 6:28 AM EDT [facility] Comment:Free calcium levels vary inversely with pH by approximately 5% for each 0.1 unit of pH change. Assay results have been normalized to pH = 7.40. Serum 02/26/2025 5:30 AM EDT 02/26/2025 5:45 AM EDT Narrative [facility] - 02/26/2025 6:28 AM EDT This test has been developed and its performance characteristics determined by [facility] which is certified under the Clinical [...] MD LAB BLOOD ORDERABLES Final Resu lt [facility] [address] [place] [address], [facility] * (ABNORMAL) TEG-Standard Global Hemostasis (Rapid TEG with Heparin Effect, Contains a Baseline TEG) (02/26/2025 5:30 AM EDT) Citrated Kaolin Reaction Time (TEGHEPARINASE) 6.6 4.6 - 9.1 minutes 02/26/2025 6:23 AM EDT [facility] Citrated Rapid Teg Maximum Amplitude (TEGHEPARINASE) 55.4 52.0 - 70.0 mm 02/26/2025 6:23 AM EDT [facility] Citrated Functional Fibrinogen Maximum Amplitude (TEGHEPARINASE) 17.7 15.0 - 32.0 mm 02/26/2025 6:23 AM EDT [facility] Citrated Kaolin W/Heparinase Reaction Time (TEGHEPARINASE) 5.7 4.3 - 8.3 minutes 02/26/2025 6:23 AM EDT [facility] Citrated Kaolin K-Time (TEGHEPARINASE) 1.3(A) 0.8 - 2.1 minutes 02/26/2025 6:23 AM EDT [facility] Citrated Kaolin Angle (TEGHEPARINASE) 71.9(A) 63.0 - 78.0 degrees 02/26/2025 6:23 AM EDT [facility] Citrated Kaolin Maximum Amplitude (TEGHEPARINASE) 56.7 52.0 - 69.0 mm 02/26/2025 6:23 AM EDT [facility] Citrated Functional Fibrinogen- Fibrinogen Level (TEGHEPARINASE) 323.0 278.0 - 581.0 mg/dL 02/26/2025 6:23 AM EDT [facility] Whole Blood (Citrate) 02/26/2025 5:30 AM EDT 02/26/2025 5:36 AM EDT Jayme Judd MD LAB BLOOD ORDERABLES Final Re sult [facility] [address] * Antibody Screen (02/26/2025 5:30 AM EDT) Antibody Screen Negative 02/26/2025 6:25 AM EDT [facility] Blood 02/26/2025 5:30 AM EDT 02/26/2025 5:41 AM EDT Narrative [facility] - 02/26/2025 6:31 AM EDT Testing performed by [facility] Transfusion Service Jayme Judd MD BLOOD BANK TEST ORDERABLES Fi nal Result [facility] [address] * ABO/Rh (02/26/2025 5:30 AM EDT) ABO Grouping A 02/26/2025 6:31 AM EDT [facility] Rh Type Positive 02/26/2025 6:31 AM EDT [facility] Blood 02/26/2025 5:30 AM EDT 02/26/2025 5:41 AM EDT us Jayme Judd MD BLOOD BANK TEST ORDERABLES Fi nal Result Performing Organization Address City/[facility]/ZIP Co de Phone Number [facility] [address] [facility]. [address] * POC Glucose Monitoring Device (02/26/2025 5:29 AM EDT) POC Glucose Monitoring Device 99 70 - 100 mg/dL 02/26/2025 5:29 AM EDT [facility] Blood 02/26/2025 5:29 AM EDT 02/26/2025 5:29 AM EDT Laura Delacruz MD POINT OF CARE TEST ORDERABLES Fi nal Result Performing Organization Address [facility] Co de Phone Number [facility] [address] [facility] * (ABNORMAL) Protime-INR (02/26/2025 5:29 AM EDT) Protime 15.7(H) 12.1 - 15.1 seconds 02/26/2025 5:55 AM EDT [facility] INR 1.2(H) 0.9 - 1.1 02/26/2025 5:55 AM EDT [facility] Comment: RECOMMENDED THERAPEUTIC RANGES USING INR : Stable oral anticoagulant therapy: 2.0 - 3.0 Mechanical prosthetic heart valve: 2.5 - 3.5 Recurrent acute myocardial infarction: 2.5 - 3.5 Plasma 02/26/2025 5:29 AM EDT 02/26/2025 5:36 AM EDT us Jayme Judd MD LAB BLOOD ORDERABLES Final Re sult [facility] [address] * (ABNORMAL) CBC (02/26/2025 5:29 AM EDT) WBC 5.8 3.8 - 10.8 10E3/uL 02/26/2025 6:13 AM EDT [facility] RBC 3.77(L) 4.20 - 5.80 10E6/uL 02/26/2025 6:13 AM EDT [facility] Hemoglobin 11.3(L) 13.2 - 17.1 g/dL 02/26/2025 6:13 AM EDT [facility] Hematocrit 32.3(L) 38.5 - 50.0 % 02/26/2025 6:13 AM EDT [facility] MCV 85.6 80.0 - 100.0 fL 02/26/2025 6:13 AM EDT [facility] MCH 29.9 27.0 - 33.0 pg 02/26/2025 6:13 AM EDT [facility] MCHC 34.9 32.0 - 36.0 g/dL 02/26/2025 6:13 AM EDT [facility] RDW 15.7(H) 11.0 - 15.0 % 02/26/2025 6:13 AM EDT [facility] Platelets 112(L) 140 - 400 10E3/uL 02/26/2025 6:13 AM EDT [facility] MPV 8.2 7.5 - 11.5 fL 02/26/2025 6:13 AM EDT [facility] Whole Blood 02/26/2025 5:29 AM EDT 02/26/2025 5:45 AM EDT us Jayme Judd MD LAB BLOOD ORDERABLES Final Re sult [facility] [address] * (ABNORMAL) Calcium (02/26/2025 5:29 AM EDT) Calcium 8.0(L) 8.6 - 10.3 mg/dL 02/26/2025 7:13 AM EDT [facility] Plasma 02/26/2025 5:29 AM EDT 02/26/2025 5:45 AM EDT Jayme Judd MD LAB BLOOD ORDERABLES Final Re sult Performing Organization Address City/[facility]/ZIP Co de Phone Number [facility] [address] [facility] * Magnesium (02/26/2025 5:29 AM EDT) Magnesium 1.9 1.5 - 2.5 mg/dL 02/26/2025 7:13 AM EDT [facility] Plasma 02/26/2025 5:29 AM EDT 02/26/2025 5:45 AM EDT Jayme Judd MD LAB BLOOD ORDERABLES Final Re sult Performing Organization Address [facility] Co de Phone Number [facility] [address] [facility] * Phosphorus (02/26/2025 5:29 AM EDT) Phosphorus 3.9 2.1 - 4.7 mg/dL 02/26/2025 7:13 AM EDT [facility] Plasma 02/26/2025 5:29 AM EDT 02/26/2025 5:45 AM EDT Jayme Judd MD LAB BLOOD ORDERABLES Final Re sult Performing Organization Address City/[facility]/ZIP Co de Phone Number [facility] [address] [facility] * (ABNORMAL) Basic metabolic panel (02/26/2025 5:29 AM EDT) Sodium 140 133 - 146 mmol/L 02/26/2025 7:13 AM EDT [facility] Potassium 4.2 3.5 - 5.3 mmol/L 02/26/2025 7:13 AM EDT [facility] Chloride 106 98 - 110 mmol/L 02/26/2025 7:13 AM EDT [facility] CO2 29 21 - 33 mmol/L 02/26/2025 7:13 AM EDT [facility] Anion Gap 5 3 - 16 mmol/L 02/26/2025 7:13 AM EDT [facility] BUN 37(H) 7 - 25 mg/dL 02/26/2025 7:13 AM EDT [facility] Creatinine 0.82 0.60 - 1.30 mg/dL 02/26/2025 7:13 AM EDT [facility] Glucose 84 70 - 100 mg/dL 02/26/2025 7:13 AM EDT [facility] Calcium 8.0(L) 8.6 - 10.3 mg/dL 02/26/2025 7:13 AM EDT [facility] Osmolality, Calculated 298 278 - 305 mOsm/kg 02/26/2025 7:13 AM EDT [facility] EGFR >90 02/26/2025 7:13 AM EDT [facility] Comment: As of 2021, the estimated [...] MD LAB BLOOD ORDERABLES Final Re sult [facility] [address] * CK (02/26/2025 5:29 AM EDT) Total CK 104 30 - 223 U/L 02/26/2025 7:13 AM EDT [facility] Plasma 02/26/2025 5:29 AM EDT 02/26/2025 5:45 AM EDT Jayme Judd MD LAB BLOOD ORDERABLES Final Re sult Performing Organization Address [facility] Co de Phone Number [facility] [address] [facility] * (ABNORMAL) Hepatic Function Panel (02/26/2025 5:29 AM EDT) Total Bilirubin 0.8 0.0 - 1.5 mg/dL 02/26/2025 7:13 AM EDT [facility] Bilirubin, Direct 0.22 0.00 - 0.40 mg/dL 02/26/2025 7:13 AM EDT [facility] AST 25 13 - 39 U/L 02/26/2025 7:13 AM EDT [facility] ALT 28 7 - 52 U/L 02/26/2025 7:13 AM EDT [facility] Alkaline Phosphatase 41 36 - 125 U/L 02/26/2025 7:13 AM EDT [facility] Total Protein 5.4(L) 6.4 - 8.9 g/dL 02/26/2025 7:13 AM EDT [facility] Albumin 3.7 3.5 - 5.7 g/dL 02/26/2025 7:13 AM EDT [facility] Bilirubin, Indirect 0.58 0.00 - 1.10 mg/dL 02/26/2025 7:13 AM EDT [facility] Plasma 02/26/2025 5:29 AM EDT 02/26/2025 5:45 AM EDT Jayme Judd MD LAB BLOOD ORDERABLES Final Re sult Performing Organization Address City/[facility] Co de Phone Number [facility] [address] [place] [address]. [address] * High Sensitivity Troponin (02/26/2025 5:29 AM EDT) High Sensitivity Troponin 4 0 - 20 ng/L 02/26/2025 7:22 AM EDT [facility] Serum 02/26/2025 5:29 AM EDT 02/26/2025 5:45 AM EDT Jayme Judd MD LAB BLOOD ORDERABLES Final Re sult Performing Organization Address [facility] Co de Phone Number [facility] [address] [place] [address]. [address] * Fibrinogen (02/26/2025 5:29 AM EDT) Fibrinogen 241 218 - 406 mg/dL 02/26/2025 6:03 AM EDT [facility] Plasma 02/26/2025 5:29 AM EDT 02/26/2025 5:36 AM EDT Jayme Judd MD LAB BLOOD ORDERABLES Final Re sult Performing Organization Address [facility] Co de Phone Number [facility] [address] [place] [address]. [address] * Lactic Acid (02/26/2025 5:29 AM EDT) Lactate 0.5 0.5 - 2.2 mmol/L 02/26/2025 6:25 AM EDT [facility] Plasma 02/26/2025 5:29 AM EDT 02/26/2025 5:45 AM EDT Jayme Judd MD LAB BLOOD ORDERABLES Final Re sult Performing Organization Address City/State/[facility] Co de Phone Number [facility] [address] [place] [address], [facility] * ECG 12 lead (MUSE) (02/26/2025 5:15 AM EDT) 02/26/2025 5:15 AM EDT Narrative MUSE - 02/26/2025 5:32 PM EDT Ventricular Rate: 55 BPM Atrial Rate: 55 BPM P-R Interval: 164 ms QRS Duration: 92 ms QT: 464 ms QTc: 443 ms P [place]: 78 degrees R [place]: 61 degrees T [place]: 65 degrees Diagnosis Line: SINUS BRADYCARDIA ^ OTHERWISE NORMAL ECG ^ No previous ECGs available ^ Confirmed by MD ALEXANDRO, SIMI ([id number]) on 02/26/2025 5:32:12 PM us Jayme Judd MD ECG ORDERABLES Final Result Performing Organization Address City/[facility] Co de Phone Number MUSE documented in this encounter Visit Diagnoses Diagnosis Lower GI bleed- Primary Unspecified, hemorrhage of gastrointestinal tract Lower GI bleed Unspecified, hemorrhage of gastrointestinal tract Acute blood loss anemia Acute posthemorrhagic anemia Lower GI bleed Unspecified, hemorrhage of gastrointestinal tract * Assessment & Plan Note - Donna [...] 03/01/2025 12:25 PM EDT Associated Problem(s): Diabetes ([facility]) Chronic condition, holding patients home monjuro and [...] 02/28/2025 12:18 PM EDT Associated Problem(s): Diabetes ([facility]) Chronic condition, holding patients home monjuro and [...] prior colorectal anastomosis. He was transferred to [facility] for further work up and has remained [...] - 02/27/2025 7:33 PM EDTAssociated Problem(s): Diabetes ([facility]) Chronic condition, holding patients home monjuro and Lantus. - Insulin Lispro 0-5, 3 times daily before meals documented in this encounter Administered Medications Inactive Administered Medications - up to 3 most recent administrations Medication Order MAR Action Action Date Dose Rate Site dextrose 10%-water (D10W) IV soln 12.5 g, [...] grams or 250 mL for 25 grams. glucose chewable tablet 12 g 12 g, [...] needed. Labeled tablet strength may vary by box toe cementer (may be expressed as grams of carbohydrates) [...] Given 03/01/2025 8:22 AM EDT 1 g PARoxetine (PAXIL) tablet 20 mg 20 mg, Oral, Daily, First dose on Sun02/27/25 at 1230 Given 03/02/2025 8:39 AM EDT 20 mg Given 03/01/2025 8:21 AM EDT 20 mg Given 02/28/2025 9:47 AM EDT 20 mg rosuvastatin (CRESTOR) tablet 40 mg 40 mg, [...] on Sun02/27/25 at 1800, HIGH ALERT MEDICATION 0945 (Not Given - Provider: Karla Garcia RN [...] RN) 0839 (Given - Provider: Janie Canas, RN)1227 (Not Given - Provider: Janie Canas [...] Maritza Vences RN)2106 (Given - Provider: Laila Diamond, DERICK) 0840 (Given - Provider: Janie Canas, DERICK) pantoprazole (PROTONIX) injection 80 mg (CANCELED) 80 mg, Intravenous, Two times a day, First dose on 02/28/25 at 1000, Dilute each 40 mg vial with 10 mL of Normal Saline 0947 (Given - Provider: Karla Garcia RN) PARoxetine (PAXIL) tablet 20 mg 20 mg, Oral, Daily, First dose on Sun02/27/25 at 1230 0947 (Given - Provider: Karla Garcia RN) 0821 (Given - Provider: Maritza Vences, DERICK) 0839 (Given - Provider: Janie Canas, DERICK) rosuvastatin (CRESTOR) tablet 40 mg 40 mg, Oral, At Bedtime (2099), First dose on Sun02/27/25 at 2100 2026 (Given - Provider: Laila Diamond, DERICK) 2106 (Given - Provider: Laila Diamond, DERICK) senna-docusate (SENNA-S) 8.6-50 mg per tablet 1 tablet 1 tablet, Oral, 2 times daily, First dose on 03/02/25 at 0900 0839 (Given - Provider: Janie Canas, DERICK) Continuous Medication Order 02/28/2025 03/01/2025 03/02/2025 electrolyte-R [...] needed. Labeled tablet strength may vary by box toe cementer (may be expressed as grams of carbohydrates) per tablet. Each tablet = 4 grams of glucose. Do not give chewable tablets via feeding tube Linked Groups Order Group 1: FOR LAB DRAW PATIENTS: Cortisol Stimulation (0,30,60 Min) (CANCELED) Timed, Lab Timed, On [place] 03/01/25 at 1014, For 1 occurrence, Draw baseline prior to med administration, then 30 and 60 minutes post med administration And cosyntropin (CORTROSYN) injection 0.25 mg (COMPLETED)Jump to med 0.25 mg, Intravenous, Once, On [place] 03/01/25 at 1100, For 1 dose, Reconstitute [...] orally or via feeding tube, Starting on [facility] 02/26/25 at 0801, Recheck blood sugar [...] < 70 and not alert, Starting on [facility] 02/26/25 at 0801, Recheck glucose in 15 minutes and repeat treatment if glucose still < 70. For Smart Pump: Set volume to be infused; 125 ml for 12.5 grams or 250 mL for 25 grams. documented in this encounter Care Teams Steel Die Printer Relationship Specialty Start Date End Date Unknown, Attending Provider PCP - General 02/25/25 documented as of this encounter
--- OUTSIDE RECORDS SUMMARY | 2025-02-27 14:09 | XMS_ITS | Encounter Summary ---
Author Organization [facility] Address [address] [place] [address] Care Team Providers Care Braid Cutter Name Role Phone Unknown, Attending Provider Primary [...] release of HIV test results or diagnoses. [id number] Reason for Visit * Auth/Cert (Routine) Specialty Diagnoses / Procedures Referred By Contrain t Referred To Contact Intensive Care Diagnoses Acute blood loss anemia Lower GI bleed Acute Blood Loss Anemia/ Lower [facility] [address] [place] [address] Phone: tel: Referral ID Status Reason Start Date Expiration Date Visits Re quested Visits Authorized [id number] 1 1 Encounter Details Date Type Department Care Team (Late st Contact Info) Description 02/27/2025 3:09 PM EDT Anesthesia Event [facility] ENDOSCOPY [address] [place] [address] Primo Bennett MD [address] [place] [address] Yisel Pino [facility] [address] [place] [id number] Anesthesia Record Procedure Summary Procedure Name Responsible Anesthesiologist Anesthesia Start Time Anesthesia Stop Time COLONOSCOPY WITH BIOPSY Primo Bennett MD 02/27/25 1509 02/27/25 1557 Events Date Time Event Comment 02/27/2025 1500 1509 An Start 1509 An Start Data 1512 An Induction 1515 Time Out 1536 An Emergence 1543 Remove Airway Device 1543 an stop data 1557 An Stop Meds Name Total lidocaine (XYLOCAINE) 20 mg/mL (2%) inje ction 50 mg propofol (DIPRIVAN) 10 mg/ml IV injectio n (BOLUS) 70 mg propofol (DIPRIVAN) 10 mg/ml infusion - 20ML VIAL SIZE 137.94 mg phenylephrine (ALEXANDRO-SYNEPHRINE) injection 10 mg/ml 200 mcg glycopyrrolate (ROBINUL) 0.2 mg/mL injec tion 0.2 mg 0.9% NaCl infusion 300 mL * Agents Name N2O Auxiliary O2 O2 N2O Air * Blood No blood administrations on file. Lines, Drains, and Airways Type Details Placement Removal Peripheral IV 02/25/25; 20 G; Anterior, Left, Proximal; Forearm 02/25/25 0000 by Chacho Elmore RN 03/02/25 1434 by Janie Canas RN Peripheral IV 02/25/25; 18 G; Anterior, Left; Forearm 02/25/25 0000 by Chacho Elmore RN 03/02/25 1434 by Janie Canas RN Peripheral IV 02/25/25; 18 G; Righ t; Antecubital 02/25/25 0000 by Chacho Elmore RN 03/02/25 1434 by Janie Canas RN Peripheral IV 02/26/25; 0636; 20 G ; Anterior, Right; Forearm; Chlorhexidine; Ultrasound Guided; Tolerated well 02/26/25 0636 by Chacho Elmore RN 03/02/25 1434 by Janie Canas RN Anesthesia Airway Device 02/27/25; 1500; Nasal Cannula [place]; 02/27/25; 1543 02/27/25 1500 by DENISSE Butler 02/27/25 1543 by DENISSE Butler documented in this encounter Social History Tobacco Use Types Packs/Day Years Used Date Smoking Tobacco: Former Cigarettes 1 45.9 S tarted: 1979 Smokeless Tobacco: Never Alcohol Use Standard Drinks/Week Comments Not Currently 0 (1 standard drink = 0.6 oz pur e alcohol) [facility] Utilities Answer Date Recorded In the past [...] any time in the past 12 m [facility], were you homeless or living in a group home (including now)? No 02/26/2025 Sex and Gender Information Value Date Recorded Sex Assigned at Not on file Legal Sex Male 2:12 AM EDT Gender Identity Not on file Sexual Orientation Not on file documented as of this encounter Progress Notes * Primo Bennett MD - 02/27/2025 4:15 PM EDT Anesthesia Post Note Patient: Harsha Urbanpool Procedure(s) Performed: Procedure(s): COLONOSCOPY WITH BIOPSY Anesthesia type: MAC Patient location: ICU Airway: Patent Post pain: Adequate analgesia Nausea / Vomiting: Absent Post-operative Hydration Status: Adequate Post assessment: no apparent anesthetic complications Last Vitals: Vitals: 02/27/25 1100 02/27/25 1200 02/27/25 1300 02/27/25 1400 BP: 91/59 94/57 94/59 BP Location: Right upper arm Patient Position: Lying BP Cuff Size: Regular Pulse: 95 70 64 64 Resp: 18 15 14 13 Temp: 98 ??F (36.7 ??C) TempSrc: Oral SpO2: 99% 100% 100% 100% Weight: Height: Last Temperature: 98 ??F (36.7 ??C) (02/27/2025 12:00 PM) Post vital signs: stable Level of consciousness: awake Complications: There were no known notable events for this encounter. documented in this encounter H&P Notes * Lula Bello MD - 02/27/2025 8:40 AM EDT Images from the original note were not included. [facility] DEPARTMENT OF ANESTHESIOLOGY PRE-PROCEDURAL EVALUATION Harsha Patel is a 64 y.o. year old male presenting for: Procedure(s): COLONOSCOPY WITH BIOPSY Surgeon: Lucinda Horton MD Chief Complaint Acute Blood Loss Anemia/ Lower GI Bleed Review of Systems Anesthesia Evaluation Patient summary reviewed and nursing notes reviewed. All other systems reviewed and are negative. No history of anesthetic complications I have reviewed the History and Physical Exam, any relevant changes are noted in the anesthesia pre-operative evaluation. Cardiovascular: Hypertension is. (-) CABG/stent, angina, orthopnea. ECG reviewed. ROS comment: No chest pain. > 4 mets. No anticoagulation. Neuro/Muscoloskeletal/Psych: (-) TIA, CVA. Pulmonary: (-) COPD, asthma, recent URI, sleep apnea. GI/Hepatic/Renal: Bowel prep (Still working on finishing this during this encounter.). (-) GERD, renal disease. Comments: Hx of partial colectomy with mesh hernia repair after traumatic injury Acute GIB with active extravasation noted on OSH CT- IR unable to intervene due to proximity to anastomosis Endo/Other: (+) anemia (Hgb holding steady this morning around 9.6). Diabetes. (-) hyperthyroidism. Past Medical History Past Medical History: Diagnosis Date Diabetes ([facility]) HLD (hyperlipidemia) HTN (hypertension) Past Surgical History No past surgical history on file. Family History No family history on file. Social History Social History Socioeconomic History Marital status: Spouse [...] Other Topics Concern Not on file Social Drivers of Health [...] No Physically Abused: No Sexually Abused: No Medications Allergies: Allergies[1] Home Meds: Home Medications Medication Sig Taking? Last Dose canagliflozin (INVOKANA) 300 mg Tab tablet Take 1 tablet (300 mg total) by mouth daily. Indications: type 2 diabetes mellitus Yes 02/25/2025 Inpatient Meds: Scheduled: insulin regular 0-5 Units Subcutaneous Q6H Scheduled mupirocin 1 g Topical BID pantoprazole (PROTONIX) IV 40 mg Intravenous BID6 polyethylene glycol 17 g Oral Daily 0900 potassium chloride 40 mEq Oral Once Continuous: PRN: dextrose 10% in water OR dextrose 10% in water, glucose, ICU electrolyte replacement protocol AND Initiate electrolyte replacement protocol Vital Signs Wt Readings from Last 3 Encounters: 02/27/25 125 lb 10.6 oz (57 kg) Ht Readings from Last 3 Encounters: 02/26/25 5' 11 (1.803 m) Temp Readings from Last 3 Encounters: 02/27/25 98 ??F (36.7 ??C) (Oral) BP Readings from Last 3 Encounters: 02/27/25 102/69 Pulse Readings from Last 3 Encounters: 02/27/25 83 SpO2 Readings from Last 3 Encounters: 02/27/25 99% Physical Exam Airway: Mallampati: II Mouth Opening: >2 FB TM distance: > = 3 FB Neck ROM: full Dental: Pulmonary: - normal exam Breathing: unlabored Cardiovascular: - normal exam Rhythm: regular Rate: normal Neuro/Musculoskeletal/Psych: - normal neurological exam. Mental status: alert and oriented to person, place and time. Abdominal: - normal exam Current OB Status: Other Findings: Does have CGM in place. . Laboratory Data Lab Results Component Value Date WBC 4.3 02/26/2025 HGB 9.6 (L) 02/27/2025 HCT 26.9 (L) 02/27/2025 MCV 85.3 02/27/2025 PLT 103 (L) 02/26/2025 No results found for: ABORH Lab Results Component Value Date GLUCOSE 77 02/27/2025 BUN 33 (H) 02/27/2025 CO2 28 02/27/2025 CREATININE 0.76 02/27/2025 K 3.9 02/27/2025 NA 143 02/27/2025 CL 108 02/27/2025 CALCIUM 8.0 (L) 02/27/2025 ALBUMIN 3.5 02/27/2025 PROT 5.4 (L) 02/26/2025 ALKPHOS 41 02/26/2025 ALT 28 02/26/2025 AST 25 02/26/2025 BILITOT 0.8 02/26/2025 Lab Results Component Value Date INR 1.2 (H) 02/26/2025 No results found for: PREGTESTUR , PREGSERUM , HCG , HCGQUANT Anesthesia Plan ASA 3 Current non-smoker Anesthesia Type: MAC. PONV Risk Factors: current non-smoker Additional comments: D/w patient benefits/risks of MAC anesthesia and GA as backup. Patient and surgeon agreeable to anesthetic plan. Lower GI bleed. Hgb 9.6 Active type and screen Anesthetic plan and risks discussed with patient. Plan, alternatives, and risks of anesthesia, including , have been explained to and discussed with the patient/legal guardian. By my assessment, the patient/legal guardian understands and agrees. Scenario presented in detail. Questions answered. Use of blood products discussed with patient who consented to blood products. Plan discussed with TRADE UNION SECRETARY and attending. [1] No Known Drug Allergies or Adverse Reactions documented in this encounter Plan of Treatment Not on file documented as of this encounter Visit Diagnoses * Transfer of Care - DENISSE Butler - 02/27/2025 3:56 PM EDT Anesthesia Transfer of Care Note Patient: Harsha Patel Procedure(s) Performed: Procedure(s): COLONOSCOPY WITH BIOPSY Patient location: ICU Anesthesia type: MAC Airway Device on Arrival to PACU/ICU: Nasal Cannula IV Access: Peripheral Monitors Recommended to be Used During PACU/ICU: Standard Monitors Outstanding Issues to Address: None Level of Consciousness: awake, alert , and oriented Post vital signs: Vitals: 02/27/25 1551 BP: 92/56 Pulse: 66 Resp: 12 Temp: SpO2: 100% Complications: No notable events documented. Date 02/26/25 1500 - 02/27/25 0659 02/27/25 0700 - 02/28/25 0659 Shift [id number] 2025-7802 24 Hour Total 7290-7994 9472-2137 4962-8661 24 Hour Total INTAKE P.O. 500 1700 2380 P.O. 500 1700 2380 I.V.(mL/kg) 300(5.3) 300(5.3) Volume (mL) (sodium chloride 0.9 % IV infusion) 300 300 Shift Total(mL/kg) 500(8.7) 1700(29.8) 2380(41.8) 300(5.3) 300(5.3) OUTPUT Urine(mL/kg/hr) 775(1.7) 1100(2.4) 2225(1.6) Urine 775 1100 2225 Stool Stool Occurrence 5 x 5 x 11 x 2 x 2 x Shift Total(mL/kg) 775(13.5) 1100(19.3) 2225(39) Weight (kg) 57.2 57 57 57 57 57 57 documented in this encounter Administered Medications Inactive Administered Medications - up to 3 most recent administrations Medication Order MAR Action Action Date Dose Rate Site glycopyrrolate (ROBINUL) injection Intravenous, PRN - One Step Medication Only, Starting on Sun02/27/25 at 1525, Anesthesia Intra-op Given 02/27/2025 3:25 PM EDT 0.2 mg lidocaine (PF) 20 mg/mL (2 %) Soln Intravenous, PRN - One Step Medication Only, Starting on Sun02/27/25 at 1512, Anesthesia Intra-op Given 02/27/2025 3:12 PM EDT 50 mg phenylephrine (ALEXANDRO-SYNEPHRINE) injection Intravenous, PRN - One Step Medication Only, Starting on Sun02/27/25 at 1519, Anesthesia Intra-op Given 02/27/2025 3:35 PM EDT 50 mcg Given 02/27/2025 3:30 PM EDT 50 mcg Given 02/27/2025 3:25 PM EDT 50 mcg propofol 10 mg/ml (DIPRIVAN) injection Intravenous, PRN - One Step Medication Only, Starting on Sun02/27/25 at 1515, Anesthesia Intra-op Given 02/27/2025 3:31 PM EDT 10 mg Given 02/27/2025 3:15 PM EDT 60 mg propofol 10 mg/ml, 20mL vial (DIPRIVAN) INFUSION Intravenous, Continuous - One Step Medications Only, Starting on Sun02/27/25 at 1512, Anesthesia Intra-op Rate/Dose Change 02/27/2025 3:31 PM EDT 100 mcg/kg/min 34.2 mL/hr Rate/Dose Change 02/27/2025 3:24 PM EDT 80 mcg/kg/min 27.3 6 mL/hr Rate/Dose Change 02/27/2025 3:20 PM EDT 100 mcg/kg/min 34. 2 mL/hr sodium chloride 0.9 % IV infusion Intravenous, Continuous - One Step Medications Only, Starting on Sun02/27/25 at 1509, Anesthesia Intra-op New Bag 02/27/2025 3:09 PM EDT documented in this encounter Care Teams Braid Cutter Relationship Specialty Start Date End Date Unknown, Attending Provider PCP - General 02/25/25 documented as of this encounter
--- OUTSIDE RECORDS SUMMARY | 2025-02-28 10:06 | XMS_ITS | Encounter Summary ---
Author Organization [facility] Address [address] [place] [address] Care Team Providers Care Design Cell Engineer Name Role Phone Unknown, Attending Provider Primary [...] release of HIV test results or diagnoses. [id number] Reason for Visit * Auth/Cert (Routine) Specialty Diagnoses / Procedures Referred By Contrain t Referred To Contact Intensive Care Diagnoses Acute blood loss anemia Lower GI bleed Acute Blood Loss Anemia/ Lower [facility] [address] [place] [address] Phone: tel: Referral ID Status Reason Start Date Expiration Date Visits Re quested Visits Authorized [id number] 1 1 Encounter Details Date Type Department Care Team (Late st Contact Info) Description 02/28/2025 11:06 AM EDT Anesthesia Event [facility] ENDOSCOPY [address] [place] [address] Ponce Gamez MD [address] [place] [address] Chris Vernon MD [address] [place] [id number] Anesthesia Record Procedure Summary Procedure Name Responsible Anesthesiologist Anesthesia Start Time Anesthesia Stop Time EGD Ponce Gamez MD 02/28/25 1106 02/28/25 1 146 Events Date Time Event Comment 02/28/2025 1106 ANPTVER 1106 An Start 1106 An Start Data 1114 An Induction 1115 Time Out 1117 Quick Note Patient ETCO2 n ot reading accurate due to mouth breathing. SPO2 accurate at 100, chest rise noted, air movement felt from mouth 1124 An Emergence 1128 Remove Airway Device 1131 Quick Note Awaiting PACU b ed 1138 an stop data 1138 Quick Note Transport to [facility] 1146 An Stop Meds Name Total lidocaine (XYLOCAINE) 20 mg/mL (2%) inje ction 100 mg propofol (DIPRIVAN) 10 mg/ml IV injectio n (BOLUS) 30 mg propofol (DIPRIVAN) 10 mg/ml infusion - 20ML VIAL SIZE 58.5 mg glycopyrrolate (ROBINUL) 0.2 mg/mL injec tion 0.2 mg 0.9% NaCl infusion 200 mL * Agents Name N2O Auxiliary O2 [...] by Janie Canas RN Anesthesia Airway Device 02/28/25; 1111; Nasal Cannula Salter; 02/28/25; 1128 02/28/25 1111 by Christie Restrepo CRNA 02/28/25 1128 by Christie Restrepo CRNA Anesthesia Airway Device Nasal Cannula Salter; 02/28/25; 1128 02/28/25 1112 by 02/28/25 1128 by Christie Restrepo CRNA documented in this encounter Social History Tobacco Use Types Packs/Day Years Used Date Smoking Tobacco: Former Cigarettes 1 45.9 S tarted: 1979 Passive Smoke Exposure: Past Smokeless Tobacco: Never Alcohol Use Standard Drinks/Week Comments Not Currently 0 (1 standard drink = 0.6 oz pur e alcohol) [facility] Utilities Answer Date Recorded In the past 12 months has th e electric, gas, oil, or water company threatened to shut off services in your home? No 02/26/2025 AUDIT-C Answer Date Recorded Q1: How often do you have a drink containing alc ohol? Never 02/26/2025 Average Number of Drinks Not on file Frequency of Binge Drinking Not on file [...] any time in the past 12 m [facility], were you homeless or living in a fdc (including now)? No 02/26/2025 Sex and Gender Information Value Date Recorded Sex Assigned at Not on file Legal Sex Male 2:12 AM EDT Gender Identity Not on file Sexual Orientation Not on file documented as of this encounter Progress Notes * Ponce Gamez MD - 03/03/2025 8:53 PM EDT Anesthesia Post Note Patient: Harsha Patel Procedure(s) Performed: Procedure(s): EGD Anesthesia type: MAC Patient location: Endoscopy PACU Airway: Patent Post pain: Adequate analgesia Nausea / Vomiting: Absent Post-operative Hydration Status: Adequate Post assessment: no apparent anesthetic complications Last Vitals: Vitals: 03/02/25 0529 03/02/25 0737 03/02/25 0831 03/02/25 1202 BP: 99/55 90/51 (!) 84/53 BP Location: Right upper arm Left upper arm Right upper arm Patient Position: Lying Lying Sitting BP Cuff Size: Pulse: 58 58 79 54 Resp: 15 16 16 Temp: 97.7 ??F (36.5 ??C) 97.8 ??F (36.6 ??C) 97.6 ??F (36.4 ??C) TempSrc: Oral Oral Oral SpO2: 100% 100% 100% Weight: Height: Last Temperature: 97.6 ??F (36.4 ??C) (03/02/2025 12:02 PM) Post vital signs: stable Level of consciousness: awake Complications: There were no known notable events for this encounter. documented in this encounter H&P Notes * Ponce Gamez MD - 02/28/2025 10:48 AM EDT Images from the original note were not included. [facility] DEPARTMENT OF ANESTHESIOLOGY PRE-PROCEDURAL EVALUATION Harsha Patel is a 64 y.o. year old male presenting for: Procedure(s): EGD Surgeon: Omar Cao MD Chief Complaint Acute Blood Loss Anemia/ Lower GI Bleed; Acute GI bleeding Review of Systems Anesthesia Evaluation Patient summary [...] COPD, asthma, recent URI, sleep apnea. GI/Hepatic/Renal: No bowel prep. (-) GERD, renal disease. Comments: Hx of partial colectomy with mesh hernia repair after traumatic injury Acute GIB with active extravasation noted on OSH CT- IR unable to intervene due to proximity to anastomosis Endo/Other: (+) anemia. Diabetes. (-) hyperthyroidism. Past Medical History Past Medical History: Diagnosis Date Diabetes (CMS-HCC) HLD (hyperlipidemia) HTN (hypertension) Past Surgical History Past Surgical History: Procedure Laterality Date COLONOSCOPY N/A 02/27/2025 Procedure: COLONOSCOPY WITH BIOPSY; Surgeon: Lucinda Horton MD; Location: ENDOSCOPY; Service: Gastroenterology; Laterality: N/A; Family History History reviewed. No pertinent family history. Social History Social History Socioeconomic History Marital [...] 15 MG tablet More than a month Inpatient Meds: Scheduled: insulin lispro 0-5 Units Subcutaneous TID AC mupirocin 1 g Topical BID pantoprazole (PROTONIX) IV 80 mg Intravenous BID6 PARoxetine 20 mg Oral Daily 09 polyethylene glycol 17 g Oral Daily 09 rosuvastatin 40 mg Oral Nightly (2100) Continuous: sodium chloride 0.9 % PRN: dextrose 10% in water OR dextrose 10% in water, glucose Vital Signs Wt Readings from Last 3 Encounters: 02/28/25 129 lb 13.6 oz (58.9 kg) Ht Readings from Last 3 Encounters: 02/28/25 5' 11 (1.803 m) Temp Readings from Last 3 Encounters: 02/28/25 97.7 ??F (36.5 ??C) (Oral) BP Readings from Last 3 Encounters: 02/28/25 94/53 Pulse Readings from Last 3 Encounters: 02/28/25 55 SpO2 Readings from Last 3 Encounters: 02/28/25 100% Physical Exam Airway: Mallampati: II Mouth Opening: [...] Data Lab Results Component Value Date WBC 3.8 02/28/2025 HGB 9.0 (L) 02/28/2025 HCT 25.7 (L) 02/28/2025 MCV 86.0 02/28/2025 PLT 130 (L) 02/28/2025 No results found for: ABORH Lab Results Component Value Date GLUCOSE 80 02/28/2025 BUN 25 02/28/2025 CO2 27 02/28/2025 CREATININE 0.66 02/28/2025 K 4.4 02/28/2025 NA 139 02/28/2025 CL 108 02/28/2025 CALCIUM 8.0 (L) 02/28/2025 ALBUMIN 3.2 (L) 02/28/2025 PROT 5.4 (L) 02/26/2025 ALKPHOS 41 02/26/2025 ALT 28 02/26/2025 AST 25 02/26/2025 BILITOT 0.8 02/26/2025 Lab Results Component Value Date INR 1.2 (H) 02/26/2025 No results found for: PREGTESTUR , PREGSERUM , HCG , HCGQUANT Anesthesia Plan ASA 3 Current non-smoker Anesthesia Type: MAC. PONV Risk Factors: current non-smoker Induction: Intravenous induction. Anesthetic plan and risks discussed with patient. Plan, alternatives, and risks of anesthesia, including , have been explained to and discussed with the patient/legal guardian. By my assessment, the patient/legal guardian understands and agrees. Scenario presented in detail. Questions answered. Use of blood products discussed with patient who consented to blood products. Plan discussed with ENGINEERING EXECUTIVE. [1] No Known Drug Allergies or Adverse Reactions documented in this encounter Plan of Treatment Not on file documented as of this encounter Visit Diagnoses * Transfer of Care - Robi Melendez RN - 02/28/2025 11:47 AM EDT Anesthesia Transfer of Care Note Patient: Harsha Patel Procedure(s) Performed: Procedure(s): EGD Patient location: PACU Anesthesia type: MAC Airway Device on Arrival to PACU/ICU: Nasal Cannula IV Access: Peripheral Monitors Recommended to be Used During PACU/ICU: Standard Monitors Outstanding Issues to Address: None Level of Consciousness: awake, alert , and oriented Post vital signs: Vitals: 02/28/25 1147 BP: 93/57 Pulse: 58 Resp: 16 Temp: 98 ??F (36.7 ??C) SpO2: 100% Complications: There were no known notable events for this encounter. Date 02/27/25699 - 02/28/25 0659 02/28/25 07 - 03/01/25 0659 Shift [id number] 4811-5474 4123-3913 24 Hour Total [id number] 0509-5119 4924-7827 24 Hour Total INTAKE I.V.(mL/kg) 300(5.3) 300(5.1) 200(3.4) 200(3.4) Volume (mL) (sodium chloride 0.9 % IV infusion) 200 200 Volume (mL) (sodium chloride 0.9 % IV infusion) 300 300 Shift Total(mL/kg) 300(5.3) 300(5.1) 200(3.4) 200(3.4) OUTPUT Urine(mL/kg/hr) 300(0.7) 200(0.4) 500(0.4) Urine 300 200 500 Stool Stool Occurrence 2 x 2 x Shift Total(mL/kg) 300(5.3) 200(3.4) 500(8.5) Weight (kg) 57 57 58.9 58.9 58.5 58.5 58.5 58.5 documented in this encounter Administered Medications Inactive Administered Medications - up to 3 most recent administrations Medication Order MAR Action Action Date Dose Rate Site glycopyrrolate (ROBINUL) injection Intravenous, PRN - One Step Medication Only, Starting on 02/28/25 at 1114, Anesthesia Intra-op Given 02/28/2025 11:14 AM EDT 0.2 mg lidocaine (PF) 20 mg/mL (2 %) Soln Intravenous, PRN - One Step Medication Only, Starting on 02/28/25 at 1106, Anesthesia Intra-op Given 02/28/2025 11:06 AM EDT 100 mg propofol 10 mg/ml (DIPRIVAN) injection Intravenous, PRN - One Step Medication Only, Starting on 02/28/25 at 1114, Anesthesia Intra-op Given 02/28/2025 11:16 AM EDT 10 mg Given 02/28/2025 11:14 AM EDT 20 mg propofol 10 mg/ml, 20mL vial (DIPRIVAN) INFUSION Intravenous, Continuous - One Step Medications Only, Starting on 02/28/25 at 1114, Anesthesia Intra-op New Bag 02/28/2025 11:14 AM EDT 100 mcg/kg/min 35.1 mL/hr sodium chloride 0.9 % IV infusion Intravenous, Continuous - One Step Medications Only, Starting on 02/28/25 at 1106, Anesthesia Intra-op New Bag 02/28/2025 11:06 AM EDT documented in this encounter Care Teams Design Cell Engineer Relationship Specialty Start Date End Date Unknown, Attending Provider PCP - General 02/25/25 documented as of this encounter
--- OUTSIDE RECORDS SUMMARY | 2025-02-28 11:15 | XMS_ITS | Encounter Summary ---
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 PM EDT [facility] Comment: Dirurnal Variation: a.m: 6.7-22.6 ug/dL p.m: 0-10 ug/dL ACTH Stimulation: Over twice (usually 3 to 5 times) basal values Dexamethasone Suppression: Below basal value for the screening, low-dose and high-dose tests Please note: Effective 06/02/14, reference range for this assay has changed. Serum 03/01/2025 2:00 PM EDT 03/01/2025 2:05 PM EDT Narrative [facility] - 03/01/2025 2:49 PM EDT Draw baseline prior to med administration, then 30 and 60 minutes post med administration us Donna Hernandez MD LAB BLOOD ORDERABLES Fin al Result Performing Organization Address [facility] Co de Phone Number [facility] [address] [facility] * (ABNORMAL) POC Glucose Monitoring Device (03/01/2025 1:16 PM EDT) [employer] Signature POC Glucose Monitoring Device 212(H) 70 - 100 mg/dL 03/01/2025 1:17 PM EDT [facility] Blood 03/01/2025 1:16 PM EDT 03/01/2025 1:17 PM EDT us Carmela Jernigan MD POINT OF CARE TEST ALEXY MOLINA Final Result Performing Organization Address [facility] Co de Phone Number [facility] [address] [facility] * (ABNORMAL) POC Glucose Monitoring Device (03/01/2025 7:58 AM EDT) POC Glucose Monitoring Device 107(H) 70 - 100 mg/dL 03/01/2025 7:59 AM EDT [facility] Blood 03/01/2025 7:58 AM EDT 03/01/2025 7:59 AM EDT Carmela Jernigan MD POINT OF CARE TEST ORDMike MOLINA Final Result Performing Organization Address [facility] de Phone Number [facility] [address] [facility] * Cortisol (03/01/2025 7:06 AM EDT) Cortisol (Immunoassay) 7.7 ug/dL 03/01/2025 8:32 AM EDT [facility] Comment: Dirurnal Variation: a.m: [...] ORDERABLES Final Resul t Performing Organization Address [facility] de Phone Number [facility] [address] [facility] * TSH (03/01/2025 7:06 AM EDT) TSH 1.74 0.45 - 4.12 uIU/mL 03/01/2025 8:36 AM EDT [facility] Serum 03/01/2025 7:06 AM EDT 03/01/2025 7:38 AM EDT Desean Bishop MD LAB BLOOD ORDERABLES Final Resul t Performing Organization Address [facility] Co de Phone Number [facility] [address] [facility] * (ABNORMAL) CBC (03/01/2025 7:06 AM EDT) WBC 3.7(L) 3.8 - 10.8 10E3/uL 03/01/2025 8:10 AM EDT [facility] RBC 3.13(L) 4.20 - 5.80 10E6/uL 03/01/2025 8:10 AM EDT [facility] Hemoglobin 9.3(L) 13.2 - 17.1 g/dL 03/01/2025 8:10 AM EDT [facility] Hematocrit 27.2(L) 38.5 - 50.0 % 03/01/2025 8:10 AM EDT [facility] MCV 86.8 80.0 - 100.0 fL 03/01/2025 8:10 AM EDT [facility] MCH 29.7 27.0 - 33.0 pg 03/01/2025 8:10 AM EDT [facility] MCHC 34.2 32.0 - 36.0 g/dL 03/01/2025 8:10 AM EDT [facility] RDW 15.6(H) 11.0 - 15.0 % 03/01/2025 8:10 AM EDT [facility] Platelets 120(L) 140 - 400 10E3/uL 03/01/2025 8:10 AM EDT [facility] MPV 8.4 7.5 - 11.5 fL 03/01/2025 8:10 AM EDT [facility] Whole Blood 03/01/2025 7:06 AM EDT 03/01/2025 7:38 AM EDT us Donna Hernandez MD LAB BLOOD ORDERABLES Fin al Result [facility] [address] * Differential (03/01/2025 7:06 AM EDT) Neutrophils Relative 57.2 40.0 - 80.0 % 03/01/2025 8:10 AM EDT [facility] Lymphocytes Relative 29.9 15.0 - 45.0 % 03/01/2025 8:10 AM EDT [facility] Monocytes Relative 11.0 0.0 - 12.0 % 03/01/2025 8:10 AM EDT [facility] Eosinophils Relative 1.8 0.0 - 8.0 % 03/01/2025 8:10 AM EDT [facility] Basophils Relative 0.1 0.0 - 1.0 % 03/01/2025 8:10 AM EDT [facility] nRBC 0 0 - 0 /100 WBC 03/01/2025 8:10 AM EDT [facility] Neutrophils Absolute 2,116 1,520 - 8,640 /uL 03/01/2025 8:10 AM EDT [facility] Lymphocytes Absolute 1,106 570 - 4,860 /uL 03/01/2025 8:10 AM EDT [facility] Monocytes Absolute 407 0 - 1,296 /uL 03/01/2025 8:10 AM EDT [facility] Eosinophils Absolute 67 0 - 864 /uL 03/01/2025 8:10 AM EDT [facility] Basophils Absolute 4 0 - 108 /uL 03/01/2025 8:10 AM EDT [facility] Whole Blood 03/01/2025 7:06 AM EDT 03/01/2025 7:38 AM EDT us Donna Hernandez MD LAB BLOOD ORDERABLES Fin al Result [facility] [address] [id number] * (ABNORMAL) Renal Function Panel w/EGFR (03/01/2025 7:06 AM EDT) Sodium 143 133 - 146 mmol/L 03/01/2025 8:30 AM EDT [facility] Potassium 4.4 3.5 - 5.3 mmol/L 03/01/2025 8:30 AM EDT [facility] Chloride 108 98 - 110 mmol/L 03/01/2025 8:30 AM EDT [facility] CO2 31 21 - 33 mmol/L 03/01/2025 8:30 AM EDT [facility] Anion Gap 4 3 - 16 mmol/L 03/01/2025 8:30 AM EDT [facility] BUN 25 7 - 25 mg/dL 03/01/2025 8:30 AM EDT [facility] Creatinine 0.81 0.60 - 1.30 mg/dL 03/01/2025 8:30 AM EDT [facility] Glucose 112(H) 70 - 100 mg/dL 03/01/2025 8:30 AM EDT [facility] Calcium 7.8(L) 8.6 - 10.3 mg/dL 03/01/2025 8:30 AM EDT [facility] Phosphorus 3.7 2.1 - 4.7 mg/dL 03/01/2025 8:30 AM EDT [facility] Albumin 3.3(L) 3.5 - 5.7 g/dL 03/01/2025 8:30 AM EDT [facility] Osmolality, Calculated 301 278 - 305 mOsm/kg 03/01/2025 8:30 AM EDT [facility] EGFR >90 03/01/2025 8:30 AM T [facility] Comment: As of 2021, [...] Pili M, Mercedes DC, Di ND, Todd ODONNELL, Vince LA, et al. A Unifying Approach [...] MD LAB BLOOD ORDERABLES Fin al Result [facility] [address] [facility] * Magnesium (03/01/2025 7:06 AM EDT) Magnesium 1.9 1.5 - 2.5 mg/dL 03/01/2025 8:30 AM EDT [facility] Plasma 03/01/2025 7:06 AM EDT 03/01/2025 7:38 AM EDT Donna Hernandez MD LAB BLOOD ORDERABLES Fin al Result Performing Organization Address [facility] Co de Phone Number [facility] [address] [place] [address]. [address] * (ABNORMAL) POC Glucose Monitoring Device (02/28/2025 10:31 PM EDT) POC Glucose Monitoring Device 235(H) 70 - 100 mg/dL 02/28/2025 10:32 PM EDT [facility] Blood 02/28/2025 10:3 1 PM EDT 02/28/2025 10:32 PM EDT us Carmela Jernigan MD POINT OF CARE TEST ORDE JESSE Final Result Performing Organization Address City/[facility] Co de Phone Number [facility] [address] [place] [address]. [address] * (ABNORMAL) POC Glucose Monitoring Device (02/28/2025 7:15 PM EDT) POC Glucose Monitoring Device 178(H) 70 - 100 mg/dL 02/28/2025 7:16 PM EDT [facility] Blood 02/28/2025 7:15 PM EDT 02/28/2025 7:16 PM EDT Carmela Jernigan MD POINT OF CARE TEST ORDE JESSE Final Result [facility] [address] [facility]. [address] * (ABNORMAL) CBC (02/28/2025 6:45 PM EDT) Pathologist [facility] [place] WBC 6.8 3.8 - 10.8 10E3/uL 02/28/2025 7:30 PM EDT [facility] RBC 3.11(L) 4.20 - 5.80 10E6/uL 02/28/2025 7:30 PM EDT [facility] Hemoglobin 9.3(L) 13.2 - 17.1 g/dL 02/28/2025 7:30 PM EDT [facility] Hematocrit 27.3(L) 38.5 - 50.0 % 02/28/2025 7:30 PM EDT [facility] MCV 87.9 80.0 - 100.0 fL 02/28/2025 7:30 PM EDT [facility] MCH 30.1 27.0 - 33.0 pg 02/28/2025 7:30 PM EDT [facility] MCHC 34.2 32.0 - 36.0 g/dL 02/28/2025 7:30 PM EDT [facility] RDW 15.5(H) 11.0 - 15.0 % 02/28/2025 7:30 PM EDT [facility] Platelets 130(L) 140 - 400 10E3/uL 02/28/2025 7:30 PM EDT [facility] MPV 8.2 7.5 - 11.5 fL 02/28/2025 7:30 PM EDT [facility] Whole Blood 02/28/2025 6:45 PM EDT 02/28/2025 7:17 PM EDT us Desean Bishop MD LAB BLOOD ORDERABLES Final Resul t [facility] [address] [facility]. [address] * (ABNORMAL) POC Glucose Monitoring Device (02/28/2025 4:57 PM EDT) Pathologist [facility] [place] POC Glucose Monitoring Device 184(H) 70 - 100 mg/dL 02/28/2025 4:57 PM EDT [facility] Blood 02/28/2025 4:57 PM EDT 02/28/2025 4:57 PM EDT Carmela Jernigan MD POINT OF CARE TEST ALEXY MOLINA Final Result [facility] [address] * (ABNORMAL) CBC (02/28/2025 4:09 PM EDT) WBC 7.2 3.8 - 10.8 10E3/uL 02/28/2025 4:50 PM EDT [facility] RBC 3.70(L) 4.20 - 5.80 10E6/uL 02/28/2025 4:50 PM EDT [facility] Hemoglobin 11.1(L) 13.2 - 17.1 g/dL 02/28/2025 4:50 PM EDT [facility] Hematocrit 32.3(L) 38.5 - 50.0 % 02/28/2025 4:50 PM EDT [facility] MCV 87.4 80.0 - 100.0 fL 02/28/2025 4:50 PM EDT [facility] MCH 30.2 27.0 - 33.0 pg 02/28/2025 4:50 PM EDT [facility] MCHC 34.5 32.0 - 36.0 g/dL 02/28/2025 4:50 PM EDT [facility] RDW 15.7(H) 11.0 - 15.0 % 02/28/2025 4:50 PM EDT [facility] Platelets 147 140 - 400 10E3/uL 02/28/2025 4:50 PM EDT [facility] MPV 8.6 7.5 - 11.5 fL 02/28/2025 4:50 PM EDT [facility] Whole Blood 02/28/2025 4:09 PM EDT 02/28/2025 4:22 PM EDT us Desean Wehry MD LAB BLOOD ORDERABLES Final Resul t Performing Organization Address City/[facility]/ZIP Co de Phone Number [facility] [address] * POC Glucose Monitoring Device (02/28/2025 2:11 PM EDT) POC Glucose Monitoring Device 90 70 - 100 mg/dL 02/28/2025 2:11 PM EDT [facility] Blood 02/28/2025 2:11 PM EDT 02/28/2025 2:11 PM EDT us Carmela Jernigan MD POINT OF CARE TEST ORDE RABSUNDAY Final Result Performing Organization Address [facility] Co de Phone Number [facility] [address] [facility] * POC Glucose Monitoring Device (02/28/2025 11:45 AM EDT) POC Glucose Monitoring Device 87 70 - 100 mg/dL 02/28/2025 11:46 AM EDT [facility] Blood 02/28/2025 11:4 5 AM EDT 02/28/2025 11:46 AM EDT us Carmela Jernigan MD POINT OF CARE TEST ORDE RABSUNDAY Final Result Performing Organization Address City/[facility] Co de Phone Number [facility] [address] [facility] * UPPER GI ENDOSCOPY (02/28/2025 10:54 AM EDT) 02/28/2025 10:5 4 AM EDT Narrative [facility] - 02/28/2025 11:42 AM EDT [id number] Procedure Date: 02/28/2025 10:54 AM Patient Name: Harsha Avina Date of : 1960 Admit Type: Inpatient Age: 64 Gender: Male Note Status: Finalized Attending MD: VEE CAO MD, [id number] Procedure: Upper GI endoscopy Indications: Hematochezia Providers: [...] verified by the physician, the nurse, the jewel gauger and the splicing technician in the procedure room. Mental Status [...] previously scheduled. Procedure Code(s): --- Professional --- 06446, GC, Esophagogastroduodenoscopy, flexible, transoral; diagnostic, including collection of specimen(s) by brushing or washing, when performed (separate procedure) Diagnosis Code(s): --- Professional --- Z98.0, Intestinal bypass and anastomosis status K92.1, Melena (includes Hematochezia) CPT copyright 2022 [employer]. All rights reserved. The codes documented in this report are preliminary and upon travel registered nurse nicu review may be revised to meet current [...] In: 11:16:43 AM Scope Out: 11:23:33 AM [facility] [place], [place], Critical access hospital Attending Provider Unknown PROCEDURE/MINOR SURGI ELIAS ORDERABLES Final Result Performing Organization Address [facility]/ZIP Co de Phone Number [facility] * (ABNORMAL) POC Glucose Monitoring Device (02/28/2025 9:44 AM EDT) POC Glucose Monitoring Device 118(H) 70 - 100 mg/dL 02/28/2025 9:45 AM EDT [facility] Blood 02/28/2025 9:44 AM EDT 02/28/2025 9:45 AM EDT Carmela Jernigan MD POINT OF CARE TEST ORDE JESES Final Result Performing Organization Address [facility] de Phone Number [address] * (ABNORMAL) POC Glucose Monitoring Device (02/28/2025 5:13 AM EDT) POC Glucose Monitoring Device 135(H) 70 - 100 mg/dL 02/28/2025 5:14 AM EDT [facility] Blood 02/28/2025 5:13 AM EDT 02/28/2025 5:13 AM EDT Carmela Jernigan MD POINT OF CARE TEST ORDE JESSE Final Result Performing Organization Address [facility] Co de Phone Number [facility] [address] [place] [address]. [address] * POC Glucose Monitoring Device (02/28/2025 4:53 AM EDT) POC Glucose Monitoring Device 84 70 - 100 mg/dL 02/28/2025 4:54 AM EDT [facility] Blood 02/28/2025 4:53 AM EDT 02/28/2025 4:53 AM EDT us Carmela Jernigan MD POINT OF CARE TEST ORDE JESSE Final Result [facility] [address] * (ABNORMAL) CBC, STAT (02/28/2025 3:48 AM EDT) WBC 3.8 3.8 - 10.8 10E3/uL 02/28/2025 4:03 AM EDT [facility] RBC 2.99(L) 4.20 - 5.80 10E6/uL 02/28/2025 4:03 AM EDT [facility] Hemoglobin 9.0(L) 13.2 - 17.1 g/dL 02/28/2025 4:03 AM EDT [facility] Hematocrit 25.7(L) 38.5 - 50.0 % 02/28/2025 4:03 AM EDT [facility] MCV 86.0 80.0 - 100.0 fL 02/28/2025 4:03 AM EDT [facility] MCH 30.0 27.0 - 33.0 pg 02/28/2025 4:03 AM EDT [facility] MCHC 34.9 32.0 - 36.0 g/dL 02/28/2025 4:03 AM EDT [facility] RDW 15.9(H) 11.0 - 15.0 % 02/28/2025 4:03 AM EDT [facility] Platelets 130(L) 140 - 400 10E3/uL 02/28/2025 4:03 AM EDT [facility] MPV 8.4 7.5 - 11.5 fL 02/28/2025 4:03 AM EDT [facility] Whole Blood 02/28/2025 3:48 AM EDT 02/28/2025 3:51 AM EDT us Michael Winston DDS LAB BLOOD ORDERABLES Final Res ult [facility] [address] * (ABNORMAL) Renal Function Panel w/EGFR (02/28/2025 3:48 AM EDT) Sodium 139 133 - 146 mmol/L 02/28/2025 5:04 AM EDT [facility] Potassium 4.4 3.5 - 5.3 mmol/L 02/28/2025 5:04 AM EDT [facility] Chloride 108 98 - 110 mmol/L 02/28/2025 5:04 AM EDT [facility] CO2 27 21 - 33 mmol/L 02/28/2025 5:04 AM EDT [facility] Anion Gap 4 3 - 16 mmol/L 02/28/2025 5:04 AM EDT [facility] BUN 25 7 - 25 mg/dL 02/28/2025 5:04 AM EDT [facility] Creatinine 0.66 0.60 - 1.30 mg/dL 02/28/2025 5:04 AM EDT [facility] Glucose 80 70 - 100 mg/dL 02/28/2025 5:04 AM EDT [facility] Calcium 8.0(L) 8.6 - 10.3 mg/dL 02/28/2025 5:04 AM EDT [facility] Phosphorus 3.2 2.1 - 4.7 mg/dL 02/28/2025 5:04 AM EDT [facility] Albumin 3.2(L) 3.5 - 5.7 g/dL 02/28/2025 5:04 AM EDT [facility] Osmolality, Calculated 291 278 - 305 mOsm/kg 02/28/2025 5:04 AM EDT [facility] EGFR >90 02/28/2025 5:[facility] Comment: As of 2021, the estimated [...] Mercedes DC, Di ND, Todd CA, Vince ROMERO, et al. A Unifying Approach for GFR [...] ORDERABLES Final Re sult Performing Organization Address City/[facility]/ZIP Co de Phone Number [facility] [address] [facility] * Magnesium (02/28/2025 3:48 AM EDT) Magnesium 2.0 1.5 - 2.5 mg/dL 02/28/2025 5:04 AM EDT [facility] Plasma 02/28/2025 3:48 AM EDT 02/28/2025 3:51 AM EDT Lucy Troncoso MD LAB BLOOD ORDERABLES Final Re sult Performing Organization Address [facility]/ZIP Co de Phone Number [facility] [address] [facility] * (ABNORMAL) CBC, STAT (02/27/2025 10:43 PM EDT) WBC 3.4(L) 3.8 - 10.8 10E3/uL 02/27/2025 10:53 PM EDT [facility] RBC 3.15(L) 4.20 - 5.80 10E6/uL 02/27/2025 10:53 PM EDT [facility] Hemoglobin 9.4(L) 13.2 - 17.1 g/dL 02/27/2025 10:53 PM EDT [facility] Hematocrit 27.1(L) 38.5 - 50.0 % 02/27/2025 10:53 PM EDT [facility] MCV 86.1 80.0 - 100.0 fL 02/27/2025 10:53 PM EDT [facility] MCH 29.8 27.0 - 33.0 pg 02/27/2025 10:53 PM EDT [facility] MCHC 34.7 32.0 - 36.0 g/dL 02/27/2025 10:53 PM EDT [facility] RDW 15.6(H) 11.0 - 15.0 % 02/27/2025 10:53 PM EDT [facility] Platelets 112(L) 140 - 400 10E3/uL 02/27/2025 10:53 PM EDT [facility] MPV 8.0 7.5 - 11.5 fL 02/27/2025 10:53 PM EDT [facility] Whole Blood 02/27/2025 10:4 3 PM EDT 02/27/2025 10:48 PM EDT us Michael Winston DDS LAB BLOOD ORDERABLES Final Res ult [facility] [address] [facility]. [address] * POC Glucose Monitoring Device (02/27/2025 5:08 PM EDT) [facility] POC Glucose Monitoring Device 72 70 - 100 mg/dL 02/27/2025 5:10 PM EDT [facility] Blood 02/27/2025 5:08 PM EDT 02/27/2025 5:09 PM EDT us Laura Delacruz MD POINT OF CARE TEST ORDERABLES Fi nal Result [facility] [address] [facility]. [address] * Endoscopy, colon, diagnostic (02/27/2025 2:50 PM EDT) 02/27/2025 2:50 PM EDT Narrative [facility] - 02/27/2025 4:52 PM EDT [id number] Procedure Date: 02/27/2025 2:50 PM Patient Name: Harsha Avina Date of : 1960 Admit Type: Inpatient Age: 64 Gender: Male Note Status: Finalized Attending MD: Lucinda Horton MD, [id number] Procedure: Colonoscopy Indications: Hematochezia Patient Profile: 64 [...] verified by the physician, the nurse, the jewel gauger and the splicing technician in the endoscopy suite. Mental Status [...] care. - Clear liquid diet. NPO at [place]. - Plan for EGD tomorrow. - Continue present medications. - Await pathology results. - Repeat colonoscopy for screening purposes as an outpatient. Examination today was not adequate for polyp screening / surveillance. Procedure Code(s): --- Professional --- 65494, GC, Colonoscopy, flexible; with biopsy, single or multiple Diagnosis Code(s): --- Professional --- Z98.0, Intestinal bypass and anastomosis status K63.3, Ulcer of intestine K92.1, Melena (includes Hematochezia) CPT copyright 2022 [employer]. All rights reserved. The codes documented in this report are preliminary and upon travel registered nurse nicu review may be revised to meet current [...] In: 3:17:54 PM Scope Out: 3:36:[address] [place] [address], Critical access hospital Provider Not In System GI PROCEDURE ORDERABLES F inal Result Performing Organization Address [facility] Co de Phone Number [facility] * (ABNORMAL) POC Glucose Monitoring Device (02/27/2025 12:56 PM EDT) POC Glucose Monitoring Device 137(H) 70 - 100 mg/dL 02/27/2025 12:57 PM EDT [facility] Blood 02/27/2025 12:5 6 PM EDT 02/27/2025 12:57 PM EDT us Laura Delacruz MD POINT OF CARE TEST ORDERABLES Fi nal Result Performing Organization Address [facility]/ZIP Co de Phone Number [address] * (ABNORMAL) POC Glucose Monitoring Device (02/27/2025 12:31 PM EDT) POC Glucose Monitoring Device 68(L) 70 - 100 mg/dL 02/27/2025 12:31 PM EDT [facility] Blood 02/27/2025 12:3 1 PM EDT 02/27/2025 12:31 PM EDT Laura Delacruz MD POINT OF CARE TEST ORDERABLES Fi nal Result Performing Organization Address City/[facility]/ZIP Co de Phone Number [facility] [address] * Free Calcium, Whole Blood (02/27/2025 8:18 AM EDT) Free Calcium, WB 4.71 4.50 - 5.30 mg/dL 02/27/2025 8:26 AM EDT [facility] Blood, Arterial 02/27/2025 8 :18 AM EDT 02/27/2025 8:22 AM EDT Kenny Zhu MD LAB BLOOD ORDERABLES Final Result Performing Organization Address City/[facility] Co de Phone Number [facility] [address] * (ABNORMAL) Hemoglobin and Hematocrit, Blood (02/27/2025 8:18 AM EDT) Hemoglobin 9.6(L) 13.2 - 17.1 g/dL 02/27/2025 8:34 AM EDT [facility] Hematocrit 26.9(L) 38.5 - 50.0 % 02/27/2025 8:34 AM EDT [facility] MCV 85.3 80.0 - 100.0 fL 02/27/2025 8:34 AM EDT [facility] MCH 30.5 27.0 - 33.0 pg 02/27/2025 8:34 AM EDT [facility] MCHC 35.7 32.0 - 36.0 g/dL 02/27/2025 8:34 AM EDT [facility] RDW 15.9(H) 11.0 - 15.0 % 02/27/2025 8:34 AM EDT [facility] Whole Blood 02/27/2025 8:18 AM EDT 02/27/2025 8:28 AM EDT us Kenny Zhu MD LAB BLOOD ORDERABLES Final Result Performing Organization Address [facility]/ZIP Co de Phone Number [facility] [address] [facility]. [address] * CONSTANTINE Rhythm Strip - Scan (02/27/2025 7:41 AM EDT) us Scanning Uchhim SCAN DOCS - NO RESULTS Final Res ult * POC Glucose Monitoring Device (02/27/2025 4:09 AM EDT) POC Glucose Monitoring Device 92 70 - 100 mg/dL 02/27/2025 4:09 AM EDT [facility] Blood 02/27/2025 4:09 AM EDT 02/27/2025 4:09 AM EDT Laura Delacruz MD POINT OF CARE TEST ORDERABLES Fi nal Result Performing Organization Address [facility]/ZIP Co de Phone Number [facility] [address] [facility]. [address] * (ABNORMAL) Hemoglobin and hematocrit, blood (02/27/2025 4:02 AM EDT) Hemoglobin 9.6(L) 13.2 - 17.1 g/dL 02/27/2025 4:40 AM EDT [facility] Hematocrit 26.9(L) 38.5 - 50.0 % 02/27/2025 4:40 AM EDT [facility] MCV 85.7 80.0 - 100.0 fL 02/27/2025 4:40 AM EDT [facility] MCH 30.4 27.0 - 33.0 pg 02/27/2025 4:40 AM EDT [facility] MCHC 35.5 32.0 - 36.0 g/dL 02/27/2025 4:40 AM EDT [facility] RDW 16.0(H) 11.0 - 15.0 % 02/27/2025 4:40 AM EDT [facility] Whole Blood 02/27/2025 4:02 AM EDT 02/27/2025 4:25 AM EDT Jayme Judd MD LAB BLOOD ORDERABLES Final Re sult [facility] [address] [place] [address], [facility] * (ABNORMAL) Renal Function Panel w/EGFR, STAT (02/27/2025 4:02 AM EDT) Sodium 143 133 - 146 mmol/L 02/27/2025 4:47 AM EDT [facility] Potassium 3.9 3.5 - 5.3 mmol/L 02/27/2025 4:47 AM EDT [facility] Chloride 108 98 - 110 mmol/L 02/27/2025 4:47 AM EDT [facility] CO2 28 21 - 33 mmol/L 02/27/2025 4:47 AM EDT [facility] Anion Gap 7 3 - 16 mmol/L 02/27/2025 4:47 AM EDT [facility] BUN 33(H) 7 - 25 mg/dL 02/27/2025 4:47 AM EDT [facility] Creatinine 0.76 0.60 - 1.30 mg/dL 02/27/2025 4:47 AM EDT [facility] Glucose 77 70 - 100 mg/dL 02/27/2025 4:47 AM EDT [facility] Calcium 8.0(L) 8.6 - 10.3 mg/dL 02/27/2025 4:47 AM EDT [facility] Phosphorus 3.1 2.1 - 4.7 mg/dL 02/27/2025 4:47 AM EDT [facility] Albumin 3.5 3.5 - 5.7 g/dL 02/27/2025 4:47 AM EDT [facility] Osmolality, Calculated 302 278 - 305 mOsm/kg 02/27/2025 4:47 AM EDT [facility] EGFR >90 02/27/2025 4:47 AM EDT [facility] Comment: As of 2021, [...] MD LAB BLOOD ORDERABLES Final Resu lt [facility] [address] [place] [address], [facility] * (ABNORMAL) Hemoglobin A1c (02/27/2025 4:02 AM [...] ORDERABLES Final Re sult Performing Organization Address City/State/[facility] Co de Phone Number [facility] [address] * (ABNORMAL) Hemoglobin and Hematocrit, Blood (02/27/2025 12:32 AM EDT) Hemoglobin 9.7(L) 13.2 - 17.1 g/dL 02/27/2025 1:39 AM EDT [facility] Hematocrit 27.2(L) 38.5 - 50.0 % 02/27/2025 1:39 AM EDT [facility] MCV 84.9 80.0 - 100.0 fL 02/27/2025 1:39 AM EDT [facility] MCH 30.3 27.0 - 33.0 pg 02/27/2025 1:39 AM EDT [facility] MCHC 35.7 32.0 - 36.0 g/dL 02/27/2025 1:39 AM EDT [facility] RDW 16.1(H) 11.0 - 15.0 % 02/27/2025 1:39 AM EDT [facility] Whole Blood 02/27/2025 12:3 2 AM EDT 02/27/2025 12:57 AM EDT Kenny Zhu MD LAB BLOOD ORDERABLES Final Result Performing Organization Address [facility] Co de Phone Number [facility] [address] [facility]. [address] * Surgical Pathology Exam (02/27/2025 12:00 AM EDT) 02/27/2025 02/27/2025 Narrative [facility] - 02/27/2025 12:00 AM EDT CASE: [id number] PATIENT: HARSHA AVINA Clinical History: Colonoscopy w/ bx Pre-Operative Diagnosis: Lower GI bleed Post-Operative Diagnosis: Ileitis Specimen(s) Submitted: A. Ileum bxs, ileitis CPT Code(s): 79074 X 1 Additional Information: FINAL DIAGNOSIS: Ileum, [...] biopsy bag and entirely submitted in cassette [id number]. (HIRAM Crabtree (ASCP)/ab) Microscopic Description: Two HE stained slides are examined. Jacob Mensah, the attending pathologist, have personally reviewed all prosector/resident work and pathology slides to determine final diagnosis. Final Diagnosis performed by MYRANDA CORCORAN MD Pathologist Electronically signed 03/03/2025 12:46:16 PM The Pathologist signing this report is located at [facility], [address] [place] [address], [facility] [phone], CLIA ID: [id number] us Lucinda Horton MD PATHOLOGY/CYTOLOGY ORDERABLES Fi nal Result Performing Organization Address [facility] Co de Phone Number [facility] * (ABNORMAL) POC Glucose Monitoring Device (02/26/2025 8:32 PM EDT) POC Glucose Monitoring Device 106(H) 70 - 100 mg/dL 02/26/2025 8:33 PM EDT [facility] Blood 02/26/2025 8:32 PM EDT 02/26/2025 8:33 PM EDT us Laura Delacruz MD POINT OF CARE TEST ORDERABLES Fi nal Result Performing Organization Address City/[facility]/ZIP Co de Phone Number [facility] [address] * Lactic Acid, STAT (02/26/2025 8:22 PM EDT) Lactate 0.7 0.5 - 2.2 mmol/L 02/26/2025 9:20 PM EDT [facility] Plasma 02/26/2025 8:22 PM EDT 02/26/2025 8:57 PM EDT Kenny Zhu MD LAB BLOOD ORDERABLES Final Result Performing Organization Address City/[facility]/ZIP Co de Phone Number [facility] [address] * (ABNORMAL) Hemoglobin and Hematocrit, Blood (02/26/2025 8:22 PM EDT) Hemoglobin 10.5(L) 13.2 - 17.1 g/dL 02/26/2025 9:06 PM EDT [facility] Hematocrit 30.6(L) 38.5 - 50.0 % 02/26/2025 9:06 PM EDT [facility] MCV 85.9 80.0 - 100.0 fL 02/26/2025 9:06 PM EDT [facility] MCH 29.6 27.0 - 33.0 pg 02/26/2025 9:06 PM EDT [facility] MCHC 34.4 32.0 - 36.0 g/dL 02/26/2025 9:06 PM EDT [facility] RDW 16.2(H) 11.0 - 15.0 % 02/26/2025 9:06 PM EDT [facility] Whole Blood 02/26/2025 8:22 PM EDT 02/26/2025 8:57 PM EDT us Kenny Zhu MD LAB BLOOD ORDERABLES Final Result [facility] [address] * Prealbumin (02/26/2025 8:22 PM EDT) Prealbumin 19.4 17.0 - 34.0 mg/dL 02/26/2025 9:19 PM EDT [facility] Serum 02/26/2025 8:22 PM EDT 02/26/2025 8:57 PM EDT us Jayme Judd MD LAB BLOOD ORDERABLES Final Re sult [facility] [address] [facility]. [address] * CONSTANTINE Rhythm Strip - Scan (02/26/2025 4:46 PM EDT) us Scanning Uchhim SCAN DOCS - NO RESULTS Final Res ult * (ABNORMAL) Hemoglobin and Hematocrit, Blood (02/26/2025 4:12 PM EDT) Hemoglobin 8.9(L) 13.2 - 17.1 g/dL 02/26/2025 4:30 PM EDT [facility] Hematocrit 25.6(L) 38.5 - 50.0 % 02/26/2025 4:30 PM EDT [facility] MCV 85.8 80.0 - 100.0 fL 02/26/2025 4:30 PM EDT [facility] MCH 29.6 27.0 - 33.0 pg 02/26/2025 4:30 PM EDT [facility] MCHC 34.6 32.0 - 36.0 g/dL 02/26/2025 4:30 PM EDT [facility] RDW 15.6(H) 11.0 - 15.0 % 02/26/2025 4:30 PM EDT [facility] Whole Blood 02/26/2025 4:12 PM EDT 02/26/2025 4:19 PM EDT us Kenny Zhu MD LAB BLOOD ORDERABLES Final Result [facility] [address] * (ABNORMAL) TEG-Standard Global Hemostasis (Rapid TEG with Heparin Effect, Contains a Baseline TEG) (02/26/2025 11:23 AM EDT) [facility] Citrated Kaolin Reaction Time (TEGHEPARINASE) 4.6 4.6 - 9.1 minutes 02/26/2025 12:05 PM EDT [facility] Citrated Rapid Teg Maximum Amplitude (TEGHEPARINASE) 54.9 52.0 - 70.0 mm 02/26/2025 12:05 PM EDT [facility] Citrated Functional Fibrinogen Maximum Amplitude (TEGHEPARINASE) 17.6 15.0 - 32.0 mm 02/26/2025 12:05 PM EDT [facility] Citrated Kaolin W/Heparinase Reaction Time (TEGHEPARINASE) 3.9(L) 4.3 - 8.3 minutes 02/26/2025 12:05 PM EDT [facility] Citrated Kaolin K-Time (TEGHEPARINASE) 1.3(A) 0.8 - 2.1 minutes 02/26/2025 12:05 PM EDT [facility] Citrated Kaolin Angle (TEGHEPARINASE) 72.9(A) 63.0 - 78.0 degrees 02/26/2025 12:05 PM EDT [facility] Citrated Kaolin Maximum Amplitude (TEGHEPARINASE) 57.3 52.0 - 69.0 mm 02/26/2025 12:05 PM EDT [facility] Citrated Functional Fibrinogen- Fibrinogen Level (TEGHEPARINASE) 321.2 278.0 - 581.0 mg/dL 02/26/2025 12:05 PM EDT [facility] Whole Blood (Citrate) 02/26/2025 11:23 AM EDT 02/26/2025 11:29 AM EDT Piedad Gu MD LAB BLOOD ORDERABLES Final Resu lt [facility] [address] [facility] * (ABNORMAL) Protime-INR (02/26/2025 11:23 AM [...] MD LAB BLOOD ORDERABLES Final Resu lt [facility] [address] * (ABNORMAL) CBC (02/26/2025 11:23 AM EDT) WBC 4.3 3.8 - 10.8 10E3/uL 02/26/2025 11:41 AM EDT [facility] RBC 3.43(L) 4.20 - 5.80 10E6/uL 02/26/2025 11:41 AM EDT [facility] Hemoglobin 10.4(L) 13.2 - 17.1 g/dL 02/26/2025 11:41 AM EDT [facility] Hematocrit 29.3(L) 38.5 - 50.0 % 02/26/2025 11:41 AM EDT [facility] MCV 85.4 80.0 - 100.0 fL 02/26/2025 11:41 AM EDT [facility] MCH 30.3 27.0 - 33.0 pg 02/26/2025 11:41 AM EDT [facility] MCHC 35.4 32.0 - 36.0 g/dL 02/26/2025 11:41 AM EDT [facility] RDW 16.0(H) 11.0 - 15.0 % 02/26/2025 11:41 AM EDT [facility] Platelets 103(L) 140 - 400 10E3/uL 02/26/2025 11:41 AM EDT [facility] MPV 8.3 7.5 - 11.5 fL 02/26/2025 11:41 AM EDT [facility] Whole Blood 02/26/2025 11:2 3 AM EDT 02/26/2025 11:28 AM EDT Piedad Gu MD LAB BLOOD ORDERABLES Final Resu lt [facility] [address] [facility] * (ABNORMAL) POC Glucose Monitoring Device (02/26/2025 11:20 AM EDT) POC Glucose Monitoring Device 117(H) 70 - 100 mg/dL 02/26/2025 11:21 AM EDT [facility] Blood 02/26/2025 11:2 0 AM EDT 02/26/2025 11:20 AM EDT Laura Delacruz MD POINT OF CARE TEST ORDERABLES Fi nal Result Performing Organization Address [facility] Co de Phone Number [facility] [address] [facility] * Blood culture-Peripheral (Blood) (02/26/2025 6:11 AM EDT) Culture Result No Growth After 5 Days [facility] Blood BLOOD SPECIMEN / Unknown 02/26/2025 6:11 AM EDT 02/26/2025 10:09 AM EDT Jayme Judd MD MICROBIOLOGY - GENERAL ORDERA BLES Final Result Performing Organization Address City/[facility]/ZIP Co de Phone Number [facility] [address] [facility] * Blood culture-Peripheral (Blood) (02/26/2025 6:11 AM EDT) Culture Result No Growth After 5 Days [facility] Blood BLOOD SPECIMEN / Unknown 02/26/2025 6:11 AM EDT 02/26/2025 7:25 AM EDT Jayme Judd MD MICROBIOLOGY - GENERAL ORDERA BLES Final Result [facility] [address] [place] [address], [facility] * X-ray Portable Chest (02/26/2025 5:44 [...] mg/dL 02/26/2025 6:28 AM EDT [facility] Comment:Free calcium levels vary inversely with pH by approximately 5% for each 0.1 unit of pH change. Assay results have been normalized to pH = 7.40. Serum 02/26/2025 5:30 AM EDT 02/26/2025 5:45 AM EDT Narrative [facility] - 02/26/2025 6:28 AM EDT This test has been developed and its performance characteristics determined by [facility] which is certified under the Clinical [...] BLOOD ORDERABLES Final Resu lt [facility] [address] [place] [address], [facility] * (ABNORMAL) TEG-Standard Global Hemostasis (Rapid TEG with Heparin Effect, Contains a Baseline TEG) (02/26/2025 5:30 AM EDT) Citrated Kaolin Reaction Time (TEGHEPARINASE) 6.6 4.6 - 9.1 minutes 02/26/2025 6:23 AM EDT [facility] Citrated Rapid Teg Maximum Amplitude (TEGHEPARINASE) 55.4 52.0 - 70.0 mm 02/26/2025 6:23 AM EDT [facility] Citrated Functional Fibrinogen Maximum Amplitude (TEGHEPARINASE) 17.7 15.0 - 32.0 mm 02/26/2025 6:23 AM EDT [facility] Citrated Kaolin W/Heparinase Reaction Time (TEGHEPARINASE) 5.7 4.3 - 8.3 minutes 02/26/2025 6:23 AM EDT [facility] Citrated Kaolin K-Time (TEGHEPARINASE) 1.3(A) 0.8 - 2.1 minutes 02/26/2025 6:23 AM EDT [facility] Citrated Kaolin Angle (TEGHEPARINASE) 71.9(A) 63.0 - 78.0 degrees 02/26/2025 6:23 AM EDT [facility] Citrated Kaolin Maximum Amplitude (TEGHEPARINASE) 56.7 52.0 - 69.0 mm 02/26/2025 6:23 AM EDT [facility] Citrated Functional Fibrinogen- Fibrinogen Level (TEGHEPARINASE) 323.0 278.0 - 581.0 mg/dL 02/26/2025 6:23 AM EDT [facility] Whole Blood (Citrate) 02/26/2025 5:30 AM EDT 02/26/2025 5:36 AM EDT Jayme Judd MD LAB BLOOD ORDERABLES Final Re sult [facility] [address] * Antibody Screen (02/26/2025 5:30 AM EDT) Antibody Screen Negative 02/26/2025 6:25 AM EDT [facility] Blood 02/26/2025 5:30 AM EDT 02/26/2025 5:41 AM EDT Narrative [facility] - 02/26/2025 6:31 AM EDT Testing performed by [facility] Transfusion Service Jayme Judd MD BLOOD BANK TEST ORDERABLES Fi nal Result [facility] [address] * ABO/Rh (02/26/2025 5:30 AM EDT) ABO Grouping A 02/26/2025 6:31 AM EDT [facility] Rh Type Positive 02/26/2025 6:31 AM EDT [facility] Blood 02/26/2025 5:30 AM EDT 02/26/2025 5:41 AM EDT us Jayme Judd MD BLOOD BANK TEST ORDERABLES Fi nal Result Performing Organization Address [facility] Co de Phone Number [facility] [address] * POC Glucose Monitoring Device (02/26/2025 5:29 AM EDT) POC Glucose Monitoring Device 99 70 - 100 mg/dL 02/26/2025 5:29 AM EDT [facility] Blood 02/26/2025 5:29 AM EDT 02/26/2025 5:29 AM EDT Laura Delacruz MD POINT OF CARE TEST ORDERABLES Fi nal Result Performing Organization Address [facility] de Phone Number [facility] [address] * (ABNORMAL) Protime-INR (02/26/2025 5:29 AM EDT) Protime 15.7(H) 12.1 - 15.1 seconds 02/26/2025 5:55 AM EDT [facility] INR 1.2(H) 0.9 - 1.1 02/26/2025 5:55 AM EDT [facility] Comment: RECOMMENDED THERAPEUTIC RANGES USING INR : Stable oral anticoagulant therapy: 2.0 - 3.0 Mechanical prosthetic heart valve: 2.5 - 3.5 Recurrent acute myocardial infarction: 2.5 - 3.5 Plasma 02/26/2025 5:29 AM EDT 02/26/2025 5:36 AM EDT us Jayme Judd MD LAB BLOOD ORDERABLES Final Re sult [facility] [address] [facility] * (ABNORMAL) CBC (02/26/2025 5:29 AM EDT) WBC 5.8 3.8 - 10.8 10E3/uL 02/26/2025 6:13 AM EDT [facility] RBC 3.77(L) 4.20 - 5.80 10E6/uL 02/26/2025 6:13 AM EDT [facility] Hemoglobin 11.3(L) 13.2 - 17.1 g/dL 02/26/2025 6:13 AM EDT [facility] Hematocrit 32.3(L) 38.5 - 50.0 % 02/26/2025 6:13 AM EDT [facility] MCV 85.6 80.0 - 100.0 fL 02/26/2025 6:13 AM EDT [facility] MCH 29.9 27.0 - 33.0 pg 02/26/2025 6:13 AM EDT [facility] MCHC 34.9 32.0 - 36.0 g/dL 02/26/2025 6:13 AM EDT [facility] RDW 15.7(H) 11.0 - 15.0 % 02/26/2025 6:13 AM EDT [facility] Platelets 112(L) 140 - 400 10E3/uL 02/26/2025 6:13 AM EDT [facility] MPV 8.2 7.5 - 11.5 fL 02/26/2025 6:13 AM EDT [facility] Whole Blood 02/26/2025 5:29 AM EDT 02/26/2025 5:45 AM EDT Jayme Judd MD LAB BLOOD ORDERABLES Final Re sult [facility] [address] [facility] * (ABNORMAL) Calcium (02/26/2025 5:29 AM EDT) Calcium 8.0(L) 8.6 - 10.3 mg/dL 02/26/2025 7:13 AM EDT [facility] Plasma 02/26/2025 5:29 AM EDT 02/26/2025 5:45 AM EDT Jayme Judd MD LAB BLOOD ORDERABLES Final Re sult [facility] [address] [facility]. [address] * Magnesium (02/26/2025 5:29 AM EDT) Magnesium 1.9 1.5 - 2.5 mg/dL 02/26/2025 7:13 AM EDT [facility] Plasma 02/26/2025 5:29 AM EDT 02/26/2025 5:45 AM EDT Jayme Judd MD LAB BLOOD ORDERABLES Final Re sult Performing Organization Address [facility] Co de Phone Number [facility] [address] [facility]. [address] * Phosphorus (02/26/2025 5:29 AM EDT) Phosphorus 3.9 2.1 - 4.7 mg/dL 02/26/2025 7:13 AM EDT [facility] Plasma 02/26/2025 5:29 AM EDT 02/26/2025 5:45 AM EDT Jayme Judd MD LAB BLOOD ORDERABLES Final Re sult Performing Organization Address City/[facility]/ZIP Co de Phone Number [facility] [address] [place] [address]. [address] * (ABNORMAL) Basic metabolic panel (02/26/2025 5:29 AM EDT) Sodium 140 133 - 146 mmol/L 02/26/2025 7:13 AM EDT [facility] Potassium 4.2 3.5 - 5.3 mmol/L 02/26/2025 7:13 AM EDT [facility] Chloride 106 98 - 110 mmol/L 02/26/2025 7:13 AM EDT [facility] CO2 29 21 - 33 mmol/L 02/26/2025 7:13 AM EDT [facility] Anion Gap 5 3 - 16 mmol/L 02/26/2025 7:13 AM EDT [facility] BUN 37(H) 7 - 25 mg/dL 02/26/2025 7:13 AM EDT [facility] Creatinine 0.82 0.60 - 1.30 mg/dL 02/26/2025 7:13 AM EDT [facility] Glucose 84 70 - 100 mg/dL 02/26/2025 7:13 AM EDT [facility] Calcium 8.0(L) 8.6 - 10.3 mg/dL 02/26/2025 7:13 AM EDT [facility] Osmolality, Calculated 298 278 - 305 mOsm/kg 02/26/2025 7:13 AM EDT [facility] EGFR >90 02/26/2025 7:13 AM EDT [facility] Comment: As of 2021, [...] BLOOD ORDERABLES Final Re sult [facility] [facility] [address] [facility] * CK (02/26/2025 5:29 AM EDT) Total CK 104 30 - 223 U/L 02/26/2025 7:13 AM EDT [facility] Plasma 02/26/2025 5:29 AM EDT 02/26/2025 5:45 AM EDT Jayme Judd MD LAB BLOOD ORDERABLES Final Re sult Performing Organization Address [facility] Co de Phone Number [facility] [address] [facility]. [address] * (ABNORMAL) Hepatic Function Panel (02/26/2025 5:29 AM EDT) Total Bilirubin 0.8 0.0 - 1.5 mg/dL 02/26/2025 7:13 AM EDT [facility] Bilirubin, Direct 0.22 0.00 - 0.40 mg/dL 02/26/2025 7:13 AM EDT [facility] AST 25 13 - 39 U/L 02/26/2025 7:13 AM EDT [facility] ALT 28 7 - 52 U/L 02/26/2025 7:13 AM EDT [facility] Alkaline Phosphatase 41 36 - 125 U/L 02/26/2025 7:13 AM EDT [facility] Total Protein 5.4(L) 6.4 - 8.9 g/dL 02/26/2025 7:13 AM EDT [facility] Albumin 3.7 3.5 - 5.7 g/dL 02/26/2025 7:13 AM EDT [facility] Bilirubin, Indirect 0.58 0.00 - 1.10 mg/dL 02/26/2025 7:13 AM EDT [facility] Plasma 02/26/2025 5:29 AM EDT 02/26/2025 5:45 AM EDT Jayme Jdud MD LAB BLOOD ORDERABLES Final Re sult Performing Organization Address City/[facility] Co de Phone Number [facility] [address] [place] [address]. [address] * High Sensitivity Troponin (02/26/2025 5:29 AM EDT) High Sensitivity Troponin 4 0 - 20 ng/L 02/26/2025 7:22 AM EDT [facility] Serum 02/26/2025 5:29 AM EDT 02/26/2025 5:45 AM EDT Jayme Judd MD LAB BLOOD ORDERABLES Final Re sult Performing Organization Address [facility] Co de Phone Number [facility] [address] [place] [address] * Fibrinogen (02/26/2025 5:29 AM EDT) Fibrinogen 241 218 - 406 mg/dL 02/26/2025 6:03 AM EDT [facility] Plasma 02/26/2025 5:29 AM EDT 02/26/2025 5:36 AM EDT Jayme Judd MD LAB BLOOD ORDERABLES Final Re sult Performing Organization Address [facility] Co de Phone Number [facility] [address] [place] [address]. [address] * Lactic Acid (02/26/2025 5:29 AM EDT) Lactate 0.5 0.5 - 2.2 mmol/L 02/26/2025 6:25 AM EDT [facility] Plasma 02/26/2025 5:29 AM EDT 02/26/2025 5:45 AM EDT Jayme Judd MD LAB BLOOD ORDERABLES Final Re sult [facility] [address] [place] [address], [facility] * ECG 12 lead (MUSE) (02/26/2025 5:15 AM EDT) 02/26/2025 5:15 AM EDT Narrative MUSE - 02/26/2025 5:32 PM EDT Ventricular Rate: 55 BPM Atrial Rate: 55 BPM P-R Interval: 164 ms QRS Duration: 92 ms QT: 464 ms QTc: 443 ms P [place]: 78 degrees R [place]: 61 degrees T [place]: 65 degrees Diagnosis Line: SINUS BRADYCARDIA ^ OTHERWISE NORMAL ECG ^ No previous ECGs available ^ Confirmed by MD ALEXANDRO, SIMI ([id number]) on 02/26/2025 5:32:12 PM Jayme Judd MD ECG ORDERABLES Final Result MUSE documented in this encounter Visit Diagnoses Diagnosis Lower GI bleed- Primary Unspecified, hemorrhage of gastrointestinal tract Lower GI bleed Unspecified, hemorrhage of gastrointestinal tract Acute blood loss anemia Acute posthemorrhagic anemia Depression Depressive disorder, not elsewhere classified Hyperlipidemia Other and unspecified hyperlipidemia Diabetes ([facility]) Type II or unspecified type diabetes mellitus without mention of complication, not stated as uncontrolled Lower GI bleed Unspecified, hemorrhage of gastrointestinal [...] 03/01/2025 12:25 PM EDT Associated Problem(s): Diabetes ([facility]) Chronic condition, holding patients home monjuro and [...] 02/28/2025 12:18 PM EDT Associated Problem(s): Diabetes ([facility]) Chronic condition, holding patients home monjuro and [...] prior colorectal anastomosis. He was transferred to [facility] for further work up and has [...] - 02/27/2025 7:33 PM EDTAssociated Problem(s): Diabetes ([facility]) Chronic condition, holding patients home monjuro and [...] needed. Labeled tablet strength may vary by wine steward (may be expressed as grams of carbohydrates) [...] (2100), First dose on Sun02/27/25 at 2100 Given [...] Diamond RN) 2106 (Given - Provider: Laila Diamond, DERICK) senna-docusate (SENNA-S) 8.6-50 mg per tablet 1 tablet 1 tablet, Oral, 2 times daily, First dose on Sun03/02/25 at 0900 0839 (Given - Provider: Janie Canas RN) Continuous Medication Order 02/28/2025 03/01/2025 03/02/2025 electrolyte-R (pH 7.4) (NORMOSOL-R pH 7.4) IV solution () 200 mL/hr, Intravenous, Continuous, Starting on [place] 03/01/25 at 1330, For 5 hours 1429 [...] < 70 and not alert, Starting on [facility] 02/26/25 at 0801, Recheck glucose in 15 [...] needed. Labeled tablet strength may vary by wine steward (may be expressed as grams of carbohydrates) per tablet. Each tablet = 4 grams of glucose. Do not give chewable tablets via feeding tube Linked Groups Order Group 1: FOR LAB DRAW PATIENTS: Cortisol Stimulation (0,30,60 Min) (CANCELED) Timed, Lab Timed, On [place] 03/01/25 at 1014, For 1 occurrence, Draw baseline prior to med administration, then 30 and 60 minutes post med administration And cosyntropin (CORTROSYN) injection 0.25 mg (COMPLETED)Jump to med 0.25 mg, Intravenous, Once, On [place] 03/01/25 at 1100, For 1 dose, Reconstitute [...] grams. documented in this encounter Care Teams Tubing Machine Tender Relationship Specialty Start Date End Date Unknown, Attending Provider PCP - General 02/25/25 documented as of this encounter
[2025-04-08 21:15] LABS: Hematocrit 34.1 % (42.0-52.0); Hemoglobin 10.7 g/dL (14.1-18.0); Immature Granulocytes % 0.2 %; Mean Corpuscular HGB Conc 31.4 g/dL (31.8-35.4); Mean Corpuscular Hemoglobin 27.6 pg (27.0-31.2); Mean Corpuscular Volume 88.1 fl (80-94); Nucleated Red Blood Cells % 0 %; Platelet Count 192 K/mm3 (142-424); Red Blood Count 3.87 M/mm3 (4.60-6.20); Red Cell Distribution Width-SD 42.5 fL; White Blood Count 4.9 K/mm3 (4.8-10.8)
[2025-04-08 22:13] LABS: Alanine Aminotransferase 34 U/L (12-78); Albumin Level 4.2 g/dl (3.5-5.0); Albumin/Globulin Ratio 1.9 (1.1-1.8); Alkaline Phosphatase 62 U/L (38-126); Anion Gap 7.4 mEq/L (5-15); Aspartate Amino Transferase 40 U/L (17-59); Bilirubin,Total 0.5 mg/dl (0.2-1.3); Blood Urea Nitrogen 19 mg/dl (9-20); Calcium 9.1 mg/dl (8.4-10.2); Carbon Dioxide 30 mmol/L (22.0-30.0); Chloride 100 mmol/L (98-107); Creatinine,Serum 0.80 mg/dl (0.66-1.25); Estimated Glomerular Filt Rate 98 ml/min (>60); GFR (African American) 118 ML/MIN (>60); Globulin 2.2 g/dL (1.3-3.2); Glucose 104 mg/dl (74-100); Potassium 4.4 mmoL/L (3.5-5.1); Sodium 133 mmol/L (136-145); Total Protein,Serum 6.4 g/dl (6.3-8.2)
--- OUTSIDE RECORDS SUMMARY | 2025-04-09 10:50 | XMS_ITS | Encounter Summary ---
Author Organization Healthcare Address [address] [place] [address] Care Team Providers Care Senior Principal Name Role Phone Francesco Turk MD Primary Care Provider Encounter Details Date Type Department Care Team (Late st Contact Info) Description 02/25/2025 Orders Only External Location [address] [place] [address] Benito Kyle MD [address] [place] [address] [place] [address] Social History Tobacco Use Types Packs/Day Years Used Date Smoking Tobacco: Never Assessed Sex and Gender Information Value Date Recorded Sex Assigned at Not on file Legal Sex Male 7:35 PM EDT Gender Identity Not on file Sexual Orientation Not on file documented as of this encounter Plan of Treatment Not on file documented as of this encounter Procedures Procedure Name Priority Date/Time Associated Diagnosis Comments CT OUTSIDE IMAGES 02/25/2025 11:43 PM EDT documented in this encounter Results * CT OUTSIDE IMAGES (02/25/2025 11:43 PM EDT) Anatomical Region Laterality Modality Computed Tomogra phy 02/25/2025 11:4 3 PM EDT us Benito Kyle MD IMG CT PROCEDURES Edited Resul t - Final documented in this encounter Visit Diagnoses Not on filedocumented in this encounter Care Teams Senior Principal Relationship Specialty Start Date End Date Francesco Turk MD [address] [place] [address] PCP - General 01/09/23 documented as of this encounter
--- OUTSIDE RECORDS SUMMARY | 2025-04-09 10:50 | XMS_ITS | Clinical Summary ---
Author Organization Healthcare Address [address] [place] [address] Care Team Providers Care Script Supervisor Name Role Phone Francesco Turk MD Primary Care Provider Encounters Date Type Department Care Team Description 02/25/2025 Orders Only External Location [address] [place] [address] Benito Kyle MD from Last 3 Months Social History Tobacco Use Types Packs/Day Years Used Date Smoking Tobacco: Never Assessed Sex and Gender Information Value Date Recorded Sex Assigned at Not on file Legal Sex Male 7:35 PM EDT Gender Identity Not on file Sexual Orientation Not on file Plan of Treatment Not on file Procedures Procedure Name Priority Date/Time Associated Diagnosis Comments CT OUTSIDE IMAGES 02/25/2025 11:43 PM EDT from Last 3 Months Results * CT OUTSIDE IMAGES (02/25/2025 11:43 PM EDT) Anatomical Region Laterality Modality Computed Tomogra phy 02/25/2025 11:4 3 PM EDT us Bentio Kyle MD IMG CT PROCEDURES Edited Resul t - Final from Last 3 Months Insurance MEDICARE Care Teams Script Supervisor Relationship Specialty Start Date End Date Francesco Turk MD [address] [place] [address] PCP - General 01/09/23
--- OUTSIDE RECORDS SUMMARY | 2025-04-09 10:51 | XMS_ITS | Encounter Summary ---
Author Organization [facility] Address [address] [place] [address] Care Team Providers Care Cycle Analyst Name Role Phone Unknown, Attending Provider Primary [...] release of HIV test results or diagnoses. [id number] Health Encounter Details Date Type Department Care Team (Latest Contact Info) Description 03/02/2025 Travel Social History Tobacco Use Types Packs/Day Years Used Date Smoking Tobacco: Former Cigarettes 1 45.9 S tarted: 1979 Passive Smoke Exposure: Past Smokeless Tobacco: Never Alcohol Use Standard Drinks/Week Comments Not Currently 0 (1 standard drink = 0.6 oz pur e alcohol) [facility] Utilities Answer Date Recorded In the past 12 months has [employer], gas, oil, or water [employer] threatened to shut off services in your [...] any time in the past [address] [facility], were you homeless or living in a nursing home (including now)? No 02/26/2025 Sex and Gender Information Value Date Recorded Sex Assigned at Not on file Legal Sex Male 2:12 AM EDT Gender Identity Not on file Sexual Orientation Not on file documented as of this encounter Plan of Treatment Not on file documented as of this encounter Visit Diagnoses Not on filedocumented in this encounter Care Teams Cycle Analyst Relationship Specialty Start Date End Date Unknown, Attending Provider PCP - General 02/25/25 documented as of this encounter
--- OUTSIDE RECORDS SUMMARY | 2025-04-09 10:51 | XMS_ITS | Encounter Summary ---
Author Organization [facility] Address [address] [place] [address] Care Team Providers Care Solder Leveler Printed Circuit Boards Name Role Phone Unknown, Attending Provider Primary [...] release of HIV test results or diagnoses. [id number] Health Encounter Details Date Type Department Care Team (Latest Contact Info) Description 02/28/2025 Travel Social History Tobacco Use Types Packs/Day Years Used Date Smoking Tobacco: Former Cigarettes 1 45.9 S tarted: 1979 Passive Smoke Exposure: Past Smokeless Tobacco: Never Alcohol Use Standard Drinks/Week Comments Not Currently 0 (1 standard drink = 0.6 oz pur e alcohol) [facility] Utilities Answer Date Recorded In the past 12 months has [email or web address], gas, oil, or water [employer] threatened to shut off services in your [...] any time in the past 12 m [facility], were you homeless or living in a skilled nursing (including now)? No 02/26/2025 Sex and Gender Information Value Date Recorded Sex Assigned at Not on file Legal Sex Male 2:12 AM EDT Gender Identity Not on file Sexual Orientation Not on file documented as of this encounter Plan of Treatment Not on file documented as of this encounter Visit Diagnoses Not on filedocumented in this encounter Care Teams Solder Leveler Printed Circuit Boards Relationship Specialty Start Date End Date Unknown, Attending Provider PCP - General 02/25/25 documented as of this encounter
--- OUTSIDE RECORDS SUMMARY | 2025-04-09 10:52 | XMS_ITS | Encounter Summary ---
Author Organization [facility] Address [address] [place] [address] Care Team Providers Care Profile Stitching Machine Operator Name Role Phone Unknown, Attending Provider Primary [...] release of HIV test results or diagnoses. [id number] Health Encounter Details Date Type Department Care Team (Latest Contact Info) Description 02/26/2025 Travel Social History Tobacco Use Types Packs/Day Years Used Date Smoking Tobacco: Former Cigarettes 1 45.9 S tarted: 1979 Smokeless Tobacco: Never Alcohol Use Standard Drinks/Week Comments Not Currently 0 (1 standard drink = 0.6 oz pur e alcohol) [facility] Utilities Answer Date Recorded In the past 12 months has [employer], gas, oil, or water [employer] threatened to shut off services in your [...] any time in the past 12 m [facility], were you homeless or living in a longterm (including now)? No 02/26/2025 Sex and Gender Information Value Date Recorded Sex Assigned at Not on file Legal Sex Male 2:12 AM EDT Gender Identity Not on file Sexual Orientation Not on file documented as of this encounter Functional Status documented as of this encounter Plan of Treatment Not on file documented as of this encounter Visit Diagnoses Not on filedocumented in this encounter Care Teams Profile Stitching Machine Operator Relationship Specialty Start Date End Date Unknown, Attending Provider PCP - General 02/25/25 documented as of this encounter
--- OUTSIDE RECORDS SUMMARY | 2025-04-09 10:52 | XMS_ITS | Encounter Summary ---
Author Organization [facility] Address [address] [place] [address] Care Team Providers Care Master Automotive Technician Name Role Phone Unknown, Attending Provider Primary [...] release of HIV test results or diagnoses. [id number] Reason for Visit * Reason Onset Date Comments Appointment 03/03/2025 Encounter Details Date Type Department Care Team (Late st Contact Info) Description 03/03/2025 Results Follow-Up [facility] [address] [place] [id number] Lucinda Horton MD [address] [place] [address] Surgical Pathology Exam Social History Tobacco Use Types Packs/Day Years Used Date Smoking Tobacco: Former Cigarettes 1 45.9 S tarted: 1979 Passive Smoke Exposure: Past Smokeless Tobacco: Never Alcohol Use Standard Drinks/Week Comments Not Currently 0 (1 standard drink = 0.6 oz pur e alcohol) [facility] Utilities Answer Date Recorded In the past 12 months has [employer], gas, oil, or water company threatened [...] any time in the past 12 m [facility], were you homeless or living in a residential (including now)? No 02/26/2025 Sex and Gender Information Value Date Recorded Sex Assigned at Not on file Legal Sex Male 2:12 AM EDT Gender Identity Not on file Sexual Orientation Not on file documented as of this encounter Miscellaneous Notes * Telephone Encounter - Magdalena Helton RN - 03/11/2025 12:57 PM EDT RN made HDF as directed using 2 EST slots as approved. RN will see if any sooner openings open up and then will call pt with new availability. 03/18/25 @ 2:42 pm RN called and left message for 05/18/25 appt with appt and parking details. RN directed pt to call office to confirm appt or if will not work with schedule so we can look at other options. Office phone number left on VM. RN also mailed ap pt letter asking pt to reach out to office since unable to reach by phone. documented in this encounter Plan of Treatment Not on file documented as of this encounter Visit Diagnoses Not on filedocumented in this encounter Care Teams Master Automotive Technician Relationship Specialty Start Date End Date Unknown, Attending Provider PCP - General 02/25/25 documented as of this encounter
--- OUTSIDE RECORDS SUMMARY | 2025-04-09 10:52 | XMS_ITS | Clinical Summary ---
Author Organization [facility] Address [facility] [place] [address] Care Team Providers Care Art Director Name Role Phone Unknown, Attending Provider Primary Care Provide r Unavailable Source Comments This information has been disclosed to you from confidential records protectedfrom disclosure by state law. You shall make no further disclosure of thisinformation without the specific, written, and informed release of theindividual to whom it pertains, or as otherwise permitted by law. A generalauthorization for the release of medical or other information is not sufficientfor the purposes of therelease of HIV test results or diagnoses. [id number] All[facility]ies Active Allergy Reactions Criticality Noted Date Comments Amoxicillin-Pot Clavulanate Itching,Rash Low 2024 Penicillins Itching,Rash Low 02/28/2025 Medications canagliflozin (INVOKANA) 300 mg Tab tabletIndicati ons:type 2 diabetes mellitus Take 1 tablet (300 mg total) by mouth daily. Indications: type 2 diabetes mellitus Active cyclobenzaprin e (FLEXERIL) 5 MG tablet Take 1 tablet (5 mg total) by mouth 2 times a day as needed for Muscle spasms. 5 Active fluticasone propionate (FLONASE) 50 mcg/actuation nasal spray INSTILL 1 SPRAY INTO EACH NOSTRIL EVERY 12 HOURS FOR ALLERGY SYMPTOMS 5 Active LANTUS SOLOSTAR U-100 INSULIN 100 unit/mL (3 mL) InPn Inject 4 Units subcutaneously at bedtime. 5 Active PARoxetine (PAXIL) 20 MG tablet Take 1 tablet (20 mg total) by mouth every morning. 5 Active rosuvastatin (CRESTOR) 40 MG tablet Take 1 tablet (40 mg total) by mouth daily. 5 Active MOUNJARO 2.5 mg/0.5 mL PnIj 5 Active DEXCOM G7 SENSOR Rosa 3 each. 5 Active Active Problems Problem Noted Date Diagnosed Date Idiopathic hypotension 03/01/2025 Assessment & Plan (03/01/2025 12:25 PM EDT): Patient hypotensive at baseline. Reports normal BP with systolics 80s-100s. - TSH normal. - AM cortisol 7.7 which is at the low end of normal - ACTH stim test today for further evaluation of adrenal insufficiency Depression 02/27/2025 Assessment & Plan (03/01/2025 12:25 PM EDT): Chronic condition, patient was started on previous home regimen - Paroxetine 20mg daily Assessment & Plan (02/28/2025 12:18 PM EDT): Chronic condition, patient was started on previous home regimen - Paroxetine 20mg daily Assessment & Plan (02/27/2025 7:33 PM EDT): Chronic condition, patient was started on previous home regimen - Paroxetine 20mg daily Hyperlipidemia 02/27/2025 Assessment & Plan (03/01/2025 12:25 PM EDT): Chronic condition, patient was started on previous home regimen - Rosuvastatin 40mg daily Assessment & Plan (02/28/2025 12:18 PM EDT): Chronic condition, patient was started on previous home regimen - Rosuvastatin 40mg daily Assessment & Plan (02/27/2025 7:33 PM EDT): Chronic condition, patient was started on previous home regimen - Rosuvastatin 40mg daily Diabetes 02/27/2025 Assessment & Plan (03/01/2025 12:25 PM EDT): Chronic condition, holding patients home monjuro and Lantus. - Insulin Lispro 0-5, 3 times daily before meals Assessment & Plan (02/28/2025 12:18 PM EDT): Chronic condition, holding patients home monjuro and Lantus. - Insulin Lispro 0-5, 3 times daily before meals Assessment & Plan (02/27/2025 7:33 PM EDT): Chronic condition, holding patients home monjuro and Lantus. - Insulin Lispro 0-5, 3 times daily before meals Resolved Problems Problem Noted Date Diagnosed Date Resolved Date Lower GI bleed 02/26/2025 03/02/2025 Assessment & Plan (03/01/2025 12:25 PM EDT): Presented to OSH on 02/25 for several episodes of large bloody bowel movements. Hemoglobin drop from 14 to 11 to 8, s/p 1 unit of RBC, Stable at 9. CT AP demonstrated active extravasation reportedly proximal to prior colorectal anastomosis. IR was consulted, deferred embolization due to concern for injury [...] and CTA for large drops, as above Assessment & Plan (02/28/2025 12:18 PM EDT): Presented to OSH on 02/25 for several episodes of large bloody bowel movements. Hemoglobin drop from 14 to 11 to 8, s/p 1 unit of RBC, Stable at 9. CT AP demonstrated active extravasation reportedly proximal to prior colorectal anastomosis. IR was consulted, deferred embolization due to concern for injury [...] and CTA for large drops, as above Assessment & Plan (02/27/2025 7:33 PM EDT): presented to OSH on 02/25 for several episodes of large bloody bowel movements. He had a hemoglobin drop from 14 to 11 to 8, he received 1 unit of RBC, CT AP demonstrated active extravasation reportedly proximal to prior colorectal anastomosis. He was transferred to [facility] for further work up and has remained hemodynamically stable without pressor requirement. IR was consulted for lower GI bleed but deferred embolization due to concern for injury to colorectal anastomosis. 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 GI was consulted and patient was taken for [...] and CTA for large drops, as above Encounters Date Type Department Care Team Description 03/03/2025 Results Follow-Up [facility] [address] [place] [address] Lucinda Horton MD Surgical Pathology Exam 03/02/2025 Travel 02/28/2025 12:15 PM EDT - 02/28/2025 12:33 PM EDT Surgery [facility] ENDOSCOPY [address] [place] [address] Vee Cao MD EGD 02/28/2025 11:06 AM EDT Anesthesia Event [facility] ENDOSCOPY [address] [place] [address] Ponce Gamez MD Cassidy, Marc, MD 02/28/2025 Travel 02/27/2025 3:09 PM EDT Anesthesia Event [facility] ENDOSCOPY [address] [place] [address] Primo Bennett MD Dina, Grace, CAA 02/27/2025 2:30 PM EDT - 02/27/2025 3:30 PM EDT Surgery [facility] ENDOSCOPY [address] [place] [address] Lucinda Horton MD COLONOSCOPY WITH BIOPSY 02/26/2025 4:45 AM EDT - 03/02/2025 2:49 PM EDT Hospital Encounter [facility] [address] [place] [address] Laura Delacruz MD Vandusen, Hannah, MD Whitsett, Hilary Heiob, MD Awosika, Bi A, MD Wehry, Anna, MD Lower GI bleed (Primary Dx); Acute blood loss anemia Discharge Disposition: Home or Self Care WITHOUT Home Care Services 02/26/2025 Travel from Last 3 Months Social History Tobacco Use Types Packs/Day Years Used Date Smoking Tobacco: Former Cigarettes 1 45.9 S tarted: 1979 Passive Smoke Exposure: Past Smokeless Tobacco: Never Tobacco Cessation:Counseling Given: Not Answered Alcohol Use Standard Drinks/Week Comments Not Currently 0 (1 standard drink = 0.6 oz pur e alcohol) [facility] Utilities Answer Date Recorded In the past 12 months has [employer], gas, oil, or water [employer] threatened to shut off services in your [...] any time in the past 12 m [facility], were you homeless or living in a care home (including now)? No 02/26/2025 Sex and Gender Information Value Date Recorded Sex Assigned at Not on file Legal Sex Male 2:12 AM EDT Gender Identity Not on file Sexual Orientation Not on file Last Filed Vital Signs Vital Sign Reading [...] Mass Index 17.99 02/28/2025 10:55 AM EDT Plan of Treatment Health Maintenance Due Date Last Done Comments ASCVD Assessment 1960 Depression Monitoring (PHQ-9) 1960 Hepatitis C Screening (MyChart) 1960 Lipid Panel 1960 HIV Screening 09/12/1979 Immunization: Pneumococcal ( 1 of 2 - PCV) 1980 Cologuard (FIT-DNA) 2006 Stool Testing (gFOBT) 2006 Immunization: Zoster (1 of 2) 09/12/2011 Lung Cancer Screening 09/12/2011 Osteoporosis Screening (DXA Scan) 09/12/2011 Immunization: RSV (Adult) (1 - Risk 60-74 years 1-dose series) 2021 Immunization: COVID-19 ( season) 2025 03/16/2022, 01/05/2022, 05/12/2021, Additional history exists Immunization: Influenza (MyC hartman) (#1) 2025 03/09/2022 Diabetic Eye Exam (MyChart) 02/27/2025 Urine Albumin/Creatinine Ratio 02/27/2025 Hemoglobin A1C Monitoring (MyChart) 08/28/2025 02/27/2025 Abnormal Colonoscopy Follow Up 02/27/2026 02/27/2025 , 02/27/2025 Renal Function/GFR 03/02/2026 03/02/2025, 1 , 02/28/2025, Additional history exists Immunization: DTaP/Tdap/Td ( 2 - Td or Tdap) 12/28/2032 12/28/2022 Colonoscopy 02/27/2035 02/27/2025, 02/27/2025 Colorectal Cancer Screening (MyChart) 02/27/2035 Procedures Procedure Name Priority Date/Time Associated Diagnosis Comments EKG - SCAN 03/03/2025 3:46 PM EDT RHYTHM STRIPS - SCAN 03/03/2025 3:34 PM EDT POC GLU MONITORING DEVICE Routine 03/02/2025 12:25 PM EDT POC GLU MONITORING DEVICE Routine 03/02/2025 8:33 AM EDT CBC Routine 03/02/2025 6:03 AM EDT DIFFERENTIAL Routine 03/02/2025 6:03 AM EDT RENAL FUNCTION PANEL W/EGFR Routine 03/02/2025 6:03 AM EDT MAGNESIUM Routine 03/02/2025 6:03 AM EDT POC GLU MONITORING DEVICE Routine 03/01/2025 5:56 PM EDT CORTISOL 60 MIN Timed 03/01/2025 3:36 PM EDT CORTISOL 30 MIN Timed 03/01/2025 3:08 PM EDT CORTISOL 0 MIN Timed 03/01/2025 2:00 PM EDT POC GLU MONITORING DEVICE Routine 03/01/2025 1:16 PM EDT POC GLU MONITORING DEVICE Routine 03/01/2025 7:58 AM EDT CORTISOL Routine 03/01/2025 7:06 AM EDT TSH STAT 03/01/2025 7:06 AM EDT CBC Routine 03/01/2025 7:06 AM EDT DIFFERENTIAL Routine 03/01/2025 7:06 AM EDT RENAL FUNCTION PANEL W/EGFR Routine 03/01/2025 7:06 AM EDT MAGNESIUM Routine 03/01/2025 7:06 AM EDT POC GLU [...] MONITORING DEVICE Routine 02/28/2025 4:53 AM EDT CBC STAT 02/28/2025 3:48 AM EDT RENAL FUNCTION PANEL W/EGFR Routine 02/28/2025 3:48 AM EDT MAGNESIUM Routine 02/28/2025 [...] MONITORING DEVICE Routine 02/27/2025 4:09 AM EDT HEMOGLOBIN AND HEMATOCRIT, BLOOD Add-On 02/27/2025 4:02 AM EDT RENAL FUNCTION PANEL W/EGFR STAT 02/27/2025 4:02 AM EDT HEMOGLOBIN A1C Routine [...] CHEST STAT 02/26/2025 5:4 4 AM EDT ANTIBODY SCREEN STAT 02/26/2025 5:30 AM EDT ABO/RH STAT 02/26/2025 5:30 AM EDT CALCIUM FREE, SERUM Routine 02/26/2025 5 :30 AM EDT TEG-STANDARD GLOBAL HEMOSTASIS (RAPID TEG WITH HEPARIN EFFECT, CONTAINS A BASELINE) STAT 02/26/2025 5:30 AM EDT POC GLU MONITORING DEVICE Routine 02/26/2025 5:29 AM EDT CALCIUM STAT 02/26/2025 5:29 AM EDT MAGNESIUM STAT 02/26/2025 5:29 AM EDT PHOSPHORUS STAT 02/26/2025 5:29 AM EDT BASIC METABOLIC PANEL STAT 02/26/2025 5:29 AM EDT PROTIME-INR STAT 02/26/2025 5:29 AM EDT CK STAT 02/26/2025 5:29 AM EDT HEPATIC FUNCTION PANEL STAT 02/26/2025 5:29 AM EDT HIGH SENSITIVITY TROPONIN STAT 02/26/2025 5:29 AM EDT FIBRINOGEN STAT 02/26/2025 5:29 AM EDT CBC STAT 02/26/2025 5:29 AM EDT LACTIC ACID STAT 02/26/2025 5:29 AM EDT ECG 12-LEAD (MUSE) STAT 02/26/2025 5: 15 AM EDT from Last 3 Months Results * EKG - scan (03/03/2025 3:46 PM EDT) us Scanning [facility]him SCAN DOCS - NO RESULTS Final Res ult * Rhythm Strips - scan (03/03/2025 3:34 PM EDT) us Scanning [facility]him SCAN DOCS - NO RESULTS Final Res ult * (ABNORMAL) POC Glucose Monitoring Device (03/02/2025 12:25 PM EDT) Only the most recent of20 resultswithin the time period is included. [facility] POC Glucose Monitoring Device 126(H) 70 - 100 mg/dL 03/02/2025 12:25 PM EDT [facility] Blood 03/02/2025 12:2 5 PM EDT 03/02/2025 12:25 PM EDT us Carmela Jernigan MD POINT OF CARE TEST ALEXY MOLINA Final Result [facility] [address] [id number], [facility] * (ABNORMAL) Renal Function Panel w/EGFR (03/02/2025 6:03 AM EDT) Only the most recent of4 resultswithin the time period is included. [facility] Sodium 142 133 - 146 mmol/L 03/02/2025 7:28 AM EDT [facility] Potassium 3.8 3.5 - 5.3 mmol/L 03/02/2025 7:28 AM EDT [facility] Chloride 108 98 - 110 mmol/L 03/02/2025 7:28 AM EDT [facility] CO2 28 21 - 33 mmol/L 03/02/2025 7:28 AM EDT [facility] Anion Gap 6 3 - 16 mmol/L 03/02/2025 7:28 AM EDT [facility] BUN 18 7 - 25 mg/dL 03/02/2025 7:28 AM EDT [facility] Creatinine 0.56(L) 0.60 - 1.30 mg/dL 03/02/2025 7:28 AM EDT [facility] Glucose 149(H) 70 - 100 mg/dL 03/02/2025 7:28 AM EDT [facility] Calcium 7.7(L) 8.6 - 10.3 mg/dL 03/02/2025 7:28 AM EDT [facility] Phosphorus 3.1 2.1 - 4.7 mg/dL 03/02/2025 7:28 AM EDT [facility] Albumin 3.2(L) 3.5 - 5.7 g/dL 03/02/2025 7:28 AM EDT [facility] Osmolality, Calculated 299 278 - 305 mOsm/kg 03/02/2025 7:28 AM EDT [facility] EGFR >90 03/02/2025 7:28 AM EDT [facility] Comment: As of 2021, the estimated [...] 6:03 AM EDT 03/02/2025 6:42 AM EDT us Donna Hernandez MD LAB BLOOD ORDERABLES Fin al Result [facility] [address] * Differential (03/02/2025 6:03 AM EDT) Only the most recent of2 resultswithin the time period is included. Neutrophils Relative 62.1 40.0 - 80.0 % 03/02/2025 7:05 AM EDT [facility] Lymphocytes Relative 26.9 15.0 - 45.0 % 03/02/2025 7:05 AM EDT [facility] Monocytes Relative 9.4 0.0 - 12.0 % 03/02/2025 7:05 AM EDT [facility] Eosinophils Relative 1.3 0.0 - 8.0 % 03/02/2025 7:05 AM EDT [facility] Basophils Relative 0.3 0.0 - 1.0 % 03/02/2025 7:05 AM EDT [facility] nRBC 0 0 - 0 /100 WBC 03/02/2025 7:05 AM EDT [facility] Neutrophils Absolute 2,546 1,520 - 8,640 /uL 03/02/2025 7:05 AM EDT [facility] Lymphocytes Absolute 1,103 570 - 4,860 /uL 03/02/2025 7:05 AM EDT [facility] Monocytes Absolute 385 0 - 1,296 /uL 03/02/2025 7:05 AM EDT [facility] Eosinophils Absolute 53 0 - 864 /uL 03/02/2025 7:05 AM EDT [facility] Basophils Absolute 12 0 - 108 /uL 03/02/2025 7:05 AM EDT [facility] Whole Blood 03/02/2025 6:03 AM EDT 03/02/2025 6:40 AM EDT us Donna Hernandez MD LAB BLOOD ORDERABLES Fin al Result [facility] [address] * (ABNORMAL) CBC (03/02/2025 6:03 AM EDT) Only the most recent of8 resultswithin the time period is included. WBC 4.1 3.8 - 10.8 10E3/uL 03/02/2025 7:05 AM EDT [facility] RBC 2.95(L) 4.20 - 5.80 10E6/uL 03/02/2025 7:05 AM EDT [facility] Hemoglobin 9.0(L) 13.2 - 17.1 g/dL 03/02/2025 7:05 AM EDT [facility] Hematocrit 25.6(L) 38.5 - 50.0 % 03/02/2025 7:05 AM EDT [facility] MCV 86.8 80.0 - 100.0 fL 03/02/2025 7:05 AM EDT [facility] MCH 30.4 27.0 - 33.0 pg 03/02/2025 7:05 AM EDT [facility] MCHC 35.0 32.0 - 36.0 g/dL 03/02/2025 7:05 AM EDT [facility] RDW 15.4(H) 11.0 - 15.0 % 03/02/2025 7:05 AM EDT [facility] Platelets 115(L) 140 - 400 10E3/uL 03/02/2025 7:05 AM EDT [facility] MPV 8.5 7.5 - 11.5 fL 03/02/2025 7:05 AM EDT [facility] Whole Blood 03/02/2025 6:03 AM EDT 03/02/2025 6:40 AM EDT us Donna Hernandez MD LAB BLOOD ORDERABLES Fin al Result Performing Organization Address City/State/[facility] Co de Phone Number [facility] [address] * Magnesium (03/02/2025 6:03 AM EDT) Only the most recent of4 resultswithin the time period is included. Magnesium 1.9 1.5 - 2.5 mg/dL 03/02/2025 7:28 AM EDT [facility] Plasma 03/02/2025 6:03 AM EDT 03/02/2025 6:42 AM EDT us Donna Hernandez MD LAB BLOOD ORDERABLES Fin al Result Performing Organization Address [facility] Co de Phone Number [facility] [address] * Cortisol 60 Min (03/01/2025 3:36 PM EDT) Cortisol, 60 Min (Immunoassay) 16.7 ug/dL 03/01/2025 4:36 PM EDT [facility] Comment: Dirurnal Variation: a.m: 6.7-22.6 ug/dL p.m: 0-10 ug/dL ACTH Stimulation: Over twice (usually 3 to 5 times) basal values Dexamethasone Suppression: Below basal value for the screening, low-dose and high-dose tests Please note: Effective 06/02/14, reference range for this assay has changed. Serum 03/01/2025 3:36 PM EDT 03/01/2025 3:45 PM EDT [facility] - 03/01/2025 4:36 PM EDT Draw baseline prior to med administration, then 30 and 60 minutes post med administration Donna Hernandez MD LAB BLOOD ORDERABLES Fin al Result Performing Organization Address [facility] de Phone Number [facility] [address] [facility]. [address] * Cortisol 30 Min (03/01/2025 3:08 PM EDT) Cortisol, 30 Min (IMMUNOASSAY) 13.1 ug/dL 03/01/2025 3:59 PM EDT [facility] Comment: Dirurnal Variation: a.m: 6.7-22.6 ug/dL p.m: 0-10 ug/dL ACTH Stimulation: Over twice (usually 3 to 5 times) basal values Dexamethasone Suppression: Below basal value for the screening, low-dose and high-dose tests Please note: Effective 06/02/14, reference range for this assay has changed. Serum 03/01/2025 3:08 PM EDT 03/01/2025 3:21 PM EDT Narrative [facility] - 03/01/2025 3:59 PM EDT Draw baseline prior to med administration, then 30 and 60 minutes post med administration us Donna Hernandez MD LAB BLOOD ORDERABLES Fin al Result Performing Organization Address [facility] Co de Phone Number [facility] [address] * Cortisol 0 Min (03/01/2025 2:00 PM EDT) Cortisol, Base (Immunoassay) 6.5 ug/dL 03/01/2025 2:49 PM EDT [facility] Comment: Dirurnal Variation: a.m: 6.7-22.6 ug/dL p.m: 0-10 ug/dL ACTH Stimulation: Over twice (usually 3 to 5 times) basal values Dexamethasone Suppression: Below basal value for the screening, low-dose and high-dose tests Please note: Effective 06/02/14, reference range for this assay has changed. Serum 03/01/2025 2:00 PM EDT 03/01/2025 2:05 PM EDT Narrative [facility] - 03/01/2025 2:49 PM EDT Draw baseline prior to med administration, then 30 and 60 minutes post med administration us Donna Hernandez MD LAB BLOOD ORDERABLES Fin al Result Performing Organization Address [facility] Co de Phone Number [facility] [address] * TSH (03/01/2025 7:06 AM EDT) TSH 1.74 0.45 - 4.12 uIU/mL 03/01/2025 8:36 AM EDT [facility] Serum 03/01/2025 7:06 AM EDT 03/01/2025 7:38 AM EDT us Christie Jimenez MD LAB BLOOD ORDERABLES Final Resul t Performing Organization Address City/[facility] Co de Phone Number [facility] [address] * Cortisol (03/01/2025 7:06 AM EDT) Cortisol (Immunoassay) 7.7 ug/dL 03/01/2025 8:32 AM EDT [facility] Comment: Dirurnal Variation: a.m: 6.7-22.6 ug/dL p.m: 0-10 ug/dL ACTH Stimulation: Over twice (usually 3 to 5 times) basal values Dexamethasone Suppression: Below basal value for the screening, low-dose and high-dose tests Please note: Effective 06/02/14, reference range for this assay has changed. Serum 03/01/2025 7:06 AM EDT 03/01/2025 7:38 AM EDT us Christie Jimenez MD LAB BLOOD ORDERABLES Final Resul t [facility] [address] * UPPER GI ENDOSCOPY (02/28/2025 10:54 AM EDT) 02/28/2025 10:5 4 AM EDT Narrative [facility] - 02/28/2025 11:42 AM EDT [id number] Procedure Date: 02/28/2025 10:54 AM Patient Name: Audelia Patel Date of : 1960 Admit Type: Inpatient Age: 64 Gender: Male Note Status: Finalized Attending MD: VEE CAO MD, [id number] Procedure: Upper GI endoscopy Indications: Hematochezia Providers: [...] verified by the physician, the nurse, the pearl restorer and the autobody technician in the procedure room. Mental Status [...] previously scheduled. Procedure Code(s): --- Professional --- 47005, GC, Esophagogastroduodenoscopy, flexible, transoral; diagnostic, including collection of specimen(s) by brushing or washing, when performed (separate procedure) Diagnosis Code(s): --- Professional --- Z98.0, Intestinal bypass and anastomosis status K92.1, Melena (includes Hematochezia) CPT copyright 2022 [employer]. All rights reserved. The codes documented in this report are preliminary and upon cotton stomper review may be revised to meet current [...] In: 11:16:43 AM Scope Out: 11:23:[address] [place] [address], [facility] us Attending Provider Unknown PROCEDURE/MINOR SURGI ELIAS ORDERABLES Final Result [facility] * Endoscopy, colon, diagnostic (02/27/2025 2:50 PM EDT) 02/27/2025 2:50 PM EDT Narrative [facility] - 02/27/2025 4:52 PM EDT [id number] Procedure Date: 02/27/2025 2:50 PM Patient Name: Audelia Patel Date of : 1960 Admit Type: Inpatient Age: 64 Gender: Male Note Status: Finalized Attending MD: Lucinda Horton MD, [id number] Procedure: Colonoscopy Indications: Hematochezia Patient Profile: 64 [...] verified by the physician, the nurse, the pearl restorer and the autobody technician in the endoscopy suite. Mental Status [...] care. - Clear liquid diet. NPO at AR. - Plan for EGD tomorrow. - Continue present medications. - Await pathology results. - Repeat colonoscopy for screening purposes as an outpatient. Examination today was not adequate for polyp screening / surveillance. Procedure Code(s): --- Professional --- 60509, GC, Colonoscopy, flexible; with biopsy, single or multiple Diagnosis Code(s): --- Professional --- Z98.0, Intestinal bypass and anastomosis status K63.3, Ulcer of intestine K92.1, Melena (includes Hematochezia) CPT copyright 2022 [employer]. All rights reserved. The codes documented in this report are preliminary and upon cotton stomper review may be revised to meet current [...] In: 3:17:54 PM Scope Out: 3:36:[address] [place] [address], [facility] Provider Not In System GI PROCEDURE ORDERABLES F inal Result Performing Organization Address [facility] Co de Phone Number [facility] * Free Calcium, Whole Blood (02/27/2025 8:18 AM EDT) [facility] Free Calcium, WB 4.71 4.50 - 5.30 mg/dL 02/27/2025 8:26 AM EDT [facility] Blood, Arterial 02/27/2025 8 :18 AM EDT 02/27/2025 8:22 AM EDT Tiffanie Zhu MD LAB BLOOD ORDERABLES Final Result Performing Organization Address [facility] Co de Phone Number [facility] [address] [place] [address] * (ABNORMAL) Hemoglobin and Hematocrit, Blood (02/27/2025 8:18 AM EDT) Only the most recent of5 resultswithin the time period is included. Pathologist [facility] Hemoglobin 9.6(L) 13.2 - 17.1 g/dL 02/27/2025 8:34 AM EDT [facility] Hematocrit 26.9(L) 38.5 - 50.0 % 02/27/2025 8:34 AM EDT [facility] MCV 85.3 80.0 - 100.0 fL 02/27/2025 8:34 AM EDT [facility] MCH 30.5 27.0 - 33.0 pg 02/27/2025 8:34 AM EDT [facility] MCHC 35.7 32.0 - 36.0 g/dL 02/27/2025 8:34 AM EDT [facility] RDW 15.9(H) 11.0 - 15.0 % 02/27/2025 8:34 AM EDT [facility] Whole Blood 02/27/2025 8:18 AM EDT 02/27/2025 8:28 AM EDT Tiffanie Zhu MD LAB BLOOD ORDERABLES Final Result Performing Organization Address City/State/[facility] Co de Phone Number [facility] [address] * CONSTANTINE Rhythm Strip - Scan (02/27/2025 7:41 AM EDT) Only the most recent of2 resultswithin the time period is included. us Scanning Uchhim SCAN DOCS - NO RESULTS Final Res ult * (ABNORMAL) Hemoglobin A1c (02/27/2025 4:02 AM [...] MD LAB BLOOD ORDERABLES Final Re sult [facility] [address] [place] [address], [facility] * Surgical Pathology Exam (02/27/2025 12:00 AM EDT) 02/27/2025 02/27/2025 Narrative [facility] - 02/27/2025 12:00 AM EDT CASE: [id number] PATIENT: AUDELIA PATEL Clinical History: Colonoscopy w/ bx Pre-Operative Diagnosis: Lower GI bleed Post-Operative Diagnosis: Ileitis Specimen(s) Submitted: A. Ileum bxs, ileitis CPT Code(s): 00537 X 1 Additional Information: FINAL DIAGNOSIS: Ileum, biopsy: - Patchy active ileitis. - Mucosal architecture is relatively preserved. - Negative for granuloma, dysplasia, or malignancy. KENJI/rr Gross Description: Received in formalin, labeled with the patient's name Audelia Patel and ileum biopsies is a 0.5 x 0.2 x 0.2 cm montes-pink irregular soft tissue fragment. The specimen is filtered into a biopsy bag and entirely submitted in cassette [id number]. (HIRAM Crabtree (ASCP)/ab) Microscopic Description: Two HE stained slides are examined. KENJI/yuliet I, the attending pathologist, have personally reviewed all prosector/resident work and pathology slides to determine final diagnosis. Final Diagnosis performed by MYRANDA CORCORAN MD Pathologist Electronically signed 03/03/2025 12:46:16 PM The Pathologist signing this report is located at [facility], [address] [place] [address], [place], [place], [facility], , CLIA ID: [id number] us Lucinda Horton MD PATHOLOGY/CYTOLOGY ORDERABLES Fi nal Result [facility] * Lactic Acid, STAT (02/26/2025 8:22 PM EDT) Only the most recent of2 resultswithin the time period is included. Lactate 0.7 0.5 - 2.2 mmol/L 02/26/2025 9:20 PM EDT [facility] Plasma 02/26/2025 8:22 PM EDT 02/26/2025 8:57 PM EDT Tiffanie Zhu MD LAB BLOOD ORDERABLES Final Result Performing Organization Address City/[facility] Co de Phone Number [address] * Prealbumin (02/26/2025 8:22 PM EDT) Pathologist [facility] Prealbumin 19.4 17.0 - 34.0 mg/dL 02/26/2025 9:19 PM EDT [facility] Serum 02/26/2025 8:22 PM EDT 02/26/2025 8:57 PM EDT Jayme Judd MD LAB BLOOD ORDERABLES Final Re sult Performing Organization Address City/[facility]/ZIP Co de Phone Number [address] * (ABNORMAL) TEG-Standard Global Hemostasis (Rapid TEG with Heparin Effect, Contains a Baseline TEG) (02/26/2025 11:23 AM EDT) Only the most recent of2 resultswithin the time period is included. Citrated Kaolin Reaction Time (TEGHEPARINASE) 4.6 4.6 - 9.1 minutes 02/26/2025 12:05 PM EDT [facility] Citrated Rapid Teg Maximum Amplitude (TEGHEPARINASE) 54.9 52.0 - 70.0 mm 02/26/2025 12:05 PM EDT [facility] Citrated Functional Fibrinogen Maximum Amplitude (TEGHEPARINASE) 17.6 15.0 - 32.0 mm 02/26/2025 12:05 PM EDT [facility] Citrated Kaolin W/Heparinase Reaction Time (TEGHEPARINASE) 3.9(L) 4.3 - 8.3 minutes 02/26/2025 12:05 PM EDT [facility] Citrated Kaolin K-Time (TEGHEPARINASE) 1.3(A) 0.8 - 2.1 minutes 02/26/2025 12:05 PM EDT [facility] Citrated Kaolin Angle (TEGHEPARINASE) 72.9(A) 63.0 - 78.0 degrees 02/26/2025 12:05 PM EDT [facility] Citrated Kaolin Maximum Amplitude (TEGHEPARINASE) 57.3 52.0 - 69.0 mm 02/26/2025 12:05 PM EDT [facility] Citrated Functional Fibrinogen- Fibrinogen Level (TEGHEPARINASE) 321.2 278.0 - 581.0 mg/dL 02/26/2025 12:05 PM EDT [facility] Whole Blood (Citrate) 02/26/2025 11:23 AM EDT 02/26/2025 11:29 AM EDT Piedad Gu MD LAB BLOOD ORDERABLES Final Resu lt [facility] [address] [place] [address], [facility] * (ABNORMAL) Protime-INR (02/26/2025 11:23 AM EDT) Only the most recent of2 resultswithin the time period is included. Protime 15.4(H) 12.1 - 15.1 seconds 02/26/2025 11:46 AM EDT [facility] INR 1.2(H) 0.9 - 1.1 02/26/2025 11:46 AM EDT [facility] Comment: RECOMMENDED THERAPEUTIC RANGES USING INR : Stable oral anticoagulant therapy: 2.0 - 3.0 Mechanical prosthetic heart valve: 2.5 - 3.5 Recurrent acute myocardial infarction: 2.5 - 3.5 Plasma 02/26/2025 11:2 3 AM EDT 02/26/2025 11:29 AM EDT Piedad Gu MD LAB BLOOD ORDERABLES Final Resu lt Performing Organization Address City/[facility]/ZIP Co de Phone Number [facility] [address] [facility]. [address] * Blood culture-Peripheral (Blood) (02/26/2025 6:11 AM EDT) Only the most recent of2 resultswithin the time period is included. Culture Result No Growth After 5 Days [facility] Blood BLOOD SPECIMEN / Unknown 02/26/2025 6:11 AM EDT 02/26/2025 10:09 AM EDT Jayme Judd MD MICROBIOLOGY - GENERAL ORDERA BLES Final Result Performing Organization Address City/[facility] Co de Phone Number [facility] [address] * X-ray Portable Chest (02/26/2025 5:44 AM [...] soft tissues: No acute abnormalities. Procedure Note Mikey HernandeztDO - 02/26/2025 EXAM: XR PORTABLE CHEST INDICATION: [...] - 5.40 mg/dL 02/26/2025 6:28 AM EDT [facility] Comment:Free calcium levels vary inversely with pH by approximately 5% for each 0.1 unit of pH change. Assay results have been normalized to pH = 7.40. Serum 02/26/2025 5:30 AM EDT 02/26/2025 5:45 AM EDT Narrative [facility] - 02/26/2025 6:28 AM EDT This test has been developed and its performance characteristics determined by [facility] which is certified under the Clinical Laboratory Improvement Amendment of 1988 (CLIA-88) to perform high complexity testing. The test has not been cleared or approved by the US Food and Drug Administration (FDA). The FDA has determined that such clearance is not necessary. The test should be used for clinical purposes and is not regarded as investigational. us Piedad Gu MD LAB BLOOD ORDERABLES Final Resu lt [facility] [address] [facility]. [address] * ABO/Rh (02/26/2025 5:30 AM EDT) ABO Grouping A 02/26/2025 6:31 AM EDT [facility] Rh Type Positive 02/26/2025 6:31 AM EDT [facility] Blood 02/26/2025 5:30 AM EDT 02/26/2025 5:41 AM EDT Jayme Judd MD BLOOD BANK TEST ORDERABLES Fi nal Result Performing Organization Address City/[facility]/ZIP Co de Phone Number [facility] [address] [place] [address]. [address] * Antibody Screen (02/26/2025 5:30 AM EDT) Antibody Screen Negative 02/26/2025 6:25 AM EDT [facility] Blood 02/26/2025 5:30 AM EDT 02/26/2025 5:41 AM EDT Narrative [facility] - 02/26/2025 6:31 AM EDT Testing performed by [facility] Jayme Judd MD BLOOD BANK TEST ORDERABLES Fi nal Result Performing Organization Address City/[facility]/ZIP Co de Phone Number [facility] [address] [place] [address]. [address] * High Sensitivity Troponin (02/26/2025 5:29 AM EDT) High Sensitivity Troponin 4 0 - 20 ng/L 02/26/2025 7:22 AM EDT [facility] Serum 02/26/2025 5:29 AM EDT 02/26/2025 5:45 AM EDT Jayme Judd MD LAB BLOOD ORDERABLES Final Re sult Performing Organization Address [facility] de Phone Number [facility] [address] [facility]. [address] * (ABNORMAL) Hepatic Function Panel (02/26/2025 5:29 AM EDT) Total Bilirubin 0.8 0.0 - 1.5 mg/dL 02/26/2025 7:13 AM EDT [facility] Bilirubin, Direct 0.22 0.00 - 0.40 mg/dL 02/26/2025 7:13 AM EDT [facility] AST 25 13 - 39 U/L 02/26/2025 7:13 AM EDT [facility] ALT 28 7 - 52 U/L 02/26/2025 7:13 AM EDT [facility] Alkaline Phosphatase 41 36 - 125 U/L 02/26/2025 7:13 AM EDT [facility] Total Protein 5.4(L) 6.4 - 8.9 g/dL 02/26/2025 7:13 AM EDT [facility] Albumin 3.7 3.5 - 5.7 g/dL 02/26/2025 7:13 AM EDT [facility] Bilirubin, Indirect 0.58 0.00 - 1.10 mg/dL 02/26/2025 7:13 AM EDT [facility] Plasma 02/26/2025 5:29 AM EDT 02/26/2025 5:45 AM EDT Jayme Judd MD LAB BLOOD ORDERABLES Final Re sult Performing Organization Address [facility] Co de Phone Number [facility] [address] [place] [facility]. [address] * Fibrinogen (02/26/2025 5:29 AM EDT) Fibrinogen 241 218 - 406 mg/dL 02/26/2025 6:03 AM EDT [facility] Plasma 02/26/2025 5:29 AM EDT 02/26/2025 5:36 AM EDT Jayme Judd MD LAB BLOOD ORDERABLES Final Re sult [facility] [address] [facility] * Phosphorus (02/26/2025 5:29 AM EDT) Phosphorus 3.9 2.1 - 4.7 mg/dL 02/26/2025 7:13 AM EDT [facility] Plasma 02/26/2025 5:29 AM EDT 02/26/2025 5:45 AM EDT Jayme Judd MD LAB BLOOD ORDERABLES Final Re sult Performing Organization Address [facility] Co de Phone Number [facility] [address] [facility] * CK (02/26/2025 5:29 AM EDT) Total CK 104 30 - 223 U/L 02/26/2025 7:13 AM EDT [facility] Plasma 02/26/2025 5:29 AM EDT 02/26/2025 5:45 AM EDT Jayme Judd MD LAB BLOOD ORDERABLES Final Re sult Performing Organization Address [facility] Co de Phone Number [facility] [address] [facility] * (ABNORMAL) Calcium (02/26/2025 5:29 AM EDT) Calcium 8.0(L) 8.6 - 10.3 mg/dL 02/26/2025 7:13 AM EDT [facility] Plasma 02/26/2025 5:29 AM EDT 02/26/2025 5:45 AM EDT Jayme Judd MD LAB BLOOD ORDERABLES Final Re sult [facility] [address] [place] [address], [facility] * (ABNORMAL) Basic metabolic panel (02/26/2025 5:29 AM EDT) Sodium 140 133 - 146 mmol/L 02/26/2025 7:13 AM EDT [facility] Potassium 4.2 3.5 - 5.3 mmol/L 02/26/2025 7:13 AM EDT [facility] Chloride 106 98 - 110 mmol/L 02/26/2025 7:13 AM EDT [facility] CO2 29 21 - 33 mmol/L 02/26/2025 7:13 AM EDT [facility] Anion Gap 5 3 - 16 mmol/L 02/26/2025 7:13 AM EDT [facility] BUN 37(H) 7 - 25 mg/dL 02/26/2025 7:13 AM EDT [facility] Creatinine 0.82 0.60 - 1.30 mg/dL 02/26/2025 7:13 AM EDT [facility] Glucose 84 70 - 100 mg/dL 02/26/2025 7:13 AM EDT [facility] Calcium 8.0(L) 8.6 - 10.3 mg/dL 02/26/2025 7:13 AM EDT [facility] Osmolality, Calculated 298 278 - 305 mOsm/kg 02/26/2025 7:13 AM EDT [facility] EGFR >90 02/26/2025 7:13 AM EDT [facility] Comment: As of 2021, the estimated [...] MD LAB BLOOD ORDERABLES Final Re sult [facility] [address] [place] [address], [facility] * ECG 12 lead (MUSE) (02/26/2025 5:15 AM EDT) 02/26/2025 5:15 AM EDT Narrative MUSE - 02/26/2025 5:32 PM EDT Ventricular Rate: 55 BPM Atrial Rate: 55 BPM P-R Interval: 164 ms QRS Duration: 92 ms QT: 464 ms QTc: 443 ms P [place]: 78 degrees R [place]: 61 degrees T [place]: 65 degrees Diagnosis Line: SINUS BRADYCARDIA ^ OTHERWISE NORMAL ECG ^ No previous ECGs available ^ Confirmed by MD MC JAMES ([id number]) on 02/26/2025 5:32:12 PM us Jayme Judd MD ECG ORDERABLES Final Result MUSE from Last 3 Months Insurance BLUE MEDICARE ADVANTAGE Advance Directives For more information, please contact: [phone] * Full Code (Latest Code Status on File) Date Activated Date Inactivated Comments 02/26/2025 4:51 AM 03/02/2025 6:54 PM Care Teams Art Director Relationship Specialty Start Date End Date Unknown, Attending Provider PCP - General 02/25/25
== END 2025-04-08 23:59 ==
LOC: LAB.DROPOF 04-09 10:27
PROVIDERS: PCP Student in an Organized Health Care Education/Training Program; Visit Provider Family Medicine
DX: K92.2 Gastrointestinal hemorrhage, unspecified (principal)
CPT/HCPCS: 80053; 85025